=== PATIENT | female | born 1960 | race African-American/Black ===

== ENCOUNTER 2017-11-23 08:37 | Emergency (ER) | payer OTHER ==
[2017-11-23] MEDS ORDERED: NORMAL SALINE 1000 ML 1,000 ML IV ONE ×3 (09:07→11:30)
[2017-11-23] MEDS ORDERED: MORPHINE SULFATE 10 MG/ML INJ IV ONE (09:07)
--- NOTE | 2017-11-23 09:10 | ER Document Report ---
ED General - General Chief Complaint: Sickle Cell Crisis Stated Complaint: LEFT LEG PAIN Time Seen by Provider: 11/23/17 09:02 Mode of Arrival: Ambulatory Information source: Patient Notes: Patient is a 57-year-old female who presents with chief complaint of possible sickle cell crisis. Patient reports that she started having pain in her left leg yesterday and states this is how her sickle cell crisis typically starts. Patient reports that she usually goes to her physician's office to have IV fluids. Patient denies any other complaints, denies any chest pain, nausea, vomiting or shortness of breath. TRAVEL OUTSIDE OF THE [place] IN LAST 30 DAYS: No - Related Data Allergies/Adverse Reactions: No Known Allergies Allergy (Verified 11/23/17 08:38) Past Medical History - General Information source: Patient - Social History Smoking Status: Never Smoker Frequency of alcohol use: None Drug Abuse: None Family History: Reviewed & Not Pertinent - Medical History Medical History: Other - Sickle cell - Past Medical History Cardiac Medical History: Denies: Hx Pulmonary Embolism Pulmonary Medical History: Reports: Hx Pneumonia Denies: Hx Asthma, Hx Bronchitis, Hx COPD, Hx Respiratory Failure, Hx Sleep Apnea, Hx Tuberculosis Renal/ Medical History: Denies: Hx End Stage Renal Disease, Hx Kidney Stones, Hx Peritoneal Dialysis Malignancy Medical History: Denies: Hx Leukemia, Hx Lung Cancer Musculoskeletal Medical History: Denies Hx Arthritis, Denies Hx Fibromyalgia, Denies Hx Muscular Dystrophy Traumatic Medical History: Denies: Hx Fractures Infectious Medical History: Denies: Hx HIV Past Surgical History: Reports: Hx Hysterectomy, Hx Tubal Ligation. Denies: Hx Appendectomy, Hx Bowel Surgery, Hx Section, Hx Cholecystectomy, Hx Coronary Artery Bypass Graft, Hx Gastric Bypass Surgery, Hx Herniorrhaphy, Hx Mastectomy, Hx Pacemaker, Hx Tonsillectomy - Immunizations Immunizations up to date: No Hx Diphtheria, Pertussis, Tetanus Vaccination: Yes Review of Systems - Review of Systems Constitutional: No symptoms reported EENT: No symptoms reported Cardiovascular: No symptoms reported Respiratory: No symptoms reported Gastrointestinal: No symptoms reported Genitourinary: No symptoms reported Female Genitourinary: No symptoms reported Musculoskeletal: See HPI Skin: No symptoms reported Hematologic/Lymphatic: No symptoms reported Neurological/Psychological: No symptoms reported Physical Exam - Vital signs Vitals: Temp Pulse Resp BP Pulse Ox 98.1 F 66 16 112/77 97 11/23/17 08:52 09/13/18 08:52 11/23/17 08:52 11/23/17 08:52 11/23/17 08:52 - Notes Notes: PHYSICAL EXAMINATION: GENERAL: Well-appearing, well-nourished and in no acute distress. HEAD: Atraumatic, normocephalic. EYES: Pupils equal round and reactive to light, extraocular movements intact, conjunctiva are normal. ENT: Nares patent, oropharynx clear without exudates. Moist mucous membranes. NECK: Normal range of motion, supple without lymphadenopathy LUNGS: Breath sounds clear to auscultation bilaterally and equal. No wheezes rales or rhonchi. HEART: Regular rate and rhythm without murmurs ABDOMEN: Soft, nontender, nondistended abdomen. No guarding, no rebound. No masses appreciated. Female : deferred Musculoskeletal: Normal range of motion, no pitting or edema. No cyanosis. NEUROLOGICAL: Cranial nerves grossly intact. Normal speech, normal gait. Normal sensory, motor exams PSYCH: Normal mood, normal affect. SKIN: Warm, Dry, normal turgor, no rashes or lesions noted. Course - Re-evaluation Re-evalutation: 11/23/17 09:09 Patient is alert, oriented and in no acute distress. Will order IV fluids as well as well pain medication. 11/23/17 13:31 Patient reports she is feeling much improved after administration of IV fluids and IV pain medications. Reticulocyte count was 3.69, absolute reticulocytes are 0.151. Patient will be discharged home at this time. - Vital Signs Vital signs: Temp Pulse Resp BP Pulse Ox 98.1 F 66 14 118/73 100 11/23/17 08:52 11/23/17 08:52 11/23/17 12:00 11/23/17 12:00 11/23/17 12:00 - Laboratory Result Diagrams: 11/23/17 09:45 11/23/17 09:45 Laboratory results interpreted by me: 11/23/17 09:45 Hgb 11.3 L Hct 32.6 L RDW 18.5 H Retic Count (auto) 3.69 H Absolute Retic 0.151 H Discharge - Discharge Clinical Impression: Sickle cell crisis Condition: Stable Disposition: HOME, SELF-CARE Additional Instructions: Sickle Cell Crisis You have "sickle cell crisis." Sickle cell disease is caused by abnormal hemoglobin. This hemoglobin can deform red blood cells into a sickle shape. These abnormal blood cells can block blood vessels. This causes the pain of sickle cell crisis. Sickle cell crisis can occur any time. But attacks are more likely with acute infection, dehydration, or altitude change. A crisis usually causes pain in the legs, back, abdomen, and chest. Sometimes the pain may ease and return later. The usual treatment is oxygen, pain medication, IV fluids, and treatment of infection. Attacks may take a couple of days to resolve. Return if the pain becomes more severe, or if there are new symptoms. Referrals: AUSTIN HYDE MD [Primary Care Provider] - Follow up as needed
[2017-11-23 09:59] LABS: ABSOLUTE BASOPHILS # (AUTO) 0.1 10^3/uL (0.0-0.2); ABSOLUTE EOSINOPHILS # (AUTO) 0.1 10^3/uL (0.0-0.6); ABSOLUTE LYMPHOCYTES (AUTO) 2.4 10^3/uL (0.5-4.7); ABSOLUTE MONOCYTES (AUTO) 0.4 10^3/uL (0.1-1.4); ABSOLUTE NEUT (AUTO) 3.8 10^3/uL (1.7-8.2); ABSOLUTE RETICS # 0.151 10^6/uL (0.028-0.122); BASOPHILS % (AUTO) 1.4 % (0-2); EOSINOPHILS % (AUTO) 2.1 % (0-6); HEMATOCRIT 32.6 % (36.0-47.0); HEMOGLOBIN 11.3 g/dL (12.0-15.5); LYMPHOCYTES % (AUTO) 34.8 % (13-45); MEAN CORPUSCULAR HEMOGLOBIN 27.6 pg (27.0-33.4); MEAN CORPUSCULAR HGB CONC 34.7 g/dL (32.0-36.0); MEAN CORPUSCULAR VOLUME 80 fl (80-97); MONOCYTES % (AUTO) 6.3 % (3-13); PLATELET COUNT 201 10^3/uL (150-450); RED BLOOD COUNT 4.09 10^6/uL (3.72-5.28); RED CELL DISTRIBUTION WIDTH 18.5 % (11.5-14.0); RETICULOCYTE COUNT (AUTO) 3.69 % (0.66-2.85); SEGMENTED NEUTROPHILS % (AUTO) 55.4 % (42-78); TOTAL CELLS COUNTED % (AUTO) 100 %; WHITE BLOOD COUNT 6.8 10^3/uL (4.0-10.5)
[2017-11-23 10:15] LABS: ALANINE AMINOTRANSFERASE 24 U/L (9-52); ALKALINE PHOSPHATASE 60 U/L (38-126); ANION GAP 7 (5-19); ASPARTATE AMINO TRANSFERASE 16 U/L (14-36); BILIRUBIN,DIRECT 0.3 mg/dL (0.0-0.4); BILIRUBIN,TOTAL 1.2 mg/dL (0.2-1.3); BLOOD UREA NITROGEN 10 mg/dL (7-20); CALCIUM 9.2 mg/dL (8.4-10.2); CARBON DIOXIDE 29 mmol/L (22-30); CHLORIDE 105 mmol/L (98-107); GLUCOSE 98 mg/dL (75-110); SODIUM 141.1 mmol/L (137-145); TOTAL PROTEIN 6.5 g/dL (6.3-8.2)
[2017-11-23] MEDS ORDERED: NORMAL SALINE 100 ML IV PRN (11:30)
[2017-11-23] MEDS ORDERED: HYDROMORPHONE HCL INJ/PF 2 MG/ML AMPULE IV ONE (12:00)
[2017-11-23 12:55] VITALS: BP 118/73
== END 2017-11-23 13:41 | disposition home or self-care (01) ==
LOC: ER 08:37
DX: D57.00 Hb-SS disease with crisis, unspecified (principal); Z95.1 Presence of aortocoronary bypass graft; Z98.84 Bariatric surgery status; Z95.0 Presence of cardiac pacemaker
CPT/HCPCS: 99284; 96361; 96374; 96375; 36415; 85025; 85045; 80053; J2270; J1170

== ENCOUNTER 2019-03-03 13:47 | Inpatient (IN) | payer OTHER ==
[2019-03-03] MEDS ORDERED: NORMAL SALINE 1000 ML 1,000 ML IV ONE ×2 (14:32→15:51)
[2019-03-03] MEDS ORDERED: HYDROMORPHONE HCL INJ/PF 2 MG/ML AMPULE IV ONE ×2 (14:32→16:02)
--- NOTE | 2019-03-03 14:33 | ER Document Report ---
ED Medical Screen (RME) - General Chief Complaint: Sickle Cell Crisis Stated Complaint: PAIN ALL OVER Time Seen by Provider: 03/03/19 14:29 Primary Care Provider: AUSTIN HYDE MD [Primary Care Provider] - Follow up as needed Information source: Patient Notes: Patient presents complaining of left lower extremity pain that started yesterday. Patient feels as though she is having a sickle cell pain crisis. Patient took pain medicine at 730 this morning without improvement of her symptoms. Patient denies any other significant medical history. I have greeted and performed a rapid initial assessment of this patient. A comprehensive ED assessment and evaluation of the patient, analysis of test results and completion of the medical decision making process will be conducted by additional ED providers. TRAVEL OUTSIDE OF THE [place] IN LAST 30 DAYS: No - Related Data Allergies/Adverse Reactions: No Known Allergies Allergy (Verified 03/03/19 14:28) Past Medical History - Past Medical History Cardiac Medical History: Denies: Hx Pulmonary Embolism Pulmonary Medical History: Reports: Hx Pneumonia Denies: Hx Asthma, Hx Bronchitis, Hx COPD, Hx Respiratory Failure, Hx Sleep Apnea, Hx Tuberculosis Renal/ Medical History: Denies: Hx End Stage Renal Disease, Hx Kidney Stones, Hx Peritoneal Dialysis Malignancy Medical History: Denies: Hx Leukemia, Hx Lung Cancer Musculoskeltal Medical History: Denies Hx Arthritis, Denies Hx Fibromyalgia, Denies Hx Muscular Dystrophy Traumatic Medical History: Denies: Hx Fractures Infectious Medical History: Denies: Hx HIV Past Surgical History: Reports: Hx Hysterectomy, Hx Tubal Ligation. Denies: Hx Appendectomy, Hx Bowel Surgery, Hx Section, Hx Cholecystectomy, Hx Coronary Artery Bypass Graft, Hx Gastric Bypass Surgery, Hx Herniorrhaphy, Hx Mastectomy, Hx Pacemaker, Hx Tonsillectomy - Immunizations Immunizations up to date: No Hx Diphtheria, Pertussis, Tetanus Vaccination: Yes Physical Exam - Vital signs Vitals: Temp Pulse Resp BP Pulse Ox 98.4 F 73 16 140/81 H 98 03/03/19 13:54 03/03/19 13:54 03/03/19 13:54 03/03/19 13:54 03/03/19 13:54 - General General appearance: Alert, Anxious Notes: Left lower extremity tenderness Course - Vital Signs Vital signs: Temp Pulse Resp BP Pulse Ox 98.4 F 73 16 140/81 H 98 03/03/19 13:54 03/03/19 13:54 03/03/19 13:54 03/03/19 13:54 03/03/19 13:54 Doctor's Discharge - Discharge Referrals: AUSTIN HYDE MD [Primary Care Provider] - Follow up as needed
[2019-03-03 15:27] LABS: ABSOLUTE BASOPHILS # (AUTO) 0.1 10^3/uL (0.0-0.2); ABSOLUTE EOSINOPHILS # (AUTO) 0.2 10^3/uL (0.0-0.6); ABSOLUTE LYMPHOCYTES (AUTO) 3.4 10^3/uL (0.5-4.7); ABSOLUTE MONOCYTES (AUTO) 0.7 10^3/uL (0.1-1.4); ABSOLUTE NEUT (AUTO) 7.4 10^3/uL (1.7-8.2); ABSOLUTE RETICS # 0.145 10^6/uL (0.028-0.122); BASOPHILS % (AUTO) 0.6 % (0-2); EOSINOPHILS % (AUTO) 1.5 % (0-6); HEMATOCRIT 33.4 % (36.0-47.0); HEMOGLOBIN 11.4 g/dL (12.0-15.5); LYMPHOCYTES % (AUTO) 29.1 % (13-45); MEAN CORPUSCULAR HEMOGLOBIN 27.1 pg (27.0-33.4); MEAN CORPUSCULAR VOLUME 80 fl (80-97); MONOCYTES % (AUTO) 5.6 % (3-13); PLATELET COUNT 215 10^3/uL (150-450); RED CELL DISTRIBUTION WIDTH 17.8 % (11.5-14.0); RETICULOCYTE COUNT (AUTO) 3.45 % (0.66-2.85); SEGMENTED NEUTROPHILS % (AUTO) 63.2 % (42-78); TOTAL CELLS COUNTED % (AUTO) 100 %; WHITE BLOOD COUNT 11.7 10^3/uL (4.0-10.5)
[2019-03-03 15:32] LABS: ALBUMIN 4.6 g/dL (3.5-5.0); ALKALINE PHOSPHATASE 80 U/L (38-126); ANION GAP 11 (5-19); ASPARTATE AMINO TRANSFERASE 24 U/L (14-36); BILIRUBIN,DIRECT 0.1 mg/dL (0.0-0.4); BILIRUBIN,TOTAL 1.5 mg/dL (0.2-1.3); BLOOD UREA NITROGEN 16 mg/dL (7-20); CALCIUM 9.9 mg/dL (8.4-10.2); CARBON DIOXIDE 28 mmol/L (22-30); CHLORIDE 100 mmol/L (98-107); GLUCOSE 91 mg/dL (75-110); POTASSIUM 3.8 mmol/L (3.6-5.0); TOTAL PROTEIN 7.9 g/dL (6.3-8.2)
[2019-03-03] MEDS ORDERED: MORPHINE SULFATE 10 MG/ML INJ IV ONE ×4 (16:14→23:03)
--- NOTE | 2019-03-03 16:23 | ER Document Report ---
ED General - General TRAVEL OUTSIDE OF THE [place] IN LAST 30 DAYS: No <ABDOULAYE BURLESON - Last Filed: 03/03/19 23:04> <TERA NOLAN - Last Filed: 03/04/19 02:57> - General Chief Complaint: Leg Pain Stated Complaint: PAIN ALL OVER Time Seen by Provider: 03/03/19 14:29 Primary Care Provider: AUSTIN HYDE MD [Primary Care Provider] - Follow up as needed Notes: 58-year-old female with history of sickle cell presents with left lower leg pain that started last night. Patient has a history of sickle cell and states this feels like her usual sickle cell pain. Patient states she has not had a flareup in 3 years. Patient has tried to manage it at home with her home pain medication however it got worse today. Patient denies any chest pain, shortness of breath, fever. (ABDOULAYE BURLESON) - Related Data Allergies/Adverse Reactions: No Known Allergies Allergy (Verified 03/03/19 14:28) Past Medical History - General Information source: Patient - Social History Smoking Status: Never Smoker Family History: Reviewed & Not Pertinent Patient has suicidal ideation: No Patient has homicidal ideation: No - Past Medical History Cardiac Medical History: Denies: Hx Pulmonary Embolism Pulmonary Medical History: Reports: Hx Pneumonia Denies: Hx Asthma, Hx Bronchitis, Hx COPD, Hx Respiratory Failure, Hx Sleep Apnea, Hx Tuberculosis Renal/ Medical History: Denies: Hx End Stage Renal Disease, Hx Kidney Stones, Hx Peritoneal Dialysis Malignancy Medical History: Denies: Hx Leukemia, Hx Lung Cancer Musculoskeletal Medical History: Denies Hx Arthritis, Denies Hx Fibromyalgia, Denies Hx Muscular Dystrophy Traumatic Medical History: Denies: Hx Fractures Infectious Medical History: Denies: Hx HIV Past Surgical History: Reports: Hx Hysterectomy, Hx Tubal Ligation. Denies: Hx Appendectomy, Hx Bowel Surgery, Hx Section, Hx Cholecystectomy, Hx Coronary Artery Bypass Graft, Hx Gastric Bypass Surgery, Hx Herniorrhaphy, Hx Mastectomy, Hx Pacemaker, Hx Tonsillectomy - Immunizations Immunizations up to date: No Hx Diphtheria, Pertussis, Tetanus Vaccination: Yes <ABDOULAYE BURLESON - Last Filed: 03/03/19 23:04> Review of Systems <ABDOULAYE BURLESON - Last Filed: 03/03/19 23:04> - Review of Systems Notes: Constitutional: Negative for fever. HENT: Negative for sore throat. Eyes: Negative for visual changes. Cardiovascular: Negative for chest pain. Respiratory: Negative for shortness of breath. Gastrointestinal: Negative for abdominal pain, vomiting or diarrhea. Genitourinary: Negative for dysuria. Musculoskeletal: Positive for left leg pain. Negative for back pain. Skin: Negative for rash. Neurological: Negative for headaches, weakness or numbness. 10 point ROS negative except as marked above and in HPI. (ABDOULAYE BURLESON) Physical Exam <ABDOULAYE BURLESON - Last Filed: 03/03/19 23:04> - Vital signs Vitals: Temp Pulse Resp BP Pulse Ox 98.4 F 73 16 140/81 H 98 03/03/19 13:54 03/03/19 13:54 03/03/19 13:54 03/03/19 13:54 03/03/19 13:54 - Notes Notes: GENERAL: Well-appearing, well-nourished and uncomfortable HEAD: Atraumatic, normocephalic. EYES: Extraocular movements intact, sclera anicteric, conjunctiva are normal. NECK: Normal range of motion, supple without lymphadenopathy or JVD. LUNGS: Breath sounds clear to auscultation bilaterally and equal. No wheezes rales or rhonchi. HEART: Regular rate and rhythm without murmurs, rubs or gallops. EXTREMITIES: Normal range of motion, no pitting or edema. No clubbing or cyanosis. Left lower extremity: normal ROM, no swelling, distal pedal pulses 2+. No erythema. Not hot to touch. NEUROLOGICAL: Cranial nerves II through XII grossly intact. Normal speech, normal gait. PSYCH: Normal mood, normal affect. SKIN: Warm, Dry, normal turgor, no rashes or lesions noted. (ABDOULAYE BURLESON) Course - Laboratory Result Diagrams: 03/03/19 15:00 03/03/19 15:00 <ABDOULAYE BURLESON - Last Filed: 03/03/19 23:04> - Laboratory Result Diagrams: 03/03/19 15:00 03/03/19 15:00 <TERA NOLAN - Last Filed: 03/04/19 02:57> - Re-evaluation Re-evalutation: 03/03/19 58-year-old female with history of sickle cell presents for left lower leg pain that she says is consistent with her usual sickle cell pain. Patient tried her home pain medication without relief. Patient states last flareup was 3 years ago. Patient denies any chest pain, dyspnea, fever. Low suspicion for acute chest syndrome. Patient does not have any abdominal pain. Patient does not look pale or appear to be in shock. Patient has no signs of stroke. No signs of sepsis. Patient is nontoxic, well-appearing. Patient is afebrile. CBC shows a mild like leukocytosis of 11.7, mild anemia, hemoglobin of 11.4, retake count mildly elevated at 3.45 however this is not the highest that the patient has had here at [facility]. Patient's CMP is within normal limits. Fluid and Dilaudid were ordered out in triage. Patient states that the Dilaudid does not usually help and is requesting morphine instead. Another liter bolus was ordered and will reassess. 03/03/19 23:04 Discussed with pt possible admission for observation vs discharge home. Pt is currently receiving 3rd liter of IV fluids. Pt states she does not want to be admitted. Requesting another dose of morphine. Will reassess after pt finished with 3rd liter and receiving morphine. Pt also states her mouth is dry. Pt to be given PO fluids. (ABDOULAYE BURLESON) 03/04/19 02:55 Nurses inform me that the patient is still here. Unfortunately I think there was a miscommunication in regards to this patient. I did evaluate her and discussed with her at bedside, she states that she keeps having pain beyond her norm and she cannot get comfortable, this is mainly in her left leg. She states she has not needed admission for sickle cell pain crisis in 4 years and she was trying to go home but she simply cannot get comfortable and she was wondering if she could be admitted. She has had multiple rounds of pain medication and IV fluids. Will discuss with her provider. I spoke with Dr. Gerber, on-call for Dr. Arndt, he accepts the patient for admission to the hospital. (TERA NOLAN) - Vital Signs Vital signs: Temp Pulse Resp BP Pulse Ox 100.4 F 86 16 120/64 100 03/04/19 01:47 03/04/19 01:47 03/04/19 01:47 03/04/19 01:47 03/04/19 01:47 - Laboratory Laboratory results interpreted by me: 03/03/19 03/03/19 15:00 15:00 WBC 11.7 H Hgb 11.4 L Hct 33.4 L RDW 17.8 H Reticulocyte # 0.145 H Retic Count (auto) 3.45 H Total Bilirubin 1.5 H Discharge <ABDOULAYE BURLESON - Last Filed: 03/03/19 23:04> - Discharge Admitting Provider: Buzz - [facility] Unit Admitted: Medical Floor <TERA NOLAN - Last Filed: 03/04/19 02:57> - Discharge Clinical Impression: Sickle cell pain crisis Condition: Stable Disposition: ADMITTED INPATIENT Referrals: AUSTIN HYDE MD [Primary Care Provider] - Follow up as needed
[2019-03-03] MEDS: NORMAL SALINE 1000 ML 1,000 ML IV PRN ×2 (21:46→23:24)
[2019-03-04] MEDS ORDERED: MORPHINE SULFATE 10 MG/ML INJ IV PRN (02:57)
[2019-03-04] MEDS: HYDROMORPHONE HCL INJ/PF 2 MG/ML AMPULE IV PRN ×3 (08:08→20:02)
[2019-03-04] MEDS: NORMAL SALINE 1000 ML 1,000 ML IV PRN ×2 (08:09→20:54)
--- NOTE | 2019-03-04 20:44 | PDOC H&P ---
History of Present Illness Admission Date/PCP: 03/04/19 02:59 AUSTIN HYDE Patient complains of: Leg pain History of Present Illness: EMILI PEREIRA is a 58 year old female patient known to my practice who presented to the ED with complain of generalized body pain but more in her legs and similar to her acute pain crises from sickle cell disease. Patient reported that she was self managing her pain at home over last couple of days but due to no improvement in her pain level she decided to seek medical attention in the ED. She denied any preceding fever, chills, chest congestion, nausea, vomiting or abdominal pain. She denied dysuria, hematuria, or flank pain. At the time of my evaluation she localized pain more to sternal region of her chest. She de monstrated some degree of difficulty with arousal. Due to her presenting symptom including leg pain and minimal resolution with administration of IV Morphine, she was advised hospitalization for further evaluation and management. Her morbidities are as listed below. 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, Sickle Cell Disease Denies: Hemophilia Infectious Medical History: Denies: HIV Past Surgical History Past Surgical History: Reports: Hysterectomy, Tubal Ligation Denies: Amputation, Appendectomy, Section, Cholecystectomy, Coronary Artery Bypass Graft, Gastric Bypass Surgery, Herniorrhaphy, Mastectomy, Pacemaker, Tonsillectomy Social History Smoking Status: Never Smoker Electronic Cigarette use?: No Frequency of Alcohol Use: None Hx Recreational Drug Use: No Drugs: None Hx Prescription Drug Abuse: No - Advance Directive Resuscitation Status: Full Code Family History Family History: Reviewed & Not Pertinent Parental Family History Reviewed: Yes Children Family History Reviewed: Yes Sibling(s) Family History Reviewed.: Yes Medication/Allergy Home Medications: Amoxicillin/Potassium Clav [Amox-Clav 875-125 mg Tablet] 1 each PO Q12 MDD filled 02/26 for 10 day supply 03/04/19 Cetirizine HCl [Zyrtec 10 mg Tablet] 10 mg PO DAILY 03/04/19 Ergocalciferol (Vitamin D2) [Drisdol 50,000 unit (1.25MG) Capsule] 50,000 unit PO MO@1000 03/04/19 Fluticasone Propionate [Flonase Nasal [place] 50 Mcg/[place] 16 gm] 1 spray NAREB DAILYP PRN 03/04/19 Gabapentin [Neurontin 100 mg Capsule] 100 mg PO QHS 03/04/19 Ibuprofen [Motrin 800 mg Tablet] 800 mg PO Q8HP PRN 03/04/19 Oxycodone HCl/Acetaminophen [Oxycodone-Acetaminophen 10-325] 1 each PO Q4HP PRN 03/04/19 Allergies/Adverse Reactions: No Known Allergies Allergy (Verified 03/03/19 14:28) Review of Systems Constitutional: ABSENT: chills, fever(s), headache(s), weight gain, weight loss Eyes: PRESENT: visual disturbances Ears: ABSENT: hearing changes Nose, Mouth, and Throat: ABSENT: as per HPI, headache(s), mouth pain, sore throat, vertigo, other Cardiovascular: PRESENT: chest pain - more musculoskeletal in sternal region Respiratory: ABSENT: cough, hemoptysis Gastrointestinal: ABSENT: abdominal pain, constipation, diarrhea, hematemesis, hematochezia, nausea, vomiting Integumentary: ABSENT: rash, wounds Neurological: ABSENT: abnormal gait, abnormal speech, confusion, dizziness, focal weakness, syncope Psychiatric: ABSENT: anxiety, depression, homidical ideation, suicidal ideation Endocrine: ABSENT: cold intolerance, heat intolerance, polydipsia, polyuria Hematologic/Lymphatic: ABSENT: easy bleeding, easy bruising, lymphadenopathy Allergic/Immunologic: ABSENT: seasonal rhinorrhea Physical Exam Vital Signs: Temp Pulse Resp BP Pulse Ox 97.1 F 127 H 20 164/72 H 93 03/04/19 16:00 03/04/19 16:00 03/04/19 16:00 03/04/19 16:00 03/04/19 16:00 Intake & Output 03/03/19 03/04/19 03/05/19 06:59 06:59 06:59 Intake Total 4000 606 Balance 4000 606 Weight 76.9 kg General appearance: PRESENT: cooperative, disheveled, mild distress - from pain, obese Head exam: PRESENT: atraumatic, normocephalic Eye exam: PRESENT: conjunctiva pink, EOMI, PERRLA. ABSENT: scleral icterus Ear exam: PRESENT: normal external ear exam Mouth exam: PRESENT: moist Neck exam: PRESENT: full ROM. ABSENT: carotid bruit, JVD, lymphadenopathy, thyromegaly Respiratory exam: PRESENT: clear to auscultation cesilia, decreased breath sounds - at lung bases Cardiovascular exam: PRESENT: RRR. ABSENT: diastolic murmur, rubs, systolic murmur Vascular exam: ABSENT: pallor GI/Abdominal exam: PRESENT: normal bowel sounds, soft. ABSENT: distended, guarding, mass, organolmegaly, rebound, tenderness Rectal exam: PRESENT: deferred Musculoskeletal exam: PRESENT: tenderness - to sternal rub and mutiple lower extremity joints Neurological exam: PRESENT: altered - probale due to pain medication administration. There was need to apply sterna rub to get patient alertness and obtain medical history with recurrently falling asleep during tis evaluation. Psychiatric exam: PRESENT: appropriate affect, normal mood. ABSENT: homicidal ideation, suicidal ideation Skin exam: PRESENT: dry, warm Results Laboratory Results: 03/03/19 15:00 03/03/19 15:00 Assessment & Plan - Diagnosis (1) Sickle cell pain crisis Is this a current diagnosis for this admission?: Yes Plan: See admitting physician orders for details about care plan. (2) Chest pain Qualifiers: Chest pain type: other chest pain Qualified Code(s): R07.89 - Other chest pain; R07.8 - Other chest pain Is this a current diagnosis for this admission?: Yes Plan: See admitting physician orders for details about care plan. 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 - Time Time Spent: 50 to 70 Minutes Medications reviewed and adjusted accordingly: Yes Anticipated discharge: Home Within: Other - Inpatient Certification Based on my medical assessment, after consideration of the patient's comorbidities, presenting symptoms, or acuity I expect that the services needed warrant INPATIENT care.: Yes I certify that my determination is in accordance with my understanding of Medicare's requirements for reasonable and necessary INPATIENT services [42 CFR 412.3e].: Yes Medical Necessity: Significant Comorbidiites Make Outpatient Treatment Too Risky, Need Close Monitoring Due to Risk of Patient Decompensation, Need For IV Fluids, Need For Continuous Telemetry Monitoring, Need for Pain Control, Risk of Complication if Not Cared For in Hospital, Risk of Diagnosis Which Will Require Inpatient Eval/Care/Monitoring Post Hospital Care: D/C [employer] Tender Documentation - Plan Summary Plan Summary: See admitting physician orders for details about care plan.
[2019-03-04] MEDS: ENOXAPARIN SODIUM INJ 40 MG/0.4 ML DISP.SYRIN SUBCUT SCH (22:23)
[2019-03-04] MEDS: GABAPENTIN 100 MG CAPSULE PO SCH (22:23)
[2019-03-04] MEDS: ENOXAPARIN SODIUM INJ 40 MG/0.4 ML DISP.SYRIN SUBCUT ONE (22:30)
[2019-03-05] MEDS: ENOXAPARIN SODIUM INJ 40 MG/0.4 ML DISP.SYRIN SUBCUT ONE (00:31)
[2019-03-05] MEDS: HYDROMORPHONE HCL INJ/PF 2 MG/ML AMPULE IV PRN ×4 (01:45→23:05)
--- NOTE | 2019-03-05 02:43 | RADIOLOGY REPORT (SQ) ---
CLINICAL HISTORY: chest pain COMPARISON: 02/20/2015. 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 There is atelectasis in the medial right lung base. There is no pleural effusion. There is no pneumothorax. There are no acute osseous findings. IMPRESSION: No definite pneumonia.
[2019-03-05 03:51] LABS: APPEARANCE,URINE CLEAR; BILIRUBIN,URINE NEGATIVE (NEGATIVE); COLOR,URINE YELLOW; GLUCOSE, URINE NEGATIVE (NEGATIVE); KETONES,URINE NEGATIVE (NEGATIVE); LEUKOCYTE ESTERASE,URINE NEGATIVE (NEGATIVE); NITRITE,URINE NEGATIVE (NEGATIVE); PROTEIN,URINE 30 mg/dL (NEGATIVE); URINE SPECIFIC GRAVITY 1.011; UROBILINOGEN,URINE NEGATIVE mg/dL (<2.0)
[2019-03-05 05:49] LABS: HEMATOCRIT 22.2 % (36.0-47.0); MEAN CORPUSCULAR HEMOGLOBIN 27.9 pg (27.0-33.4); MEAN CORPUSCULAR VOLUME 80 fl (80-97); PLATELET COUNT 127 10^3/uL (150-450); RED BLOOD COUNT 2.79 10^6/uL (3.72-5.28); RED CELL DISTRIBUTION WIDTH 18.8 % (11.5-14.0)
[2019-03-05 05:52] LABS: HEMOGLOBIN 7.8 g/dL (12.0-15.5); WHITE BLOOD COUNT 25.2 10^3/uL (4.0-10.5)
[2019-03-05] MEDS: PANTOPRAZOLE SODIUM 40 MG TABLET.DR PO SCH (05:58)
[2019-03-05 06:11] LABS: ALBUMIN 3.3 g/dL (3.5-5.0); ALKALINE PHOSPHATASE 56 U/L (38-126); ANION GAP 8 (5-19); ASPARTATE AMINO TRANSFERASE 57 U/L (14-36); BILIRUBIN,DIRECT 0.4 mg/dL (0.0-0.4); BILIRUBIN,TOTAL 2.1 mg/dL (0.2-1.3); BLOOD UREA NITROGEN 12 mg/dL (7-20); CALCIUM 8.3 mg/dL (8.4-10.2); CARBON DIOXIDE 27 mmol/L (22-30); CHLORIDE 104 mmol/L (98-107); GLUCOSE 113 mg/dL (75-110); POTASSIUM 3.4 mmol/L (3.6-5.0); TOTAL PROTEIN 6.1 g/dL (6.3-8.2)
[2019-03-05 06:18] LABS: ABSOLUTE LYMPHOCYTES# (MANUAL) 3.5 10^3/uL (0.5-4.7); ABSOLUTE MONOCYTES # (MANUAL) 1.8 10^3/uL (0.1-1.4); BASOPHILS % (MANUAL) 0 % (0-2); EOSINOPHILS % (MANUAL) 0 % (0-6); LYMPHOCYTES % (MANUAL) 13 % (13-45); MONOCYTES % (MANUAL) 7 % (3-13); NUCLEATED RED BLOOD CELLS 3 /100 WBC (0); SEGMENTED NEUTROPHILS % (MAN) 79 % (42-78); TOTAL CELLS COUNTED 100
[2019-03-05 06:22] LABS: ANISOCYTOSIS 2+; HYPOCHROMASIA 1+; PLATELET COMMENT DECREASED; POIKILOCYTOSIS SLIGHT; POLYCHROMASIA SLIGHT; TARGET CELLS SLIGHT
[2019-03-05] MEDS: ACETAMINOPHEN 325 MG TABLET PO PRN ×2 (07:27→20:31)
[2019-03-05] MEDS: NORMAL SALINE 1000 ML 1,000 ML IV PRN (07:28)
[2019-03-05] MEDS: CEFEPIME HCL 2 GM in DEXTROSE 5%-WATER 50 ML IV SCH (10:33)
[2019-03-05] MEDS: CETIRIZINE 10 MG TABLET PO SCH (10:33)
[2019-03-05] MEDS: ENOXAPARIN SODIUM INJ 40 MG/0.4 ML DISP.SYRIN SUBCUT SCH (10:34)
[2019-03-05] MEDS: LEVOFLOXACIN 500 MG/D5W RTU 500 MG/100 ML RTUPB IV SCH (12:52)
--- NOTE | 2019-03-05 18:01 | PDOC PROGRESS REPORT ---
Subjective Progress Note for:: 03/05/19 Subjective:: Patient had significant elevated temperature earlier today. Patient reported couple of diarrhea events today. She denied any headache, chills, nausea, or vomiting. She reported non productive coughing. There is associated chest pain rated at 1/10 presently. Reason For Visit: SICKLE CELL DISEASE WITH ACUTE PAIN CRISIS Physical Exam Vital Signs: Temp Pulse Resp BP Pulse Ox 98.9 F 90 18 106/60 93 03/05/19 12:00 03/05/19 14:00 03/05/19 12:00 03/05/19 12:00 03/05/19 12:00 Intake & Output 03/04/19 03/05/19 03/06/19 06:59 06:59 06:59 Intake Total 4000 2606 550 Output Total 600 Balance 4000 2006 550 Weight 76.9 kg 76.5 kg General appearance: PRESENT: no acute distress, obese Head exam: PRESENT: atraumatic, normocephalic Eye exam: PRESENT: conjunctiva pink. ABSENT: scleral icterus Ear exam: PRESENT: normal external ear exam Mouth exam: PRESENT: moist Respiratory exam: PRESENT: clear to auscultation cesilia, decreased breath sounds - at lung bases Cardiovascular exam: PRESENT: RRR. ABSENT: diastolic murmur, rubs, systolic murmur Vascular exam: ABSENT: pallor GI/Abdominal exam: PRESENT: normal bowel sounds, soft. ABSENT: distended, guarding, mass, organolmegaly, rebound, tenderness Extremities exam: ABSENT: pedal edema Neurological exam: PRESENT: alert, awake, oriented to person, oriented to place, oriented to time, oriented to situation, CN II-XII grossly intact. ABSENT: motor sensory deficit Psychiatric exam: PRESENT: appropriate affect, normal mood. ABSENT: homicidal ideation, suicidal ideation Skin exam: PRESENT: dry, warm Results Laboratory Results: 03/05/19 04:45 03/05/19 04:45 03/05/19 03/05/19 03/05/19 01:42 04:45 04:45 WBC 25.2 H D RBC 2.79 L Hgb 7.8 L D Hct 22.2 L MCV 80 MCH 27.9 MCHC 35.0 RDW 18.8 H Plt Count 127 L Seg Neutrophils % Not Reportable Sodium 139.2 Potassium 3.4 L Chloride 104 Carbon Dioxide 27 Anion Gap 8 BUN 12 Creatinine 0.74 Est GFR ( Amer) > 60 Glucose 113 H Calcium 8.3 L Total Bilirubin 2.1 H AST 57 H Alkaline Phosphatase 56 Total Protein 6.1 L Albumin 3.3 L Urine Color YELLOW Urine Appearance CLEAR Urine pH 5.0 Ur Specific [place] 1.011 Urine Protein 30 H Urine Glucose (UA) NEGATIVE Urine Ketones NEGATIVE Urine Blood SMALL H Urine Nitrite NEGATIVE Ur Leukocyte Esterase NEGATIVE Urine WBC (Auto) 1 Urine RBC (Auto) 0 Impressions: Chest X-Ray 03/04/19 00:00 IMPRESSION: No definite pneumonia. 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 Started on IV Levofloxacin and Cefepime coverage. Follow up on blood culture and obtain sputum for gram stain and culture. (5) Sickle cell anemia with crisis Is this a current diagnosis for this admission?: Yes Plan: Patient declined blood transfusion on sabianism ground. She will prefer use of Procrit to promote erythropoiesis. Continue discussion about treatment with patient. (6) Diarrhea Qualifiers: Diarrhea type: unspecified type Qualified Code(s): R19.7 - Diarrhea, unspecified Is this a current diagnosis for this admission?: Yes Plan: Obtain C. difficile toxin titer. Start on Imodium therapy. - Time Time Spent with patient: 35 or more minutes Level of Care: TELE Medications reviewed and adjusted accordingly: Yes Anticipated discharge: Home Within: Other - Inpatient Certification Based on my medical assessment, after consideration of the patient's comorbidities, presenting symptoms, or acuity I expect that the services needed warrant INPATIENT care.: Yes I certify that my determination is in accordance with my understanding of Medicare's requirements for reasonable and necessary INPATIENT services [42 CFR 412.3e].: Yes Medical Necessity: Significant Comorbidiites Make Outpatient Treatment Too Risky, Need Close Monitoring Due to Risk of Patient Decompensation, Need For IV Fluids, Need For Continuous Telemetry Monitoring, Need for IV Antibiotics, Risk of Complication if Not Cared For in Hospital, Risk of Diagnosis Which Will Require Inpatient Eval/Care/Monitoring Post Hospital 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
[2019-03-05] MEDS ORDERED: LOPERAMIDE HCL 2 MG CAPSULE PO PRN (18:02)
--- NOTE | 2019-03-05 20:17 | EKG REPORT ---
SEVERITY:- ABNORMAL ECG - SINUS RHYTHM MULTIFORM VENTRICULAR PREMATURE COMPLEXES PROBABLE INFERIOR INFARCT, AGE INDETERMINATE CONSIDER POSTERIOR WALL INVOLVEMENT : Confirmed by: Leslie Laird MD 05-Mar-2019 20:16:37
[2019-03-05] MEDS: POTASSI CL 20 MEQ/50 ML RIDER 20 MEQ/50 ML RTUPB IV SCH ×2 (20:32→22:23)
[2019-03-05] MEDS: GABAPENTIN 100 MG CAPSULE PO SCH (21:26)
[2019-03-06] MEDS: CEFEPIME HCL 2 GM in DEXTROSE 5%-WATER 50 ML IV SCH ×3 (00:37→22:28)
[2019-03-06] MEDS: POTASSI CL 20 MEQ/50 ML RIDER 20 MEQ/50 ML RTUPB IV SCH (01:21)
[2019-03-06] MEDS: HYDROMORPHONE HCL INJ/PF 2 MG/ML AMPULE IV PRN ×4 (03:13→22:29)
[2019-03-06 05:49] LABS: HEMATOCRIT 22.9 % (36.0-47.0); MEAN CORPUSCULAR HEMOGLOBIN 27.6 pg (27.0-33.4); MEAN CORPUSCULAR HGB CONC 34.3 g/dL (32.0-36.0); MEAN CORPUSCULAR VOLUME 80 fl (80-97); PLATELET COUNT 136 10^3/uL (150-450); RED BLOOD COUNT 2.85 10^6/uL (3.72-5.28); RED CELL DISTRIBUTION WIDTH 19.5 % (11.5-14.0); WHITE BLOOD COUNT 29.1 10^3/uL (4.0-10.5)
[2019-03-06] MEDS: PANTOPRAZOLE SODIUM 40 MG TABLET.DR PO SCH (05:59)
[2019-03-06 06:06] LABS: ANION GAP 9 (5-19); BLOOD UREA NITROGEN 17 mg/dL (7-20); CALCIUM 8.6 mg/dL (8.4-10.2); CARBON DIOXIDE 26 mmol/L (22-30); CHLORIDE 105 mmol/L (98-107); GLUCOSE 162 mg/dL (75-110); POTASSIUM 4.3 mmol/L (3.6-5.0)
[2019-03-06 06:31] LABS: ABSOLUTE LYMPHOCYTES# (MANUAL) 6.1 10^3/uL (0.5-4.7); ABSOLUTE MONOCYTES # (MANUAL) 1.5 10^3/uL (0.1-1.4); BASOPHILS % (MANUAL) 0 % (0-2); EOSINOPHILS % (MANUAL) 0 % (0-6); LYMPHOCYTES % (MANUAL) 21 % (13-45); MONOCYTES % (MANUAL) 5 % (3-13); NUCLEATED RED BLOOD CELLS 3 /100 WBC (0); SEGMENTED NEUTROPHILS % (MAN) 74 % (42-78); TOTAL CELLS COUNTED 100
[2019-03-06 06:33] LABS: ANISOCYTOSIS 2+; OVALOCYTES SLIGHT; POIKILOCYTOSIS SLIGHT; POLYCHROMASIA SLIGHT; SCHISTOCYTES SLIGHT; TOXIC GRANULATION 1+; TOXIC VACUOLATION PRESENT
[2019-03-06 06:34] LABS: PLATELET COMMENT DECREASED
[2019-03-06 06:35] LABS: HEMOGLOBIN 7.8 g/dL (12.0-15.5)
[2019-03-06] MEDS: ACETAMINOPHEN 325 MG TABLET PO PRN ×2 (07:59→22:32)
[2019-03-06] MEDS: CETIRIZINE 10 MG TABLET PO SCH (09:45)
[2019-03-06] MEDS: ENOXAPARIN SODIUM INJ 40 MG/0.4 ML DISP.SYRIN SUBCUT SCH (09:47)
[2019-03-06] MEDS: LEVOFLOXACIN 500 MG/D5W RTU 500 MG/100 ML RTUPB IV SCH (12:47)
--- NOTE | 2019-03-06 14:57 | PDOC PROGRESS REPORT ---
Subjective Progress Note for:: 03/06/19 Subjective:: Patient seen by the bedside, she has sickle cell disease, she was admitted for the management of vaso-occlusive crisis with bone pain crisis, she was empirically started on intravenous antibiotic yesterday for presumptive pneumonia. The chest x-ray is not impressive, CT chest to be obtained. There was episode of a fall today, while she was on the commode, the commode broke and she fell on her butt. She is somewhat reluctant to stay till Monday, today is , she has no interest in blood transfusion, because of her joie, she is a Jehovah witness. Reason For Visit: SICKLE CELL DISEASE WITH ACUTE PAIN CRISIS Physical Exam Vital Signs: Temp Pulse Resp BP Pulse Ox 98.1 F 86 16 94/47 L 95 03/06/19 11:55 03/06/19 11:55 03/06/19 11:55 03/06/19 11:55 03/06/19 11:55 Intake & Output 03/05/19 03/06/19 03/07/19 06:59 06:59 06:59 Intake Total 2606 1746 50 Output Total 600 Balance 2005 1746 50 Weight 76.5 kg 78.1 kg General appearance: PRESENT: no acute distress Eye exam: PRESENT: PERRLA Respiratory exam: PRESENT: clear to auscultation cesilia Cardiovascular exam: PRESENT: +S1, +S2 GI/Abdominal exam: PRESENT: soft Neurological exam: PRESENT: alert Results Laboratory Results: 03/06/19 05:28 03/06/19 05:28 03/05/19 03/06/19 03/06/19 18:29 05:28 05:28 WBC 29.1 H RBC 2.85 L Hgb 7.8 L Hct 22.9 L MCV 80 MCH 27.6 MCHC 34.3 RDW 19.5 H Plt Count 136 L Seg Neutrophils % Not Reportable Sodium 139.7 Potassium 4.3 Chloride 105 Carbon Dioxide 26 Anion Gap 9 BUN 17 Creatinine 0.64 Est GFR ( Amer) > 60 Glucose 162 H Calcium 8.6 Magnesium 1.9 Impressions: Chest X-Ray 03/04/19 00:00 IMPRESSION: No definite pneumonia. Assessment & Plan - Diagnosis (1) Vasoocclusive sickle cell crisis Is this a current diagnosis for this admission?: Yes Plan: Continue intravenous fluid therapy, pain control with Dilaudid (2) Pneumonia of right lower lobe due to infectious organism Is this a current diagnosis for this admission?: Yes Plan: Continue intravenous antibiotic, obtain CAT scan of the chest - Time Time Spent with patient: 35 or more minutes - Plan Summary Plan Summary: I had a long discussion with the patient about her condition
--- NOTE | 2019-03-06 16:04 | RADIOLOGY REPORT (SQ) ---
EXAM DESCRIPTION: SHOULDER BILAT 2 OR MORE VIEWS COMPLETED DATE/TIME: 03/06/2019 3:53 pm REASON FOR STUDY: shoulder pain from a fall COMPARISON: None. NUMBER OF VIEWS: Three views. TECHNIQUE: Internal rotation, external rotation, and Y view images acquired of the right and left sh oulder. LIMITATIONS: None. FINDINGS: MINERALIZATION: Normal. BONES: No fractures. There are sclerotic changes in the humeral heads. JOINTS: No dislocation. VISUALIZED LUNGS AND RIBS: Pulmonary vascular congestion. Cannot exclude mild pulmonary edema. Bord ananya heart size. SOFT TISSUES: No radiopaque foreign body. OTHER: No other significant finding. IMPRESSION: 1. The sclerotic changes in the humeral heads. Possible bone infarcts. No acute findi ngs in the shoulders. 2. Borderline heart size with mild pulmonary edema. TECHNICAL DOCUMENTATION: JOB ID: [id number] [employer]- All Rights Reserved Reading location - IP/workstation name: [email or web address]
--- NOTE | 2019-03-06 17:56 | RADIOLOGY REPORT (SQ) ---
EXAM DESCRIPTION: CT CHEST WITHOUT COMPLETED DATE/TIME: 03/06/2019 4:04 pm REASON FOR STUDY: pneumonia COMPARISON: None. TECHNIQUE: CT scan performed of the chest without intravenous contrast. Images reviewed with lung, soft tissue and bone windows. Reconstructed coronal and sagittal MPR images reviewed. All images st ored on PACS. All CT scanners at this facility use dose modulation, iterative reconstruction, and/or weight based d osing when appropriate to reduce radiation dose to as low as reasonably achievable (ALARA). [facility]: Dose Right [facility]: CareDose [facility]: Dose Right [facility]: Teradose 4D [facility]: Smart Sproom RADIATION DOSE: CT Rad equipment meets quality standard of care and radiation dose reduction techniq ues were employed. CTDIvol: 11.8 mGy. DLP: 419 mGy-cm. mGy. LIMITATIONS: No technical limitations. FINDINGS: LUNGS AND PLEURA: Mild reticulonodular changes are seen predominantly on the right. No ma sses. No pleural effusion. HILAR AND MEDIASTINAL STRUCTURES: No identified masses or abnormal nodes. No obvious aneurysm. HEART AND VASCULAR STRUCTURES: No aneurysm. No pericardial effusion. UPPER ABDOMEN: No significant findings. Limited exam. THYROID AND OTHER SOFT TISSUES: No masses. No adenopathy. BONES: No significant finding. HARDWARE: None in the chest. OTHER: No other significant findings. IMPRESSION: Mild reticulonodular changes predominantly in the right lung. May be concerning for inf ectious/inflammatory changes such is pneumocystis carinii pneumonia. TECHNICAL DOCUMENTATION: JOB ID: [id number] Quality ID # [id number]: Final reports with documentation of one or more dose reduction techniques (e.g., Au tomated exposure control, adjustment of the mA and/or kV according to patient size, use of iterative reconstruction technique) 2010 [employer]- All Rights Reserved Reading location - IP/workstation name: [email or web address]
[2019-03-06] MEDS: GABAPENTIN 100 MG CAPSULE PO SCH (22:28)
[2019-03-06] MEDS: NORMAL SALINE 1000 ML 1,000 ML IV PRN (22:30)
[2019-03-07 03:31] LABS: C DIFFICILE GDH NEGATIVE (NEGATIVE)
[2019-03-07] MEDS: HYDROMORPHONE HCL INJ/PF 2 MG/ML AMPULE IV PRN ×2 (04:41→10:04)
[2019-03-07] MEDS: PANTOPRAZOLE SODIUM 40 MG TABLET.DR PO SCH (05:36)
[2019-03-07] MEDS: ENOXAPARIN SODIUM INJ 40 MG/0.4 ML DISP.SYRIN SUBCUT SCH (09:58)
[2019-03-07] MEDS: CEFEPIME HCL 2 GM in DEXTROSE 5%-WATER 50 ML IV SCH (10:04)
[2019-03-07] MEDS: CETIRIZINE 10 MG TABLET PO SCH (10:04)
[2019-03-07] MEDS: NORMAL SALINE 1000 ML 1,000 ML IV PRN (10:04)
[2019-03-07] MEDS: LEVOFLOXACIN 500 MG/D5W RTU 500 MG/100 ML RTUPB IV SCH (12:23)
[2019-03-07 12:54] VITALS: BP 122/52
[2019-03-07 14:33] LABS: HEMATOCRIT 19.2 % (36.0-47.0); MEAN CORPUSCULAR HEMOGLOBIN 27.5 pg (27.0-33.4); MEAN CORPUSCULAR HGB CONC 34.2 g/dL (32.0-36.0); MEAN CORPUSCULAR VOLUME 81 fl (80-97); PLATELET COUNT 176 10^3/uL (150-450); RED BLOOD COUNT 2.38 10^6/uL (3.72-5.28); RED CELL DISTRIBUTION WIDTH 20.4 % (11.5-14.0); WHITE BLOOD COUNT 22.2 10^3/uL (4.0-10.5)
[2019-03-07 14:45] LABS: HEMOGLOBIN 6.6 g/dL (12.0-15.5)
[2019-03-07 14:46] LABS: ALKALINE PHOSPHATASE 62 U/L (38-126); ANION GAP 6 (5-19); ASPARTATE AMINO TRANSFERASE 48 U/L (14-36); BILIRUBIN,DIRECT 0.4 mg/dL (0.0-0.4); BILIRUBIN,TOTAL 3.8 mg/dL (0.2-1.3); BLOOD UREA NITROGEN 14 mg/dL (7-20); CALCIUM 8.5 mg/dL (8.4-10.2); CARBON DIOXIDE 27 mmol/L (22-30); CHLORIDE 106 mmol/L (98-107); GLUCOSE 98 mg/dL (75-110); POTASSIUM 3.7 mmol/L (3.6-5.0); TOTAL PROTEIN 5.9 g/dL (6.3-8.2)
[2019-03-07 15:02] LABS: ABSOLUTE LYMPHOCYTES# (MANUAL) 5.8 10^3/uL (0.5-4.7); ABSOLUTE MONOCYTES # (MANUAL) 0.4 10^3/uL (0.1-1.4); BASOPHILS % (MANUAL) 2 % (0-2); EOSINOPHILS % (MANUAL) 0 % (0-6); LYMPHOCYTES % (MANUAL) 26 % (13-45); MONOCYTES % (MANUAL) 2 % (3-13); SEGMENTED NEUTROPHILS % (MAN) 70 % (42-78); TOTAL CELLS COUNTED 100
[2019-03-07 15:03] LABS: ANISOCYTOSIS 2+; PLATELET COMMENT ADEQUATE
[2019-03-07 15:05] LABS: POIKILOCYTOSIS 1+; POLYCHROMASIA 1+; TARGET CELLS 1+
[2019-03-07 15:06] LABS: SICKLE RED CELLS SLIGHT
[2019-03-07 15:07] LABS: NUCLEATED RED BLOOD CELLS 52 /100 WBC (0)
--- NOTE | 2019-03-07 15:52 | PDOC DISCHARGE SUMMARY ---
Impression - Admit/DC Date/PCP Admission Date/Primary Care Provider: 03/04/19 02:59 AUSTIN HYDE Discharge Date: 03/07/19 - Discharge Diagnosis (1) Vasoocclusive sickle cell crisis Is this a current diagnosis for this admission?: Yes (2) Pneumonia of right lower lobe due to infectious organism Is this a current diagnosis for this admission?: Yes (3) Sickle cell anemia Is this a current diagnosis for this admission?: Yes - Additional Information Resuscitation Status: Full Code Referrals: AUSTIN HYDE MD [Primary Care Provider] - Follow up as needed Prescriptions: Levofloxacin [Levaquin 750 mg Tablet] 750 mg PO DAILY #7 tablet Home Medications: Cetirizine HCl [Zyrtec 10 mg Tablet] 10 mg PO DAILY 03/04/19 Ergocalciferol (Vitamin D2) [Drisdol 50,000 unit (1.25MG) Capsule] 50,000 unit PO MO@1000 03/04/19 Fluticasone Propionate [Flonase Nasal [place] 50 Mcg/[place] 16 gm] 1 spray NAREB DAILYP PRN 03/04/19 Gabapentin [Neurontin 100 mg Capsule] 100 mg PO QHS 03/04/19 Oxycodone HCl/Acetaminophen [Oxycodone-Acetaminophen 10-325] 1 each PO Q4HP PRN 03/04/19 Levofloxacin [Levaquin 750 mg Tablet] 750 mg PO DAILY #7 tablet 03/07/19 History of Present Illiness History of Present Illness: EMILI PEREIRA is a 58 year old female,, she presented to the emergency room with bone pain due to vaso-occlusive crisis from sickle cell disease Hospital Course Hospital Course: She was admitted for the management of vaso-occlusive crisis from sickle cell disease, hospital course was complicated with pneumonia, anemia, she was treated with IV antibiotic. Patient refused blood transfusion on the basis of joie, she is a Jehovah witness she does not get blood transfusion, she was given a dose of Procrit. The pneumonia was was treated with IV antibiotic cefepime and Levaquin. A CAT scan of the lung without contrast was obtained it demonstrated reticulonodular infiltrate, patient WBC peak at 29,000, it is trending down today suggesting patient response to antibiotic. She wants to go home today, she has shown improvement in her clinical condition, I felt she could be discharged home today. Physical Exam Vital Signs: Temp Pulse Resp BP Pulse Ox 99.4 F 95 18 122/52 L 98 03/07/19 12:00 03/07/19 14:00 03/07/19 12:00 03/07/19 12:00 03/07/19 12:00 Intake & Output 03/06/19 03/07/19 03/08/19 06:59 06:59 06:59 Intake Total 1746 1002 1540 Output Total 500 Balance 7669 178 2578 Weight 78.1 kg 80.1 kg General appearance: PRESENT: no acute distress Eye exam: PRESENT: PERRLA Respiratory exam: PRESENT: clear to auscultation cesilia Cardiovascular exam: PRESENT: +S1, +S2 GI/Abdominal exam: PRESENT: soft Neurological exam: PRESENT: alert, CN II-XII grossly intact Results Laboratory Results: WBC 22.2 10^3/uL (4.0-10.5) H 03/07/19 14:03 RBC 2.38 10^6/uL (3.72-5.28) L 03/07/19 14:03 Hgb 6.6 g/dL (12.0-15.5) L 03/07/19 14:03 Hct 19.2 % (36.0-47.0) L 03/07/19 14:03 MCV 81 fl (80-97) 03/07/19 14:03 MCH 27.5 pg (27.0-33.4) 03/07/19 14:03 MCHC 34.2 g/dL (32.0-36.0) 03/07/19 14:03 RDW 20.4 % (11.5-14.0) H 03/07/19 14:03 Plt Count 176 10^3/uL (150-450) 03/07/19 14:03 Lymph % (Auto) Not Reportable 03/07/19 14:03 [place] % (Auto) Not Reportable 03/07/19 14:03 Eos % (Auto) Not Reportable 03/07/19 14:03 Baso % (Auto) Not Reportable 03/07/19 14:03 Reticulocyte # 0.145 10^6/uL (0.028-0.122) H 03/03/19 15:00 Absolute Neuts (auto) Not Reportable 03/07/19 14:03 Absolute Lymphs (auto) Not Reportable 03/07/19 14:03 Absolute Monos (auto) Not Reportable 03/07/19 14:03 Absolute Eos (auto) Not Reportable 03/07/19 14:03 Absolute Basos (auto) Not Reportable 03/07/19 14:03 Total Counted 100 03/07/19 14:03 Seg Neutrophils % Not Reportable 03/07/19 14:03 Seg Neuts % (Manual) 70 % (42-78) 03/07/19 14:03 Lymphocytes % (Manual) 26 % (13-45) 03/07/19 14:03 Atypical Lymphs % 1 % (0) 03/05/19 04:45 Monocytes % (Manual) 2 % (3-13) L 03/07/19 14:03 Eosinophils % (Manual) 0 % (0-6) 03/07/19 14:03 Basophils % (Manual) 2 % (0-2) 03/07/19 14:03 Abs Neuts (Manual) 15.5 10^3/uL (1.7-8.2) H 03/07/19 14:03 Abs Lymphs (Manual) 5.8 10^3/uL (0.5-4.7) H 03/07/19 14:03 Abs Monocytes (Manual) 0.4 10^3/uL (0.1-1.4) 03/07/19 14:03 Absolute Eos (Manual) 0.0 10^3/uL (0.0-0.6) 03/07/19 14:03 Abs Basophils (Manual) 0.4 10^3/uL (0.0-0.2) H 03/07/19 14:03 Nucleated RBCs 52 /100 WBC (0) 03/07/19 14:03 Toxic Granulation 1+ 03/06/19 05:28 Toxic Vacuolation PRESENT 03/06/19 05:28 Platelet Comment ADEQUATE 03/07/19 14:03 Polychromasia 1+ 03/07/19 14:03 Hypochromasia 1+ 03/05/19 04:45 Poikilocytosis 1+ 03/07/19 14:03 Anisocytosis 2+ 03/07/19 14:03 Microcytosis SLIGHT 03/07/19 14:03 Sickle Cells SLIGHT 03/07/19 14:03 Target Cells 1+ 03/07/19 14:03 Ovalocytes SLIGHT 03/06/19 05:28 Schistocytes SLIGHT 03/06/19 05:28 Retic Count (auto) 3.45 % (0.66-2.85) H 03/03/19 15:00 Sodium 139.1 mmol/L (137-145) 03/07/19 14:03 Potassium 3.7 mmol/L (3.6-5.0) 03/07/19 14:03 Chloride 106 mmol/L (98-107) 03/07/19 14:03 Carbon Dioxide 27 mmol/L (22-30) 03/07/19 14:03 Anion Gap 6 (5-19) 03/07/19 14:03 BUN 14 mg/dL (7-20) 03/07/19 14:03 Creatinine 0.56 mg/dL (0.52-1.25) 03/07/19 14:03 Est GFR ( Amer) > 60 (>60) 03/07/19 14:03 Est GFR (MDRD) Non-Af > 60 (>60) 03/07/19 14:03 Glucose 98 mg/dL (75-110) 03/07/19 14:03 Calcium 8.5 mg/dL (8.4-10.2) 03/07/19 14:03 Magnesium 1.9 mg/dL (1.6-2.3) 03/05/19 18:29 Total Bilirubin 3.8 mg/dL (0.2-1.3) H 03/07/19 14:03 Direct Bilirubin 0.4 mg/dL (0.0-0.4) 03/07/19 14:03 Neonat Total Bilirubin Not Reportable 03/07/19 14:03 Neonat Direct Bilirubin Not Reportable 03/07/19 14:03 Neonat Indirect Bili Not Reportable 03/07/19 14:03 AST 48 U/L (14-36) H 03/07/19 14:03 ALT 25 U/L (<35) 03/07/19 14:03 Alkaline Phosphatase 62 U/L (38-126) 03/07/19 14:03 Total Protein 5.9 g/dL (6.3-8.2) L 03/07/19 14:03 Albumin 3.0 g/dL (3.5-5.0) L 03/07/19 14:03 Urine Color YELLOW 03/05/19 01:42 Urine Appearance CLEAR 03/05/19 01:42 Urine pH 5.0 (5.0-9.0) 03/05/19 01:42 Ur Specific [place] 1.011 03/05/19 01:42 Urine Protein 30 mg/dL (NEGATIVE) H 03/05/19 01:42 Urine Glucose (UA) NEGATIVE mg/dL (NEGATIVE) 03/05/19 01:42 Urine Ketones NEGATIVE mg/dL (NEGATIVE) 03/05/19 01:42 Urine Blood SMALL (NEGATIVE) H 03/05/19 01:42 Urine Nitrite NEGATIVE (NEGATIVE) 03/05/19 01:42 Urine Bilirubin NEGATIVE (NEGATIVE) 03/05/19 01:42 Urine Urobilinogen NEGATIVE mg/dL (<2.0) 03/05/19 01:42 Ur Leukocyte Esterase NEGATIVE (NEGATIVE) 03/05/19 01:42 Urine WBC (Auto) 1 /HPF 03/05/19 01:42 Urine RBC (Auto) 0 /HPF 03/05/19 01:42 Squamous Epi Cells Auto 1 /HPF 03/05/19 01:42 Urine Mucus (Auto) RARE /LPF 03/05/19 01:42 Urine Ascorbic Acid NEGATIVE (NEGATIVE) 03/05/19 01:42 Stl C. Difficile GDH Ag NEGATIVE (NEGATIVE) 03/06/19 20:31 Stl C.difficile Tox A&B NEGATIVE (NEGATIVE) 03/06/19 20:31 Impressions: Chest X-Ray 03/04/19 00:00 IMPRESSION: No definite pneumonia. Chest CT 03/06/19 00:00 IMPRESSION: Mild reticulonodular changes predominantly in the right lung. May be concerning for infectious/inflammatory changes such is pneumocystis carinii pneumonia. Shoulder X-Ray 03/06/19 00:00 IMPRESSION: 1. The sclerotic changes in the humeral heads. Possible bone infarcts. No acute findings in the shoulders. 2. Borderline heart size with mild pulmonary edema. Stroke Is this a Stroke Patient?: No Acute Heart Failure - Is this a Heart Failure Patient?: No
[2019-03-07] MEDS: ACETAMINOPHEN 325 MG TABLET PO PRN (16:17)
[2019-03-07] MEDS ORDERED: EPOETIN ALFA-EPBX 40,000 UNIT/ML VIAL (NON-ESRD) SUBCUT ONE (16:30)
[2019-03-08 10:45] LABS: PATH REVIEW PATHOLOGIST REVIEWED
== END 2019-03-07 17:41 | disposition home or self-care (01) | DRG 811 ==
LOC: ER 13:47 → EH 03-04 02:59 → 4S 03-04 04:30
PROVIDERS: ADMIT Internal Medicine Geriatric Medicine; ATTEND Internal Medicine Geriatric Medicine
DX: D57.00 Hb-SS disease with crisis, unspecified (principal); J18.9 Pneumonia, unspecified organism; M79.662 Pain in left lower leg; R07.89 Other chest pain; R19.7 Diarrhea, unspecified; Z53.1 Procedure and treatment not carried out because of patient's decision for reasons of belief and group pressure
CPT/HCPCS: 36415; 71045; 71250; 80048; 80053; 81001; 83735; 85025; 85045; 87040; 87324; 87449; 93005; 93010; 96361; 96374; 96375; 96376; 99284; J0692; J1170; J1650; J1956; J2270; J3480; J3490; J7030; J7060; Q5106

== ENCOUNTER 2020-02-29 15:29 | Inpatient (IN) | payer OTHER ==
[2020-02-29] MEDS ORDERED: NORMAL SALINE 1000 ML 1,000 ML IV ONE (16:12)
[2020-02-29] MEDS ORDERED: MORPHINE SULFATE 10 MG/ML INJ IV ONE ×2 (16:12→18:55)
[2020-02-29] MEDS ORDERED: KETOROLAC TROMETHAMINE INJ/PF 30 MG/1 ML SDV IV ONE (16:13)
[2020-02-29] MEDS ORDERED: REGADENOSON INJ 0.4 MG/5 ML DISP.SYRIN IV ONE (16:42)
--- NOTE | 2020-02-29 17:03 | RADIOLOGY REPORT (SQ) ---
EXAM DESCRIPTION: CHEST SINGLE VIEW IMAGES COMPLETED DATE/TIME: 02/29/2020 1:52 pm REASON FOR STUDY: Chest pain, SS disease COMPARISON: 03/04/2019 EXAM PARAMETERS: NUMBER OF VIEWS: One view. TECHNIQUE: Single frontal radiographic view of the chest acquired. RADIATION DOSE: NA LIMITATIONS: External leads partially obscure underlying structures. FINDINGS: LUNGS AND PLEURA: Mild chronic appearing basilar opacities are similar prior examination a nd may reflect scarring. No new parenchymal consolidation. No pleural effusion or pneumothorax iden tified. MEDIASTINUM AND HILAR STRUCTURES: No masses. Contour normal. HEART AND VASCULAR STRUCTURES: Heart normal in size. Normal vasculature. BONES: No acute findings. HARDWARE: None in the chest. OTHER: No other significant finding. IMPRESSION: Stable appearance of the chest. No acute radiographic abnormality or significant interv al change. TECHNICAL DOCUMENTATION: JOB ID: [id number] 2010 [employer]- All Rights Reserved Reading location - IP/workstation name: [email or web address]
[2020-02-29 17:04] LABS: ABSOLUTE RETICS # 0.179 10^6/uL (0.028-0.122); HEMATOCRIT 35.5 % (36.0-47.0); MEAN CORPUSCULAR HEMOGLOBIN 27.5 pg (27.0-33.4); MEAN CORPUSCULAR HGB CONC 33.9 g/dL (32.0-36.0); MEAN CORPUSCULAR VOLUME 81 fl (80-97); PLATELET COUNT 170 10^3/uL (150-450); RED BLOOD COUNT 4.38 10^6/uL (3.72-5.28); RED CELL DISTRIBUTION WIDTH 17.9 % (11.5-14.0); RETICULOCYTE COUNT (AUTO) 4.08 % (0.66-2.85); WHITE BLOOD COUNT 17.3 10^3/uL (4.0-10.5)
[2020-02-29 17:11] LABS: ALBUMIN 4.3 g/dL (3.5-5.0); ALKALINE PHOSPHATASE 82 U/L (38-126); ANION GAP 9 (5-19); APPEARANCE,URINE CLEAR; ASPARTATE AMINO TRANSFERASE 28 U/L (14-36); BILIRUBIN,DIRECT 0.2 mg/dL (0.0-0.4); BILIRUBIN,TOTAL 1.5 mg/dL (0.2-1.3); BILIRUBIN,URINE NEGATIVE (NEGATIVE); BLOOD UREA NITROGEN 13 mg/dL (7-20); CALCIUM 9.5 mg/dL (8.4-10.2); CARBON DIOXIDE 29 mmol/L (22-30); CHLORIDE 103 mmol/L (98-107); COLOR,URINE YELLOW; CREATINE KINASE 51 U/L (30-135); GLUCOSE 88 mg/dL (75-110); GLUCOSE, URINE NEGATIVE (NEGATIVE); KETONES,URINE NEGATIVE (NEGATIVE); LEUKOCYTE ESTERASE,URINE NEGATIVE (NEGATIVE); NITRITE,URINE NEGATIVE (NEGATIVE); POTASSIUM 3.8 mmol/L (3.6-5.0); PROTEIN,URINE NEGATIVE (NEGATIVE); TOTAL PROTEIN 7.3 g/dL (6.3-8.2); URINE SPECIFIC GRAVITY 1.012; UROBILINOGEN,URINE NEGATIVE mg/dL (<2.0)
--- NOTE | 2020-02-29 17:21 | EKG REPORT ---
SEVERITY:- ABNORMAL ECG - SINUS RHYTHM PROBABLE LEFT ATRIAL ABNORMALITY PROBABLE LEFT VENTRICULAR HYPERTROPHY BORDERLINE T ABNORMALITIES, INFERIOR LEADS : Confirmed by: Leslie Laird MD 29-Feb-2020 17:21:21
--- NOTE | 2020-02-29 17:25 | ER Document Report ---
Entered by NICOLÁS PANG SCRIBE 02/29/20 1613 Acting as scribe for:ALO CLEMENS MD ED General - General Chief Complaint: Chest Pain Stated Complaint: CHEST PAIN Time Seen by Provider: 02/29/20 15:54 Primary Care Provider: AUSTIN HYDE MD [Primary Care Provider] - Follow up as needed Mode of Arrival: Ambulatory Information source: Patient Notes: This 59 year old male patient with sickle cell disease presents to the emergency department today with complaints of chest pain. Patient reports that the pain woke her up this morning at 5:00 AM and it has been present since onset. EMS gave the patient nitroglycerin in route and the patient states she does not think it changed her pain. TRAVEL OUTSIDE OF THE [place] IN LAST 30 DAYS: No - Related Data Allergies/Adverse Reactions: No Known Allergies Allergy (Verified 03/03/19 14:28) Past Medical History - General Information source: Patient - Social History Smoking Status: Never Smoker Cigarette use (# per day): No Frequency of alcohol use: None Occupation: retired Family History: Reviewed & Not Pertinent Pulmonary Medical History: Reports: Hx Pneumonia Past Surgical History: Reports: Hx Hysterectomy, Hx Tubal Ligation - Immunizations Immunizations up to date: No Hx Diphtheria, Pertussis, Tetanus Vaccination: Yes Review of Systems - Review of Systems Constitutional: No symptoms reported EENT: No symptoms reported Cardiovascular: See HPI, Chest pain Respiratory: No symptoms reported Gastrointestinal: No symptoms reported Genitourinary: No symptoms reported Female Genitourinary: No symptoms reported Musculoskeletal: No symptoms reported Skin: No symptoms reported Hematologic/Lymphatic: No symptoms reported Neurological/Psychological: No symptoms reported -: Yes All other systems reviewed and negative Physical Exam - Vital signs Vitals: Temp 98.9 F 02/29/20 15:31 - Notes Notes: Physical Exam: General: Alert, appears uncomfortable. HEENT: Normocephalic. Atraumatic. PERRL. Extraocular movements intact. Kari pharynx clear. Neck: Supple. Non-tender. Respiratory: No respiratory distress. Clear and equal breath sounds bilaterally. Reproducible chest pain, sternal tenderness with palpation. Cardiovascular: Regular rate and rhythm. Abdominal: Normal Inspection. Non-tender. No distension. Normal Bowel Sounds. Back: No gross abnormalities. Extremities: Moves all four extremities. Upper extremities: Normal inspection. Normal ROM. Lower extremities: Normal inspection. No edema. Normal ROM. Neurological: Normal cognition. AAOx4. Normal speech. Psychological: Normal affect. Normal Mood. Skin: Warm. Dry. Normal color. Course - Re-evaluation Re-evalutation: 02/29/20 18:35 Patient reports he is feeling much better and moving around better since he got the Toradol injection. - Vital Signs Vital signs: Temp Pulse Resp BP Pulse Ox 98.9 F 24 H 159/92 H 98 02/29/20 15:58 02/29/20 15:58 02/29/20 15:58 02/29/20 15:58 - Laboratory Results Result Diagrams: 02/29/20 16:40 02/29/20 16:40 Laboratory Results Interpreted: 02/29/20 02/29/20 02/29/20 16:40 16:40 16:40 WBC 17.3 H Hct 35.5 L RDW 17.9 H Reticulocyte # 0.179 H Band Neutrophils % 1 L Metamyelocytes % 3 H Abs Neuts (Manual) 12.5 H Retic Count (auto) 4.08 H Total Bilirubin 1.5 H Lactate Dehydrogenase 427 H Critical Laboratory Results Reviewed: Yes Attending or Supervising Physician who Reviewed Labs: ALO CLEMENS - Leukocytosis with elevated reticulocyte count - Radiology Results Critical Radiology Results Reviewed: No Critical Results - Stable appearance of the chest without any acute abnormalities. - EKG Interpretation by Me EKG shows normal: Sinus rhythm, [place], Intervals, QRS Complexes. abnormal: ST-T Waves - Borderline inferior T abnormalities Rate: Normal - 61 Rhythm: NSR Voltage: Consistent with LVH P Waves: LAE When compared to previous EKG there are: No significant change - Consults Dr. Gerber Time consulted: 18:25 Consulted provider: will see as inpatient Discharge - Discharge Clinical Impression: Sickle cell pain crisis Condition: Stable Disposition: ADMITTED INPATIENT Admitting Provider: Valentin - Dr. Gerber covering Unit Admitted: Medical Floor Referrals: AUSTIN HYDE MD [Primary Care Provider] - Follow up as needed I personally performed the services described in the documentation, reviewed and edited the documentation which was dictated to the scribe in my presence, and it accurately records my words and actions.
[2020-02-29 17:40] LABS: ABSOLUTE LYMPHOCYTES# (MANUAL) 4.3 10^3/uL (0.5-4.7); ABSOLUTE MONOCYTES # (MANUAL) 0.5 10^3/uL (0.1-1.4); ANISOCYTOSIS 1+; BAND NEUTROPHILS % (MANUAL) 1 % (3-5); BASOPHILS % (MANUAL) 0 % (0-2); EOSINOPHILS % (MANUAL) 0 % (0-6); LYMPHOCYTES % (MANUAL) 23 % (13-45); MONOCYTES % (MANUAL) 3 % (3-13); NUCLEATED RED BLOOD CELLS 3 /100 WBC (0); POLYCHROMASIA SLIGHT; SEGMENTED NEUTROPHILS % (MAN) 68 % (42-78); TOTAL CELLS COUNTED 100
[2020-02-29 17:41] LABS: METAMYELOCYTES % (MANUAL) 3 % (0-1); PLATELET COMMENT ADEQUATE; PLATELET GIANT PRESENT; TARGET CELLS 2+
[2020-02-29] MEDS ORDERED: RINGERS SOLUTION,LACTATED 1,000 ML IV ONE (17:53)
[2020-02-29] MEDS ORDERED: ONDANSETRON HCL INJ/PF 4 MG/2 ML SDV IV ONE (18:55)
--- NOTE | 2020-02-29 20:20 | PDOC H&P ---
History of Present Illness Admission Date/PCP: 02/29/20 19:44 [place] History of Present Illness: EMILI PEREIRA is a 59 year old female, She has sickle cell disease, she came to the emergency room for the evaluation of chest pains.The emergency room physician felt the chest pain was due to musculoskeletal etiology, the chest pain was reproducible on palpation he said the sternum was very tender, he wanted admitted to the hospital for evaluation. 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, Sickle Cell Disease Past Surgical History Past Surgical History: Reports: Hysterectomy, Tubal Ligation Social History Smoking Status: Never Smoker Frequency of Alcohol Use: None Hx Recreational Drug Use: No Drugs: None Hx Prescription Drug Abuse: No Family History Family History: Reviewed & Not Pertinent Parental Family History Reviewed: Yes Children Family History Reviewed: Yes Sibling(s) Family History Reviewed.: Yes Medication/Allergy Home Medications: Amoxicillin 875 mg PO BID 03/01/20 Methylprednisolone [Methylpred Dp] 4 mg PO ASDIR PRN 03/01/20 Oxycodone HCl/Acetaminophen [Oxycodone-Acetaminophen 10-325] 1 each PO Q4HP PRN 03/01/20 Allergies/Adverse Reactions: No Known Allergies Allergy (Verified 03/03/19 14:28) Review of Systems Eyes: ABSENT: visual disturbances Ears: ABSENT: hearing changes Cardiovascular: PRESENT: chest pain Respiratory: ABSENT: cough, hemoptysis Gastrointestinal: ABSENT: abdominal pain, constipation, diarrhea, hematemesis, hematochezia, nausea, vomiting Genitourinary: ABSENT: dysuria, hematuria Musculoskeletal: ABSENT: joint swelling Integumentary: ABSENT: rash, wounds Neurological: ABSENT: abnormal gait, abnormal speech, confusion, dizziness, focal weakness, syncope Psychiatric: ABSENT: anxiety, depression, homidical ideation, suicidal ideation Endocrine: ABSENT: cold intolerance, heat intolerance, menstrual abnormalities, polydipsia, polyuria Hematologic/Lymphatic: ABSENT: easy bleeding, easy bruising, lymphadenopathy Physical Exam Vital Signs: Temp Pulse Resp BP Pulse Ox 98.9 F 24 H 159/92 H 98 02/29/20 15:58 02/29/20 15:58 02/29/20 15:58 02/29/20 15:58 Intake & Output 02/28/20 02/29/20 03/01/20 06:59 06:59 06:59 Intake Total 1999 Balance 1999 Weight 75 kg General appearance: PRESENT: no acute distress, well-developed, well-nourished Head exam: PRESENT: atraumatic, normocephalic Eye exam: PRESENT: conjunctiva pink, EOMI, PERRLA Ear exam: PRESENT: normal external ear exam Mouth exam: PRESENT: moist, tongue midline Neck exam: PRESENT: full ROM Respiratory exam: PRESENT: clear to auscultation cesilia Cardiovascular exam: PRESENT: RRR, +S1, +S2 Pulses: PRESENT: normal dorsalis pedis pul, +2 pedal pulses bilateral Vascular exam: PRESENT: normal capillary refill GI/Abdominal exam: PRESENT: normal bowel sounds, soft Rectal exam: PRESENT: deferred Neurological exam: PRESENT: alert, awake, oriented to person, oriented to place, oriented to time, oriented to situation, CN II-XII grossly intact Psychiatric exam: PRESENT: appropriate affect, normal mood Skin exam: PRESENT: dry, intact, warm. ABSENT: cyanosis, rash Results Laboratory Results: 02/29/20 16:40 02/29/20 16:40 02/29/20 02/29/20 02/29/20 16:40 16:40 16:40 WBC 17.3 H RBC 4.38 Hgb 12.0 Hct 35.5 L MCV 81 MCH 27.5 MCHC 33.9 RDW 17.9 H Plt Count 170 Seg Neutrophils % Not Reportable Retic Count (auto) 4.08 H Sodium 141.4 Potassium 3.8 Chloride 103 Carbon Dioxide 29 Anion Gap 9 BUN 13 Creatinine 0.62 Est GFR ( Amer) > 60 Glucose 88 Calcium 9.5 Total Bilirubin 1.5 H AST 28 Alkaline Phosphatase 82 C-Reactive Protein Total Protein 7.3 Albumin 4.3 Urine Color YELLOW Urine Appearance CLEAR Urine pH 5.0 Ur Specific [place] 1.012 Urine Protein NEGATIVE Urine Glucose (UA) NEGATIVE Urine Ketones NEGATIVE Urine Blood NEGATIVE Urine Nitrite NEGATIVE Ur Leukocyte Esterase NEGATIVE Urine WBC (Auto) 1 Urine RBC (Auto) 0 02/29/20 16:40 WBC RBC Hgb Hct MCV MCH MCHC RDW Plt Count Seg Neutrophils % Retic Count (auto) Sodium Potassium Chloride Carbon Dioxide Anion Gap BUN Creatinine Est GFR ( Amer) Glucose Calcium Total Bilirubin AST Alkaline Phosphatase C-Reactive Protein < 5.0 Total Protein Albumin Urine Color Urine Appearance Urine pH Ur Specific [place] Urine Protein Urine Glucose (UA) Urine Ketones Urine Blood Urine Nitrite Ur Leukocyte Esterase Urine WBC (Auto) Urine RBC (Auto) 02/29/20 02/29/20 16:40 16:40 Creatine Kinase 51 Troponin I 0.034 Impressions: Chest X-Ray 02/29/20 15:58 IMPRESSION: Stable appearance of the chest. No acute radiographic abnormality or significant interval change. Assessment & Plan - Diagnosis (1) Vaso-occlusive pain due to sickle cell disease Is this a current diagnosis for this admission?: Yes Plan: She has chest pain in the context of sickle cell disease, she also have pain in the extremities, this could represent vaso-occlusive crisis due to sickle cell, she is also at increased risk of ischemic cardiac events because of the sickle cell disease, she will be admitted, give fluid. pain control with Dilaudid monitor closely. - Time Time Spent: Greater than 70 Minutes Medications reviewed and adjusted accordingly: Yes Anticipated Discharge Disposition: Home, Self Care Anticipated Discharge Timeframe: within 72 hours
[2020-02-29] MEDS ORDERED: ENOXAPARIN SODIUM INJ 40 MG/0.4 ML DISP.SYRIN SUBCUT SCH ×2 (20:30→21:00)
[2020-02-29 20:33] LABS: INTERNATIONAL RATION (INR) 1.11; PARTIAL THROMBOPLASTIN TIME 28.7 SEC (23.5-35.8); PROTHROMBIN TIME 14.5 SEC (11.4-15.4)
[2020-02-29 20:43] LABS: PHOSPHORUS 3.9 mg/dL (2.5-4.5)
[2020-02-29 20:59] LABS: FREE T4 (FREE THYROXINE) 1.42 ng/dL (0.78-2.19)
[2020-02-29 21:13] LABS: THYROID STIMULATING HORMONE 1.87 uIU/mL (0.47-4.68)
[2020-02-29] MEDS: HYDROMORPHONE HCL INJ/PF 2 MG/ML AMPULE IV PRN (21:35)
[2020-02-29] MEDS: RINGERS SOLUTION,LACTATED 1,000 ML IV PRN (21:36)
[2020-02-29 23:22] LABS: URINE AMPHETAMINES SCREEN NEGATIVE; URINE BARBITURATES SCREEN NEGATIVE; URINE BENZODIAZEPINES SCREEN NEGATIVE; URINE COCAINE SCREEN NEGATIVE; URINE MARIJUANA (THC) SCREEN NEGATIVE; URINE METHADONE SCREEN NEGATIVE; URINE PHENCYCLIDINE SCREEN NEGATIVE
[2020-03-01] MEDS: HYDROMORPHONE HCL INJ/PF 2 MG/ML AMPULE IV PRN ×5 (01:56→20:11)
[2020-03-01 05:51] LABS: HEMATOCRIT 25.5 % (36.0-47.0); MEAN CORPUSCULAR HEMOGLOBIN 27.4 pg (27.0-33.4); MEAN CORPUSCULAR HGB CONC 34.8 g/dL (32.0-36.0); MEAN CORPUSCULAR VOLUME 79 fl (80-97); PLATELET COUNT 133 10^3/uL (150-450); RED BLOOD COUNT 3.23 10^6/uL (3.72-5.28); RED CELL DISTRIBUTION WIDTH 17.5 % (11.5-14.0); WHITE BLOOD COUNT 13.2 10^3/uL (4.0-10.5)
[2020-03-01 06:05] LABS: ALBUMIN 3.1 g/dL (3.5-5.0); ALKALINE PHOSPHATASE 66 U/L (38-126); ASPARTATE AMINO TRANSFERASE 24 U/L (14-36); BILIRUBIN,TOTAL 1.4 mg/dL (0.2-1.3); BLOOD UREA NITROGEN 11 mg/dL (7-20); CALCIUM 8.2 mg/dL (8.4-10.2); CHOLESTEROL 114.91 mg/dL (0-200); GLUCOSE 128 mg/dL (75-110); POTASSIUM 3.3 mmol/L (3.6-5.0); TOTAL PROTEIN 5.8 g/dL (6.3-8.2); TRIGLYCERIDES 94 mg/dL (<150)
[2020-03-01 06:10] LABS: CARBON DIOXIDE 30 mmol/L (22-30); CHLORIDE 102 mmol/L (98-107)
[2020-03-01 06:11] LABS: ANION GAP 5 (5-19)
[2020-03-01 06:16] LABS: DIRECT LDL 41 mg/dL (<100)
[2020-03-01 06:35] LABS: HEMOGLOBIN 8.9 g/dL (12.0-15.5)
[2020-03-01 07:02] LABS: ABSOLUTE LYMPHOCYTES# (MANUAL) 3.2 10^3/uL (0.5-4.7); ABSOLUTE MONOCYTES # (MANUAL) 0.5 10^3/uL (0.1-1.4); BASOPHILS % (MANUAL) 0 % (0-2); EOSINOPHILS % (MANUAL) 0 % (0-6); LYMPHOCYTES % (MANUAL) 23 % (13-45); MONOCYTES % (MANUAL) 4 % (3-13); NUCLEATED RED BLOOD CELLS 5 /100 WBC (0); SEGMENTED NEUTROPHILS % (MAN) 72 % (42-78); TOTAL CELLS COUNTED 100
[2020-03-01 07:13] LABS: PLATELET COMMENT ADEQUATE
[2020-03-01 07:14] LABS: TARGET CELLS 2+
[2020-03-01 07:15] LABS: POLYCHROMASIA SLIGHT
[2020-03-01 07:20] LABS: ANISOCYTOSIS 1+; OVALOCYTES SLIGHT; STOMATOCYTES 1+
[2020-03-01] MEDS: ACETAMINOPHEN 325 MG TABLET PO PRN (08:24)
[2020-03-01] MEDS ORDERED: ASPIRIN 81 MG TABLET, CHEWABLE PO ONE ×2 (10:00→17:30)
[2020-03-01] MEDS: RINGERS SOLUTION,LACTATED 1,000 ML IV PRN (13:57)
[2020-03-01] MEDS: ZINC SULFATE 220 MG CAPSULE PO SCH (15:50)
[2020-03-01 16:10] LABS: INTERNATIONAL RATION (INR) 1.23; PROTHROMBIN TIME 15.7 SEC (11.4-15.4)
[2020-03-01 16:11] LABS: FIBRINOGEN 323 mg/dL (209-497); PARTIAL THROMBOPLASTIN TIME 40.1 SEC (23.5-35.8)
[2020-03-01 16:22] LABS: ALBUMIN 3.5 g/dL (3.5-5.0); ALKALINE PHOSPHATASE 83 U/L (38-126); ANION GAP 7 (5-19); ASPARTATE AMINO TRANSFERASE 44 U/L (14-36); BILIRUBIN,DIRECT 0.2 mg/dL (0.0-0.4); BILIRUBIN,TOTAL 2.1 mg/dL (0.2-1.3); BLOOD UREA NITROGEN 17 mg/dL (7-20); C-REACTIVE PROTEIN 72.2 mg/L (<10.0); CALCIUM 8.2 mg/dL (8.4-10.2); CARBON DIOXIDE 28 mmol/L (22-30); CHLORIDE 102 mmol/L (98-107); CREATINE KINASE 136 U/L (30-135); GLUCOSE 146 mg/dL (75-110); POTASSIUM 3.9 mmol/L (3.6-5.0); TOTAL PROTEIN 6.4 g/dL (6.3-8.2)
[2020-03-01] MEDS ORDERED: CLOPIDOGREL BISULFATE 300 MG TABLET PO ONE (17:09)
--- NOTE | 2020-03-01 17:09 | PDOC PROGRESS REPORT ---
Subjective Date:: 03/01/20 Subjective:: , Patient was seen today by the bedside, she says she wants to go home, she has fever with temperature 101, there is no evidence of infection in the urine on the chest x-ray rapid SARS-CoV-2 test was done, it was negative, the troponin increased from 0.034 to 0.67 which is [place] territory Reason For Visit: SICKLE CELL PAIN CRISIS Physical Exam Vital Signs: Temp Pulse Resp BP Pulse Ox 98.9 F 110 H 19 122/75 94 03/01/20 15:45 03/01/20 15:45 03/01/20 15:45 03/01/20 15:45 03/01/20 15:45 Intake & Output 02/29/20 03/01/20 03/02/20 06:59 06:59 06:59 Intake Total 1999 999 Balance 1999 1000 Weight 77.8 kg General appearance: PRESENT: no acute distress Eye exam: PRESENT: PERRLA Respiratory exam: PRESENT: clear to auscultation cesilia Cardiovascular exam: PRESENT: +S1, +S2 GI/Abdominal exam: PRESENT: soft Neurological exam: PRESENT: alert, CN II-XII grossly intact Results Laboratory Results: 03/01/20 05:02 02/29/20 02/29/20 02/29/20 16:40 16:40 16:40 WBC 17.3 H RBC 4.38 Hgb 12.0 Hct 35.5 L MCV 81 MCH 27.5 MCHC 33.9 RDW 17.9 H Plt Count 170 Seg Neutrophils % Not Reportable Retic Count (auto) 4.08 H Sodium 141.4 Potassium 3.8 Chloride 103 Carbon Dioxide 29 Anion Gap 9 BUN 13 Creatinine 0.62 Est GFR ( Amer) > 60 Glucose 88 Calcium 9.5 Phosphorus Magnesium Total Bilirubin 1.5 H AST 28 Alkaline Phosphatase 82 Ammonia C-Reactive Protein Total Protein 7.3 Albumin 4.3 Triglycerides Cholesterol LDL Cholesterol Direct VLDL Cholesterol HDL Cholesterol Amylase Lipase TSH Free T4 Urine Color YELLOW Urine Appearance CLEAR Urine pH 5.0 Ur Specific [place] 1.012 Urine Protein NEGATIVE Urine Glucose (UA) NEGATIVE Urine Ketones NEGATIVE Urine Blood NEGATIVE Urine Nitrite NEGATIVE Ur Leukocyte Esterase NEGATIVE Urine WBC (Auto) 1 Urine RBC (Auto) 0 02/29/20 02/29/20 02/29/20 16:40 16:40 16:40 WBC RBC Hgb Hct MCV MCH MCHC RDW Plt Count Seg Neutrophils % Retic Count (auto) Sodium Potassium Chloride Carbon Dioxide Anion Gap BUN Creatinine Est GFR ( Amer) Glucose Calcium Phosphorus 3.9 Magnesium 2.0 Total Bilirubin AST Alkaline Phosphatase Ammonia C-Reactive Protein < 5.0 Total Protein Albumin Triglycerides Cholesterol LDL Cholesterol Direct VLDL Cholesterol HDL Cholesterol Amylase 53 Lipase 34.9 TSH 1.87 Free T4 1.42 Urine Color Urine Appearance Urine pH Ur Specific [place] Urine Protein Urine Glucose (UA) Urine Ketones Urine Blood Urine Nitrite Ur Leukocyte Esterase Urine WBC (Auto) Urine RBC (Auto) 02/29/20 03/01/20 03/01/20 21:00 05:02 05:02 WBC 13.2 H RBC 3.23 L Hgb 8.9 L D Hct 25.5 L MCV 79 L MCH 27.4 MCHC 34.8 RDW 17.5 H Plt Count 133 L Seg Neutrophils % Not Reportable Retic Count (auto) Sodium 137.1 Potassium 3.3 L Chloride 102 Carbon Dioxide 30 Anion Gap 5 BUN 11 Creatinine 0.67 Est GFR ( Amer) > 60 Glucose 128 H Calcium 8.2 L Phosphorus Magnesium Total Bilirubin 1.4 H AST 24 Alkaline Phosphatase 66 Ammonia < 8.7 L C-Reactive Protein Total Protein 5.8 L Albumin 3.1 L Triglycerides 94 Cholesterol 114.91 LDL Cholesterol Direct 41 VLDL Cholesterol 19.0 HDL Cholesterol 49 Amylase Lipase TSH Free T4 Urine Color Urine Appearance Urine pH Ur Specific [place] Urine Protein Urine Glucose (UA) Urine Ketones Urine Blood Urine Nitrite Ur Leukocyte Esterase Urine WBC (Auto) Urine RBC (Auto) 02/29/20 02/29/20 03/01/20 16:40 16:40 15:42 Creatine Kinase 51 Troponin I 0.034 0.617 Impressions: Chest X-Ray 02/29/20 15:58 IMPRESSION: Stable appearance of the chest. No acute radiographic abnormality or significant interval change. Assessment & Plan - Diagnosis (1) Vaso-occlusive pain due to sickle cell disease Is this a current diagnosis for this admission?: Yes Plan: She was admitted for the management of vaso-occlusive pain due to sickle cell disease she somewhat feels better actually she wants to go home today, I talk her out of the plan to go home today (2) Elevated troponin Is this a current diagnosis for this admission?: Yes Plan: The differential diagnosis include non-ST [place], myocarditis, she had a temperature today because is not clear there is no source for the fever, it is best to treat empirically for ischemia with Lovenox antiplatelet and also empirically cover patient with antibiotic, a broad spectrum that will cover potential pathogens. The chest x-ray was done demonstrated no changes probably reasonable to get a CAT scan of the chest which will give us more information - Time Time Spent with patient: 35 or more minutes Level of Care: IMCU Medications reviewed and adjusted accordingly: Yes Anticipated discharge: Home Anticipated DC Timeframe: within 72 hours
[2020-03-01] MEDS: ENOXAPARIN SODIUM INJ 80 MG/0.8 ML DISP.SYRIN SUBCUT SCH (17:28)
[2020-03-01] MEDS: CLINDAMYCIN 300 MG/D5W RTU 300 MG/50 ML RTUPB IV SCH (17:50)
[2020-03-01] MEDS ORDERED: CLOPIDOGREL BISULFATE 300 MG TABLET ONE (18:09)
[2020-03-01 19:23] LABS: APPEARANCE,URINE SLIGHTLY-CLOUDY; BILIRUBIN,URINE NEGATIVE (NEGATIVE); COLOR,URINE YELLOW; GLUCOSE, URINE NEGATIVE (NEGATIVE); KETONES,URINE NEGATIVE (NEGATIVE); LEUKOCYTE ESTERASE,URINE NEGATIVE (NEGATIVE); NITRITE,URINE NEGATIVE (NEGATIVE); PROTEIN,URINE 30 mg/dL (NEGATIVE); URINE SPECIFIC GRAVITY 1.014; UROBILINOGEN,URINE NEGATIVE mg/dL (<2.0)
--- NOTE | 2020-03-01 20:41 | EKG REPORT ---
SEVERITY:- ABNORMAL ECG - SINUS TACHYCARDIA PROBABLE INFERIOR INFARCT, AGE INDETERMINATE LATERAL LEADS ARE ALSO INVOLVED : Confirmed by: Leslie Laird MD 01-Mar-2020 20:40:02
[2020-03-02] MEDS: CLINDAMYCIN 300 MG/D5W RTU 300 MG/50 ML RTUPB IV SCH ×3 (01:15→17:35)
[2020-03-02] MEDS: RINGERS SOLUTION,LACTATED 1,000 ML IV PRN ×2 (01:15→13:26)
[2020-03-02] MEDS: HYDROMORPHONE HCL INJ/PF 2 MG/ML AMPULE IV PRN ×4 (04:34→22:52)
[2020-03-02 05:20] LABS: HEMATOCRIT 24.3 % (36.0-47.0); HEMOGLOBIN 8.4 g/dL (12.0-15.5); MEAN CORPUSCULAR HEMOGLOBIN 28.1 pg (27.0-33.4); MEAN CORPUSCULAR HGB CONC 34.8 g/dL (32.0-36.0); MEAN CORPUSCULAR VOLUME 81 fl (80-97); PLATELET COUNT 117 10^3/uL (150-450); RED BLOOD COUNT 3.01 10^6/uL (3.72-5.28); WHITE BLOOD COUNT 23.1 10^3/uL (4.0-10.5)
[2020-03-02 05:31] LABS: APPEARANCE,URINE SLIGHTLY-CLOUDY; BILIRUBIN,URINE NEGATIVE (NEGATIVE); COLOR,URINE YELLOW; GLUCOSE, URINE NEGATIVE (NEGATIVE); KETONES,URINE NEGATIVE (NEGATIVE); LEUKOCYTE ESTERASE,URINE NEGATIVE (NEGATIVE); NITRITE,URINE NEGATIVE (NEGATIVE); PROTEIN,URINE 100 mg/dL (NEGATIVE); URINE SPECIFIC GRAVITY 1.014
[2020-03-02] MEDS: ENOXAPARIN SODIUM INJ 80 MG/0.8 ML DISP.SYRIN SUBCUT SCH ×2 (05:56→17:38)
[2020-03-02 06:03] LABS: ABSOLUTE LYMPHOCYTES# (MANUAL) 2.8 10^3/uL (0.5-4.7); ABSOLUTE MONOCYTES # (MANUAL) 2.1 10^3/uL (0.1-1.4); ANISOCYTOSIS 1+; BASOPHILS % (MANUAL) 0 % (0-2); EOSINOPHILS % (MANUAL) 0 % (0-6); LYMPHOCYTES % (MANUAL) 12 % (13-45); MONOCYTES % (MANUAL) 9 % (3-13); NUCLEATED RED BLOOD CELLS 3 /100 WBC (0); SEGMENTED NEUTROPHILS % (MAN) 79 % (42-78); TOTAL CELLS COUNTED 100
[2020-03-02 06:04] LABS: PLATELET COMMENT ADEQUATE
[2020-03-02 06:05] LABS: TARGET CELLS 2+
[2020-03-02 06:06] LABS: POLYCHROMASIA SLIGHT; SICKLE RED CELLS SLIGHT
[2020-03-02] MEDS: ACETAMINOPHEN 325 MG TABLET PO PRN (06:20)
[2020-03-02] MEDS: CLOPIDOGREL BISULFATE 75 MG TABLET PO SCH (10:06)
[2020-03-02] MEDS: ASPIRIN 81 MG TABLET, CHEWABLE PO SCH (10:06)
[2020-03-02] MEDS: ZINC SULFATE 220 MG CAPSULE PO SCH (10:07)
[2020-03-02 10:53] LABS: PATH REVIEW PATHOLOGIST REVIEWED
--- NOTE | 2020-03-02 19:33 | PDOC CONSULTATION ---
Consultation-Blank Consultation: CARDIOLOGY CONSULTATION by Dr. Leslie Laird on 03/02/2020. Patient seen at 5:30 PM. 6T minutes spent on the patient more than 50% time spent in direct patient care. REASON FOR CONSULTATION: Abnormal EKG and elevated troponin. CONSULT REQUESTING PHYSICIAN: Dr. Hanson. History of present illness: Note that the patient's poor historian. The patient was admitted on the of this month with chest pain said to be reproducible chest wall pain and was thought to be secondary to his sickle cell crisis also. 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 The patient is initial troponin which was indeterminate is now positive at 0.617. The patient denies any chest pain discomfort. But she is not a very good historian. She denies any shortness of breath. She denies any prior history of coronary artery disease, IA or anginal symptoms. No history of hypertension or congestive heart failure. 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 She denies any PND orthopnea palpitations near syncope syncope. There is no history of TIA CVA symptoms. She denies history of diabetes mellitus or thyroid disease. 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, Sickle Cell Disease Past Surgical History Past Surgical History: Reports: Hysterectomy, Tubal Ligation Social History Smoking Status: Never Smoker Frequency of Alcohol Use: None Hx Recreational Drug Use: No Drugs: None Hx Prescription Drug Abuse: No Family History Family History: Reviewed & Not Pertinent Parental Family History Reviewed: Yes Children Family History Reviewed: Yes Sibling(s) Family History Reviewed.: Yes Medication/Allergy Home Medications: Amoxicillin 875 mg PO BID 03/01/20 Methylprednisolone [Methylpred Dp] 4 mg PO ASDIR PRN 03/01/20 Oxycodone HCl/Acetaminophen [Oxycodone-Acetaminophen 10-325] 1 each PO Q4HP PRN 03/01/20 Allergies/Adverse Reactions: No Known Allergies Allergy (Verified 03/03/19 14:28) Current Medications Generic Name Dose Route Start Last Admin Trade Name Freq PRN Reason Stop Dose Admin Acetaminophen 650 mg 03/01/20 07:55 03/02/20 06:20 Acetaminophen 325 Mg Tablet PO 03/31/20 07:54 650 mg Q4HP PRN Administration FEVER > 101 Aspirin 162 mg 03/02/20 10:00 03/02/20 10:06 Aspirin 81 Mg Tablet, Chewable PO 04/01/20 09:59 162 mg DAILY VAUGHN Administration Clopidogrel Bisulfate 75 mg 03/02/20 10:00 03/02/20 10:06 Clopidogrel Bisulfate 75 Mg Tablet PO 04/01/20 09:59 75 mg DAILY VAUGHN Administration Enoxaparin Sodium 80 mg 03/01/20 18:00 03/02/20 17:38 Enoxaparin Sodium Inj 80 Mg/0.8 Ml Disp.Syrin SUBCUT 03/31/20 17:59 80 mg Q12A VAUGHN Administration Hydromorphone HCl 1 mg 03/02/20 06:13 03/02/20 17:43 Hydromorphone Hcl Inj/Pf 2 Mg/Ml Ampule IV 03/09/20 06:12 1 mg Q4HP PRN Administration FOR PAIN Lactated Ringer's 1,000 mls @ 100 mls/hr 02/29/20 20:13 03/02/20 13:26 Lactated Ringers 1000 Ml Iv Soln IV 03/30/20 20:12 100 mls/hr CONTINUOUS PRN Administration THIS MED IS NOT "PRN" Clindamycin Phosphate/Dextrose 300 mg in 50 mls @ 50 mls/hr 03/01/20 18:00 03/02/20 19:04 Cleocin Rtu 300 Mg/D5w 50 Ml Premix IV 03/08/20 17:59 Infused Q8A VAUGHN Infusion Sodium Chloride 2.5 ml 03/01/20 14:00 03/02/20 13:06 Normal Saline Flush 2.5 Ml Disp.Syrin IV 03/31/20 13:59 Not Given Q8 VAUGHN Zinc Sulfate 220 mg 03/01/20 15:00 03/02/20 10:07 Zinc Sulfate 220 Mg Capsule PO 03/31/20 14:59 220 mg DAILY VAUGHN Administration Discontinued Medications Generic Name Dose Route Start Last Admin Trade Name Freq PRN Reason Stop Dose Admin Aspirin 162 mg 03/01/20 17:30 03/01/20 17:28 Aspirin 81 Mg Tablet, Chewable PO 03/01/20 17:31 162 mg NOW ONE Administration Clopidogrel Bisulfate 300 mg 03/01/20 17:09 12/20/20 18:19 Clopidogrel Bisulfate 300 Mg Tablet PO 03/01/20 17:10 300 mg NOW ONE Administration Clopidogrel Bisulfate Confirm 03/01/20 18:09 03/01/20 18:17 Clopidogrel Bisulfate 300 Mg Tablet Administered 03/01/20 18:10 Not Given Dose 300 mg .ROUTE .STK-MED ONE Enoxaparin Sodium 40 mg 02/29/20 21:00 02/29/20 21:36 Enoxaparin Sodium Inj 40 Mg/0.4 Ml Disp.Syrin SUBCUT 03/30/20 20:59 40 mg DAILY@2100 VAUGHN Administration Hydromorphone HCl 2 mg 02/29/20 20:17 03/02/20 04:34 Hydromorphone Hcl Inj/Pf 2 Mg/Ml Ampule IV 03/07/20 20:16 2 mg Q4HP PRN Administration FOR PAIN Sodium Chloride 1,000 mls @ 0 mls/hr 02/29/20 16:12 02/29/20 18:07 Nacl 0.9% 1000 Ml Iv Soln IV 02/29/20 16:13 Infused BOLUS ONE Infusion Wide Open Lactated Ringer's 1,000 mls @ 0 mls/hr 02/29/20 17:53 02/29/20 20:01 Lactated Ringers 1000 Ml Iv Soln IV 02/29/20 17:54 Infused BOLUS ONE Infusion Wide Open Ketorolac Tromethamine 30 mg 02/29/20 16:13 02/29/20 16:23 Ketorolac Tromethamine Inj/Pf 30 Mg/1 Ml Sdv IV 02/29/20 16:14 30 mg NOW ONE Administration Morphine Sulfate 5 mg 02/29/20 16:12 02/29/20 16:23 Morphine Sulfate 10 Mg/Ml Inj IV 02/29/20 16:13 5 mg NOW ONE Administration Morphine Sulfate 3 mg 02/29/20 18:55 02/29/20 19:08 Morphine Sulfate 10 Mg/Ml Inj IV 02/29/20 18:56 3 mg NOW ONE Administration Ondansetron HCl 4 mg 02/29/20 18:55 02/29/20 19:08 Ondansetron Hcl Inj/Pf 4 Mg/2 Ml Sdv IV 02/29/20 18:56 4 mg NOW ONE Administration RESUSCITATION STATUS: The patient is a full code. She states her is a surrogate healthcare decision maker. Review of Systems Eyes: ABSENT: visual disturbances Ears: ABSENT: hearing changes Cardiovascular: PRESENT: chest pain Respiratory: ABSENT: cough, hemoptysis Gastrointestinal: ABSENT: abdominal pain, constipation, diarrhea, hematemesis, hematochezia, nausea, vomiting Genitourinary: ABSENT: dysuria, hematuria Musculoskeletal: ABSENT: joint swelling Integumentary: ABSENT: rash, wounds Neurological: ABSENT: abnormal gait, abnormal speech, confusion, dizziness, focal weakness, syncope Psychiatric: ABSENT: anxiety, depression, homidical ideation, suicidal ideation Endocrine: ABSENT: cold intolerance, heat intolerance, menstrual abnormalities, polydipsia, polyuria Hematologic/Lymphatic: ABSENT: easy bleeding, easy bruising, lymphadenopathy PHYSICAL EXAMINATION: The patient is mildly obese. At present in no acute distress. Appears to have slow mentation. Selected Entries 03/01/20 03/02/20 23:48 14:53 Temperature 97.9 F Temperature Oral Source Pulse Rate 90 Respiratory 18 Rate Blood Pressure 123/69 Blood Pressure 87 Mean BP Location Left Arm BP Position Supine O2 Sat by Pulse 95 Oximetry Oxygen Flow 3.00 Rate Oxygen Delivery Nasal Cannula Method HEAD: Is atraumatic normocephalic. EYES: Pupils equal round regular reactive light accommodation. Extraocular movements are normal. There is no conjunctival pallor. There is no scleral icterus. EARS: Tympanic membranes are intact. External auditory canals are clear. NOSE: There is no deviated nasal septum. There is no inflammation nasal mucous membrane. MOUTH: Mucous membranes of mouth are moist. There is no ulcers or bleeding from the gums. THROAT: There is no redness of the oropharynx. There is no exudates. SKIN: There is no skin rashes. There is no skin lesions. There is no petechia or ecchymosis. NECK: Is supple there is no JVD carotids are equal there is no bruit there is no lymphadenopathy the. There is no goiter. Trachea central. There is no accessory muscles of respiration use. LUNGS: Is clear to auscultation percussion without any rhonchi rales or wheezing. On palpation there is no chest wall tenderness.. HEART: S1-S2 is heard. There is no S3 gallop. There is no S4 gallop. There is systolic murmur left sternal border and apex. There is no rub. ABDOMEN: Soft. Nontender there is no paraspinal megaly. Bowel sounds are well heard. EXTREMITIES: Femorals are slightly diminished. Leg pulses are well felt. There is no pedal edema. There is no DVT or cellulitis. There is no cyanosis or clubbing. 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 Psychiatric: The patient's affect is withdrawn. She does not appear to be agitated or anxious. EKG on 02/29/2020:SINUS RHYTHM [PLAA] . PROBABLE LEFT ATRIAL ABNORMALITY [LVHVP] . PROBABLE LEFT VENTRICULAR HYPERTROPHY [T0IN] . 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 EKG on 03/01/2020: Sinus rhythm. Probable left ventricular hypertrophy. 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 ST-T changes anterior leads cannot exclude ischemia. There are APCs. Labs- Entire Visit 02/29/20 02/29/20 02/29/20 16:40 16:40 16:40 WBC 17.3 H RBC 4.38 Hgb 12.0 Hct 35.5 L MCV 81 MCH 27.5 MCHC 33.9 RDW 17.9 H Plt Count 170 Lymph % (Auto) Not Reportable [place] % (Auto) Not Reportable Eos % (Auto) Not Reportable Baso % (Auto) Not Reportable Reticulocyte # 0.179 H Absolute Neuts (auto) Not Reportable Absolute Lymphs (auto) Not Reportable Absolute Monos (auto) Not Reportable Absolute Eos (auto) Not Reportable Absolute Basos (auto) Not Reportable Total Counted 100 Seg Neutrophils % Not Reportable Seg Neuts % (Manual) 68 Band Neutrophils % 1 L Lymphocytes % (Manual) 23 Atypical Lymphs % 2 Monocytes % (Manual) 3 Eosinophils % (Manual) 0 Basophils % (Manual) 0 Metamyelocytes % 3 H Abs Neuts (Manual) 12.5 H Abs Lymphs (Manual) 4.3 Abs Monocytes (Manual) 0.5 Absolute Eos (Manual) 0.0 Abs Basophils (Manual) 0.0 Nucleated RBCs 3 Giant Platelets PRESENT Platelet Comment ADEQUATE Polychromasia SLIGHT Anisocytosis 1+ Microcytosis Sickle Cells Target Cells 2+ Ovalocytes Stomatocytes ESR Retic Count (auto) 4.08 H PT INR APTT Fibrinogen D-Dimer Sodium 141.4 Potassium 3.8 Chloride 103 Carbon Dioxide 29 Anion Gap 9 BUN 13 Creatinine 0.62 Est GFR ( Amer) > 60 Est GFR (MDRD) Non-Af > 60 Glucose 88 Hemoglobin A1c % Calcium 9.5 Phosphorus Magnesium Ferritin Total Bilirubin 1.5 H Direct Bilirubin 0.2 Neonat Total Bilirubin Not Reportable Neonat Direct Bilirubin Not Reportable Neonat Indirect Bili Not Reportable AST 28 ALT 17 Alkaline Phosphatase 82 Ammonia Lactate Dehydrogenase Creatine Kinase 51 Troponin I 0.034 C-Reactive Protein Total Protein 7.3 Albumin 4.3 Triglycerides Cholesterol LDL Cholesterol Direct VLDL Cholesterol HDL Cholesterol Amylase Lipase TSH Free T4 Urine Color Urine Appearance Urine pH Ur Specific [place] Urine Protein Urine Glucose (UA) Urine Ketones Urine Blood Urine Nitrite Urine Bilirubin Urine Urobilinogen Ur Leukocyte Esterase Urine WBC (Auto) Urine RBC (Auto) U Hyaline Cast (Auto) Urine Bacteria (Auto) Squamous Epi Cells Auto Urine Mucus (Auto) Urine Ascorbic Acid Urine Opiates Screen Urine Methadone Screen Ur Barbiturates Screen Ur Phencyclidine Scrn Ur Amphetamines Screen U Benzodiazepines Scrn Urine Cocaine Screen U Marijuana (THC) Screen Influenza A (RT-PCR) Influenza B (RT-PCR) RSV (RT-PCR) SARS-CoV-2 Rap RNA(RT-PCR) Group A Strep Rapid Slides for Path Review PATHOLOGIST REVIEWED 02/29/20 02/29/20 02/29/20 16:40 16:40 16:40 WBC RBC Hgb Hct MCV MCH MCHC RDW Plt Count Lymph % (Auto) [place] % (Auto) Eos % (Auto) Baso % (Auto) Reticulocyte # Absolute Neuts (auto) Absolute Lymphs (auto) Absolute Monos (auto) Absolute Eos (auto) Absolute Basos (auto) Total Counted Seg Neutrophils % Seg Neuts % (Manual) Band Neutrophils % Lymphocytes % (Manual) Atypical Lymphs % Monocytes % (Manual) Eosinophils % (Manual) Basophils % (Manual) Metamyelocytes % Abs Neuts (Manual) Abs Lymphs (Manual) Abs Monocytes (Manual) Absolute Eos (Manual) Abs Basophils (Manual) Nucleated RBCs Giant Platelets Platelet Comment Polychromasia Anisocytosis Microcytosis Sickle Cells Target Cells Ovalocytes Stomatocytes ESR 3 Retic Count (auto) PT INR APTT Fibrinogen D-Dimer Sodium Potassium Chloride Carbon Dioxide Anion Gap BUN Creatinine Est GFR ( Amer) Est GFR (MDRD) Non-Af Glucose Hemoglobin A1c % Calcium Phosphorus Magnesium Ferritin Total Bilirubin Direct Bilirubin Neonat Total Bilirubin Neonat Direct Bilirubin Neonat Indirect Bili AST ALT Alkaline Phosphatase Ammonia Lactate Dehydrogenase 427 H Creatine Kinase Troponin I C-Reactive Protein Total Protein Albumin Triglycerides Cholesterol LDL Cholesterol Direct VLDL Cholesterol HDL Cholesterol Amylase Lipase TSH Free T4 Urine Color YELLOW Urine Appearance CLEAR Urine pH 5.0 Ur Specific [place] 1.012 Urine Protein NEGATIVE Urine Glucose (UA) NEGATIVE Urine Ketones NEGATIVE Urine Blood NEGATIVE Urine Nitrite NEGATIVE Urine Bilirubin NEGATIVE Urine Urobilinogen NEGATIVE Ur Leukocyte Esterase NEGATIVE Urine WBC (Auto) 1 Urine RBC (Auto) 0 U Hyaline Cast (Auto) Urine Bacteria (Auto) Squamous Epi Cells Auto 1 Urine Mucus (Auto) RARE Urine Ascorbic Acid NEGATIVE Urine Opiates Screen Urine Methadone Screen Ur Barbiturates Screen Ur Phencyclidine Scrn Ur Amphetamines Screen U Benzodiazepines Scrn Urine Cocaine Screen U Marijuana (THC) Screen Influenza A (RT-PCR) Influenza B (RT-PCR) RSV (RT-PCR) SARS-CoV-2 Rap RNA(RT-PCR) Group A Strep Rapid Slides for Path Review 02/29/20 02/29/20 02/29/20 16:40 16:40 16:40 WBC RBC Hgb Hct MCV MCH MCHC RDW Plt Count Lymph % (Auto) [place] % (Auto) Eos % (Auto) Baso % (Auto) Reticulocyte # Absolute Neuts (auto) Absolute Lymphs (auto) Absolute Monos (auto) Absolute Eos (auto) Absolute Basos (auto) Total Counted Seg Neutrophils % Seg Neuts % (Manual) Band Neutrophils % Lymphocytes % (Manual) Atypical Lymphs % Monocytes % (Manual) Eosinophils % (Manual) Basophils % (Manual) Metamyelocytes % Abs Neuts (Manual) Abs Lymphs (Manual) Abs Monocytes (Manual) Absolute Eos (Manual) Abs Basophils (Manual) Nucleated RBCs Giant Platelets Platelet Comment Polychromasia Anisocytosis Microcytosis Sickle Cells Target Cells Ovalocytes Stomatocytes ESR Retic Count (auto) PT 14.5 INR 1.11 APTT 28.7 Fibrinogen D-Dimer Sodium Potassium Chloride Carbon Dioxide Anion Gap BUN Creatinine Est GFR ( Amer) Est GFR (MDRD) Non-Af Glucose Hemoglobin A1c % Calcium Phosphorus 3.9 Magnesium 2.0 Ferritin Total Bilirubin Direct Bilirubin Neonat Total Bilirubin Neonat Direct Bilirubin Neonat Indirect Bili AST ALT Alkaline Phosphatase Ammonia Lactate Dehydrogenase Creatine Kinase Troponin I C-Reactive Protein < 5.0 Total Protein Albumin Triglycerides Cholesterol LDL Cholesterol Direct VLDL Cholesterol HDL Cholesterol Amylase 53 Lipase 34.9 TSH Free T4 Urine Color Urine Appearance Urine pH Ur Specific [place] Urine Protein Urine Glucose (UA) Urine Ketones Urine Blood Urine Nitrite Urine Bilirubin Urine Urobilinogen Ur Leukocyte Esterase Urine WBC (Auto) Urine RBC (Auto) U Hyaline Cast (Auto) Urine Bacteria (Auto) Squamous Epi Cells Auto Urine Mucus (Auto) Urine Ascorbic Acid Urine Opiates Screen Urine Methadone Screen Ur Barbiturates Screen Ur Phencyclidine Scrn Ur Amphetamines Screen U Benzodiazepines Scrn Urine Cocaine Screen U Marijuana (THC) Screen Influenza A (RT-PCR) Influenza B (RT-PCR) RSV (RT-PCR) SARS-CoV-2 Rap RNA(RT-PCR) Group A Strep Rapid Slides for Path Review 02/29/20 02/29/20 02/29/20 16:40 16:40 21:00 WBC RBC Hgb Hct MCV MCH MCHC RDW Plt Count Lymph % (Auto) [place] % (Auto) Eos % (Auto) Baso % (Auto) Reticulocyte # Absolute Neuts (auto) Absolute Lymphs (auto) Absolute Monos (auto) Absolute Eos (auto) Absolute Basos (auto) Total Counted Seg Neutrophils % Seg Neuts % (Manual) Band Neutrophils % Lymphocytes % (Manual) Atypical Lymphs % Monocytes % (Manual) Eosinophils % (Manual) Basophils % (Manual) Metamyelocytes % Abs Neuts (Manual) Abs Lymphs (Manual) Abs Monocytes (Manual) Absolute Eos (Manual) Abs Basophils (Manual) Nucleated RBCs Giant Platelets Platelet Comment Polychromasia Anisocytosis Microcytosis Sickle Cells Target Cells Ovalocytes Stomatocytes ESR Retic Count (auto) PT INR APTT Fibrinogen D-Dimer Sodium Potassium Chloride Carbon Dioxide Anion Gap BUN Creatinine Est GFR ( Amer) Est GFR (MDRD) Non-Af Glucose Hemoglobin A1c % Calcium Phosphorus Magnesium Ferritin Total Bilirubin Direct Bilirubin Neonat Total Bilirubin Neonat Direct Bilirubin Neonat Indirect Bili AST ALT Alkaline Phosphatase Ammonia < 8.7 L Lactate Dehydrogenase Creatine Kinase Troponin I C-Reactive Protein Total Protein Albumin Triglycerides Cholesterol LDL Cholesterol Direct VLDL Cholesterol HDL Cholesterol Amylase Lipase TSH 1.87 Free T4 1.42 Urine Color Urine Appearance Urine pH Ur Specific [place] Urine Protein Urine Glucose (UA) Urine Ketones Urine Blood Urine Nitrite Urine Bilirubin Urine Urobilinogen Ur Leukocyte Esterase Urine WBC (Auto) Urine RBC (Auto) U Hyaline Cast (Auto) Urine Bacteria (Auto) Squamous Epi Cells Auto Urine Mucus (Auto) Urine Ascorbic Acid Urine Opiates Screen NEGATIVE Urine Methadone Screen NEGATIVE Ur Barbiturates Screen NEGATIVE Ur Phencyclidine Scrn NEGATIVE Ur Amphetamines Screen NEGATIVE U Benzodiazepines Scrn NEGATIVE Urine Cocaine Screen NEGATIVE U Marijuana (THC) Screen NEGATIVE Influenza A (RT-PCR) Influenza B (RT-PCR) RSV (RT-PCR) SARS-CoV-2 Rap RNA(RT-PCR) Group A Strep Rapid Slides for Path Review 03/01/20 03/01/20 03/01/20 05:02 05:02 05:02 WBC 13.2 H RBC 3.23 L Hgb 8.9 L D Hct 25.5 L MCV 79 L MCH 27.4 MCHC 34.8 RDW 17.5 H Plt Count 133 L Lymph % (Auto) Not Reportable [place] % (Auto) Not Reportable Eos % (Auto) Not Reportable Baso % (Auto) Not Reportable Reticulocyte # Absolute Neuts (auto) Not Reportable Absolute Lymphs (auto) Not Reportable Absolute Monos (auto) Not Reportable Absolute Eos (auto) Not Reportable Absolute Basos (auto) Not Reportable Total Counted 100 Seg Neutrophils % Not Reportable Seg Neuts % (Manual) 72 Band Neutrophils % Lymphocytes % (Manual) 23 Atypical Lymphs % 1 Monocytes % (Manual) 4 Eosinophils % (Manual) 0 Basophils % (Manual) 0 Metamyelocytes % Abs Neuts (Manual) 9.5 H Abs Lymphs (Manual) 3.2 Abs Monocytes (Manual) 0.5 Absolute Eos (Manual) 0.0 Abs Basophils (Manual) 0.0 Nucleated RBCs 5 Giant Platelets Platelet Comment ADEQUATE Polychromasia SLIGHT Anisocytosis 1+ Microcytosis SLIGHT Sickle Cells Target Cells 2+ Ovalocytes SLIGHT Stomatocytes 1+ ESR Retic Count (auto) PT INR APTT Fibrinogen D-Dimer Sodium 137.1 Potassium 3.3 L Chloride 102 Carbon Dioxide 30 Anion Gap 5 BUN 11 Creatinine 0.67 Est GFR ( Amer) > 60 Est GFR (MDRD) Non-Af > 60 Glucose 128 H Hemoglobin A1c % < 4.0 L Calcium 8.2 L Phosphorus Magnesium Ferritin Total Bilirubin 1.4 H Direct Bilirubin 0.0 Neonat Total Bilirubin Not Reportable Neonat Direct Bilirubin Not Reportable Neonat Indirect Bili Not Reportable AST 24 ALT 14 Alkaline Phosphatase 66 Ammonia Lactate Dehydrogenase Creatine Kinase Troponin I C-Reactive Protein Total Protein 5.8 L Albumin 3.1 L Triglycerides 94 Cholesterol 114.91 LDL Cholesterol Direct 41 VLDL Cholesterol 19.0 HDL Cholesterol 49 Amylase Lipase TSH Free T4 Urine Color Urine Appearance Urine pH Ur Specific [place] Urine Protein Urine Glucose (UA) Urine Ketones Urine Blood Urine Nitrite Urine Bilirubin Urine Urobilinogen Ur Leukocyte Esterase Urine WBC (Auto) Urine RBC (Auto) U Hyaline Cast (Auto) Urine Bacteria (Auto) Squamous Epi Cells Auto Urine Mucus (Auto) Urine Ascorbic Acid Urine Opiates Screen Urine Methadone Screen Ur Barbiturates Screen Ur Phencyclidine Scrn Ur Amphetamines Screen U Benzodiazepines Scrn Urine Cocaine Screen U Marijuana (THC) Screen Influenza A (RT-PCR) Influenza B (RT-PCR) RSV (RT-PCR) SARS-CoV-2 Rap RNA(RT-PCR) Group A Strep Rapid Slides for Path Review 03/01/20 03/01/20 03/01/20 14:20 15:42 15:42 WBC RBC Hgb Hct MCV MCH MCHC RDW Plt Count Lymph % (Auto) [place] % (Auto) Eos % (Auto) Baso % (Auto) Reticulocyte # Absolute Neuts (auto) Absolute Lymphs (auto) Absolute Monos (auto) Absolute Eos (auto) Absolute Basos (auto) Total Counted Seg Neutrophils % Seg Neuts % (Manual) Band Neutrophils % Lymphocytes % (Manual) Atypical Lymphs % Monocytes % (Manual) Eosinophils % (Manual) Basophils % (Manual) Metamyelocytes % Abs Neuts (Manual) Abs Lymphs (Manual) Abs Monocytes (Manual) Absolute Eos (Manual) Abs Basophils (Manual) Nucleated RBCs Giant Platelets Platelet Comment Polychromasia Anisocytosis Microcytosis Sickle Cells Target Cells Ovalocytes Stomatocytes ESR Retic Count (auto) PT 15.7 H INR 1.23 APTT 40.1 H Fibrinogen 323 D-Dimer 3.80 H Sodium 137.4 Potassium 3.9 Chloride 102 Carbon Dioxide 28 Anion Gap 7 BUN 17 Creatinine 0.78 Est GFR ( Amer) > 60 Est GFR (MDRD) Non-Af > 60 Glucose 146 H Hemoglobin A1c % Calcium 8.2 L Phosphorus Magnesium Ferritin 1030.00 H Total Bilirubin 2.1 H Direct Bilirubin 0.2 Neonat Total Bilirubin Not Reportable Neonat Direct Bilirubin Not Reportable Neonat Indirect Bili Not Reportable AST 44 H ALT 17 Alkaline Phosphatase 83 Ammonia Lactate Dehydrogenase 669 H Creatine Kinase 136 H Troponin I C-Reactive Protein 72.2 H Total Protein 6.4 Albumin 3.5 Triglycerides Cholesterol LDL Cholesterol Direct VLDL Cholesterol HDL Cholesterol Amylase Lipase TSH Free T4 Urine Color Urine Appearance Urine pH Ur Specific [place] Urine Protein Urine Glucose (UA) Urine Ketones Urine Blood Urine Nitrite Urine Bilirubin Urine Urobilinogen Ur Leukocyte Esterase Urine WBC (Auto) Urine RBC (Auto) U Hyaline Cast (Auto) Urine Bacteria (Auto) Squamous Epi Cells Auto Urine Mucus (Auto) Urine Ascorbic Acid Urine Opiates Screen Urine Methadone Screen Ur Barbiturates Screen Ur Phencyclidine Scrn Ur Amphetamines Screen U Benzodiazepines Scrn Urine Cocaine Screen U Marijuana (THC) Screen Influenza A (RT-PCR) NEGATIVE Influenza B (RT-PCR) NEGATIVE RSV (RT-PCR) NEGATIVE SARS-CoV-2 Rap RNA(RT-PCR) NEGATIVE Group A Strep Rapid Slides for Path Review 03/01/20 03/01/20 03/01/20 15:42 16:45 18:10 WBC RBC Hgb Hct MCV MCH MCHC RDW Plt Count Lymph % (Auto) [place] % (Auto) Eos % (Auto) Baso % (Auto) Reticulocyte # Absolute Neuts (auto) Absolute Lymphs (auto) Absolute Monos (auto) Absolute Eos (auto) Absolute Basos (auto) Total Counted Seg Neutrophils % Seg Neuts % (Manual) Band Neutrophils % Lymphocytes % (Manual) Atypical Lymphs % Monocytes % (Manual) Eosinophils % (Manual) Basophils % (Manual) Metamyelocytes % Abs Neuts (Manual) Abs Lymphs (Manual) Abs Monocytes (Manual) Absolute Eos (Manual) Abs Basophils (Manual) Nucleated RBCs Giant Platelets Platelet Comment Polychromasia Anisocytosis Microcytosis Sickle Cells Target Cells Ovalocytes Stomatocytes ESR Retic Count (auto) PT INR APTT Fibrinogen D-Dimer Sodium Potassium Chloride Carbon Dioxide Anion Gap BUN Creatinine Est GFR ( Amer) Est GFR (MDRD) Non-Af Glucose Hemoglobin A1c % Calcium Phosphorus Magnesium Ferritin Total Bilirubin Direct Bilirubin Neonat Total Bilirubin Neonat Direct Bilirubin Neonat Indirect Bili AST ALT Alkaline Phosphatase Ammonia Lactate Dehydrogenase Creatine Kinase Troponin I 0.617 C-Reactive Protein Total Protein Albumin Triglycerides Cholesterol LDL Cholesterol Direct VLDL Cholesterol HDL Cholesterol Amylase Lipase TSH Free T4 Urine Color YELLOW Urine Appearance SLIGHTLY-CLOUDY Urine pH 5.0 Ur Specific [place] 1.014 Urine Protein 30 H Urine Glucose (UA) NEGATIVE Urine Ketones NEGATIVE Urine Blood SMALL H Urine Nitrite NEGATIVE Urine Bilirubin NEGATIVE Urine Urobilinogen NEGATIVE Ur Leukocyte Esterase NEGATIVE Urine WBC (Auto) 1 Urine RBC (Auto) 0 U Hyaline Cast (Auto) 8 Urine Bacteria (Auto) TRACE Squamous Epi Cells Auto 4 Urine Mucus (Auto) FEW Urine Ascorbic Acid NEGATIVE Urine Opiates Screen Urine Methadone Screen Ur Barbiturates Screen Ur Phencyclidine Scrn Ur Amphetamines Screen U Benzodiazepines Scrn Urine Cocaine Screen U Marijuana (THC) Screen Influenza A (RT-PCR) Influenza B (RT-PCR) RSV (RT-PCR) SARS-CoV-2 Rap RNA(RT-PCR) Group A Strep Rapid NEGATIVE Slides for Path Review 03/02/20 03/02/20 03/02/20 04:33 04:40 18:31 WBC 23.1 H RBC 3.01 L Hgb 8.4 L Hct 24.3 L MCV 81 MCH 28.1 MCHC 34.8 RDW 18.0 H Plt Count 117 L Lymph % (Auto) Not Reportable [place] % (Auto) Not Reportable Eos % (Auto) Not Reportable Baso % (Auto) Not Reportable Reticulocyte # Absolute Neuts (auto) Not Reportable Absolute Lymphs (auto) Not Reportable Absolute Monos (auto) Not Reportable Absolute Eos (auto) Not Reportable Absolute Basos (auto) Not Reportable Total Counted 100 Seg Neutrophils % Not Reportable Seg Neuts % (Manual) 79 H Band Neutrophils % Lymphocytes % (Manual) 12 L Atypical Lymphs % Monocytes % (Manual) 9 Eosinophils % (Manual) 0 Basophils % (Manual) 0 Metamyelocytes % Abs Neuts (Manual) 18.2 H Abs Lymphs (Manual) 2.8 Abs Monocytes (Manual) 2.1 H Absolute Eos (Manual) 0.0 Abs Basophils (Manual) 0.0 Nucleated RBCs 3 Giant Platelets Platelet Comment ADEQUATE Polychromasia SLIGHT Anisocytosis 1+ Microcytosis Sickle Cells SLIGHT Target Cells 2+ Ovalocytes Stomatocytes ESR Retic Count (auto) PT INR APTT Fibrinogen D-Dimer Sodium Potassium Chloride Carbon Dioxide Anion Gap BUN Creatinine Est GFR ( Amer) Est GFR (MDRD) Non-Af Glucose Hemoglobin A1c % Calcium Phosphorus Magnesium Ferritin Total Bilirubin Direct Bilirubin Neonat Total Bilirubin Neonat Direct Bilirubin Neonat Indirect Bili AST ALT Alkaline Phosphatase Ammonia Lactate Dehydrogenase Creatine Kinase 730 H Troponin I C-Reactive Protein Total Protein Albumin Triglycerides Cholesterol LDL Cholesterol Direct VLDL Cholesterol HDL Cholesterol Amylase Lipase TSH Free T4 Urine Color YELLOW Urine Appearance SLIGHTLY-CLOUDY Urine pH 5.0 Ur Specific [place] 1.014 Urine Protein 100 H Urine Glucose (UA) NEGATIVE Urine Ketones NEGATIVE Urine Blood MODERATE H Urine Nitrite NEGATIVE Urine Bilirubin NEGATIVE Urine Urobilinogen 2.0 H Ur Leukocyte Esterase NEGATIVE Urine WBC (Auto) 3 Urine RBC (Auto) 0 U Hyaline Cast (Auto) 6 Urine Bacteria (Auto) TRACE Squamous Epi Cells Auto 7 Urine Mucus (Auto) OCC Urine Ascorbic Acid NEGATIVE Urine Opiates Screen Urine Methadone Screen Ur Barbiturates Screen Ur Phencyclidine Scrn Ur Amphetamines Screen U Benzodiazepines Scrn Urine Cocaine Screen U Marijuana (THC) Screen Influenza A (RT-PCR) Influenza B (RT-PCR) RSV (RT-PCR) SARS-CoV-2 Rap RNA(RT-PCR) Group A Strep Rapid Slides for Path Review Chest X-Ray 02/29/20 15:58 IMPRESSION: Stable appearance of the chest. No acute radiographic abnormality or significant interval change. IMPRESSION/RECOMMENDATION.: 1. Most likely non-ST elevation IA. The patient's chest pain could have been masked by her chest wall pain due to sickle cell crisis. Agree with current antiplatelet agents, Lovenox and recommend adding beta-blockers. Would continue the Lovenox for at least 48 hours. Recommend serial EKG and troponin estimations. Also would get an echo to see if there is any indication that we should get a coronary CT angiography, since occurrence of pulmonary embolism is of high incidence in people with sickle cell disease. Also note the patient is a poor historian. Will await reading the echo. 2. Elevated troponin levels. We will trend the troponin. 3. Sickle cell crisis: Seems to have resolved. Continue hydration. 4. Systolic murmur: Most likely has tricuspid and mitral regurgitation. Will check echo. Patient cardiac status is stable. Would recommend getting serial EKGs and troponin level estimations. Once the troponin is trending down, there are no artery pathology seen on echocardiogram, then would get IV Lexiscan Cardiolite stress test. We will also check an echo for recurrence of wall motion abnormality of the left ventricle or right ventricular pathology. Medications reviewed. Medications adjusted medical regimen and management plan discussed with Dr. Hanson. Medical decision making is of high complexity. 60 minutes spent as patient more than 50% time spent in direct patient care. Will follow
[2020-03-02 19:38] LABS: CREATINE KINASE MB 5.24 ng/mL (<4.55)
[2020-03-02 19:56] LABS: TROPONIN I 0.67 ng/mL
--- NOTE | 2020-03-02 20:43 | PDOC PROGRESS REPORT ---
Subjective Date:: 03/02/20 Subjective:: Patient denied any ongoing chest pain or difficulty with breathing. No abdominal pain, nausea or vomiting. No fever or chills. Reason For Visit: SICKLE CELL PAIN CRISIS Physical Exam Vital Signs: Temp Pulse Resp BP Pulse Ox 97.9 F 90 18 123/69 95 03/02/20 14:53 03/02/20 14:53 03/02/20 14:53 03/02/20 14:53 03/02/20 14:53 Intake & Output 03/01/20 03/02/20 03/03/20 06:59 06:59 06:59 Intake Total 1999 2100 1271 Output Total 200 Balance 1999 1900 1271 Weight 77.8 kg General appearance: PRESENT: no acute distress, obese Head exam: PRESENT: atraumatic, normocephalic Eye exam: PRESENT: conjunctiva pink, EOMI, PERRLA. ABSENT: scleral icterus Ear exam: PRESENT: normal external ear exam Mouth exam: PRESENT: moist, tongue midline Neck exam: PRESENT: full ROM. ABSENT: carotid bruit, JVD, lymphadenopathy, thyromegaly Respiratory exam: PRESENT: clear to auscultation cesilia Cardiovascular exam: PRESENT: RRR, +S1, +S2, systolic murmur. ABSENT: diastolic murmur, rubs Murmur grade: 3 Pulses: PRESENT: normal dorsalis pedis pul, +2 pedal pulses bilateral Vascular exam: ABSENT: pallor GI/Abdominal exam: PRESENT: normal bowel sounds, soft. ABSENT: distended, guarding, mass, organolmegaly, rebound, tenderness Extremities exam: ABSENT: pedal edema Neurological exam: PRESENT: alert, awake, oriented to person, oriented to place, oriented to time, oriented to situation, CN II-XII grossly intact. ABSENT: motor sensory deficit Psychiatric exam: PRESENT: appropriate affect, normal mood. ABSENT: homicidal ideation, suicidal ideation Skin exam: PRESENT: dry, intact, warm. ABSENT: cyanosis, rash Results Laboratory Results: 03/02/20 04:33 03/01/20 15:42 03/01/20 03/01/20 03/02/20 15:42 18:10 04:33 WBC 23.1 H RBC 3.01 L Hgb 8.4 L Hct 24.3 L MCV 81 MCH 28.1 MCHC 34.8 RDW 18.0 H Plt Count 117 L Seg Neutrophils % Not Reportable Ferritin 1030.00 H Urine Color YELLOW Urine Appearance SLIGHTLY-CLOUDY Urine pH 5.0 Ur Specific [place] 1.014 Urine Protein 30 H Urine Glucose (UA) NEGATIVE Urine Ketones NEGATIVE Urine Blood SMALL H Urine Nitrite NEGATIVE Ur Leukocyte Esterase NEGATIVE Urine WBC (Auto) 1 Urine RBC (Auto) 0 03/02/20 04:40 WBC RBC Hgb Hct MCV MCH MCHC RDW Plt Count Seg Neutrophils % Ferritin Urine Color YELLOW Urine Appearance SLIGHTLY-CLOUDY Urine pH 5.0 Ur Specific [place] 1.014 Urine Protein 100 H Urine Glucose (UA) NEGATIVE Urine Ketones NEGATIVE Urine Blood MODERATE H Urine Nitrite NEGATIVE Ur Leukocyte Esterase NEGATIVE Urine WBC (Auto) 3 Urine RBC (Auto) 0 02/29/20 02/29/20 03/01/20 16:40 16:40 15:42 Creatine Kinase 51 136 H Troponin I 0.034 03/01/20 15:42 Creatine Kinase Troponin I 0.617 Impressions: Chest X-Ray 02/29/20 15:58 IMPRESSION: Stable appearance of the chest. No acute radiographic abnormality or significant interval change. Assessment & Plan - Diagnosis (1) Chest pain Qualifiers: Chest pain type: other chest pain Qualified Code(s): R07.89 - Other chest pain; R07.8 - Other chest pain Is this a current diagnosis for this admission?: Yes Plan: Obtain serial cardiac enzymes and 12 lead EKG for further evaluation of her presenting symptoms and elevated Troponin. Her sickle cell crisis may be masking her true cardiac contribution to her chest pain. Her D-Dimer and inflammatory makers elevation are very suggestive of cardiac event. (2) Elevated troponin Is this a current diagnosis for this admission?: Yes Plan: Continue current anti NSTEMI event management. I will obtain cardiology consultation with Dr. Coreas for further input. (3) Vaso-occlusive pain due to sickle cell disease Is this a current diagnosis for this admission?: Yes Plan: Continue current pain management regimen and hydration support. 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 (5) Probable sepsis Is this a current diagnosis for this admission?: Yes Plan: Possible source is her dental caries and reported intent for tooth extraction p rior to her presentation and admission to the hospital. Maintain on IV Clindamycin coverage. - Time Time Spent with patient: 25-34 minutes Level of Care: TELE Medications reviewed and adjusted accordingly: Yes Anticipated discharge: Home with Homehealth Anticipated DC Timeframe: within 72 hours - Inpatient Certification Based on my medical assessment, after consideration of the patient's comorbidities, presenting symptoms, or acuity I expect that the services needed warrant INPATIENT care.: Yes I certify that my determination is in accordance with my understanding of Medicare's requirements for reasonable and necessary INPATIENT services [42 CFR 412.3e].: Yes Medical Necessity: Significant Comorbidiites Make Outpatient Treatment Too Risky, Need Close Monitoring Due to Risk of Patient Decompensation, Need For IV Fluids, Need For Continuous Telemetry Monitoring, Need for Pain Control, Need for IV Antibiotics, Risk of Complication if Not Cared For in Hospital, Risk of Diagnosis Which Will Require Inpatient Eval/Care/Monitoring Post Hospital Care: D/C Wool Shearer Documentation - Plan Summary Plan Summary: Transfer to [facility] level. Follow up with cardiology consultation recommendations. Continue current anticoagulation and antiplatelet therapies.
[2020-03-02] MEDS: METOPROLOL TARTRATE 25 MG TABLET PO SCH (21:48)
--- NOTE | 2020-03-02 23:39 | XCELERA REPORT ---
[address] [address] Transthoracic Echocardiogram Report Name: EMILI PEREIRA Age: 59 yrs Gender: Female : 1960 Patient Status: Inpatient Patient Location: [address] [place], [place] [address] Study Date: 03/02/2020 08:14 PM Height: 62 in Weight: 171 lb BSA: 1.8 m2 Procedure: A two-dimensional transthoracic echocardiogram with color flow and Doppler was performed. Study Quality: Technically suboptimal. Reason For Study: NSTEMI / Murmur History: NSTEMI / Murmur. Ordering Physician: LESLIE FUENTES Performed By: Dorina Gutierrez Interpretation Summary There is normal left ventricular wall thickness. LV EF is Greater than 60% Left ventricular systolic function is normal. Doppler measurements suggest impaired left ventricular relaxation, which is associated with grade I/IV or mild diastolic dysfunction The left ventricular wall motion is normal. Flattened septum is consistent with RV pressure/volume overload RV appears to be moderately enlarged.No well visualised.Ther e is some degree of RV systolic Dysfunction.RV apical artifact versus clot. The right atrium is mildly dilated. The left atrial size is normal. There is no evidence of mitral valve prolapse. There is no vegetation seen on the mitral valve. There is no mitral valve stenosis. There is a trace to mild amount of mitral regurgitation There is no aortic valvular vegetation. There is no aortic valve stenosis There is no LVOT obstruction. No aortic regurgitation is present. There is no tricuspid stenosis. There is a moderate amount of tricuspid regurgitation There is moderate pulmonary hypertension by echo RVSP is 50 to 55 mm of Hg , with RA mean of 10 to 15. There is no pulmonic valvular stenosis. There is a mild amount of pulmonic regurgitation The aortic root is not well visualized but is probably normal size. The inferior vena cava appeared normal and decreased < 50% with respiration (RAP 10-15 mmHg) No pericardial effusion. MMode/2D Measurements & Calculations RVDd: 3.3 cm LVIDd: 4.5 cm FS: 32.4 % Ao root diam: 2.6 cm IVSd: 1.0 cm LVIDs: 3.1 cm EDV(Teich): 94.0 ml Ao root area: 5.4 cm2 LVPWd: 0.99 cm ESV(Teich): 36.8 ml LA dimension: 3.4 cm EF(Teich): 60.8 % Doppler Measurements & Calculations MV E max gadiel: MV P1/2t max gadiel: Ao V2 max: LV V1 max P.4 cm/sec 73.0 cm/sec 147.1 cm/sec 4.8 mmHg MV A max gadiel: MV P1/2t: 51.5 msec Ao max PG: LV V1 max: 76.7 cm/sec MVA(P1/2t): 4.3 cm2 8.7 mmHg 109.6 cm/sec MV E/A: 0.77 MV dec slope: 415.4 cm/sec2 MV dec time: 0.24 sec PA V2 max: PI end-d gadiel: TR max gadiel: MV P1/2t-pr_phl: 81.8 cm/sec 177.6 cm/sec 314.1 cm/sec 51.5 msec PA max PG: TR max P.7 mmHg 39.5 mmHg Left Ventricle The left ventricle is normal in size. There is normal left ventricular wall thickness. LV EF is Greater than 60%. Left ventricular systolic function is normal. Doppler measurements suggest impaired left ventricular relaxation, which is associated with grade I/IV or mild diastolic dysfunction. The left ventricular wall motion is normal. Flattened septum is consistent with RV pressure/volume overload. Right Ventricle RV appears to be moderately enlarged.No well visualised.Ther e is some degree of RV systolic Dysfunction.RV apical artifact versus clot. Atria The right atrium is mildly dilated. The left atrial size is normal. Mitral Valve There is no evidence of mitral valve prolapse. There is no vegetation seen on the mitral valve. There is no mitral valve stenosis. There is a trace to mild amount of mitral regurgitation. Aortic Valve There is no aortic valvular vegetation. There is no aortic valve stenosis. There is no LVOT obstruction. No aortic regurgitation is present. Tricuspid Valve There is no tricuspid stenosis. There is a moderate amount of tricuspid regurgitation. There is moderate pulmonary hypertension by echo. RVSP is 50 to 55 mm of Hg , with RA mean of 10 to 15. Pulmonic Valve There is no pulmonic valvular stenosis. There is a mild amount of pulmonic regurgitation. Great Vessels The aortic root is not well visualized but is probably normal size. The inferior vena cava appeared normal and decreased < 50% with respiration (RAP 10-15 mmHg). Effusions No pericardial effusion. : LESLIE FUENTES Lakshmi
[2020-03-03 01:05] LABS: CREATINE KINASE MB 4.23 ng/mL (<4.55)
[2020-03-03 01:07] LABS: TROPONIN I 0.6 ng/mL
[2020-03-03] MEDS ORDERED: NALOXONE HCL INJ/PF 0.4 MG/1 ML SDV ONE (01:52)
[2020-03-03] MEDS ORDERED: NALOXONE HCL INJ/PF 0.4 MG/1 ML SDV IV ONE (02:00)
[2020-03-03] MEDS: CLINDAMYCIN 300 MG/D5W RTU 300 MG/50 ML RTUPB IV SCH ×3 (02:03→17:46)
[2020-03-03] MEDS: ENOXAPARIN SODIUM INJ 80 MG/0.8 ML DISP.SYRIN SUBCUT SCH ×2 (05:18→18:07)
[2020-03-03] MEDS: PANTOPRAZOLE SODIUM 40 MG TABLET.DR PO SCH (05:20)
[2020-03-03 07:12] LABS: ALBUMIN 3.4 g/dL (3.5-5.0); ALKALINE PHOSPHATASE 194 U/L (38-126); ANION GAP 15 (5-19); ASPARTATE AMINO TRANSFERASE 194 U/L (14-36); BILIRUBIN,TOTAL 6.4 mg/dL (0.2-1.3); BLOOD UREA NITROGEN 34 mg/dL (7-20); CALCIUM 7.8 mg/dL (8.4-10.2); CARBON DIOXIDE 20 mmol/L (22-30); CHLORIDE 105 mmol/L (98-107); CHOLESTEROL 107.01 mg/dL (0-200); CREATINE KINASE 840 U/L (30-135); GLUCOSE 129 mg/dL (75-110); POTASSIUM 4.8 mmol/L (3.6-5.0); TOTAL PROTEIN 6.3 g/dL (6.3-8.2); TRIGLYCERIDES 135 mg/dL (<150)
--- NOTE | 2020-03-03 07:18 | EKG REPORT ---
SEVERITY:- ABNORMAL ECG - SINUS TACHYCARDIA ATRIAL PREMATURE COMPLEXES PROBABLE INFERIOR INFARCT, AGE INDETERMINATE NONSPECIFIC T ABNORMALITIES, ANT-LAT LEADS : Confirmed by: Nicolás Gaspar MD 03-Mar-2020 07:18:31
[2020-03-03 07:21] LABS: CREATINE KINASE MB 4.22 ng/mL (<4.55); TROPONIN I 0.638 ng/mL
[2020-03-03 07:24] LABS: DIRECT LDL < 30 mg/dL (<100)
[2020-03-03 07:42] LABS: MEAN CORPUSCULAR HEMOGLOBIN 27.4 pg (27.0-33.4); MEAN CORPUSCULAR HGB CONC 34.6 g/dL (32.0-36.0); MEAN CORPUSCULAR VOLUME 79 fl (80-97); RED CELL DISTRIBUTION WIDTH 18.5 % (11.5-14.0)
[2020-03-03 07:57] LABS: PLATELET COUNT 83 10^3/uL (150-450)
[2020-03-03 08:01] LABS: ABSOLUTE LYMPHOCYTES# (MANUAL) 2.8 10^3/uL (0.5-4.7); ABSOLUTE MONOCYTES # (MANUAL) 0.6 10^3/uL (0.1-1.4); BASOPHILS % (MANUAL) 0 % (0-2); EOSINOPHILS % (MANUAL) 0 % (0-6); LYMPHOCYTES % (MANUAL) 8 % (13-45); MONOCYTES % (MANUAL) 2 % (3-13); NUCLEATED RED BLOOD CELLS 9 /100 WBC (0); SEGMENTED NEUTROPHILS % (MAN) 89 % (42-78); TOTAL CELLS COUNTED 100
[2020-03-03 08:02] LABS: ANISOCYTOSIS 1+
[2020-03-03 08:03] LABS: OVALOCYTES 2+; POIKILOCYTOSIS 2+; POLYCHROMASIA 1+; SICKLE RED CELLS 1+; TARGET CELLS 1+; TEAR DROP CELLS 2+
[2020-03-03 08:04] LABS: PLATELET COMMENT DECREASED
[2020-03-03] MEDS: ZINC SULFATE 220 MG CAPSULE PO SCH (10:09)
[2020-03-03] MEDS: CLOPIDOGREL BISULFATE 75 MG TABLET PO SCH (10:09)
[2020-03-03] MEDS: METOPROLOL TARTRATE 25 MG TABLET PO SCH ×2 (10:09→22:04)
[2020-03-03] MEDS: ASPIRIN 81 MG TABLET, CHEWABLE PO SCH (10:10)
[2020-03-03] MEDS ORDERED: DEXTROSE 50%-WATER 25 GM/50 ML DISP.SYRIN IV ONE ×2 (11:42→11:48)
[2020-03-03] MEDS ORDERED: HALOPERIDOL LACTATE INJ 5 MG/1 ML VIAL ONE (11:57)
[2020-03-03] MEDS ORDERED: HALOPERIDOL LACTATE INJ 5 MG/1 ML VIAL IV PRN (12:12)
[2020-03-03] MEDS: HALOPERIDOL LACTATE INJ 5 MG/1 ML VIAL IV ONE ×2 (13:22→13:42)
[2020-03-03 13:56] LABS: ARTERIAL BLOOD BASE EXCESS -17.6 mmol/L; ARTERIAL BLOOD H2CO3 1.03 mmol/L (1.05-1.35); ARTERIAL BLOOD HCO3 10.5 mmol/L (20-24); ARTERIAL BLOOD O2 SATURATION 70.2 % (94-98); ARTERIAL BLOOD PCO2 34.2 mmHg (35-45); ARTERIAL BLOOD PO2 48.3 mmHg (80-100); ARTERIAL BLOOD TOTAL CO2 11.5 mmol/L (21-25)
[2020-03-03 14:07] LABS: ARTERIAL BLOOD FIO2 100%; ARTERIAL BLOOD PH 7.11 (7.35-7.45)
[2020-03-03] MEDS: PIPERACILLIN SODIUM/TAZOBACTAM 3.375 GM in NORMAL SALINE 100 ML IV SCH ×2 (14:42→22:04)
[2020-03-03] MEDS ORDERED: EPINEPHRINE INJ 1 MG/10 ML DISP.SYRIN ONE (15:11)
--- NOTE | 2020-03-03 16:56 | RADIOLOGY REPORT (SQ) ---
EXAM DESCRIPTION: CHEST SINGLE VIEW IMAGES COMPLETED DATE/TIME: 03/03/2020 4:46 pm REASON FOR STUDY: central line placement COMPARISON: 02/29/2020. EXAM PARAMETERS: NUMBER OF VIEWS: One view. TECHNIQUE: Single frontal radiographic view of the chest acquired. RADIATION DOSE: NA LIMITATIONS: Artifact due to overlying hardware. FINDINGS: LUNGS AND PLEURA: Faint basilar densities unchanged. No infiltrates, masses or pneumothor ax. No pleural effusion. MEDIASTINUM AND HILAR STRUCTURES: No masses. Contour normal. HEART AND VASCULAR STRUCTURES: Heart upper limits of normal in size. Normal vasculature. BONES: No acute findings. HARDWARE: Central line, tip at the junction of the brachiocephalic veins and superior vena cava. OTHER: No other significant finding. IMPRESSION: CENTRAL LINE DESCRIBED. NO PNEUMOTHORAX. NO ACUTE FINDINGS. TECHNICAL DOCUMENTATION: JOB ID: [id number] [employer]- All Rights Reserved Reading location - IP/workstation name: [email or web address]
--- NOTE | 2020-03-03 16:57 | Operative Report ---
Nonrecallable Operative Report DATE OF SURGERY: 03/03/20 PREOPERATIVE DIAGNOSIS: sickle cell crisis POSTOPERATIVE DIAGNOSIS: same OPERATION: left internal jugular central line placement SURGEON: YOVANNY BAIRD ANESTHESIA: Local TISSUE REMOVED OR ALTERED: none COMPLICATIONS: none ESTIMATED BLOOD LOSS: 10cc INTRAOPERATIVE FINDINGS: see note PROCEDURE: Procedure note; Central line placement. After appropriate timeout and site verification the procedure commenced. The right groin was prepped and draped in usual sterile fashion for the procedure. Using 1% lidocaine plain a skin wheal was made over the right femoral vein and the right femoral vein was accessed with a 16-gauge needle. However we were unable to pass the wire up the femoral vein to the iliac vein and then the cava. The wire curled upon itself and therefore the needle was removed. We then turned attention to the left neck. The patient was placed in Trendelenburg position the left neck was prepped and draped in usual sterile fashion. The skin over the sternocleidomastoid muscle was anesthetized with 1% lidocaine plain and then the right internal jugular vein was accessed with a 16-gauge needle. A J-wire was placed through the needle into the superior vena cava. The tract was then dilated and then the triple-lumen 16-gauge catheter was placed over the wire into the superior vena cava. It was fixed to the skin with 2-0 silk suture. Sterile dressing was applied which completed the procedure. Estimated blood loss was less than 10 cc sponge needle counts correct x2. Chest x-ray confirmed good placement.
--- NOTE | 2020-03-03 17:22 | PDOC PROGRESS REPORT ---
Subjective Date:: 03/03/20 Subjective:: Patient developed witnessed unresponsiveness in the process of having 12 lead EKG performed. Rapid response team was initiated and she had a dose of Epinephrine administered with satisfactory response. There was concern about possible significant pulmonary embolism as source of her current condition due to associated hypoxemia, hypotension, and tachycardia. Patient was on non-re breathing face mask supplemental oxygen and IV fluid support at the time of my arrival at bedside. She demonstrate agitation and disruption of her face mask therapy. I discussed case with Dr. Pacheco and Dr. Lovell at bedside. Reason For Visit: SICKLE CELL PAIN CRISIS Physical Exam Vital Signs: Temp Pulse Resp BP Pulse Ox 97.3 F 98 18 99/83 L 91 L 03/03/20 09:03 03/03/20 07:57 03/03/20 07:57 03/03/20 07:57 03/03/20 07:57 Intake & Output 03/02/20 03/03/20 03/04/20 06:59 06:59 06:59 Intake Total 2100 1371 Output Total 200 Balance 1900 1371 Weight 79.3 kg Physical Exam: General appearance: PRESENT: agitated, moderate respiratory distress Head exam: PRESENT: atraumatic, normocephalic Eye exam: PRESENT: conjunctiva pink, EOMI, ARNOL. ABSENT: pallor, sclera icterus Mouth exam: PRESENT: moist, tongue midline Neck exam: PRESENT: full ROM. Respiratory exam: PRESENT: clear to auscultation cesilia, decrease breath sound at lung bases Cardiovascular exam: PRESENT: RRR, +S1, +S2, systolic murmur. ABSENT: diastolic murmur, rubs Murmur grade: 3 GI/Abdominal exam: PRESENT: normal bowel sounds, soft. ABSENT: distended, guarding, mass, organomegaly, rebound, tenderness Extremities exam: ABSENT: pedal edema Neurological exam: PRESENT: alert, awake, oriented to person, oriented to place, oriented to time, oriented to situation, CN II-XII grossly intact. ABSENT: motor sensory deficit Psychiatric exam: PRESENT: agitated Skin exam: PRESENT: dry, intact, warm. ABSENT: cyanosis, rash Murmur grade: 3 Results Laboratory Results: 03/03/20 05:49 03/03/20 05:49 03/03/20 03/03/20 05:49 05:49 WBC 31.0 H* RBC 2.90 L Hgb 8.0 L Hct 23.0 L MCV 79 L MCH 27.4 MCHC 34.6 RDW 18.5 H Plt Count 83 L Seg Neutrophils % Not Reportable Sodium 139.5 Potassium 4.8 Chloride 105 Carbon Dioxide 20 L Anion Gap 15 BUN 34 H Creatinine 1.09 Est GFR ( Amer) > 60 Glucose 129 H Calcium 7.8 L Total Bilirubin 6.4 H AST 194 H Alkaline Phosphatase 194 H Total Protein 6.3 Albumin 3.4 L Triglycerides 135 Cholesterol 107.01 LDL Cholesterol Direct < 30 VLDL Cholesterol 27.0 HDL Cholesterol 40 03/01/20 18:10 Clean Catch Midstream Urine Culture - Final Mixed Urogenital Ovidio 03/01/20 16:50 Throat Throat Culture - Final NORMAL OVIDIO 02/29/20 16:40 Clean Catch Midstream Urine Culture - Final Klebsiella Pneumoniae 02/29/20 02/29/20 03/01/20 16:40 16:40 15:42 Creatine Kinase 51 136 H CK-MB (CK-2) Troponin I 0.034 03/01/20 03/02/20 03/02/20 15:42 18:31 18:31 Creatine Kinase 730 H CK-MB (CK-2) 5.24 H Troponin I 0.617 0.670 03/03/20 03/03/20 03/03/20 00:27 00:27 05:49 Creatine Kinase 662 H 840 H CK-MB (CK-2) 4.23 Troponin I 0.600 03/03/20 05:49 Creatine Kinase CK-MB (CK-2) 4.22 Troponin I 0.638 Impressions: Chest X-Ray 02/29/20 15:58 IMPRESSION: Stable appearance of the chest. No acute radiographic abnormality or significant interval change. Assessment & Plan - Diagnosis (1) Acute respiratory failure with hypoxemia Is this a current diagnosis for this admission?: Yes Plan: Maintain on BiPAP support with adjustment of supplemental oxygen to maintain saturation at or above 92 %. Presently, there is no bed in ICU presently and patient will remain on IMCU with BiPAP support as per my discussion with Dr. Pacheco at bedside. (2) Pulmonary embolism Qualifiers: Pulmonary embolism type: unspecified Chronicity: acute Acute cor pulmonale presence: unspecified Qualified Code(s): I26.99 - Other pulmonary embolism without acute cor pulmonale Is this a current diagnosis for this admission?: Yes Plan: Continue anticoagulation therapy with weight adjusted Lovenox therapy. Maintain on supplemental oxygen. Follow up on efforts at getting CTA chest as earlier ordered this morning. (3) Chest pain Qualifiers: Chest pain type: other chest pain Qualified Code(s): R07.89 - Other chest pain; R07.8 - Other chest pain Is this a current diagnosis for this admission?: Yes Plan: Maintain on current GMDT medication management. I discussed her echocardiogram findings with Dr. Coreas, sitecore developer, with suggestion for CTA chest for further evaluation. 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 Follow up on pending blood cultures. (8) Klebsiella cystitis Is this a current diagnosis for this admission?: Yes Plan: Urine culture revealed Klebsiella pneumoniae. In view of her significant leukocytosis, she will be started on IV Zosyn coverage. - Time Time Spent with patient: 35 or more minutes Level of Care: IMCU Medications reviewed and adjusted accordingly: Yes Anticipated discharge: Home with Homehealth Anticipated DC Timeframe: within 72 hours - Inpatient Certification Based on my medical assessment, after consideration of the patient's c omorbidities, presenting symptoms, or acuity I expect that the services needed warrant INPATIENT care.: Yes I certify that my determination is in accordance with my understanding of Medicare's requirements for reasonable and necessary INPATIENT services [42 CFR 412.3e].: Yes Medical Necessity: Significant Comorbidiites Make Outpatient Treatment Too Risky, Need Close Monitoring Due to Risk of Patient Decompensation, Need For IV Fluids, Need For Continuous Telemetry Monitoring, Need for Pain Control, Need for IV Antibiotics, Risk of Complication if Not Cared For in Hospital, Risk of Diagnosis Which Will Require Inpatient Eval/Care/Monitoring Post Hospital Care: D/C Price Lister Documentation - Plan Summary Plan Summary: See attending physician orders for details about care plan. Overall prognosis remain guided.
[2020-03-03] MEDS ORDERED: OXYCODONE-ACETAMINOPHEN 5-325 MG TABLET PO PRN (17:57)
--- NOTE | 2020-03-03 18:50 | RADIOLOGY REPORT (SQ) ---
EXAM DESCRIPTION: CTA CHEST IMAGES COMPLETED DATE/TIME: 03/03/2020 6:10 pm REASON FOR STUDY: CP / Abnormal RV on ECHO COMPARISON: 03/06/2019 TECHNIQUE: CT scan of the chest performed using helical scanning technique with dynamic intravenous contrast injection. Images reviewed with lung, soft tissue and bone windows. Reconstructed coronal and sagittal MPR images reviewed. Additional 3 dimensional post-processing performed to develop Maximal Intensity Projection images (AL P). All images stored on PACS. All CT scanners at this facility use dose modulation, iterative reconstruction, and/or weight based d osing when appropriate to reduce radiation dose to as low as reasonably achievable (ALARA). [facility]: Dose Right [facility]: CareDose [facility]: Dose Right [facility]: Teradose 4D [facility]: Momspot CONTRAST TYPE AND DOSE: contrast/concentration: Isovue 350.00 mmol/ml; Total Contrast Delivered: 75. 0 ml; Total Saline Delivered: 61.0 ml Contrast bolus adequate for pulmonary arteries and aorta. RENAL FUNCTION: BUN 34 creatinine 1.09 RADIATION DOSE: CT Rad equipment meets quality standard of care and radiation dose reduction [employer] ues were employed. CTDIvol: 13.2 - 29.8 mGy. DLP: 1037 mGy-cm. . LIMITATIONS: None. FINDINGS: LUNGS AND PLEURA: Mild dependent atelectasis bilaterally. No acute infiltrate. No signif icant pleural effusion. There is greater atelectasis in the left lower lobe than the right. AORTA AND GREAT VESSELS: No aneurysm. No dissection. HEART: No pericardial effusion. No significant coronary artery calcifications. PULMONARY ARTERIES: No emboli visualized in the main pulmonary arteries or the segmental branches. HILAR AND MEDIASTINAL STRUCTURES: No identified masses or abnormal nodes. HARDWARE: None in the chest. UPPER ABDOMEN: No significant findings. Limited exam. THYROID AND OTHER SOFT TISSUES: No masses. No adenopathy. BONES: No acute or significant finding. 3D MIPS: Confirm above findings. OTHER: No other significant finding. IMPRESSION: There is no pulmonary embolus. There is no aortic aneurysm or dissection. Mild atelect atic changes bilaterally, left more than right. COMMENT: Quality ID # [id number]: Final reports with documentation of one or more dose reduction techniques (e.g., Automated exposure control, adjustment of the mA and/or kV according to patient size, use of iterative reconstruction technique) TECHNICAL DOCUMENTATION: JOB ID: [id number] 2011 [employer]- All Rights Reserved Reading location - IP/workstation name: [email or web address]
[2020-03-03] MEDS: RINGERS SOLUTION,LACTATED 1,000 ML IV PRN (19:10)
--- NOTE | 2020-03-03 19:21 | Progress Note ---
Provider Note Provider Note: CARDIOLOGY PROGRESS NOTE by Dr. Leslie Laird on 03/03/2020. SUBJECTIVE: The patient this morning had a brief cardiac arrest due to pulseless electrical activity. She was resuscitated after brief CPR and epinephrine. The patient did have a central line placed and had on the CT angiogram done. This did not show any pulmonary emboli. The patient at present is on BiPAP fighting at and does not want it. She appears to be slightly confused. She is also febrile. She denies any chest pain at this moment. She is able to lie down flat. There is no arrhythmias seen on the monitor. Her EKG post arrest shows no major acute changes. In fact the T changes seen earlier EKG seems to be improved. PHYSICAL EXAMINATION: The patient mildly obese. On the BiPAP at present. Selected Entries 03/03/20 15:24 Temperature 101.3 F H Temperature Rectal Source Pulse Rate 78 Respiratory 18 Rate Blood Pressure 120/58 L Blood Pressure 78 Mean BP Location Right Leg BP Position Supine O2 Sat by Pulse 100 Oximetry Oxygen Delivery Bipap Method HEAD: Is atraumatic normocephalic. EYES: Pupils equal round regular reactive light accommodation. Extraocular movements are normal. There is no conjunctival pallor. There is no scleral icterus. EARS: Tympanic membranes are intact. External auditory canals are clear. NOSE: There is no deviated nasal septum. There is no inflammation nasal mucous membrane. MOUTH: Mucous membranes of mouth are moist. There is no ulcers or bleeding from the gums. THROAT: There is no redness of the oropharynx. There is no exudates. SKIN: There is no skin rashes. There is no skin lesions. There is no petechia or ecchymosis. NECK: Is supple there is no JVD carotids are equal there is no bruit there is no lymphadenopathy the. There is no goiter. Trachea central. There is no accessory muscles of respiration use. LUNGS: Is clear to auscultation percussion without any rhonchi rales or wheezing. On palpation there is no chest wall tenderness.. HEART: S1-S2 is heard. There is no S3 gallop. There is no S4 gallop. There is systolic murmur left sternal border and apex. There is no rub. ABDOMEN: Soft. Nontender there is no paraspinal megaly. Bowel sounds are well heard. EXTREMITIES: Femorals are slightly dimi nished. Leg pulses are well felt. There is no pedal edema. There is no DVT or cellulitis. There is no cyanosis or clubbing. 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 Psychiatric: The patient's affect is withdrawn. She does not appear to be agitated or anxious. Labs- All tests 24 hr 03/02/20 03/02/20 03/03/20 18:31 18:31 00:27 WBC RBC Hgb Hct MCV MCH MCHC RDW Plt Count Lymph % (Auto) [facility] % (Auto) Eos % (Auto) Baso % (Auto) Absolute Neuts (auto) Absolute Lymphs (auto) Absolute Monos (auto) Absolute Eos (auto) Absolute Basos (auto) Total Counted Seg Neutrophils % Seg Neuts % (Manual) Lymphocytes % (Manual) Atypical Lymphs % Monocytes % (Manual) Eosinophils % (Manual) Basophils % (Manual) Abs Neuts (Manual) Abs Lymphs (Manual) Abs Monocytes (Manual) Absolute Eos (Manual) Abs Basophils (Manual) Nucleated RBCs Platelet Comment Polychromasia Poikilocytosis Anisocytosis Microcytosis Sickle Cells Target Cells Tear Drop Cells Ovalocytes Carbonic Acid HCO3/H2CO3 Ratio ABG pH ABG pCO2 ABG pO2 ABG HCO3 ABG Total CO2 ABG O2 Saturation ABG Base Excess FiO2 Sodium Potassium Chloride Carbon Dioxide Anion Gap BUN Creatinine Est GFR ( Amer) Est GFR (MDRD) Non-Af Glucose POC Glucose Calcium Total Bilirubin Direct Bilirubin Neonat Total Bilirubin Neonat Direct Bilirubin Neonat Indirect Bili AST ALT Alkaline Phosphatase Creatine Kinase 730 H 662 H CK-MB (CK-2) 5.24 H Troponin I 0.670 Total Protein Albumin Triglycerides Cholesterol LDL Cholesterol Direct VLDL Cholesterol HDL Cholesterol Slides for Path Review 03/03/20 03/03/20 03/03/20 00:27 05:49 05:49 WBC 31.0 H* RBC 2.90 L Hgb 8.0 L Hct 23.0 L MCV 79 L MCH 27.4 MCHC 34.6 RDW 18.5 H Plt Count 83 L Lymph % (Auto) Not Reportable [facility] % (Auto) Not Reportable Eos % (Auto) Not Reportable Baso % (Auto) Not Reportable Absolute Neuts (auto) Not Reportable Absolute Lymphs (auto) Not Reportable Absolute Monos (auto) Not Reportable Absolute Eos (auto) Not Reportable Absolute Basos (auto) Not Reportable Total Counted 100 Seg Neutrophils % Not Reportable Seg Neuts % (Manual) 89 H Lymphocytes % (Manual) 8 L Atypical Lymphs % 1 Monocytes % (Manual) 2 L Eosinophils % (Manual) 0 Basophils % (Manual) 0 Abs Neuts (Manual) 27.6 H Abs Lymphs (Manual) 2.8 Abs Monocytes (Manual) 0.6 Absolute Eos (Manual) 0.0 Abs Basophils (Manual) 0.0 Nucleated RBCs 9 Platelet Comment DECREASED Polychromasia 1+ Poikilocytosis 2+ Anisocytosis 1+ Microcytosis SLIGHT Sickle Cells 1+ Target Cells 1+ Tear Drop Cells 2+ Ovalocytes 2+ Carbonic Acid HCO3/H2CO3 Ratio ABG pH ABG pCO2 ABG pO2 ABG HCO3 ABG Total CO2 ABG O2 Saturation ABG Base Excess FiO2 Sodium 139.5 Potassium 4.8 Chloride 105 Carbon Dioxide 20 L Anion Gap 15 BUN 34 H Creatinine 1.09 Est GFR ( Amer) > 60 Est GFR (MDRD) Non-Af 51 L Glucose 129 H POC Glucose Calcium 7.8 L Total Bilirubin 6.4 H Direct Bilirubin 4.0 H Neonat Total Bilirubin Not Reportable Neonat Direct Bilirubin Not Reportable Neonat Indirect Bili Not Reportable AST 194 H ALT 59 H Alkaline Phosphatase 194 H Creatine Kinase 840 H CK-MB (CK-2) 4.23 Troponin I 0.600 Total Protein 6.3 Albumin 3.4 L Triglycerides 135 Cholesterol 107.01 LDL Cholesterol Direct < 30 VLDL Cholesterol 27.0 HDL Cholesterol 40 Slides for Path Review SEE COMMENT 03/03/20 03/03/20 03/03/20 05:49 11:46 12:46 WBC RBC Hgb Hct MCV MCH MCHC RDW Plt Count Lymph % (Auto) [facility] % (Auto) Eos % (Auto) Baso % (Auto) Absolute Neuts (auto) Absolute Lymphs (auto) Absolute Monos (auto) Absolute Eos (auto) Absolute Basos (auto) Total Counted Seg Neutrophils % Seg Neuts % (Manual) Lymphocytes % (Manual) Atypical Lymphs % Monocytes % (Manual) Eosinophils % (Manual) Basophils % (Manual) Abs Neuts (Manual) Abs Lymphs (Manual) Abs Monocytes (Manual) Absolute Eos (Manual) Abs Basophils (Manual) Nucleated RBCs Platelet Comment Polychromasia Poikilocytosis Anisocytosis Microcytosis Sickle Cells Target Cells Tear Drop Cells Ovalocytes Carbonic Acid HCO3/H2CO3 Ratio ABG pH ABG pCO2 ABG pO2 ABG HCO3 ABG Total CO2 ABG O2 Saturation ABG Base Excess FiO2 Sodium Potassium Chloride Carbon Dioxide Anion Gap BUN Creatinine Est GFR ( Amer) Est GFR (MDRD) Non-Af Glucose POC Glucose 55 L 112 H Calcium Total Bilirubin Direct Bilirubin Neonat Total Bilirubin Neonat Direct Bilirubin Neonat Indirect Bili AST ALT Alkaline Phosphatase Creatine Kinase CK-MB (CK-2) 4.22 Troponin I 0.638 Total Protein Albumin Triglycerides Cholesterol LDL Cholesterol Direct VLDL Cholesterol HDL Cholesterol Slides for Path Review 03/03/20 13:35 WBC RBC Hgb Hct MCV MCH MCHC RDW Plt Count Lymph % (Auto) [facility] % (Auto) Eos % (Auto) Baso % (Auto) Absolute Neuts (auto) Absolute Lymphs (auto) Absolute Monos (auto) Absolute Eos (auto) Absolute Basos (auto) Total Counted Seg Neutrophils % Seg Neuts % (Manual) Lymphocytes % (Manual) Atypical Lymphs % Monocytes % (Manual) Eosinophils % (Manual) Basophils % (Manual) Abs Neuts (Manual) Abs Lymphs (Manual) Abs Monocytes (Manual) Absolute Eos (Manual) Abs Basophils (Manual) Nucleated RBCs Platelet Comment Polychromasia Poikilocytosis Anisocytosis Microcytosis Sickle Cells Target Cells Tear Drop Cells Ovalocytes Carbonic Acid 1.03 L HCO3/H2CO3 Ratio 10:1 ABG pH 7.11 L* ABG pCO2 34.2 L ABG pO2 48.3 L ABG HCO3 10.5 L ABG Total CO2 11.5 L ABG O2 Saturation 70.2 L ABG Base Excess -17.6 FiO2 100% Sodium Potassium Chloride Carbon Dioxide Anion Gap BUN Creatinine Est GFR ( Amer) Est GFR (MDRD) Non-Af Glucose POC Glucose Calcium Total Bilirubin Direct Bilirubin Neonat Total Bilirubin Neonat Direct Bilirubin Neonat Indirect Bili AST ALT Alkaline Phosphatase Creatine Kinase CK-MB (CK-2) Troponin I Total Protein Albumin Triglycerides Cholesterol LDL Cholesterol Direct VLDL Cholesterol HDL Cholesterol Slides for Path Review Chest X-Ray 02/29/20 15:58 IMPRESSION: Stable appearance of the chest. No acute radiographic abnormality or significant interval change. Chest X-Ray 03/03/20 00:00 IMPRESSION: CENTRAL LINE DESCRIBED. NO PNEUMOTHORAX. NO ACUTE FINDINGS. Chest/Abdomen CTA 03/03/20 00:00 IMPRESSION: There is no pulmonary embolus. There is no aortic aneurysm or dissection. Mild atelectatic changes bilaterally, left more than right. IMPRESSION/RECOMMENDATION.: 1. S/p brief cardiac arrest. Patient noted to be in pulseless electrical activity. Spontaneous return of circulation with brief CPR and epinephrine. 2. Most likely non-ST elevation [place]. The patient's chest pain could have been masked by her chest wall pain due to sickle cell crisis. Agree with current antiplatelet agents, and recommend adding beta-blockers. Due to her platelets being low the patient's Lovenox has been discontinued. Recommend serial EKG and troponin estimations. 3. THe patient's CTA of the chest being negative for pulmonary emboli, and the patient's lack of risk factors except for age, will discuss with a tertiary care center to see if the patient would qualify for cardiac catheterization. Will discuss with Dr. Hanson 4.. Elevated troponin levels. The patient's troponin today 0.638. We will trend the troponin. 5. Pneumonia: Note the patient's rectal temperature is elevated, but axillary temperature is normal. The patient is on antibiotics for possible aspiration. 6. Anemia: Secondary to sickle cell disease. 7.. Thrombocytopenia: We will see the platelets after stopping Lovenox. No definite evidence of HIT. 8. Sickle cell crisis: Seems to have resolved. Continue hydration. Medications reviewed. Medical regimen management plan discussed with Dr. Hanson. Medical decision making is of high complexity. Case discussed with patient's daughter.
--- NOTE | 2020-03-03 21:08 | EKG REPORT ---
SEVERITY:- ABNORMAL ECG - SINUS RHYTHM PROBABLE INFERIOR INFARCT, AGE INDETERMINATE LATERAL LEADS ARE ALSO INVOLVED : Confirmed by: Nicolás Gaspar MD 03-Mar-2020 21:08:11
[2020-03-04] MEDS: CLINDAMYCIN 300 MG/D5W RTU 300 MG/50 ML RTUPB IV SCH ×3 (01:49→17:40)
[2020-03-04] MEDS: PIPERACILLIN SODIUM/TAZOBACTAM 3.375 GM in NORMAL SALINE 100 ML IV SCH ×4 (03:10→21:13)
[2020-03-04] MEDS: ENOXAPARIN SODIUM INJ 80 MG/0.8 ML DISP.SYRIN SUBCUT SCH (05:19)
[2020-03-04] MEDS: PANTOPRAZOLE SODIUM 40 MG TABLET.DR PO SCH (05:23)
[2020-03-04 06:54] LABS: HEMATOCRIT 17.5 % (36.0-47.0); MEAN CORPUSCULAR HEMOGLOBIN 27.1 pg (27.0-33.4); MEAN CORPUSCULAR HGB CONC 34.7 g/dL (32.0-36.0); MEAN CORPUSCULAR VOLUME 78 fl (80-97); PLATELET COUNT 120 10^3/uL (150-450); RED BLOOD COUNT 2.23 10^6/uL (3.72-5.28); RED CELL DISTRIBUTION WIDTH 18.6 % (11.5-14.0)
[2020-03-04 07:51] LABS: WHITE BLOOD COUNT 30.1 10^3/uL (4.0-10.5)
[2020-03-04 07:52] LABS: HEMOGLOBIN 6.1 g/dL (12.0-15.5)
[2020-03-04] MEDS: ZINC SULFATE 220 MG CAPSULE PO SCH (11:15)
[2020-03-04] MEDS: ASPIRIN 81 MG TABLET, CHEWABLE PO SCH (11:15)
[2020-03-04] MEDS: ENOXAPARIN SODIUM INJ 40 MG/0.4 ML DISP.SYRIN SUBCUT SCH (11:15)
[2020-03-04] MEDS: METOPROLOL TARTRATE 25 MG TABLET PO SCH ×2 (11:15→21:12)
[2020-03-04] MEDS: CLOPIDOGREL BISULFATE 75 MG TABLET PO SCH (11:16)
--- NOTE | 2020-03-04 18:53 | PDOC PROGRESS REPORT ---
Subjective Date:: 03/04/20 Subjective:: Patient denied any chest pain. She remain on BiPAP support. No reported fever or chills. Her AM lab revealed significant drop in her hemoglobin. She is agreeable to PRBC transfusion. Spouse at bedside during the time of my visit. Reason For Visit: SICKLE CELL PAIN CRISIS Physical Exam Vital Signs: Temp Pulse Resp BP Pulse Ox 98.1 F 67 21 H 123/73 100 03/04/20 17:04 03/04/20 17:04 03/04/20 17:04 03/04/20 17:04 03/04/20 17:04 Intake & Output 03/03/20 03/04/20 03/05/20 06:59 06:59 06:59 Intake Total 1944 150 350 Output Total 300 Balance 1944 -150 350 Weight 79.3 kg 80.6 kg Physical Exam: General appearance: PRESENT: remain on BiPAP support. Head exam: PRESENT: atraumatic, normocephalic Eye exam: PRESENT: pallor. ABSENT: sclera icterus Mouth exam: PRESENT: moist, tongue midline Neck exam: PRESENT: full ROM. Respiratory exam: PRESENT: clear to auscultation cesilia, decrease breath sound at lung bases Cardiovascular exam: PRESENT: RRR, +S1, +S2, systolic murmur. ABSENT: diastolic murmur, rubs Murmur grade: 3 GI/Abdominal exam: PRESENT: normal bowel sounds, soft. ABSENT: distended, guarding, mass, organomegaly, rebound, tenderness Extremities exam: ABSENT: pedal edema Neurological exam: PRESENT: alert, awake, oriented to person, oriented to place, oriented to time, oriented to situation, CN II-XII grossly intact. ABSENT: motor sensory deficit Psychiatric exam: PRESENT: agitated Skin exam: PRESENT: dry, intact, warm. ABSENT: cyanosis, rash Murmur grade: 3 Results Laboratory Results: 03/04/20 05:24 03/03/20 05:49 03/04/20 03/04/20 05:24 11:40 WBC 30.1 H* RBC 2.23 L Hgb 6.1 L Hct 17.5 L MCV 78 L MCH 27.1 MCHC 34.7 RDW 18.6 H Plt Count 120 L Blood Type A POSITIVE Antibody Screen NEGATIVE 02/29/20 02/29/20 03/01/20 16:40 16:40 15:42 Creatine Kinase 51 136 H CK-MB (CK-2) Troponin I 0.034 03/01/20 03/02/20 03/02/20 15:42 18:31 18:31 Creatine Kinase 730 H CK-MB (CK-2) 5.24 H Troponin I 0.617 0.670 03/03/20 03/03/20 03/03/20 00:27 00:27 05:49 Creatine Kinase 662 H 840 H CK-MB (CK-2) 4.23 Troponin I 0.600 03/03/20 05:49 Creatine Kinase CK-MB (CK-2) 4.22 Troponin I 0.638 Impressions: Chest X-Ray 03/03/20 00:00 IMPRESSION: CENTRAL LINE DESCRIBED. NO PNEUMOTHORAX. NO ACUTE FINDINGS. Chest/Abdomen CTA 03/03/20 00:00 IMPRESSION: There is no pulmonary embolus. There is no aortic aneurysm or dissection. Mild atelectatic changes bilaterally, left more than right. Assessment & Plan - Diagnosis (1) Acute respiratory failure with hypoxemia Is this a current diagnosis for this admission?: Yes (2) Pulmonary embolism Qualifiers: Pulmonary embolism type: unspecified Chronicity: acute Acute cor pulmonale presence: unspecified Qualified Code(s): I26.99 - Other pulmonary embolism without acute cor pulmonale Is this a current diagnosis for this admission?: No Plan: Less likely in view of her CTA chest findings. Hypoxemia may be due to significant atelectasis versus air space disease process. We will discontinue Lovenox PE dosing therapy. Maintain on DVT prophylactic daily dosing. 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 I will request hematology consultation for input in her management. - Time Time Spent with patient: 25-34 minutes Level of Care: IMCU Medications reviewed and adjusted accordingly: Yes Anticipated discharge: Home with Homehealth Anticipated DC Timeframe: within 72 hours - Inpatient Certification Based on my medical assessment, after consideration of the patient's comorbidities, presenting symptoms, or acuity I expect that the services needed warrant INPATIENT care.: Yes I certify that my determination is in accordance with my understanding of Medicare's requirements for reasonable and necessary INPATIENT services [42 CFR 412.3e].: Yes Medical Necessity: Significant Comorbidiites Make Outpatient Treatment Too Risky, Need Close Monitoring Due to Risk of Patient Decompensation, Need For IV Fluids, Need For Continuous Telemetry Monitoring, Need for Pain Control, Need for IV Antibiotics, Risk of Complication if Not Cared For in Hospital, Risk of Diagnosis Which Will Require Inpatient Eval/Care/Monitoring Post Hospital Care: D/C Admin Prog Coord Documentation - Plan Summary Plan Summary: Patient will receive 2 units PRBC for low hemoglobin level. Maintain on IV Zosyn and Clindamycin coverage. Maintain on all other current medication management. Monitor CBC and repeat CMP in AM.
--- NOTE | 2020-03-04 21:36 | Progress Note ---
Provider Note Provider Note: CARDIOLOGY PROGRESS NOTE by Dr. Leslie Laird on 03/04/2020. SUBJECTIVE: The patient is still on the BiPAP denies chest pain or discomfort. She denies any shortness of breath orthopnea PND. The patient hemoglobin is dropped to 6.1 and the patient has been ordered to have blood transfusion. The patient denies any dark tarry stools or abdominal pain. There is no nausea or vomiting. PHYSICAL EXAMINATION: The patient is moderately obese. In no acute distress. She is on the BiPAP. Selected Entries 03/04/20 03/04/20 03/04/20 07:34 09:25 14:18 Temperature 97.5 F 98.4 F Temperature Axillary Oral Source Pulse Rate 71 Respiratory 18 Rate Blood Pressure 117/86 H Blood Pressure 96 Mean BP Location Right Arm BP Position Sitting O2 Sat by Pulse 100 Oximetry Fraction of 90 Inspired Oxygen (FIO2) Oxygen Delivery Bipap Method HEAD: Is atraumatic normocephalic. EYES: Pupils equal round regular reactive light accommodation. Extraocular movements are normal. There is no conjunctival pallor. There is no scleral icterus. EARS: Tympanic membranes are intact. External auditory canals are clear. NOSE: There is no deviated nasal septum. There is no inflammation nasal mucous membrane. MOUTH: Mucous membranes of mouth are moist. There is no ulcers or bleeding from the gums. THROAT: There is no redness of the oropharynx. There is no exudates. SKIN: There is no skin rashes. There is no skin lesions. There is no petechia or ecchymosis. NECK: Is supple there is no JVD carotids are equal there is no bruit there is no lymphadenopathy the. There is no goiter. Trachea central. There is no accessory muscles of respiration use. LUNGS: Is clear to auscultation percussion without any rhonchi rales or wheezing. On palpation there is no chest wall tenderness.. HEART: S1-S2 is heard. There is no S3 gallop. There is no S4 gallop. There is systolic murmur left sternal border and apex. There is no rub. ABDOMEN: Soft. Nontender there is no paraspinal megaly. Bowel sounds are well heard. EXTREMITIES: Femorals are slightly diminished. Leg pulses are well felt. There is no pedal edema. There is no DVT or cellulitis. There is no cyanosis or clubbing. 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 Psychiatric: The patient's affect is withdrawn. She does not appear to be agitated or anxious. Labs- Entire Visit 02/29/20 02/29/20 02/29/20 16:40 16:40 16:40 WBC 17.3 H RBC 4.38 Hgb 12.0 Hct 35.5 L MCV 81 MCH 27.5 MCHC 33.9 RDW 17.9 H Plt Count 170 Lymph % (Auto) Not Reportable [place] % (Auto) Not Reportable Eos % (Auto) Not Reportable Baso % (Auto) Not Reportable Reticulocyte # 0.179 H Absolute Neuts (auto) Not Reportable Absolute Lymphs (auto) Not Reportable Absolute Monos (auto) Not Reportable Absolute Eos (auto) Not Reportable Absolute Basos (auto) Not Reportable Total Counted 100 Seg Neutrophils % Not Reportable Seg Neuts % (Manual) 68 Band Neutrophils % 1 L Lymphocytes % (Manual) 23 Atypical Lymphs % 2 Monocytes % (Manual) 3 Eosinophils % (Manual) 0 Basophils % (Manual) 0 Metamyelocytes % 3 H Abs Neuts (Manual) 12.5 H Abs Lymphs (Manual) 4.3 Abs Monocytes (Manual) 0.5 Absolute Eos (Manual) 0.0 Abs Basophils (Manual) 0.0 Nucleated RBCs 3 Clumped Platelets Large Platelets Giant Platelets PRESENT Platelet Comment ADEQUATE Polychromasia SLIGHT Poikilocytosis Anisocytosis 1+ Microcytosis Macrocytosis Sickle Cells Target Cells 2+ Tear Drop Cells Ovalocytes Stomatocytes ESR Retic Count (auto) 4.08 H PT INR APTT Fibrinogen D-Dimer Carbonic Acid HCO3/H2CO3 Ratio ABG pH ABG pCO2 ABG pO2 ABG HCO3 ABG Total CO2 ABG O2 Saturation ABG Base Excess FiO2 Sodium 141.4 Potassium 3.8 Chloride 103 Carbon Dioxide 29 Anion Gap 9 BUN 13 Creatinine 0.62 Est GFR ( Amer) > 60 Est GFR (MDRD) Non-Af > 60 Glucose 88 POC Glucose Hemoglobin A1c % Calcium 9.5 Phosphorus Magnesium Ferritin Total Bilirubin 1.5 H Direct Bilirubin 0.2 Neonat Total Bilirubin Not Reportable Neonat Direct Bilirubin Not Reportable Neonat Indirect Bili Not Reportable AST 28 ALT 17 Alkaline Phosphatase 82 Ammonia Lactate Dehydrogenase Creatine Kinase 51 CK-MB (CK-2) Troponin I 0.034 C-Reactive Protein Total Protein 7.3 Albumin 4.3 Triglycerides Cholesterol LDL Cholesterol Direct VLDL Cholesterol HDL Cholesterol Amylase Lipase TSH Free T4 Urine Color Urine Appearance Urine pH Ur Specific [place] Urine Protein Urine Glucose (UA) Urine Ketones Urine Blood Urine Nitrite Urine Bilirubin Urine Urobilinogen Ur Leukocyte Esterase Urine WBC (Auto) Urine RBC (Auto) U Hyaline Cast (Auto) Urine Bacteria (Auto) Squamous Epi Cells Auto Urine Mucus (Auto) Urine Ascorbic Acid Urine Opiates Screen Urine Methadone Screen Ur Barbiturates Screen Ur Phencyclidine Scrn Ur Amphetamines Screen U Benzodiazepines Scrn Urine Cocaine Screen U Marijuana (THC) Screen Influenza A (RT-PCR) Influenza B (RT-PCR) RSV (RT-PCR) SARS-CoV-2 Rap RNA(RT-PCR) Group A Strep Rapid Slides for Path Review PATHOLOGIST REVIEWED Blood Type Antibody Screen Antigen Identification Crossmatch 02/29/20 02/29/20 02/29/20 16:40 16:40 16:40 WBC RBC Hgb Hct MCV MCH MCHC RDW Plt Count Lymph % (Auto) [place] % (Auto) Eos % (Auto) Baso % (Auto) Reticulocyte # Absolute Neuts (auto) Absolute Lymphs (auto) Absolute Monos (auto) Absolute Eos (auto) Absolute Basos (auto) Total Counted Seg Neutrophils % Seg Neuts % (Manual) Band Neutrophils % Lymphocytes % (Manual) Atypical Lymphs % Monocytes % (Manual) Eosinophils % (Manual) Basophils % (Manual) Metamyelocytes % Abs Neuts (Manual) Abs Lymphs (Manual) Abs Monocytes (Manual) Absolute Eos (Manual) Abs Basophils (Manual) Nucleated RBCs Clumped Platelets Large Platelets Giant Platelets Platelet Comment Polychromasia Poikilocytosis Anisocytosis Microcytosis Macrocytosis Sickle Cells Target Cells Tear Drop Cells Ovalocytes Stomatocytes ESR 3 Retic Count (auto) PT INR APTT Fibrinogen D-Dimer Carbonic Acid HCO3/H2CO3 Ratio ABG pH ABG pCO2 ABG pO2 ABG HCO3 ABG Total CO2 ABG O2 Saturation ABG Base Excess FiO2 Sodium Potassium Chloride Carbon Dioxide Anion Gap BUN Creatinine Est GFR ( Amer) Est GFR (MDRD) Non-Af Glucose POC Glucose Hemoglobin A1c % Calcium Phosphorus Magnesium Ferritin Total Bilirubin Direct Bilirubin Neonat Total Bilirubin Neonat Direct Bilirubin Neonat Indirect Bili AST ALT Alkaline Phosphatase Ammonia Lactate Dehydrogenase 427 H Creatine Kinase CK-MB (CK-2) Troponin I C-Reactive Protein Total Protein Albumin Triglycerides Cholesterol LDL Cholesterol Direct VLDL Cholesterol HDL Cholesterol Amylase Lipase TSH Free T4 Urine Color YELLOW Urine Appearance CLEAR Urine pH 5.0 Ur Specific [place] 1.012 Urine Protein NEGATIVE Urine Glucose (UA) NEGATIVE Urine Ketones NEGATIVE Urine Blood NEGATIVE Urine Nitrite NEGATIVE Urine Bilirubin NEGATIVE Urine Urobilinogen NEGATIVE Ur Leukocyte Esterase NEGATIVE Urine WBC (Auto) 1 Urine RBC (Auto) 0 U Hyaline Cast (Auto) Urine Bacteria (Auto) Squamous Epi Cells Auto 1 Urine Mucus (Auto) RARE Urine Ascorbic Acid NEGATIVE Urine Opiates Screen Urine Methadone Screen Ur Barbiturates Screen Ur Phencyclidine Scrn Ur Amphetamines Screen U Benzodiazepines Scrn Urine Cocaine Screen U Marijuana (THC) Screen Influenza A (RT-PCR) Influenza B (RT-PCR) RSV (RT-PCR) SARS-CoV-2 Rap RNA(RT-PCR) Group A Strep Rapid Slides for Path Review Blood Type Antibody Screen Antigen Identification Crossmatch 02/29/20 02/29/20 02/29/20 16:40 16:40 16:40 WBC RBC Hgb Hct MCV MCH MCHC RDW Plt Count Lymph % (Auto) [place] % (Auto) Eos % (Auto) Baso % (Auto) Reticulocyte # Absolute Neuts (auto) Absolute Lymphs (auto) Absolute Monos (auto) Absolute Eos (auto) Absolute Basos (auto) Total Counted Seg Neutrophils % Seg Neuts % (Manual) Band Neutrophils % Lymphocytes % (Manual) Atypical Lymphs % Monocytes % (Manual) Eosinophils % (Manual) Basophils % (Manual) Metamyelocytes % Abs Neuts (Manual) Abs Lymphs (Manual) Abs Monocytes (Manual) Absolute Eos (Manual) Abs Basophils (Manual) Nucleated RBCs Clumped Platelets Large Platelets Giant Platelets Platelet Comment Polychromasia Poikilocytosis Anisocytosis Microcytosis Macrocytosis Sickle Cells Target Cells Tear Drop Cells Ovalocytes Stomatocytes ESR Retic Count (auto) PT 14.5 INR 1.11 APTT 28.7 Fibrinogen D-Dimer Carbonic Acid HCO3/H2CO3 Ratio ABG pH ABG pCO2 ABG pO2 ABG HCO3 ABG Total CO2 ABG O2 Saturation ABG Base Excess FiO2 Sodium Potassium Chloride Carbon Dioxide Anion Gap BUN Creatinine Est GFR ( Amer) Est GFR (MDRD) Non-Af Glucose POC Glucose Hemoglobin A1c % Calcium Phosphorus 3.9 Magnesium 2.0 Ferritin Total Bilirubin Direct Bilirubin Neonat Total Bilirubin Neonat Direct Bilirubin Neonat Indirect Bili AST ALT Alkaline Phosphatase Ammonia Lactate Dehydrogenase Creatine Kinase CK-MB (CK-2) Troponin I C-Reactive Protein < 5.0 Total Protein Albumin Triglycerides Cholesterol LDL Cholesterol Direct VLDL Cholesterol HDL Cholesterol Amylase 53 Lipase 34.9 TSH Free T4 Urine Color Urine Appearance Urine pH Ur Specific [place] Urine Protein Urine Glucose (UA) Urine Ketones Urine Blood Urine Nitrite Urine Bilirubin Urine Urobilinogen Ur Leukocyte Esterase Urine WBC (Auto) Urine RBC (Auto) U Hyaline Cast (Auto) Urine Bacteria (Auto) Squamous Epi Cells Auto Urine Mucus (Auto) Urine Ascorbic Acid Urine Opiates Screen Urine Methadone Screen Ur Barbiturates Screen Ur Phencyclidine Scrn Ur Amphetamines Screen U Benzodiazepines Scrn Urine Cocaine Screen U Marijuana (THC) Screen Influenza A (RT-PCR) Influenza B (RT-PCR) RSV (RT-PCR) SARS-CoV-2 Rap RNA(RT-PCR) Group A Strep Rapid Slides for Path Review Blood Type Antibody Screen Antigen Identification Crossmatch 02/29/20 02/29/20 02/29/20 16:40 16:40 21:00 WBC RBC Hgb Hct MCV MCH MCHC RDW Plt Count Lymph % (Auto) [place] % (Auto) Eos % (Auto) Baso % (Auto) Reticulocyte # Absolute Neuts (auto) Absolute Lymphs (auto) Absolute Monos (auto) Absolute Eos (auto) Absolute Basos (auto) Total Counted Seg Neutrophils % Seg Neuts % (Manual) Band Neutrophils % Lymphocytes % (Manual) Atypical Lymphs % Monocytes % (Manual) Eosinophils % (Manual) Basophils % (Manual) Metamyelocytes % Abs Neuts (Manual) Abs Lymphs (Manual) Abs Monocytes (Manual) Absolute Eos (Manual) Abs Basophils (Manual) Nucleated RBCs Clumped Platelets Large Platelets Giant Platelets Platelet Comment Polychromasia Poikilocytosis Anisocytosis Microcytosis Macrocytosis Sickle Cells Target Cells Tear Drop Cells Ovalocytes Stomatocytes ESR Retic Count (auto) PT INR APTT Fibrinogen D-Dimer Carbonic Acid HCO3/H2CO3 Ratio ABG pH ABG pCO2 ABG pO2 ABG HCO3 ABG Total CO2 ABG O2 Saturation ABG Base Excess FiO2 Sodium Potassium Chloride Carbon Dioxide Anion Gap BUN Creatinine Est GFR ( Amer) Est GFR (MDRD) Non-Af Glucose POC Glucose Hemoglobin A1c % Calcium Phosphorus Magnesium Ferritin Total Bilirubin Direct Bilirubin Neonat Total Bilirubin Neonat Direct Bilirubin Neonat Indirect Bili AST ALT Alkaline Phosphatase Ammonia < 8.7 L Lactate Dehydrogenase Creatine Kinase CK-MB (CK-2) Troponin I C-Reactive Protein Total Protein Albumin Triglycerides Cholesterol LDL Cholesterol Direct VLDL Cholesterol HDL Cholesterol Amylase Lipase TSH 1.87 Free T4 1.42 Urine Color Urine Appearance Urine pH Ur Specific [place] Urine Protein Urine Glucose (UA) Urine Ketones Urine Blood Urine Nitrite Urine Bilirubin Urine Urobilinogen Ur Leukocyte Esterase Urine WBC (Auto) Urine RBC (Auto) U Hyaline Cast (Auto) Urine Bacteria (Auto) Squamous Epi Cells Auto Urine Mucus (Auto) Urine Ascorbic Acid Urine Opiates Screen NEGATIVE Urine Methadone Screen NEGATIVE Ur Barbiturates Screen NEGATIVE Ur Phencyclidine Scrn NEGATIVE Ur Amphetamines Screen NEGATIVE U Benzodiazepines Scrn NEGATIVE Urine Cocaine Screen NEGATIVE U Marijuana (THC) Screen NEGATIVE Influenza A (RT-PCR) Influenza B (RT-PCR) RSV (RT-PCR) SARS-CoV-2 Rap RNA(RT-PCR) Group A Strep Rapid Slides for Path Review Blood Type Antibody Screen Antigen Identification Crossmatch 03/01/20 03/01/20 03/01/20 05:02 05:02 05:02 WBC 13.2 H RBC 3.23 L Hgb 8.9 L D Hct 25.5 L MCV 79 L MCH 27.4 MCHC 34.8 RDW 17.5 H Plt Count 133 L Lymph % (Auto) Not Reportable [place] % (Auto) Not Reportable Eos % (Auto) Not Reportable Baso % (Auto) Not Reportable Reticulocyte # Absolute Neuts (auto) Not Reportable Absolute Lymphs (auto) Not Reportable Absolute Monos (auto) Not Reportable Absolute Eos (auto) Not Reportable Absolute Basos (auto) Not Reportable Total Counted 100 Seg Neutrophils % Not Reportable Seg Neuts % (Manual) 72 Band Neutrophils % Lymphocytes % (Manual) 23 Atypical Lymphs % 1 Monocytes % (Manual) 4 Eosinophils % (Manual) 0 Basophils % (Manual) 0 Metamyelocytes % Abs Neuts (Manual) 9.5 H Abs Lymphs (Manual) 3.2 Abs Monocytes (Manual) 0.5 Absolute Eos (Manual) 0.0 Abs Basophils (Manual) 0.0 Nucleated RBCs 5 Clumped Platelets Large Platelets Giant Platelets Platelet Comment ADEQUATE Polychromasia SLIGHT Poikilocytosis Anisocytosis 1+ Microcytosis SLIGHT Macrocytosis Sickle Cells Target Cells 2+ Tear Drop Cells Ovalocytes SLIGHT Stomatocytes 1+ ESR Retic Count (auto) PT INR APTT Fibrinogen D-Dimer Carbonic Acid HCO3/H2CO3 Ratio ABG pH ABG pCO2 ABG pO2 ABG HCO3 ABG Total CO2 ABG O2 Saturation ABG Base Excess FiO2 Sodium 137.1 Potassium 3.3 L Chloride 102 Carbon Dioxide 30 Anion Gap 5 BUN 11 Creatinine 0.67 Est GFR ( Amer) > 60 Est GFR (MDRD) Non-Af > 60 Glucose 128 H POC Glucose Hemoglobin A1c % < 4.0 L Calcium 8.2 L Phosphorus Magnesium Ferritin Total Bilirubin 1.4 H Direct Bilirubin 0.0 Neonat Total Bilirubin Not Reportable Neonat Direct Bilirubin Not Reportable Neonat Indirect Bili Not Reportable AST 24 ALT 14 Alkaline Phosphatase 66 Ammonia Lactate Dehydrogenase Creatine Kinase CK-MB (CK-2) Troponin I C-Reactive Protein Total Protein 5.8 L Albumin 3.1 L Triglycerides 94 Cholesterol 114.91 LDL Cholesterol Direct 41 VLDL Cholesterol 19.0 HDL Cholesterol 49 Amylase Lipase TSH Free T4 Urine Color Urine Appearance Urine pH Ur Specific [place] Urine Protein Urine Glucose (UA) Urine Ketones Urine Blood Urine Nitrite Urine Bilirubin Urine Urobilinogen Ur Leukocyte Esterase Urine WBC (Auto) Urine RBC (Auto) U Hyaline Cast (Auto) Urine Bacteria (Auto) Squamous Epi Cells Auto Urine Mucus (Auto) Urine Ascorbic Acid Urine Opiates Screen Urine Methadone Screen Ur Barbiturates Screen Ur Phencyclidine Scrn Ur Amphetamines Screen U Benzodiazepines Scrn Urine Cocaine Screen U Marijuana (THC) Screen Influenza A (RT-PCR) Influenza B (RT-PCR) RSV (RT-PCR) SARS-CoV-2 Rap RNA(RT-PCR) Group A Strep Rapid Slides for Path Review Blood Type Antibody Screen Antigen Identification Crossmatch 03/01/20 03/01/20 03/01/20 14:20 15:42 15:42 WBC RBC Hgb Hct MCV MCH MCHC RDW Plt Count Lymph % (Auto) [place] % (Auto) Eos % (Auto) Baso % (Auto) Reticulocyte # Absolute Neuts (auto) Absolute Lymphs (auto) Absolute Monos (auto) Absolute Eos (auto) Absolute Basos (auto) Total Counted Seg Neutrophils % Seg Neuts % (Manual) Band Neutrophils % Lymphocytes % (Manual) Atypical Lymphs % Monocytes % (Manual) Eosinophils % (Manual) Basophils % (Manual) Metamyelocytes % Abs Neuts (Manual) Abs Lymphs (Manual) Abs Monocytes (Manual) Absolute Eos (Manual) Abs Basophils (Manual) Nucleated RBCs Clumped Platelets Large Platelets Giant Platelets Platelet Comment Polychromasia Poikilocytosis Anisocytosis Microcytosis Macrocytosis Sickle Cells Target Cells Tear Drop Cells Ovalocytes Stomatocytes ESR Retic Count (auto) PT 15.7 H INR 1.23 APTT 40.1 H Fibrinogen 323 D-Dimer 3.80 H Carbonic Acid HCO3/H2CO3 Ratio ABG pH ABG pCO2 ABG pO2 ABG HCO3 ABG Total CO2 ABG O2 Saturation ABG Base Excess FiO2 Sodium 137.4 Potassium 3.9 Chloride 102 Carbon Dioxide 28 Anion Gap 7 BUN 17 Creatinine 0.78 Est GFR ( Amer) > 60 Est GFR (MDRD) Non-Af > 60 Glucose 146 H POC Glucose Hemoglobin A1c % Calcium 8.2 L Phosphorus Magnesium Ferritin 1030.00 H Total Bilirubin 2.1 H Direct Bilirubin 0.2 Neonat Total Bilirubin Not Reportable Neonat Direct Bilirubin Not Reportable Neonat Indirect Bili Not Reportable AST 44 H ALT 17 Alkaline Phosphatase 83 Ammonia Lactate Dehydrogenase 669 H Creatine Kinase 136 H CK-MB (CK-2) Troponin I C-Reactive Protein 72.2 H Total Protein 6.4 Albumin 3.5 Triglycerides Cholesterol LDL Cholesterol Direct VLDL Cholesterol HDL Cholesterol Amylase Lipase TSH Free T4 Urine Color Urine Appearance Urine pH Ur Specific [place] Urine Protein Urine Glucose (UA) Urine Ketones Urine Blood Urine Nitrite Urine Bilirubin Urine Urobilinogen Ur Leukocyte Esterase Urine WBC (Auto) Urine RBC (Auto) U Hyaline Cast (Auto) Urine Bacteria (Auto) Squamous Epi Cells Auto Urine Mucus (Auto) Urine Ascorbic Acid Urine Opiates Screen Urine Methadone Screen Ur Barbiturates Screen Ur Phencyclidine Scrn Ur Amphetamines Screen U Benzodiazepines Scrn Urine Cocaine Screen U Marijuana (THC) Screen Influenza A (RT-PCR) NEGATIVE Influenza B (RT-PCR) NEGATIVE RSV (RT-PCR) NEGATIVE SARS-CoV-2 Rap RNA(RT-PCR) NEGATIVE Group A Strep Rapid Slides for Path Review Blood Type Antibody Screen Antigen Identification Crossmatch 03/01/20 03/01/20 03/01/20 15:42 16:45 18:10 WBC RBC Hgb Hct MCV MCH MCHC RDW Plt Count Lymph % (Auto) [place] % (Auto) Eos % (Auto) Baso % (Auto) Reticulocyte # Absolute Neuts (auto) Absolute Lymphs (auto) Absolute Monos (auto) Absolute Eos (auto) Absolute Basos (auto) Total Counted Seg Neutrophils % Seg Neuts % (Manual) Band Neutrophils % Lymphocytes % (Manual) Atypical Lymphs % Monocytes % (Manual) Eosinophils % (Manual) Basophils % (Manual) Metamyelocytes % Abs Neuts (Manual) Abs Lymphs (Manual) Abs Monocytes (Manual) Absolute Eos (Manual) Abs Basophils (Manual) Nucleated RBCs Clumped Platelets Large Platelets Giant Platelets Platelet Comment Polychromasia Poikilocytosis Anisocytosis Microcytosis Macrocytosis Sickle Cells Target Cells Tear Drop Cells Ovalocytes Stomatocytes ESR Retic Count (auto) PT INR APTT Fibrinogen D-Dimer Carbonic Acid HCO3/H2CO3 Ratio ABG pH ABG pCO2 ABG pO2 ABG HCO3 ABG Total CO2 ABG O2 Saturation ABG Base Excess FiO2 Sodium Potassium Chloride Carbon Dioxide Anion Gap BUN Creatinine Est GFR ( Amer) Est GFR (MDRD) Non-Af Glucose POC Glucose Hemoglobin A1c % Calcium Phosphorus Magnesium Ferritin Total Bilirubin Direct Bilirubin Neonat Total Bilirubin Neonat Direct Bilirubin Neonat Indirect Bili AST ALT Alkaline Phosphatase Ammonia Lactate Dehydrogenase Creatine Kinase CK-MB (CK-2) Troponin I 0.617 C-Reactive Protein Total Protein Albumin Triglycerides Cholesterol LDL Cholesterol Direct VLDL Cholesterol HDL Cholesterol Amylase Lipase TSH Free T4 Urine Color YELLOW Urine Appearance SLIGHTLY-CLOUDY Urine pH 5.0 Ur Specific [place] 1.014 Urine Protein 30 H Urine Glucose (UA) NEGATIVE Urine Ketones NEGATIVE Urine Blood SMALL H Urine Nitrite NEGATIVE Urine Bilirubin NEGATIVE Urine Urobilinogen NEGATIVE Ur Leukocyte Esterase NEGATIVE Urine WBC (Auto) 1 Urine RBC (Auto) 0 U Hyaline Cast (Auto) 8 Urine Bacteria (Auto) TRACE Squamous Epi Cells Auto 4 Urine Mucus (Auto) FEW Urine Ascorbic Acid NEGATIVE Urine Opiates Screen Urine Methadone Screen Ur Barbiturates Screen Ur Phencyclidine Scrn Ur Amphetamines Screen U Benzodiazepines Scrn Urine Cocaine Screen U Marijuana (THC) Screen Influenza A (RT-PCR) Influenza B (RT-PCR) RSV (RT-PCR) SARS-CoV-2 Rap RNA(RT-PCR) Group A Strep Rapid NEGATIVE Slides for Path Review Blood Type Antibody Screen Antigen Identification Crossmatch 03/02/20 03/02/20 03/02/20 04:33 04:40 18:31 WBC 23.1 H RBC 3.01 L Hgb 8.4 L Hct 24.3 L MCV 81 MCH 28.1 MCHC 34.8 RDW 18.0 H Plt Count 117 L Lymph % (Auto) Not Reportable [place] % (Auto) Not Reportable Eos % (Auto) Not Reportable Baso % (Auto) Not Reportable Reticulocyte # Absolute Neuts (auto) Not Reportable Absolute Lymphs (auto) Not Reportable Absolute Monos (auto) Not Reportable Absolute Eos (auto) Not Reportable Absolute Basos (auto) Not Reportable Total Counted 100 Seg Neutrophils % Not Reportable Seg Neuts % (Manual) 79 H Band Neutrophils % Lymphocytes % (Manual) 12 L Atypical Lymphs % Monocytes % (Manual) 9 Eosinophils % (Manual) 0 Basophils % (Manual) 0 Metamyelocytes % Abs Neuts (Manual) 18.2 H Abs Lymphs (Manual) 2.8 Abs Monocytes (Manual) 2.1 H Absolute Eos (Manual) 0.0 Abs Basophils (Manual) 0.0 Nucleated RBCs 3 Clumped Platelets Large Platelets Giant Platelets Platelet Comment ADEQUATE Polychromasia SLIGHT Poikilocytosis Anisocytosis 1+ Microcytosis Macrocytosis Sickle Cells SLIGHT Target Cells 2+ Tear Drop Cells Ovalocytes Stomatocytes ESR Retic Count (auto) PT INR APTT Fibrinogen D-Dimer Carbonic Acid HCO3/H2CO3 Ratio ABG pH ABG pCO2 ABG pO2 ABG HCO3 ABG Total CO2 ABG O2 Saturation ABG Base Excess FiO2 Sodium Potassium Chloride Carbon Dioxide Anion Gap BUN Creatinine Est GFR ( Amer) Est GFR (MDRD) Non-Af Glucose POC Glucose Hemoglobin A1c % Calcium Phosphorus Magnesium Ferritin Total Bilirubin Direct Bilirubin Neonat Total Bilirubin Neonat Direct Bilirubin Neonat Indirect Bili AST ALT Alkaline Phosphatase Ammonia Lactate Dehydrogenase Creatine Kinase 730 H CK-MB (CK-2) Troponin I C-Reactive Protein Total Protein Albumin Triglycerides Cholesterol LDL Cholesterol Direct VLDL Cholesterol HDL Cholesterol Amylase Lipase TSH Free T4 Urine Color YELLOW Urine Appearance SLIGHTLY-CLOUDY Urine pH 5.0 Ur Specific [place] 1.014 Urine Protein 100 H Urine Glucose (UA) NEGATIVE Urine Ketones NEGATIVE Urine Blood MODERATE H Urine Nitrite NEGATIVE Urine Bilirubin NEGATIVE Urine Urobilinogen 2.0 H Ur Leukocyte Esterase NEGATIVE Urine WBC (Auto) 3 Urine RBC (Auto) 0 U Hyaline Cast (Auto) 6 Urine Bacteria (Auto) TRACE Squamous Epi Cells Auto 7 Urine Mucus (Auto) OCC Urine Ascorbic Acid NEGATIVE Urine Opiates Screen Urine Methadone Screen Ur Barbiturates Screen Ur Phencyclidine Scrn Ur Amphetamines Screen U Benzodiazepines Scrn Urine Cocaine Screen U Marijuana (THC) Screen Influenza A (RT-PCR) Influenza B (RT-PCR) RSV (RT-PCR) SARS-CoV-2 Rap RNA(RT-PCR) Group A Strep Rapid Slides for Path Review Blood Type Antibody Screen Antigen Identification Crossmatch 03/02/20 03/03/20 03/03/20 18:31 00:27 00:27 WBC RBC Hgb Hct MCV MCH MCHC RDW Plt Count Lymph % (Auto) [place] % (Auto) Eos % (Auto) Baso % (Auto) Reticulocyte # Absolute Neuts (auto) Absolute Lymphs (auto) Absolute Monos (auto) Absolute Eos (auto) Absolute Basos (auto) Total Counted Seg Neutrophils % Seg Neuts % (Manual) Band Neutrophils % Lymphocytes % (Manual) Atypical Lymphs % Monocytes % (Manual) Eosinophils % (Manual) Basophils % (Manual) Metamyelocytes % Abs Neuts (Manual) Abs Lymphs (Manual) Abs Monocytes (Manual) Absolute Eos (Manual) Abs Basophils (Manual) Nucleated RBCs Clumped Platelets Large Platelets Giant Platelets Platelet Comment Polychromasia Poikilocytosis Anisocytosis Microcytosis Macrocytosis Sickle Cells Target Cells Tear Drop Cells Ovalocytes Stomatocytes ESR Retic Count (auto) PT INR APTT Fibrinogen D-Dimer Carbonic Acid HCO3/H2CO3 Ratio ABG pH ABG pCO2 ABG pO2 ABG HCO3 ABG Total CO2 ABG O2 Saturation ABG Base Excess FiO2 Sodium Potassium Chloride Carbon Dioxide Anion Gap BUN Creatinine Est GFR ( Amer) Est GFR (MDRD) Non-Af Glucose POC Glucose Hemoglobin A1c % Calcium Phosphorus Magnesium Ferritin Total Bilirubin Direct Bilirubin Neonat Total Bilirubin Neonat Direct Bilirubin Neonat Indirect Bili AST ALT Alkaline Phosphatase Ammonia Lactate Dehydrogenase Creatine Kinase 662 H CK-MB (CK-2) 5.24 H 4.23 Troponin I 0.670 0.600 C-Reactive Protein Total Protein Albumin Triglycerides Cholesterol LDL Cholesterol Direct VLDL Cholesterol HDL Cholesterol Amylase Lipase TSH Free T4 Urine Color Urine Appearance Urine pH Ur Specific [place] Urine Protein Urine Glucose (UA) Urine Ketones Urine Blood Urine Nitrite Urine Bilirubin Urine Urobilinogen Ur Leukocyte Esterase Urine WBC (Auto) Urine RBC (Auto) U Hyaline Cast (Auto) Urine Bacteria (Auto) Squamous Epi Cells Auto Urine Mucus (Auto) Urine Ascorbic Acid Urine Opiates Screen Urine Methadone Screen Ur Barbiturates Screen Ur Phencyclidine Scrn Ur Amphetamines Screen U Benzodiazepines Scrn Urine Cocaine Screen U Marijuana (THC) Screen Influenza A (RT-PCR) Influenza B (RT-PCR) RSV (RT-PCR) SARS-CoV-2 Rap RNA(RT-PCR) Group A Strep Rapid Slides for Path Review Blood Type Antibody Screen Antigen Identification Crossmatch 03/03/20 03/03/20 03/03/20 05:49 05:49 05:49 WBC 31.0 H* RBC 2.90 L Hgb 8.0 L Hct 23.0 L MCV 79 L MCH 27.4 MCHC 34.6 RDW 18.5 H Plt Count 83 L Lymph % (Auto) Not Reportable [place] % (Auto) Not Reportable Eos % (Auto) Not Reportable Baso % (Auto) Not Reportable Reticulocyte # Absolute Neuts (auto) Not Reportable Absolute Lymphs (auto) Not Reportable Absolute Monos (auto) Not Reportable Absolute Eos (auto) Not Reportable Absolute Basos (auto) Not Reportable Total Counted 100 Seg Neutrophils % Not Reportable Seg Neuts % (Manual) 89 H Band Neutrophils % Lymphocytes % (Manual) 8 L Atypical Lymphs % 1 Monocytes % (Manual) 2 L Eosinophils % (Manual) 0 Basophils % (Manual) 0 Metamyelocytes % Abs Neuts (Manual) 27.6 H Abs Lymphs (Manual) 2.8 Abs Monocytes (Manual) 0.6 Absolute Eos (Manual) 0.0 Abs Basophils (Manual) 0.0 Nucleated RBCs 9 Clumped Platelets Large Platelets Giant Platelets Platelet Comment DECREASED Polychromasia 1+ Poikilocytosis 2+ Anisocytosis 1+ Microcytosis SLIGHT Macrocytosis Sickle Cells 1+ Target Cells 1+ Tear Drop Cells 2+ Ovalocytes 2+ Stomatocytes ESR Retic Count (auto) PT INR APTT Fibrinogen D-Dimer Carbonic Acid HCO3/H2CO3 Ratio ABG pH ABG pCO2 ABG pO2 ABG HCO3 ABG Total CO2 ABG O2 Saturation ABG Base Excess FiO2 Sodium 139.5 Potassium 4.8 Chloride 105 Carbon Dioxide 20 L Anion Gap 15 BUN 34 H Creatinine 1.09 Est GFR ( Amer) > 60 Est GFR (MDRD) Non-Af 51 L Glucose 129 H POC Glucose Hemoglobin A1c % Calcium 7.8 L Phosphorus Magnesium Ferritin Total Bilirubin 6.4 H Direct Bilirubin 4.0 H Neonat Total Bilirubin Not Reportable Neonat Direct Bilirubin Not Reportable Neonat Indirect Bili Not Reportable AST 194 H ALT 59 H Alkaline Phosphatase 194 H Ammonia Lactate Dehydrogenase Creatine Kinase 840 H CK-MB (CK-2) 4.22 Troponin I 0.638 C-Reactive Protein Total Protein 6.3 Albumin 3.4 L Triglycerides 135 Cholesterol 107.01 LDL Cholesterol Direct < 30 VLDL Cholesterol 27.0 HDL Cholesterol 40 Amylase Lipase TSH Free T4 Urine Color Urine Appearance Urine pH Ur Specific [place] Urine Protein Urine Glucose (UA) Urine Ketones Urine Blood Urine Nitrite Urine Bilirubin Urine Urobilinogen Ur Leukocyte Esterase Urine WBC (Auto) Urine RBC (Auto) U Hyaline Cast (Auto) Urine Bacteria (Auto) Squamous Epi Cells Auto Urine Mucus (Auto) Urine Ascorbic Acid Urine Opiates Screen Urine Methadone Screen Ur Barbiturates Screen Ur Phencyclidine Scrn Ur Amphetamines Screen U Benzodiazepines Scrn Urine Cocaine Screen U Marijuana (THC) Screen Influenza A (RT-PCR) Influenza B (RT-PCR) RSV (RT-PCR) SARS-CoV-2 Rap RNA(RT-PCR) Group A Strep Rapid Slides for Path Review SEE COMMENT Blood Type Antibody Screen Antigen Identification Crossmatch 03/03/20 03/03/20 03/03/20 11:46 12:46 13:35 WBC RBC Hgb Hct MCV MCH MCHC RDW Plt Count Lymph % (Auto) [place] % (Auto) Eos % (Auto) Baso % (Auto) Reticulocyte # Absolute Neuts (auto) Absolute Lymphs (auto) Absolute Monos (auto) Absolute Eos (auto) Absolute Basos (auto) Total Counted Seg Neutrophils % Seg Neuts % (Manual) Band Neutrophils % Lymphocytes % (Manual) Atypical Lymphs % Monocytes % (Manual) Eosinophils % (Manual) Basophils % (Manual) Metamyelocytes % Abs Neuts (Manual) Abs Lymphs (Manual) Abs Monocytes (Manual) Absolute Eos (Manual) Abs Basophils (Manual) Nucleated RBCs Clumped Platelets Large Platelets Giant Platelets Platelet Comment Polychromasia Poikilocytosis Anisocytosis Microcytosis Macrocytosis Sickle Cells Target Cells Tear Drop Cells Ovalocytes Stomatocytes ESR Retic Count (auto) PT INR APTT Fibrinogen D-Dimer Carbonic Acid 1.03 L HCO3/H2CO3 Ratio 10:1 ABG pH 7.11 L* ABG pCO2 34.2 L ABG pO2 48.3 L ABG HCO3 10.5 L ABG Total CO2 11.5 L ABG O2 Saturation 70.2 L ABG Base Excess -17.6 FiO2 100% Sodium Potassium Chloride Carbon Dioxide Anion Gap BUN Creatinine Est GFR ( Amer) Est GFR (MDRD) Non-Af Glucose POC Glucose 55 L 112 H Hemoglobin A1c % Calcium Phosphorus Magnesium Ferritin Total Bilirubin Direct Bilirubin Neonat Total Bilirubin Neonat Direct Bilirubin Neonat Indirect Bili AST ALT Alkaline Phosphatase Ammonia Lactate Dehydrogenase Creatine Kinase CK-MB (CK-2) Troponin I C-Reactive Protein Total Protein Albumin Triglycerides Cholesterol LDL Cholesterol Direct VLDL Cholesterol HDL Cholesterol Amylase Lipase TSH Free T4 Urine Color Urine Appearance Urine pH Ur Specific [place] Urine Protein Urine Glucose (UA) Urine Ketones Urine Blood Urine Nitrite Urine Bilirubin Urine Urobilinogen Ur Leukocyte Esterase Urine WBC (Auto) Urine RBC (Auto) U Hyaline Cast (Auto) Urine Bacteria (Auto) Squamous Epi Cells Auto Urine Mucus (Auto) Urine Ascorbic Acid Urine Opiates Screen Urine Methadone Screen Ur Barbiturates Screen Ur Phencyclidine Scrn Ur Amphetamines Screen U Benzodiazepines Scrn Urine Cocaine Screen U Marijuana (THC) Screen Influenza A (RT-PCR) Influenza B (RT-PCR) RSV (RT-PCR) SARS-CoV-2 Rap RNA(RT-PCR) Group A Strep Rapid Slides for Path Review Blood Type Antibody Screen Antigen Identification Crossmatch 03/04/20 03/04/20 05:24 11:40 WBC 30.1 H* RBC 2.23 L Hgb 6.1 L Hct 17.5 L MCV 78 L MCH 27.1 MCHC 34.7 RDW 18.6 H Plt Count 120 L Lymph % (Auto) [place] % (Auto) Eos % (Auto) Baso % (Auto) Reticulocyte # Absolute Neuts (auto) Absolute Lymphs (auto) Absolute Monos (auto) Absolute Eos (auto) Absolute Basos (auto) Total Counted Seg Neutrophils % Seg Neuts % (Manual) Band Neutrophils % Lymphocytes % (Manual) Atypical Lymphs % Monocytes % (Manual) Eosinophils % (Manual) Basophils % (Manual) Metamyelocytes % Abs Neuts (Manual) Abs Lymphs (Manual) Abs Monocytes (Manual) Absolute Eos (Manual) Abs Basophils (Manual) Nucleated RBCs Clumped Platelets Large Platelets Giant Platelets Platelet Comment Polychromasia Poikilocytosis Anisocytosis Microcytosis Macrocytosis Sickle Cells Target Cells Tear Drop Cells Ovalocytes Stomatocytes ESR Retic Count (auto) PT INR APTT Fibrinogen D-Dimer Carbonic Acid HCO3/H2CO3 Ratio ABG pH ABG pCO2 ABG pO2 ABG HCO3 ABG Total CO2 ABG O2 Saturation ABG Base Excess FiO2 Sodium Potassium Chloride Carbon Dioxide Anion Gap BUN Creatinine Est GFR ( Amer) Est GFR (MDRD) Non-Af Glucose POC Glucose Hemoglobin A1c % Calcium Phosphorus Magnesium Ferritin Total Bilirubin Direct Bilirubin Neonat Total Bilirubin Neonat Direct Bilirubin Neonat Indirect Bili AST ALT Alkaline Phosphatase Ammonia Lactate Dehydrogenase Creatine Kinase CK-MB (CK-2) Troponin I C-Reactive Protein Total Protein Albumin Triglycerides Cholesterol LDL Cholesterol Direct VLDL Cholesterol HDL Cholesterol Amylase Lipase TSH Free T4 Urine Color Urine Appearance Urine pH Ur Specific [place] Urine Protein Urine Glucose (UA) Urine Ketones Urine Blood Urine Nitrite Urine Bilirubin Urine Urobilinogen Ur Leukocyte Esterase Urine WBC (Auto) Urine RBC (Auto) U Hyaline Cast (Auto) Urine Bacteria (Auto) Squamous Epi Cells Auto Urine Mucus (Auto) Urine Ascorbic Acid Urine Opiates Screen Urine Methadone Screen Ur Barbiturates Screen Ur Phencyclidine Scrn Ur Amphetamines Screen U Benzodiazepines Scrn Urine Cocaine Screen U Marijuana (THC) Screen Influenza A (RT-PCR) Influenza B (RT-PCR) RSV (RT-PCR) SARS-CoV-2 Rap RNA(RT-PCR) Group A Strep Rapid Slides for Path Review Blood Type A POSITIVE Antibody Screen NEGATIVE Antigen Identification K Antigen - NEGATIVE Crossmatch See Detail Chest X-Ray 02/29/20 15:58 IMPRESSION: Stable appearance of the chest. No acute radiographic abnormality or significant interval change. Chest X-Ray 03/03/20 00:00 IMPRESSION: CENTRAL LINE DESCRIBED. NO PNEUMOTHORAX. NO ACUTE FINDINGS. Chest/Abdomen CTA 03/03/20 00:00 IMPRESSION: There is no pulmonary embolus. There is no aortic aneurysm or dissection. Mild atelectatic changes bilaterally, left more than right. IMPRESSION/RECOMMENDATION.: 1. Anemia: Secondary to sickle cell disease. Patient's hemoglobin dropped acutely to 6.1. Patient is receiving blood transfusion. Need to look for other causes of GI bleed causing patient's anemia compounded with the patient's sickle cell disease. 2. Most likely non-ST elevation CA. The patient's chest pain could have been masked by her chest wall pain due to sickle cell crisis. Agree with current antiplatelet agents, and recommend adding beta-blockers. Due to her platelets being low the patient's Lovenox has been discontinued. Recommend serial EKG and troponin estimations. 3. THe patient's CTA of the chest being negative for pulmonary emboli, and the patient's lack of risk factors except for age, will discuss with a tertiary care center to see if the patient would qualify for cardiac catheterization versus doing an inpatient IV Lexiscan Cardiolite.. Will discuss with Dr. Hanson 4.. Elevated troponin levels. The patient's troponin today 0.638. We will trend the troponin. 5. Pneumonia: Note the patient's rectal temperature is elevated, but axillary temperature is normal. The patient is on antibiotics for possible aspiration. 6. S/p brief cardiac arrest. Patient noted to be in pulseless electrical activity. Spontaneous return of circulation with brief CPR and epinephrine. No recurrence of cardiac arrest. Later would recommend IV Lexiscan Cardiolite stress test versus cardiac catheterization. 7.. Thrombocytopenia: We will see the platelets after stopping Lovenox. No definite evidence of HIT. Platelets stable. 8. Sickle cell crisis: Seems to have resolved. Continue hydration. Medications reviewed. Medical regimen management plan discussed with Dr. Hanson. Medical decision making is of high complexity. Case discussed with patient's daughter.
[2020-03-04] MEDS: RINGERS SOLUTION,LACTATED 1,000 ML IV PRN (23:46)
[2020-03-05] MEDS: CLINDAMYCIN 300 MG/D5W RTU 300 MG/50 ML RTUPB IV SCH ×3 (01:24→17:55)
[2020-03-05] MEDS: PIPERACILLIN SODIUM/TAZOBACTAM 3.375 GM in NORMAL SALINE 100 ML IV SCH ×4 (03:55→21:27)
[2020-03-05] MEDS: PANTOPRAZOLE SODIUM 40 MG TABLET.DR PO SCH (05:49)
[2020-03-05 06:33] LABS: HEMATOCRIT 23.9 % (36.0-47.0); MEAN CORPUSCULAR HEMOGLOBIN 28.6 pg (27.0-33.4); MEAN CORPUSCULAR HGB CONC 35.6 g/dL (32.0-36.0); MEAN CORPUSCULAR VOLUME 80 fl (80-97); RED BLOOD COUNT 2.97 10^6/uL (3.72-5.28); RED CELL DISTRIBUTION WIDTH 17.3 % (11.5-14.0)
[2020-03-05 06:43] LABS: ALBUMIN 2.5 g/dL (3.5-5.0); ALKALINE PHOSPHATASE 126 U/L (38-126); ANION GAP 10 (5-19); ASPARTATE AMINO TRANSFERASE 289 U/L (14-36); BILIRUBIN,DIRECT 2.2 mg/dL (0.0-0.4); BILIRUBIN,TOTAL 3.8 mg/dL (0.2-1.3); BLOOD UREA NITROGEN 57 mg/dL (7-20); CALCIUM 7.3 mg/dL (8.4-10.2); CARBON DIOXIDE 21 mmol/L (22-30); CHLORIDE 108 mmol/L (98-107); GLUCOSE 111 mg/dL (75-110)
[2020-03-05 08:20] LABS: BAND NEUTROPHILS % (MANUAL) 9 % (3-5); BASOPHILS % (MANUAL) 0 % (0-2); EOSINOPHILS % (MANUAL) 0 % (0-6); LYMPHOCYTES % (MANUAL) 4 % (13-45); METAMYELOCYTES % (MANUAL) 1 % (0-1); MONOCYTES % (MANUAL) 8 % (3-13); NUCLEATED RED BLOOD CELLS 113 /100 WBC (0); SEGMENTED NEUTROPHILS % (MAN) 78 % (42-78); TOTAL CELLS COUNTED 100
[2020-03-05 08:45] LABS: ANISOCYTOSIS 1+; OVALOCYTES 2+; POLYCHROMASIA SLIGHT; SICKLE RED CELLS 2+; TARGET CELLS 3+
[2020-03-05 08:47] LABS: PLATELET CLUMPS PRESENT; PLATELET COMMENT DECREASED; PLATELET GIANT PRESENT; PLATELET LARGE PRESENT
[2020-03-05 08:53] LABS: WHITE BLOOD COUNT 25.7 10^3/uL (4.0-10.5)
[2020-03-05 08:55] LABS: ABSOLUTE MONOCYTES # (MANUAL) 2.1 10^3/uL (0.1-1.4)
[2020-03-05 09:00] LABS: HEMOGLOBIN 8.5 g/dL (12.0-15.5)
[2020-03-05 09:04] LABS: POIKILOCYTOSIS 1+
[2020-03-05 09:08] LABS: PLATELET COUNT 113 10^3/uL (150-450)
[2020-03-05] MEDS: METOPROLOL TARTRATE 25 MG TABLET PO SCH ×2 (09:32→21:27)
[2020-03-05] MEDS: ZINC SULFATE 220 MG CAPSULE PO SCH (09:32)
[2020-03-05] MEDS: ASPIRIN 81 MG TABLET, CHEWABLE PO SCH (09:32)
[2020-03-05] MEDS: CLOPIDOGREL BISULFATE 75 MG TABLET PO SCH (09:33)
[2020-03-05] MEDS: ENOXAPARIN SODIUM INJ 40 MG/0.4 ML DISP.SYRIN SUBCUT SCH (09:33)
[2020-03-05] MEDS: POTASSIUM CHLORIDE 20 MEQ/50 ML RTU IV SCH ×3 (10:27→16:30)
--- NOTE | 2020-03-05 18:10 | PDOC PROGRESS REPORT ---
Subjective Date:: 03/05/20 Subjective:: Patient is off BiPAP support. Poor PO intake. Generalized weakness. No reported fever or chills. Complete transfusion of 2 units PRBC. Reason For Visit: SICKLE CELL PAIN CRISIS Physical Exam Vital Signs: Temp Pulse Resp BP Pulse Ox 98.8 F 65 25 H 116/68 100 03/05/20 11:45 03/05/20 14:00 03/05/20 11:45 03/05/20 11:45 03/05/20 11:45 Intake & Output 03/04/20 03/05/20 03/06/20 06:59 06:59 06:59 Intake Total 150 2590 1257 Output Total 300 400 Balance -150 2190 1257 Weight 80.6 kg 83.1 kg Physical Exam: General appearance: PRESENT: remain on BiPAP support. Head exam: PRESENT: atraumatic, normocephalic Eye exam: PRESENT: Conjunctiva pink. ABSENT: pallor, sclera icterus Mouth exam: PRESENT: moist, tongue midline Neck exam: PRESENT: full ROM. Respiratory exam: PRESENT: clear to auscultation cesilia, decrease breath sound at lung bases Cardiovascular exam: PRESENT: RRR, +S1, +S2, systolic murmur. ABSENT: diastolic murmur, rubs Murmur grade: 3 GI/Abdominal exam: PRESENT: normal bowel sounds, soft. ABSENT: distended, guarding, mass, organomegaly, rebound, tenderness Extremities exam: ABSENT: pedal edema Neurological exam: PRESENT: alert, awake, oriented to person, oriented to place, oriented to time, oriented to situation, CN II-XII grossly intact. ABSENT: motor sensory deficit Psychiatric exam: PRESENT: agitated Skin exam: PRESENT: dry, intact, warm. ABSENT: cyanosis, rash Murmur grade: 3 Results Laboratory Results: 03/05/20 05:45 03/05/20 05:45 03/04/20 03/05/20 03/05/20 05:24 05:45 05:45 WBC 30.1 H* 25.7 H RBC 2.23 L 2.97 L Hgb 6.1 L 8.5 L D Hct 17.5 L 23.9 L MCV 78 L 80 MCH 27.1 28.6 MCHC 34.7 35.6 RDW 18.6 H 17.3 H Plt Count 120 L 113 L Seg Neutrophils % Not Reportable Sodium 139.4 Potassium 3.0 L* Chloride 108 H Carbon Dioxide 21 L Anion Gap 10 BUN 57 H Creatinine 1.98 H Est GFR ( Amer) 31 L Glucose 111 H Calcium 7.3 L Magnesium Total Bilirubin 3.8 H AST 289 H Alkaline Phosphatase 126 Total Protein 5.0 L Albumin 2.5 L 03/05/20 05:45 WBC RBC Hgb Hct MCV MCH MCHC RDW Plt Count Seg Neutrophils % Sodium Potassium Chloride Carbon Dioxide Anion Gap BUN Creatinine Est GFR ( Amer) Glucose Calcium Magnesium 2.3 Total Bilirubin AST Alkaline Phosphatase Total Protein Albumin 02/29/20 02/29/20 03/01/20 16:40 16:40 15:42 Creatine Kinase 51 136 H CK-MB (CK-2) Troponin I 0.034 03/01/20 03/02/20 03/02/20 15:42 18:31 18:31 Creatine Kinase 730 H CK-MB (CK-2) 5.24 H Troponin I 0.617 0.670 03/03/20 03/03/20 03/03/20 00:27 00:27 05:49 Creatine Kinase 662 H 840 H CK-MB (CK-2) 4.23 Troponin I 0.600 03/03/20 05:49 Creatine Kinase CK-MB (CK-2) 4.22 Troponin I 0.638 Impressions: Chest X-Ray 03/03/20 00:00 IMPRESSION: CENTRAL LINE DESCRIBED. NO PNEUMOTHORAX. NO ACUTE FINDINGS. Chest/Abdomen CTA 03/03/20 00:00 IMPRESSION: There is no pulmonary embolus. There is no aortic aneurysm or dissection. Mild atelectatic changes bilaterally, left more than right. Assessment & Plan - Diagnosis (1) Acute respiratory failure with hypoxemia Is this a current diagnosis for this admission?: Yes (2) Pulmonary embolism Qualifiers: Pulmonary embolism type: unspecified Chronicity: acute Acute cor pulmonale presence: unspecified Qualified Code(s): I26.99 - Other pulmonary embolism without acute cor pulmonale Is this a current diagnosis for this admission?: No (3) Chest pain Qualifiers: Chest pain type: other chest pain Qualified Code(s): R07.89 - Other chest pain; R07.8 - Other chest pain Is this a current diagnosis for this admission?: Yes (4) Elevated troponin Is this a current diagnosis for this admission?: Yes (5) Vaso-occlusive pain due to sickle cell disease Is this a current diagnosis for this admission?: Yes (6) 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 Is this a current diagnosis for this admission?: Yes (7) Probable sepsis Is this a current diagnosis for this admission?: Yes (8) Klebsiella cystitis Is this a current diagnosis for this admission?: Yes (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 with other complication Qualified Code(s): D57.09 - Hb-SS disease with crisis with other specified complication Is this a current diagnosis for this admission?: Yes - Time Time Spent with patient: 25-34 minutes Level of Care: IMCU Medications reviewed and adjusted accordingly: Yes Anticipated discharge: Home with Homehealth, SNF - for short term rehabilitation - Inpatient Certification Based on my medical assessment, after consideration of the patient's comorbidities, presenting symptoms, or acuity I expect that the services needed warrant INPATIENT care.: Yes I certify that my determination is in accordance with my understanding of Medicare's requirements for reasonable and necessary INPATIENT services [42 CFR 412.3e].: Yes Medical Necessity: Significant Comorbidiites Make Outpatient Treatment Too Risky, Need Close Monitoring Due to Risk of Patient Decompensation, Need For IV Fluids, Need For Continuous Telemetry Monitoring, Need for IV Antibiotics, Risk of Complication if Not Cared For in Hospital, Risk of Diagnosis Which Will Require Inpatient Eval/Care/Monitoring Post Hospital Care: D/C Bed Control Specialist Documentation, D/C or Transfer Summary - Plan Summary Plan Summary: Potassium replacement in progress. Continue current antibiotic therapy. Obtain CBC with diff, BMP in am.
--- NOTE | 2020-03-05 18:50 | Progress Note ---
Provider Note Provider Note: CARDIOLOGY PROGRESS NOTE by Dr. Leslie Laird on 03/05/2020. OBJECTIVE: The patient at present is off BiPAP and is on nasal cannula. She denies any chest pain or shortness of breath. There is patient states she wants to go home. Her hemoglobin is come to 8.5 after transfusion. She denies palpitations. There is no leg edema. There is no further chest pains. There is no PND orthopnea. There is no arrhythmias seen on the monitor. The patient's renal function has deteriorated. This probably secondary to anemia, and contrast-induced nephropathy, and the question is is any blood in the gut. We will check stool for occult blood. PHYSICAL EXAMINATION: The patient is mildly obese. At present no acute distress Selected Entries 03/05/20 11:45 Temperature 98.8 F Temperature Oral Source Pulse Rate 74 Respiratory 25 H Rate Blood Pressure 116/68 Blood Pressure 84 Mean BP Location Left Arm BP Position Supine O2 Sat by Pulse 100 Oximetry Oxygen Flow 4.00 Rate Oxygen Delivery Nasal Cannula Method HEAD: Is atraumatic normocephalic. EYES: Pupils equal round regular reactive light accommodation. Extraocular movements are normal. There is no conjunctival pallor. There is no scleral icterus. EARS: Tympanic membranes are intact. External auditory canals are clear. NOSE: There is no deviated nasal septum. There is no inflammation nasal mucous membrane. MOUTH: Mucous membranes of mouth are moist. There is no ulcers or bleeding from the gums. THROAT: There is no redness of the oropharynx. There is no exudates. SKIN: There is no skin rashes. There is no skin lesions. There is no petechia or ecchymosis. NECK: Is supple there is no JVD carotids are equal there is no bruit there is no lymphadenopathy the. There is no goiter. Trachea central. There is no accessory muscles of respiration use. LUNGS: Is clear to auscultation percussion without any rhonchi rales or wheezing. On palpation there is no chest wall tenderness.. HEART: S1-S2 is heard. There is no S3 gallop. There is no S4 gallop. There is systolic murmur left sternal border and apex. There is no rub. ABDOMEN: Soft. Nontender there is no paraspinal megaly. Bowel sounds are well heard. EXTREMITIES: Femorals are slightly diminished. Leg pulses are well felt. There is no pedal edema. There is no DVT or cellulitis. There is no cyanosis or clubbing. DIRECTOR SALES SUPPORT: The patient is a slow mentation but without any focal deficits. Psychiatric: The patient's affect is withdrawn. She does not appear to be agitated or anxious. Labs- All tests 24 hr 03/04/20 03/04/20 03/05/20 05:24 11:40 05:45 WBC 30.1 H* 25.7 H RBC 2.23 L 2.97 L Hgb 6.1 L 8.5 L D Hct 17.5 L 23.9 L MCV 78 L 80 MCH 27.1 28.6 MCHC 34.7 35.6 RDW 18.6 H 17.3 H Plt Count 120 L 113 L Lymph % (Auto) Not Reportable [place] % (Auto) Not Reportable Eos % (Auto) Not Reportable Baso % (Auto) Not Reportable Absolute Neuts (auto) Not Reportable Absolute Lymphs (auto) Not Reportable Absolute Monos (auto) Not Reportable Absolute Eos (auto) Not Reportable Absolute Basos (auto) Not Reportable Total Counted 100 Seg Neutrophils % Not Reportable Seg Neuts % (Manual) 78 Band Neutrophils % 9 H Lymphocytes % (Manual) 4 L Monocytes % (Manual) 8 Eosinophils % (Manual) 0 Basophils % (Manual) 0 Metamyelocytes % 1 Abs Neuts (Manual) 22.6 H Abs Lymphs (Manual) 1.0 Abs Monocytes (Manual) 2.1 H Absolute Eos (Manual) 0.0 Abs Basophils (Manual) 0.0 Nucleated RBCs 113 Clumped Platelets PRESENT Large Platelets PRESENT Giant Platelets PRESENT Platelet Comment DECREASED Polychromasia SLIGHT Poikilocytosis 1+ Anisocytosis 1+ Macrocytosis SLIGHT Sickle Cells 2+ Target Cells 3+ Ovalocytes 2+ Sodium Potassium Chloride Carbon Dioxide Anion Gap BUN Creatinine Est GFR ( Amer) Est GFR (MDRD) Non-Af Glucose Calcium Magnesium Total Bilirubin Direct Bilirubin Neonat Total Bilirubin Neonat Direct Bilirubin Neonat Indirect Bili AST ALT Alkaline Phosphatase Total Protein Albumin Crossmatch See Detail 03/05/20 03/05/20 05:45 05:45 WBC RBC Hgb Hct MCV MCH MCHC RDW Plt Count Lymph % (Auto) [place] % (Auto) Eos % (Auto) Baso % (Auto) Absolute Neuts (auto) Absolute Lymphs (auto) Absolute Monos (auto) Absolute Eos (auto) Absolute Basos (auto) Total Counted Seg Neutrophils % Seg Neuts % (Manual) Band Neutrophils % Lymphocytes % (Manual) Monocytes % (Manual) Eosinophils % (Manual) Basophils % (Manual) Metamyelocytes % Abs Neuts (Manual) Abs Lymphs (Manual) Abs Monocytes (Manual) Absolute Eos (Manual) Abs Basophils (Manual) Nucleated RBCs Clumped Platelets Large Platelets Giant Platelets Platelet Comment Polychromasia Poikilocytosis Anisocytosis Macrocytosis Sickle Cells Target Cells Ovalocytes Sodium 139.4 Potassium 3.0 L* Chloride 108 H Carbon Dioxide 21 L Anion Gap 10 BUN 57 H Creatinine 1.98 H Est GFR ( Amer) 31 L Est GFR (MDRD) Non-Af 26 L Glucose 111 H Calcium 7.3 L Magnesium 2.3 Total Bilirubin 3.8 H Direct Bilirubin 2.2 H Neonat Total Bilirubin Not Reportable Neonat Direct Bilirubin Not Reportable Neonat Indirect Bili Not Reportable AST 289 H ALT 278 H Alkaline Phosphatase 126 Total Protein 5.0 L Albumin 2.5 L Crossmatch Chest X-Ray 02/29/20 15:58 IMPRESSION: Stable appearance of the chest. No acute radiographic abnormality or significant interval change. Chest X-Ray 03/03/20 00:00 IMPRESSION: CENTRAL LINE DESCRIBED. NO PNEUMOTHORAX. NO ACUTE FINDINGS. Chest/Abdomen CTA 03/03/20 00:00 IMPRESSION: There is no pulmonary embolus. There is no aortic aneurysm or dissection. Mild atelectatic changes bilaterally, left more than right. IMPRESSION/RECOMMENDATION.: 1. S/p brief cardiac arrest. Patient noted to be in pulseless electrical activity. Spontaneous return of circulation with brief CPR and epinephrine. 2. Most likely non-ST elevation ID. The patient's chest pain could have been masked by her chest wall pain due to sickle cell crisis. Agree with current antiplatelet agents, and recommend adding beta-blockers. Due to her platelets being low the patient's Lovenox has been discontinued. Recommend serial EKG and troponin estimations. 3. THe patient's CTA of the chest being negative for pulmonary emboli, and the patient's lack of risk factors except for age, will discuss with a tertiary care center to see if the patient would qualify for cardiac catheterization. The other option is to get her IV Lexiscan Cardiolite stress test. Will discuss with Dr. Hanson 4.. Acute renal failure: Would avoid nephrotoxic medication. 5. Elevated troponin levels. The patient's troponin today 0.638. We will trend the troponin. 6. Klebsiella cystitis. The patient is on antibiotics for this and also possible aspiration. Though at present no evidence of pneumonia. 7. Anemia: Secondary to sickle cell disease. 8.. Thrombocytopenia: We will see the platelets after stopping Lovenox. No definite evidence of HIT. Platelets have come up. 9. Sickle cell crisis: Seems to have resolved. Continue hydration. Medications reviewed. Medical regimen management plan discussed with Dr. Hanson. Medical decision making is of high complexity. Will follow.
[2020-03-06] MEDS: CLINDAMYCIN 300 MG/D5W RTU 300 MG/50 ML RTUPB IV SCH ×3 (01:12→18:29)
[2020-03-06] MEDS: RINGERS SOLUTION,LACTATED 1,000 ML IV PRN (01:19)
[2020-03-06] MEDS: PIPERACILLIN SODIUM/TAZOBACTAM 3.375 GM in NORMAL SALINE 100 ML IV SCH ×4 (03:15→21:59)
[2020-03-06] MEDS: PANTOPRAZOLE SODIUM 40 MG TABLET.DR PO SCH (06:01)
--- NOTE | 2020-03-06 08:44 | RADIOLOGY REPORT (SQ) ---
EXAM DESCRIPTION: CHEST SINGLE VIEW IMAGES COMPLETED DATE/TIME: 03/06/2020 6:46 am REASON FOR STUDY: SOB COMPARISON: CT chest, 03/03/2020. Chest radiograph 03/03/2020. EXAM PARAMETERS: NUMBER OF VIEWS: One view. TECHNIQUE: Single frontal radiographic view of the chest acquired. RADIATION DOSE: NA LIMITATIONS: None. FINDINGS: LUNGS AND PLEURA: Developing patchy opacity in the left lung base with small left effusion . No pneumothorax. Right lung remains clear. Elevation the right hemidiaphragm is stable. MEDIASTINUM AND HILAR STRUCTURES: No masses. Contour normal. HEART AND VASCULAR STRUCTURES: Heart normal in size. Normal vasculature. BONES: No acute findings. HARDWARE: Left IJ central venous catheter with tip at the brachiocephalic/SVC confluence unchanged. OTHER: No other significant finding. IMPRESSION: Increasing consolidation/ atelectasis at the left lung base with small left effusion. TECHNICAL DOCUMENTATION: JOB ID: [id number] 2010 [employer]- All Rights Reserved Reading location - IP/workstation name: [email or web address]
[2020-03-06] MEDS ORDERED: DIPHENHYDRAMINE HCL 25 MG CAPSULE PO PRN (08:58)
[2020-03-06] MEDS ORDERED: SENNOSIDES/DOCUSATE 8.6-50 MG 1 EACH TABLET PO PRN (08:58)
[2020-03-06] MEDS ORDERED: POLYETHYLENE GLYCOL 3350 POWDER 17 GM/1 PACKET PO PRN (09:15)
[2020-03-06] MEDS: METOPROLOL TARTRATE 25 MG TABLET PO SCH ×2 (09:37→21:55)
[2020-03-06] MEDS: CLOPIDOGREL BISULFATE 75 MG TABLET PO SCH (09:37)
[2020-03-06] MEDS: ENOXAPARIN SODIUM INJ 40 MG/0.4 ML DISP.SYRIN SUBCUT SCH (09:37)
[2020-03-06] MEDS: ZINC SULFATE 220 MG CAPSULE PO SCH (09:38)
[2020-03-06] MEDS: ASPIRIN 81 MG TABLET, CHEWABLE PO SCH (09:38)
[2020-03-06] MEDS: MORPHINE SULFATE 10 MG/ML INJ IV PRN ×2 (09:55→13:28)
--- NOTE | 2020-03-06 13:39 | Progress Note ---
Provider Note Provider Note: CARDIOLOGY PROGRESS NOTE by Dr. Leslie Casarez on 03/06/2020. OBJECTIVE: The patient is on nasal cannula at present. She denies chest pain or discomfort. She denies shortness of breath. There is no PND orthopnea or leg edema. She denies cough. A chest x-ray suggests left lower lobe pneumonia. The patient is on antibiotics. PHYSICAL EXAMINATION: The patient is mildly obese in no acute distress. Selected Entries 03/06/20 08:08 Temperature 98.1 F Temperature Axillary Source Pulse Rate 74 Respiratory 23 H Rate Blood Pressure 129/67 H Blood Pressure 87 Mean BP Location Left Arm BP Position Supine O2 Sat by Pulse 100 Oximetry Oxygen Flow 4.00 Rate Oxygen Delivery Nasal Cannula Method HEAD: Is atraumatic normocephalic. EYES: Pupils equal round regular reactive light accommodation. Extraocular movements are normal. There is no conjunctival pallor. There is no scleral icterus. EARS: Tympanic membranes are intact. External auditory canals are clear. NOSE: There is no deviated nasal septum. There is no inflammation nasal mucous membrane. MOUTH: Mucous membranes of mouth are moist. There is no ulcers or bleeding from the gums. THROAT: There is no redness of the oropharynx. There is no exudates. SKIN: There is no skin rashes. There is no skin lesions. There is no petechia or ecchymosis. NECK: Is supple there is no JVD carotids are equal there is no bruit there is no lymphadenopathy the. There is no goiter. Trachea central. There is no accessory muscles of respiration use. LUNGS: Is clear to auscultation percussion without any rhonchi or wheezing. On palpation there is no chest wall tenderness there is dry crackles in the left base.. HEART: S1-S2 is heard. There is no S3 gallop. There is no S4 gallop. There is systolic murmur left sternal border and apex. There is no rub. ABDOMEN: Soft. Nontender there is no paraspinal megaly. Bowel sounds are well heard. EXTREMITIES: Femorals are slightly diminished. Leg pulses are well felt. There is no pedal edema. There is no DVT or cellulitis. There is no cyanosis or clubbing. 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 Psychiatric: The patient's affect is withdrawn. She does not appear to be agitated or anxious. Chest X-Ray 02/29/20 15:58 IMPRESSION: Stable appearance of the chest. No acute radiographic abnormality or significant interval change. Chest X-Ray 03/03/20 00:00 IMPRESSION: CENTRAL LINE DESCRIBED. NO PNEUMOTHORAX. NO ACUTE FINDINGS. Chest/Abdomen CTA 03/03/20 00:00 IMPRESSION: There is no pulmonary embolus. There is no aortic aneurysm or dissection. Mild atelectatic changes bilaterally, left more than right. Chest X-Ray 03/06/20 00:00 IMPRESSION: Increasing consolidation/ atelectasis at the left lung base with small left effusion. IMPRESSION/RECOMMENDATION.: 1.. Anemia: Secondary to sickle cell disease. Hemoglobin stable after transfusion. Await stool occult blood reports. 2. Most likely non-ST elevation NC. The patient's chest pain could have been masked by her chest wall pain due to sickle cell crisis. Agree with current antiplatelet agents, and recommend adding beta-blockers. Due to her platelets being low the patient's Lovenox has been discontinued. Recommend serial EKG and troponin estimations. Later we will discuss with the patient and doctors regarding noninvasive nuclear stress testing versus cardiac catheterization. 3. PNEUMONIA: Chest x-ray today shows left lower lobe pneumonia. THe patient's CTA of the chest being negative for pulmonary emboli. 4.. Acute renal failure: Would avoid nephrotoxic medication. 5. Elevated troponin levels. The patient's troponin today 0.638. We will trend the troponin. 6. Klebsiella cystitis. The patient is on antibiotics for this and also possible aspiration. Though at present no evidence of pneumonia. 7.S/p brief cardiac arrest. Patient noted to be in pulseless electrical activity. Spontaneous return of circulation with brief CPR and epinephrine. 8.. Thrombocytopenia: We will see the platelets after stopping Lovenox. No definite evidence of HIT. Platelets have come up. 9. Sickle cell crisis: Seems to have resolved. Continue hydration. Medications reviewed. Medical regimen management plan discussed with Dr. Hanson. Medical decision making is of high complexity. Will follow.
--- NOTE | 2020-03-06 15:32 | PDOC PROGRESS REPORT ---
Subjective Date:: 03/06/20 Subjective:: No reported fever or chills. she deneid any chst pain or difficulty with breath ing. Tolerating nasal cannula supplemental oxygen. No nausea or vomiting but PO intake remain a challenge. Reason For Visit: SICKLE CELL PAIN CRISIS Physical Exam Vital Signs: Temp Pulse Resp BP Pulse Ox 98.0 F 62 19 100/72 98 03/06/20 11:29 03/06/20 11:29 03/06/20 11:29 03/06/20 11:29 03/06/20 11:29 Intake & Output 03/05/20 03/06/20 03/07/20 06:59 06:59 06:59 Intake Total 2590 3204 1050 Output Total 400 Balance 2190 3204 1050 Weight 83.1 kg 83.8 kg Physical Exam: General appearance: PRESENT: remain on BiPAP support. Head exam: PRESENT: atraumatic, normocephalic Eye exam: PRESENT: Conjunctiva pink. ABSENT: pallor, sclera icterus Mouth exam: PRESENT: moist, tongue midline Respiratory exam: PRESENT: clear to auscultation cesilia, decrease breath sound at lung bases Cardiovascular exam: PRESENT: RRR, +S1, +S2, systolic murmur. ABSENT: diastolic murmur, rubs Murmur grade: 3 GI/Abdominal exam: PRESENT: normal bowel sounds, soft. ABSENT: distended, guarding, mass, organomegaly, rebound, tenderness Extremities exam: ABSENT: pedal edema Neurological exam: PRESENT: alert, awake, oriented to person, oriented to place, oriented to time, oriented to situation, CN II-XII grossly intact. ABSENT: motor sensory deficit Psychiatric exam: PRESENT: agitated Skin exam: PRESENT: dry, intact, warm. ABSENT: cyanosis, rash Murmur grade: 3 Results Laboratory Results: 03/05/20 05:45 03/05/20 05:45 02/29/20 21:00 Blood Blood Culture - Final NO GROWTH IN 5 DAYS 02/29/20 20:50 Blood Blood Culture - Final NO GROWTH IN 5 DAYS 02/29/20 02/29/20 03/01/20 16:40 16:40 15:42 Creatine Kinase 51 136 H CK-MB (CK-2) Troponin I 0.034 03/01/20 03/02/20 03/02/20 15:42 18:31 18:31 Creatine Kinase 730 H CK-MB (CK-2) 5.24 H Troponin I 0.617 0.670 03/03/20 03/03/20 03/03/20 00:27 00:27 05:49 Creatine Kinase 662 H 840 H CK-MB (CK-2) 4.23 Troponin I 0.600 03/03/20 05:49 Creatine Kinase CK-MB (CK-2) 4.22 Troponin I 0.638 Impressions: Chest/Abdomen CTA 03/03/20 00:00 IMPRESSION: There is no pulmonary embolus. There is no aortic aneurysm or dissection. Mild atelectatic changes bilaterally, left more than right. Chest X-Ray 03/06/20 00:00 IMPRESSION: Increasing consolidation/ atelectasis at the left lung base with small left effusion. Assessment & Plan - Diagnosis (1) Acute respiratory failure with hypoxemia Is this a current diagnosis for this admission?: Yes (2) Pulmonary embolism Qualifiers: Pulmonary embolism type: unspecified Chronicity: acute Acute cor pulmonale presence: unspecified Qualified Code(s): I26.99 - Other pulmonary embolism without acute cor pulmonale Is this a current diagnosis for this admission?: No (3) Chest pain Qualifiers: Chest pain type: other chest pain Qualified Code(s): R07.89 - Other chest pain; R07.8 - Other chest pain Is this a current diagnosis for this admission?: Yes (4) Elevated troponin Is this a current diagnosis for this admission?: Yes (5) Vaso-occlusive pain due to sickle cell disease Is this a current diagnosis for this admission?: Yes (6) 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 Is this a current diagnosis for this admission?: Yes (7) Probable sepsis Is this a current diagnosis for this admission?: Yes (8) Klebsiella cystitis Is this a current diagnosis for this admission?: Yes (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 with other complication Qualified Code(s): D57.09 - Hb-SS disease with crisis with other specified com plication Is this a current diagnosis for this admission?: Yes - Time Time Spent with patient: 25-34 minutes Level of Care: MEDICAL Medications reviewed and adjusted accordingly: Yes Anticipated discharge: Home with Homehealth Anticipated DC Timeframe: within 72 hours - Inpatient Certification Medical Necessity: Significant Comorbidiites Make Outpatient Treatment Too Risky, Need Close Monitoring Due to Risk of Patient Decompensation, Need For IV Fluids, Need For Continuous Telemetry Monitoring, Need for IV Antibiotics, Risk of Complication if Not Cared For in Hospital, Risk of Diagnosis Which Will Require Inpatient Eval/Care/Monitoring Post Hospital Care: D/C Supervisor Anodizing Documentation - Plan Summary Plan Summary: Continue current medication management. Encouraged increase PO intake. Obtain CBC with ddiff and CMP.
[2020-03-06 18:09] LABS: ALBUMIN 2.3 g/dL (3.5-5.0); ALKALINE PHOSPHATASE 111 U/L (38-126); ANION GAP 6 (5-19); ASPARTATE AMINO TRANSFERASE 169 U/L (14-36); BILIRUBIN,DIRECT 2.7 mg/dL (0.0-0.4); BILIRUBIN,TOTAL 4.1 mg/dL (0.2-1.3); BLOOD UREA NITROGEN 47 mg/dL (7-20); CALCIUM 7.3 mg/dL (8.4-10.2); CARBON DIOXIDE 25 mmol/L (22-30); CHLORIDE 106 mmol/L (98-107); GLUCOSE 144 mg/dL (75-110); POTASSIUM 3.3 mmol/L (3.6-5.0); TOTAL PROTEIN 4.8 g/dL (6.3-8.2)
[2020-03-06 18:17] LABS: HEMATOCRIT 22.4 % (36.0-47.0); MEAN CORPUSCULAR HEMOGLOBIN 28.5 pg (27.0-33.4); MEAN CORPUSCULAR HGB CONC 34.7 g/dL (32.0-36.0); MEAN CORPUSCULAR VOLUME 82 fl (80-97); PLATELET COUNT 124 10^3/uL (150-450); RED BLOOD COUNT 2.72 10^6/uL (3.72-5.28); RED CELL DISTRIBUTION WIDTH 18.3 % (11.5-14.0)
[2020-03-06 18:36] LABS: HEMOGLOBIN 7.8 g/dL (12.0-15.5)
[2020-03-06 18:38] LABS: ABSOLUTE MONOCYTES # (MANUAL) 0.8 10^3/uL (0.1-1.4); ANISOCYTOSIS 1+; BASOPHILS % (MANUAL) 0 % (0-2); EOSINOPHILS % (MANUAL) 0 % (0-6); LYMPHOCYTES % (MANUAL) 8 % (13-45); MONOCYTES % (MANUAL) 2 % (3-13); NUCLEATED RED BLOOD CELLS 65 /100 WBC (0); SEGMENTED NEUTROPHILS % (MAN) 90 % (42-78); TOTAL CELLS COUNTED 100
[2020-03-06 18:41] LABS: OVALOCYTES 1+; POIKILOCYTOSIS 1+; TARGET CELLS 2+
[2020-03-06 18:42] LABS: PLATELET CLUMPS PRESENT; PLATELET COMMENT DECREASED; PLATELET LARGE PRESENT; POLYCHROMASIA 1+
[2020-03-06 18:43] LABS: WHITE BLOOD COUNT 37.8 10^3/uL (4.0-10.5)
[2020-03-06] MEDS: NORMAL SALINE 1000 ML 1,000 ML IV PRN (20:06)
[2020-03-07] MEDS: MORPHINE SULFATE 10 MG/ML INJ IV PRN ×2 (00:06→04:36)
[2020-03-07] MEDS: CLINDAMYCIN 300 MG/D5W RTU 300 MG/50 ML RTUPB IV SCH ×2 (02:16→09:48)
[2020-03-07] MEDS: PIPERACILLIN SODIUM/TAZOBACTAM 3.375 GM in NORMAL SALINE 100 ML IV SCH ×4 (03:29→20:13)
[2020-03-07] MEDS: PANTOPRAZOLE SODIUM 40 MG TABLET.DR PO SCH (06:15)
--- NOTE | 2020-03-07 08:29 | EKG REPORT ---
SEVERITY:- ABNORMAL ECG - SINUS RHYTHM ATRIAL PREMATURE COMPLEX ABNORMAL T, CONSIDER ISCHEMIA, ANTERIOR LEADS, NEW, SINCE 03/03/20 EKG BORDERLINE PROLONGED QT INTERVAL : Confirmed by: Nicolás Gaspar MD 07-Mar-2020 08:28:43
[2020-03-07] MEDS: ASPIRIN 81 MG TABLET, CHEWABLE PO SCH (09:48)
[2020-03-07] MEDS: ZINC SULFATE 220 MG CAPSULE PO SCH (09:48)
[2020-03-07] MEDS: ENOXAPARIN SODIUM INJ 40 MG/0.4 ML DISP.SYRIN SUBCUT SCH (09:48)
[2020-03-07] MEDS: METOPROLOL TARTRATE 25 MG TABLET PO SCH ×2 (09:49→21:54)
[2020-03-07] MEDS: CLOPIDOGREL BISULFATE 75 MG TABLET PO SCH (09:49)
--- NOTE | 2020-03-07 10:58 | PDOC CONSULTATION ---
Consultation Consult Date: 03/07/20 Attending physician:: AUSTIN HYDE Provider Consulted: TOLU MCGREGOR Consult reason:: Patient with her history of sickle cell disease with shortness of breath, chest pain History of Present Illness Admission Date/PCP: 02/29/20 19:44 AUSTIN HYDE Patient complains of: Shortness of breath and chest pain History of Present Illness: EMILI PEREIRA is a 59 year old female with known history of sickle cell disease, here in part with what appears to be some crisis as well, which he remembers coming in about 7 days ago, at that time she had chest pain and shortness of breath, she did get a CT of the chest recently which did not show PE, she has been in intensive care, has been on and off BiPAP as well. Seems to be doing a little bit better now off BiPAP, and her O2 has been weaned down to about 2 to 3 L. She seems very short of breath. Yesterday gave orders for morphine as well as other supportive care for sickle cell disease crisis. Past Medical History Cardiac Medical History: Denies: Pulmonary Embolism Pulmonary Medical History: Reports: Pneumonia Denies: Asthma, Bronchitis, Chronic Obstructive Pulmonary Disease (COPD), Respiratory Failure, Sleep Apnea, Tuberculosis Renal/ Medical History: Denies: End Stage Renal Disease Malignancy Medical History: Denies: Leukemia, Lung Cancer Musculoskeltal Medical History: Denies: Arthritis, Fibromyalgia Psychiatric Medical History: Denies: Depression Hematology: Reports: Anemia - sickle cell, Sickle Cell Disease Denies: Hemophilia Infectious Medical History: Denies: HIV Past Surgical History Past Surgical History: Reports: Hysterectomy, Tubal Ligation Denies: Amputation, Appendectomy, Section, Cholecystectomy, Coronary Artery Bypass Graft, Gastric Bypass Surgery, Herniorrhaphy, Mastectomy, Pacemaker, Tonsillectomy Social History Information Source: Patient Smoking Status: Never Smoker Frequency of Alcohol Use: None Hx Recreational Drug Use: No Drugs: None Hx Prescription Drug Abuse: No - Advance Directive Resuscitation Status: Full Code Family History Family History: Reviewed & Not Pertinent Parental Family History Reviewed: Yes Children Family History Reviewed: Yes Sibling(s) Family History Reviewed.: Yes Medication/Allergy Home Medications: Amoxicillin 875 mg PO BID 03/01/20 Methylprednisolone [Methylpred Dp] 4 mg PO ASDIR PRN 03/01/20 Oxycodone HCl/Acetaminophen [Oxycodone-Acetaminophen 10-325] 1 each PO Q4HP PRN 03/01/20 Allergies/Adverse Reactions: No Known Allergies Allergy (Verified 03/03/19 14:28) Review of Systems Constitutional: ABSENT: chills, fever(s), headache(s), weight gain, weight loss Eyes: ABSENT: visual disturbances Ears: ABSENT: hearing changes Cardiovascular: ABSENT: chest pain, dyspnea on exertion, edema, orthropnea, palpitations Respiratory: ABSENT: cough, hemoptysis Gastrointestinal: ABSENT: abdominal pain, constipation, diarrhea, hematemesis, hematochezia, nausea, vomiting Genitourinary: ABSENT: dysuria, hematuria Musculoskeletal: ABSENT: joint swelling Integumentary: ABSENT: rash, wounds Neurological: ABSENT: abnormal gait, abnormal speech, confusion, dizziness, focal weakness, syncope Psychiatric: ABSENT: anxiety, depression, homidical ideation, suicidal ideation Endocrine: ABSENT: cold intolerance, heat intolerance, polydipsia, polyuria Hematologic/Lymphatic: ABSENT: easy bleeding, easy bruising Physical Exam Vital Signs: Temp Pulse Resp BP Pulse Ox 98.6 F 65 18 129/89 H 99 03/07/20 08:43 03/07/20 07:59 03/07/20 07:59 03/07/20 07:59 03/07/20 07:59 Intake & Output 03/06/20 03/07/20 03/08/20 06:59 06:59 06:59 Intake Total 3204 2297 708 Balance 3204 2297 708 Weight 83.8 kg 86.4 kg General appearance: PRESENT: no acute distress, well-developed, well-nourished Head exam: PRESENT: atraumatic, normocephalic Eye exam: PRESENT: conjunctiva pink, EOMI, PERRLA. ABSENT: scleral icterus Ear exam: PRESENT: normal external ear exam Mouth exam: PRESENT: moist, tongue midline Neck exam: ABSENT: carotid bruit, JVD, lymphadenopathy, thyromegaly Respiratory exam: PRESENT: clear to auscultation cesilia. ABSENT: rales, rhonchi, wheezes Cardiovascular exam: PRESENT: RRR. ABSENT: diastolic murmur, rubs, systolic murmur Pulses: PRESENT: normal dorsalis pedis pul Vascular exam: PRESENT: normal capillary refill GI/Abdominal exam: PRESENT: normal bowel sounds, soft. ABSENT: distended, guarding, mass, organolmegaly, rebound, tenderness Rectal exam: PRESENT: deferred Extremities exam: PRESENT: full ROM. ABSENT: calf tenderness, clubbing, pedal edema Neurological exam: PRESENT: alert, awake, oriented to person, oriented to place, oriented to time, oriented to situation, CN II-XII grossly intact. ABSENT: motor sensory deficit Psychiatric exam: PRESENT: appropriate affect, normal mood. ABSENT: homicidal ideation, suicidal ideation Skin exam: PRESENT: dry, intact, warm. ABSENT: cyanosis, rash Results Laboratory Results: 03/04/20 03/06/20 03/06/20 11:40 17:19 17:30 WBC 37.8 H* RBC 2.72 L Hgb 7.8 L Hct 22.4 L MCV 82 MCH 28.5 MCHC 34.7 RDW 18.3 H Plt Count 124 L Seg Neutrophils % Not Reportable Sodium 136.9 L Potassium 3.3 L Chloride 106 Carbon Dioxide 25 Anion Gap 6 BUN 47 H Creatinine 1.81 H Est GFR ( Amer) 35 L Glucose 144 H Calcium 7.3 L Total Bilirubin 4.1 H AST 169 H Alkaline Phosphatase 111 Total Protein 4.8 L Albumin 2.3 L Blood Type A POSITIVE Antibody Screen NEGATIVE 02/29/20 02/29/20 03/01/20 16:40 16:40 15:42 Creatine Kinase 51 136 H CK-MB (CK-2) Troponin I 0.034 03/01/20 03/02/20 03/02/20 15:42 18:31 18:31 Creatine Kinase 730 H CK-MB (CK-2) 5.24 H Troponin I 0.617 0.670 03/03/20 03/03/20 03/03/20 00:27 00:27 05:49 Creatine Kinase 662 H 840 H CK-MB (CK-2) 4.23 Troponin I 0.600 03/03/20 05:49 Creatine Kinase CK-MB (CK-2) 4.22 Troponin I 0.638 Impressions: Chest/Abdomen CTA 03/03/20 00:00 IMPRESSION: There is no pulmonary embolus. There is no aortic aneurysm or dissection. Mild atelectatic changes bilaterally, left more than right. Chest X-Ray 03/06/20 00:00 IMPRESSION: Increasing consolidation/ atelectasis at the left lung base with small left effusion. Assessment & Plan - Diagnosis (1) Sickle cell pain crisis Is this a current diagnosis for this admission?: Yes Plan: Continue with morphine at present seems to be controlling pain. As she gets better this can be converted to p.o. (2) Anemia Qualifiers: Anemia type: acquired or hereditary hemolytic anemia Hemolytic anemia type: other hemoglobinopathy Qualified Code(s): D58.2 - Other hemoglobinopathies Is this a current diagnosis for this admission?: Yes Plan: Secondary to sickle cell disease, hemoglobin recently was 7.8, will transfuse if it gets under 7. - Time Time Spent: Greater than 70 Minutes - Inpatient Certification Based on my medical assessment, after consideration of the patient's comorbidities, presenting symptoms, or acuity I expect that the services needed warrant INPATIENT care.: Yes I certify that my determination is in accordance with my understanding of Medicare's requirements for reasonable and necessary INPATIENT services [42 CFR 412.3e].: Yes Medical Necessity: Risk of Complication if Not Cared For in Hospital
[2020-03-07 11:14] LABS: HEMATOCRIT 31.1 % (36.0-47.0); MEAN CORPUSCULAR HEMOGLOBIN 28.7 pg (27.0-33.4); MEAN CORPUSCULAR HGB CONC 34.3 g/dL (32.0-36.0); MEAN CORPUSCULAR VOLUME 84 fl (80-97); PLATELET COUNT 140 10^3/uL (150-450); RED BLOOD COUNT 3.71 10^6/uL (3.72-5.28); RED CELL DISTRIBUTION WIDTH 17.1 % (11.5-14.0)
[2020-03-07 11:15] LABS: ALBUMIN 2.4 g/dL (3.5-5.0); ALKALINE PHOSPHATASE 115 U/L (38-126); ANION GAP 6 (5-19); ASPARTATE AMINO TRANSFERASE 94 U/L (14-36); BILIRUBIN,DIRECT 4.8 mg/dL (0.0-0.4); BILIRUBIN,TOTAL 6.3 mg/dL (0.2-1.3); BLOOD UREA NITROGEN 43 mg/dL (7-20); CALCIUM 7.6 mg/dL (8.4-10.2); CARBON DIOXIDE 25 mmol/L (22-30); CHLORIDE 108 mmol/L (98-107); GLUCOSE 109 mg/dL (75-110); POTASSIUM 3.5 mmol/L (3.6-5.0)
[2020-03-07 11:55] LABS: HEMOGLOBIN 10.7 g/dL (12.0-15.5); WHITE BLOOD COUNT 37.1 10^3/uL (4.0-10.5)
--- NOTE | 2020-03-07 13:24 | PDOC PROGRESS REPORT ---
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 Her EKG revealed sinus rhythm without significant abnormality. Her serum potassium was borderline low. Her calcium corrected for hypoalbuminemia. Patient reported substernal chest pain. No overt difficulty with breathing or radiation. She remain on supplemental oxygen via nasal cannula. No reported fever or chills. No abdominal pain, nausea or vomiting. PO intake remain a challenge. Reason For Visit: SICKLE CELL PAIN CRISIS Physical Exam Vital Signs: Temp Pulse Resp BP Pulse Ox 98.1 F 63 18 139/73 H 100 03/07/20 11:56 03/07/20 11:56 03/07/20 11:56 03/07/20 11:56 03/07/20 11:56 Intake & Output 03/06/20 03/07/20 03/08/20 06:59 06:59 06:59 Intake Total 3204 2297 708 Balance 3204 2297 708 Weight 83.8 kg 86.4 kg Physical Exam: General appearance: PRESENT: remain on supplemental oxygen via nasal cannula Head exam: PRESENT: atraumatic, normocephalic Eye exam: PRESENT: Conjunctiva pink. ABSENT: pallor, sclera icterus Mouth exam: PRESENT: moist, tongue midline Respiratory exam: PRESENT: clear to auscultation cesilia, decrease breath sound at lung bases Cardiovascular exam: PRESENT: RRR, +S1, +S2, systolic murmur. ABSENT: diastolic murmur, rubs Murmur grade: 3 GI/Abdominal exam: PRESENT: normal bowel sounds, soft. ABSENT: distended, guarding, mass, organomegaly, rebound, tenderness Extremities/MSK exam: PRESENT: chest wall tenderness to palpation over sternal region. ABSENT: pedal edema Neurological exam: PRESENT: alert, awake, oriented to person, oriented to place, oriented to time, oriented to situation, CN II-XII grossly intact. ABSENT: motor sensory deficit Psychiatric exam: ABSENT: agitated Skin exam: PRESENT: dry, intact, warm. ABSENT: cyanosis, rash Murmur grade: 3 Results Laboratory Results: 03/07/20 10:05 03/07/20 10:05 03/04/20 03/06/20 03/06/20 11:40 17:19 17:30 WBC 37.8 H* RBC 2.72 L Hgb 7.8 L Hct 22.4 L MCV 82 MCH 28.5 MCHC 34.7 RDW 18.3 H Plt Count 124 L Seg Neutrophils % Not Reportable Sodium 136.9 L Potassium 3.3 L Chloride 106 Carbon Dioxide 25 Anion Gap 6 BUN 47 H Creatinine 1.81 H Est GFR ( Amer) 35 L Glucose 144 H Calcium 7.3 L Total Bilirubin 4.1 H AST 169 H Alkaline Phosphatase 111 Total Protein 4.8 L Albumin 2.3 L Blood Type A POSITIVE Antibody Screen NEGATIVE 03/07/20 03/07/20 10:05 10:05 WBC 37.1 H* RBC 3.71 L Hgb 10.7 L D Hct 31.1 L MCV 84 MCH 28.7 MCHC 34.3 RDW 17.1 H Plt Count 140 L Seg Neutrophils % Sodium 138.5 Potassium 3.5 L Chloride 108 H Carbon Dioxide 25 Anion Gap 6 BUN 43 H Creatinine 1.71 H Est GFR ( Amer) 37 L Glucose 109 Calcium 7.6 L Total Bilirubin 6.3 H AST 94 H Alkaline Phosphatase 115 Total Protein 5.0 L Albumin 2.4 L Blood Type Antibody Screen 02/29/20 02/29/20 03/01/20 16:40 16:40 15:42 Creatine Kinase 51 136 H CK-MB (CK-2) Troponin I 0.034 03/01/20 03/02/20 03/02/20 15:42 18:31 18:31 Creatine Kinase 730 H CK-MB (CK-2) 5.24 H Troponin I 0.617 0.670 03/03/20 03/03/20 03/03/20 00:27 00:27 05:49 Creatine Kinase 662 H 840 H CK-MB (CK-2) 4.23 Troponin I 0.600 03/03/20 03/07/20 05:49 10:05 Creatine Kinase CK-MB (CK-2) 4.22 Troponin I 0.638 0.049 Impressions: Chest/Abdomen CTA 03/03/20 00:00 IMPRESSION: There is no pulmonary embolus. There is no aortic aneurysm or dissection. Mild atelectatic changes bilaterally, left more than right. Chest X-Ray 03/06/20 00:00 IMPRESSION: Increasing consolidation/ atelectasis at the left lung base with small left effusion. Assessment & Plan - Diagnosis (1) Acute respiratory failure with hypoxemia Is this a current diagnosis for this admission?: Yes (2) Pulmonary embolism Qualifiers: Pulmonary embolism type: unspecified Chronicity: acute Acute cor pulmonale presence: unspecified Qualified Code(s): I26.99 - Other pulmonary embolism without acute cor pulmonale Is this a current diagnosis for this admission?: No (3) Chest pain Qualifiers: Chest pain type: other chest pain Qualified Code(s): R07.89 - Other chest pain; R07.8 - Other chest pain Is this a current diagnosis for this admission?: Yes (4) Elevated troponin Is this a current diagnosis for this admission?: Yes (5) Vaso-occlusive pain due to sickle cell disease Is this a current diagnosis for this admission?: Yes (6) 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 Is this a current diagnosis for this admission?: Yes (7) Probable sepsis Is this a current diagnosis for this admission?: Yes (8) Klebsiella cystitis Is this a current diagnosis for this admission?: Yes (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 with other complication Qualified Code(s): D57.09 - Hb-SS disease with crisis with other specified complication Is this a current diagnosis for this admission?: Yes - Time Time Spent with patient: 25-34 minutes Level of Care: IMCU Medications reviewed and adjusted accordingly: Yes Anticipated discharge: Home with Homehealth, SNF Anticipated DC Timeframe: within 72 hours - Inpatient Certification Based on my medical assessment, after consideration of the patient's comorbidities, presenting symptoms, or acuity I expect that the services needed warrant INPATIENT care.: Yes I certify that my determination is in accordance with my understanding of Medicare's requirements for reasonable and necessary INPATIENT services [42 CFR 412.3e].: Yes Medical Necessity: Significant Comorbidiites Make Outpatient Treatment Too Risky, Need Close Monitoring Due to Risk of Patient Decompensation, Need For IV Fluids, Need For Continuous Telemetry Monitoring, Need for IV Antibiotics, Risk of Complication if Not Cared For in Hospital, Risk of Diagnosis Which Will Require Inpatient Eval/Care/Monitoring Post Hospital Care: D/C Manager Interventional Documentation, D/C or Transfer Summary - Plan Summary Plan Summary: D/C IV Clindamycin. Obtain stool for C. difficile toxin. Continue IV Zosyn coverage. Potassium supplementation in progress. Obtain cardiac enzymes q 6 hours x 3. Start on Nitroglycerin paste 1/2 inch to chest wall. Continue al other current medication management.
[2020-03-07] MEDS: POTASSI CL 20 MEQ/50 ML RIDER 20 MEQ/50 ML RTUPB IV SCH ×2 (13:49→16:18)
[2020-03-07] MEDS: NITROGLYCERIN 2% OINTMENT 1 GM PACKET TP SCH ×3 (13:49→23:50)
--- NOTE | 2020-03-07 14:28 | Progress Note ---
Provider Note Provider Note: CARDIOLOGY PROGRESS NOTE by Dr. Leslie Laird on 03/07/2020. SUBJECTIVE: The patient complains of chest pain. It is reproducible by pressing on the middle of the sternum. Although she denies being short of breath she appears to be slightly short of breath. She is on the nasal O2 with good O2 saturations. She denies any PND orthopnea or leg edema. There is no ventricle arrhythmia seen on the monitor. There is APCs seen on the monitor. PHYSICAL EXAMINATION: The patient is moderately obese. At present in no acute distress., Although appears to be mildly short of breath. Selected Entries 03/07/20 11:56 Temperature 98.1 F Temperature Oral Source Pulse Rate 63 Respiratory 18 Rate Blood Pressure 139/73 H Blood Pressure 95 Mean BP Location Right Arm BP Position Supine O2 Sat by Pulse 100 Oximetry Oxygen Flow 3.00 Rate Oxygen Delivery Nasal Cannula Method HEAD: Is atraumatic normocephalic. EYES: Pupils equal round regular reactive light accommodation. Extraocular movements are normal. There is no conjunctival pallor. There is no scleral icterus. EARS: Tympanic membranes are intact. External auditory canals are clear. NOSE: There is no deviated nasal septum. There is no inflammation nasal mucous membrane. MOUTH: Mucous membran es of mouth are moist. There is no ulcers or bleeding from the gums. THROAT: There is no redness of the oropharynx. There is no exudates. SKIN: There is no skin rashes. There is no skin lesions. There is no petechia or ecchymosis. NECK: Is supple there is no JVD carotids are equal there is no bruit there is no lymphadenopathy the. There is no goiter. Trachea central. There is no accessory muscles of respiration use. LUNGS: Is clear to auscultation percussion without any rhonchi or wheezing. On palpation there is no chest wall tenderness there is dry crackles in the left base.. HEART: S1-S2 is heard. There is no S3 gallop. There is no S4 gallop. There is systolic murmur left sternal border and apex. There is no rub. ABDOMEN: Soft. Nontender there is no paraspinal megaly. Bowel sounds are well heard. EXTREMITIES: Femorals are slightly diminished. Leg pulses are well felt. There is no pedal edema. There is no DVT or cellulitis. There is no cyanosis or clubbing. HOUSE SITTER: The patient is a slow mentation but without any focal deficits. Psychiatric: The patient's affect is withdrawn. She does not appear to be agitated or anxious. EKG: Shows sinus rhythm. Short MI interval. No preexcitation. Possible inferior wall NE? Age. Nonspecific T changes inferior leads. Labs- All tests 24 hr 03/04/20 03/06/20 03/06/20 11:40 17:19 17:30 WBC 37.8 H* RBC 2.72 L Hgb 7.8 L Hct 22.4 L MCV 82 MCH 28.5 MCHC 34.7 RDW 18.3 H Plt Count 124 L Lymph % (Auto) Not Reportable [place] % (Auto) Not Reportable Eos % (Auto) Not Reportable Baso % (Auto) Not Reportable Absolute Neuts (auto) Not Reportable Absolute Lymphs (auto) Not Reportable Absolute Monos (auto) Not Reportable Absolute Eos (auto) Not Reportable Absolute Basos (auto) Not Reportable Total Counted 100 Seg Neutrophils % Not Reportable Seg Neuts % (Manual) 90 H Lymphocytes % (Manual) 8 L Monocytes % (Manual) 2 L Eosinophils % (Manual) 0 Basophils % (Manual) 0 Abs Neuts (Manual) 34.0 H Abs Lymphs (Manual) 3.0 Abs Monocytes (Manual) 0.8 Absolute Eos (Manual) 0.0 Abs Basophils (Manual) 0.0 Nucleated RBCs 65 Clumped Platelets PRESENT Large Platelets PRESENT Platelet Comment DECREASED Polychromasia 1+ Poikilocytosis 1+ Anisocytosis 1+ Target Cells 2+ Ovalocytes 1+ Sodium 136.9 L Potassium 3.3 L Chloride 106 Carbon Dioxide 25 Anion Gap 6 BUN 47 H Creatinine 1.81 H Est GFR ( Amer) 35 L Est GFR (MDRD) Non-Af 29 L Glucose 144 H POC Glucose Calcium 7.3 L Total Bilirubin 4.1 H Direct Bilirubin 2.7 H Neonat Total Bilirubin Not Reportable Neonat Direct Bilirubin Not Reportable Neonat Indirect Bili Not Reportable AST 169 H ALT 328 H Alkaline Phosphatase 111 Troponin I Total Protein 4.8 L Albumin 2.3 L Blood Type A POSITIVE Blood Type Confirm A POSITIVE Antibody Screen NEGATIVE Antigen Identification K Antigen - NEGATIVE Crossmatch See Detail 12/26/20 12/26/20 12/26/20 10:05 10:05 10:05 WBC 37.1 H* RBC 3.71 L Hgb 10.7 L D Hct 31.1 L MCV 84 MCH 28.7 MCHC 34.3 RDW 17.1 H Plt Count 140 L Lymph % (Auto) [place] % (Auto) Eos % (Auto) Baso % (Auto) Absolute Neuts (auto) Absolute Lymphs (auto) Absolute Monos (auto) Absolute Eos (auto) Absolute Basos (auto) Total Counted Seg Neutrophils % Seg Neuts % (Manual) Lymphocytes % (Manual) Monocytes % (Manual) Eosinophils % (Manual) Basophils % (Manual) Abs Neuts (Manual) Abs Lymphs (Manual) Abs Monocytes (Manual) Absolute Eos (Manual) Abs Basophils (Manual) Nucleated RBCs Clumped Platelets Large Platelets Platelet Comment Polychromasia Poikilocytosis Anisocytosis Target Cells Ovalocytes Sodium 138.5 Potassium 3.5 L Chloride 108 H Carbon Dioxide 25 Anion Gap 6 BUN 43 H Creatinine 1.71 H Est GFR ( Amer) 37 L Est GFR (MDRD) Non-Af 31 L Glucose 109 POC Glucose Calcium 7.6 L Total Bilirubin 6.3 H Direct Bilirubin 4.8 H Neonat Total Bilirubin Not Reportable Neonat Direct Bilirubin Not Reportable Neonat Indirect Bili Not Reportable AST 94 H ALT 277 H Alkaline Phosphatase 115 Troponin I 0.049 Total Protein 5.0 L Albumin 2.4 L Blood Type Blood Type Confirm Antibody Screen Antigen Identification Crossmatch 03/07/20 13:00 WBC RBC Hgb Hct MCV MCH MCHC RDW Plt Count Lymph % (Auto) [place] % (Auto) Eos % (Auto) Baso % (Auto) Absolute Neuts (auto) Absolute Lymphs (auto) Absolute Monos (auto) Absolute Eos (auto) Absolute Basos (auto) Total Counted Seg Neutrophils % Seg Neuts % (Manual) Lymphocytes % (Manual) Monocytes % (Manual) Eosinophils % (Manual) Basophils % (Manual) Abs Neuts (Manual) Abs Lymphs (Manual) Abs Monocytes (Manual) Absolute Eos (Manual) Abs Basophils (Manual) Nucleated RBCs Clumped Platelets Large Platelets Platelet Comment Polychromasia Poikilocytosis Anisocytosis Target Cells Ovalocytes Sodium Potassium Chloride Carbon Dioxide Anion Gap BUN Creatinine Est GFR ( Amer) Est GFR (MDRD) Non-Af Glucose POC Glucose 144 H Calcium Total Bilirubin Direct Bilirubin Neonat Total Bilirubin Neonat Direct Bilirubin Neonat Indirect Bili AST ALT Alkaline Phosphatase Troponin I Total Protein Albumin Blood Type Blood Type Confirm Antibody Screen Antigen Identification Crossmatch Chest X-Ray 02/29/20 15:58 IMPRESSION: Stable appearance of the chest. No acute radiographic abnormality or significant interval change. Chest X-Ray 03/03/20 00:00 IMPRESSION: CENTRAL LINE DESCRIBED. NO PNEUMOTHORAX. NO ACUTE FINDINGS. Chest/Abdomen CTA 03/03/20 00:00 IMPRESSION: There is no pulmonary embolus. There is no aortic aneurysm or dissection. Mild atelectatic changes bilaterally, left more than right. Chest X-Ray 03/06/20 00:00 IMPRESSION: Increasing consolidation/ atelectasis at the left lung base with small left effusion. IMPRESSION/RECOMMENDATION.: 1.. CHEST pain: Reproducible chest wall pain. But patient is a poor historian. There is no major EKG changes although there are some nonspecific changes in the inferior leads. Will get serial troponins and serial EKGs. We will add Nitropaste. This has been discussed with Dr. Hanson. 2. Anemia: Secondary to sickle cell disease. Hemoglobin stable after transfusion. Await stool occult blood reports. Hemoglobin stable. 3. Most likely non-ST elevation NE. Her troponin came back at 0.049. Patient again with chest pain serially EKGs and enzymes are being obtained. 4. PNEUMONIA: Chest x-ray today shows left lower lobe pneumonia. THe patient's CTA of the chest being negative for pulmonary emboli. 5.. Acute renal failure: Would avoid nephrotoxic medication. 6. Elevated troponin levels. The patient's troponin today 0.049. We will trend the troponin. 7. Klebsiella cystitis. The patient is on antibiotics for this and also possible aspiration. Though at present no evidence of pneumonia. 8.S/p brief cardiac arrest. Patient noted to be in pulseless electrical activity. Spontaneous return of circulation with brief CPR and epinephrine. 9.. Thrombocytopenia: We will see the platelets after stopping Lovenox. No definite evidence of HIT. Platelets have come up. 10. Sickle cell crisis: Seems to have resolved. Continue hydration. Hematology on the case. 11. Mild hypokalemia: Potassium being replaced. Medications reviewed. Medications added. Medical regimen management plan discussed with Dr. Magdaleno. Medical decision making is of high complexity. 40 minutes spent on this patient with more than 50% time spent in direct patient care. Will follow.
[2020-03-07 14:57] LABS: CREATINE KINASE MB 0.27 ng/mL (<4.55); TROPONIN I 0.05 ng/mL
--- NOTE | 2020-03-07 15:41 | EKG REPORT ---
SEVERITY:- ABNORMAL ECG - SINUS RHYTHM VENTRICULAR PREMATURE COMPLEX SHORT IL INTERVAL, ACCELERATED AV CONDUCTION NONSPECIFIC T ABNORMALITIES, INFERIOR LEADS : Confirmed by: Nicolás Gaspar MD 07-Mar-2020 15:41:23
--- NOTE | 2020-03-07 15:45 | EKG REPORT ---
SEVERITY:- DEFECTIVE ECG - SINUS RHYTHM MULTIPLE VENTRICULAR PREMATURE COMPLEXES SINUS PAUSE/ARREST WITH ATRIAL ESCAPE ABNORMAL T, CONSIDER ISCHEMIA, INFERIOR LEADS LEADS V4-V6 NOT ANALYSED. : Confirmed by: Nicolás Gaspar MD 07-Mar-2020 15:44:38
[2020-03-07] MEDS: OXYCODONE-ACETAMINOPHEN 5-325 MG TABLET PO PRN (18:18)
[2020-03-07] MEDS: NORMAL SALINE 1000 ML 1,000 ML IV PRN (22:16)
[2020-03-07 22:35] LABS: CREATINE KINASE MB 0.27 ng/mL (<4.55)
[2020-03-07 22:39] LABS: TROPONIN I 0.046 ng/mL
[2020-03-08] MEDS: PIPERACILLIN SODIUM/TAZOBACTAM 3.375 GM in NORMAL SALINE 100 ML IV SCH ×4 (02:30→21:02)
[2020-03-08 03:14] LABS: C DIFFICILE GDH NEGATIVE (NEGATIVE)
[2020-03-08 04:50] LABS: HEMATOCRIT 31.5 % (36.0-47.0); HEMOGLOBIN 10.7 g/dL (12.0-15.5); MEAN CORPUSCULAR HEMOGLOBIN 28.6 pg (27.0-33.4); MEAN CORPUSCULAR HGB CONC 34.1 g/dL (32.0-36.0); MEAN CORPUSCULAR VOLUME 84 fl (80-97); PLATELET COUNT 178 10^3/uL (150-450); RED BLOOD COUNT 3.76 10^6/uL (3.72-5.28); RED CELL DISTRIBUTION WIDTH 17.9 % (11.5-14.0)
[2020-03-08 05:20] LABS: CREATINE KINASE MB 0.41 ng/mL (<4.55)
[2020-03-08 05:23] LABS: TROPONIN I 0.082 ng/mL
[2020-03-08] MEDS: NITROGLYCERIN 2% OINTMENT 1 GM PACKET TP SCH ×4 (05:45→23:43)
[2020-03-08] MEDS: PANTOPRAZOLE SODIUM 40 MG TABLET.DR PO SCH (05:45)
[2020-03-08] MEDS: OXYCODONE-ACETAMINOPHEN 5-325 MG TABLET PO PRN ×2 (07:42→20:03)
[2020-03-08] MEDS: CLOPIDOGREL BISULFATE 75 MG TABLET PO SCH (09:35)
[2020-03-08] MEDS: ENOXAPARIN SODIUM INJ 40 MG/0.4 ML DISP.SYRIN SUBCUT SCH (09:35)
[2020-03-08] MEDS: ASPIRIN 81 MG TABLET, CHEWABLE PO SCH (09:35)
[2020-03-08] MEDS: NORMAL SALINE 1000 ML 1,000 ML IV PRN ×2 (09:35→15:18)
[2020-03-08] MEDS: METOPROLOL TARTRATE 25 MG TABLET PO SCH ×2 (09:36→21:02)
[2020-03-08] MEDS: ZINC SULFATE 220 MG CAPSULE PO SCH (09:37)
[2020-03-08] MEDS: PROMETHAZINE HCL INJ 25 MG/1 ML VIAL IV PRN ×2 (10:16→16:29)
--- NOTE | 2020-03-08 14:03 | EKG REPORT ---
SEVERITY:- ABNORMAL ECG - SINUS RHYTHM LOW VOLTAGE IN FRONTAL LEADS BORDERLINE T ABNORMALITIES, INFERIOR AND ANTEROSEPTAL LEADS : Confirmed by: Nicolás Gaspar MD 08-Mar-2020 14:02:23
--- NOTE | 2020-03-08 15:16 | PDOC PROGRESS REPORT ---
Subjective Date:: 03/08/20 Subjective:: Patient denied any chest pain or difficulty with breathing. No reported fever or chills. No abdominal pain, nausea or vomiting. Reason For Visit: SICKLE CELL PAIN CRISIS Physical Exam Vital Signs: Temp Pulse Resp BP Pulse Ox 97.6 F 60 18 156/81 H 99 03/08/20 12:31 03/08/20 12:31 03/08/20 12:31 03/08/20 12:31 03/08/20 12:31 Intake & Output 03/07/20 03/08/20 03/09/20 06:59 06:59 06:59 Intake Total 2297 2130 1237 Output Total 100 Balance 2297 2030 1237 Weight 86.4 kg 86.5 kg Physical Exam: General appearance: PRESENT: remain on supplemental oxygen via nasal cannula Head exam: PRESENT: atraumatic, normocephalic Eye exam: PRESENT: Conjunctiva pink. ABSENT: pallor, sclera icterus Mouth exam: PRESENT: moist, tongue midline Respiratory exam: PRESENT: clear to auscultation cesilia, decrease breath sound at lung bases Cardiovascular exam: PRESENT: RRR, +S1, +S2, systolic murmur. ABSENT: diastolic murmur, rubs Murmur grade: 3 GI/Abdominal exam: PRESENT: normal bowel sounds, soft. ABSENT: distended, guarding, mass, organomegaly, rebound, tenderness Extremities/MSK exam: PRESENT: chest wall tenderness to palpation over sternal region. ABSENT: pedal edema Neurological exam: PRESENT: alert, awake, oriented to person, oriented to place, oriented to time, oriented to situation, CN II-XII grossly intact. ABSENT: motor sensory deficit Psychiatric exam: ABSENT: agitated Skin exam: PRESENT: dry, intact, warm. ABSENT: cyanosis, rash Murmur grade: 3 Results Laboratory Results: 03/08/20 04:12 03/08/20 03/08/20 02:00 04:12 WBC 31.0 H* RBC 3.76 Hgb 10.7 L Hct 31.5 L MCV 84 MCH 28.6 MCHC 34.1 RDW 17.9 H Plt Count 178 Stool Occult Blood POSITIVE 02/29/20 02/29/20 03/01/20 16:40 16:40 15:42 Creatine Kinase 51 136 H CK-MB (CK-2) Troponin I 0.034 03/01/20 03/02/20 03/02/20 15:42 18:31 18:31 Creatine Kinase 730 H CK-MB (CK-2) 5.24 H Troponin I 0.617 0.670 03/03/20 03/03/20 03/03/20 00:27 00:27 05:49 Creatine Kinase 662 H 840 H CK-MB (CK-2) 4.23 Troponin I 0.600 03/03/20 03/07/20 03/07/20 05:49 10:05 13:35 Creatine Kinase 94 CK-MB (CK-2) 4.22 Troponin I 0.638 0.049 03/07/20 03/07/20 03/07/20 13:35 21:55 21:55 Creatine Kinase 71 CK-MB (CK-2) 0.27 0.27 Troponin I 0.050 0.046 03/08/20 03/08/20 04:12 04:12 Creatine Kinase 64 CK-MB (CK-2) 0.41 Troponin I 0.082 Impressions: Chest/Abdomen CTA 03/03/20 00:00 IMPRESSION: There is no pulmonary embolus. There is no aortic aneurysm or dissection. Mild atelectatic changes bilaterally, left more than right. Chest X-Ray 03/06/20 00:00 IMPRESSION: Increasing consolidation/ atelectasis at the left lung base with small left effusion. Assessment & Plan - Diagnosis (1) Acute respiratory failure with hypoxemia Is this a current diagnosis for this admission?: Yes (2) Pulmonary embolism Qualifiers: Pulmonary embolism type: unspecified Chronicity: acute Acute cor pulmonale presence: unspecified Qualified Code(s): I26.99 - Other pulmonary embolism without acute cor pulmonale Is this a current diagnosis for this admission?: No (3) Chest pain Qualifiers: Chest pain type: other chest pain Qualified Code(s): R07.89 - Other chest pain; R07.8 - Other chest pain Is this a current diagnosis for this admission?: Yes (4) Elevated troponin Is this a current diagnosis for this admission?: Yes (5) Vaso-occlusive pain due to sickle cell disease Is this a current diagnosis for this admission?: Yes (6) 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 Is this a current diagnosis for this admission?: Yes (7) Probable sepsis Is this a current diagnosis for this admission?: Yes (8) Klebsiella cystitis Is this a current diagnosis for this admission?: Yes (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 with other complication Qualified Code(s): D57.09 - Hb-SS disease with crisis with other specified complication Is this a current diagnosis for this admission?: Yes - Time Time Spent with patient: 25-34 minutes Level of Care: IMCU Medications reviewed and adjusted accordingly: Yes Anticipated discharge: Home with Homehealth, SNF Anticipated DC Timeframe: within 72 hours - Inpatient Certification Based on my medical assessment, after consideration of the patient's comorbidities, presenting symptoms, or acuity I expect that the services needed warrant INPATIENT care.: Yes I certify that my determination is in accordance with my understanding of Medicare's requirements for reasonable and necessary INPATIENT services [42 CFR 412.3e].: Yes Medical Necessity: Significant Comorbidiites Make Outpatient Treatment Too Risky, Need Close Monitoring Due to Risk of Patient Decompensation, Need For IV Fluids, Need For Continuous Telemetry Monitoring, Need for IV Antibiotics, Risk of Complication if Not Cared For in Hospital, Risk of Diagnosis Which Will Require Inpatient Eval/Care/Monitoring Post Hospital Care: 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 Decrease IV fluid rate to 50 ml/ho ur. Continue other current mediation management. Obtain BMP.
[2020-03-08 15:40] LABS: ANION GAP 5 (5-19); BLOOD UREA NITROGEN 36 mg/dL (7-20); CALCIUM 7.6 mg/dL (8.4-10.2); CARBON DIOXIDE 22 mmol/L (22-30); CHLORIDE 112 mmol/L (98-107); GLUCOSE 93 mg/dL (75-110); POTASSIUM 3.5 mmol/L (3.6-5.0)
[2020-03-08] MEDS: POTASSIUM CHLORIDE 20 MEQ/50 ML RTU IV SCH ×3 (16:49→20:13)
[2020-03-08] MEDS ORDERED: FUROSEMIDE INJ/PF 20 MG/2 ML SDV IV ONE (17:30)
[2020-03-08] MEDS ORDERED: ALBUTEROL SULFATE 0.083% NEB 2.5 MG/3 ML AMPUL NEB PRN (17:35)
[2020-03-08] MEDS ORDERED: IPRATROPIUM/ALBUTEROL 0.5-2.5 MG/3 ML AMPUL NEB PRN (17:45)
[2020-03-08] MEDS: IPRATROPIUM/ALBUTEROL 0.5-2.5 MG/3 ML AMPUL NEB PRN (17:59)
--- NOTE | 2020-03-08 19:34 | Progress Note ---
Provider Note Provider Note: CARDIOLOGY PROGRESS NOTE by Dr. Leslie Laird on 03/08/2020. SUBJECTIVE: The patient denies any chest pain or discomfort. There is no shortness of breath. There is no PND orthopnea. There is no arrhythmias seen on the monitor. There is no TIA CVA symptoms. There is no dizziness near syncope or syncope. PHYSICAL EXAMINATION: The patient is moderately obese in no acute distress. Selected Entries 03/08/20 12:31 Temperature 97.6 F Temperature Axillary Source Pulse Rate 60 Respiratory 18 Rate Blood Pressure 156/81 H Blood Pressure 106 Mean BP Location Left Arm BP Position Supine O2 Sat by Pulse 99 Oximetry Oxygen Flow 3.50 Rate Oxygen Delivery Nasal Cannula Method HEAD: Is atraumatic normocephalic. EYES: Pupils equal round regular reactive light accommodation. Extraocular movements are normal. There is no conjunctival pallor. There is no scleral icterus. EARS: Tympanic membranes are intact. External auditory canals are clear. NOSE: There is no deviated nasal septum. There is no inflammation nasal mucous membrane. MOUTH: Mucous m embranes of mouth are moist. There is no ulcers or bleeding from the gums. THROAT: There is no redness of the oropharynx. There is no exudates. SKIN: There is no skin rashes. There is no skin lesions. There is no petechia or ecchymosis. NECK: Is supple there is no JVD carotids are equal there is no bruit there is no lymphadenopathy the. There is no goiter. Trachea central. There is no accessory muscles of respiration use. LUNGS: Is clear to auscultation percussion without any rhonchi or wheezing. On palpation there is no chest wall tenderness there is dry crackles in the left base.. HEART: S1-S2 is heard. There is no S3 gallop. There is no S4 gallop. There is systolic murmur left sternal border and apex. There is no rub. ABDOMEN: Soft. Nontender there is no paraspinal megaly. Bowel sounds are well heard. EXTREMITIES: Femorals are slightly diminished. Leg pulses are well felt. There is no pedal edema. There is no DVT or cellulitis. There is no cyanosis or clubbing. GUIDE ESCORT: The patient is a slow mentation but without any focal deficits. Psychiatric: The patient's affect is withdrawn. She does not appear to be agitated or anxious. Labs- All tests 24 hr 03/07/20 03/07/20 03/08/20 21:55 21:55 02:00 WBC RBC Hgb Hct MCV MCH MCHC RDW Plt Count Sodium Potassium Chloride Carbon Dioxide Anion Gap BUN Creatinine Est GFR ( Amer) Est GFR (MDRD) Non-Af Glucose Calcium Creatine Kinase 71 CK-MB (CK-2) 0.27 Troponin I 0.046 NT-Pro-B Natriuret Pep Stool Occult Blood POSITIVE Stl C. Difficile GDH Ag Stl C.difficile Tox A&B 03/08/20 03/08/20 03/08/20 02:00 04:12 04:12 WBC 31.0 H* RBC 3.76 Hgb 10.7 L Hct 31.5 L MCV 84 MCH 28.6 MCHC 34.1 RDW 17.9 H Plt Count 178 Sodium Potassium Chloride Carbon Dioxide Anion Gap BUN Creatinine Est GFR ( Amer) Est GFR (MDRD) Non-Af Glucose Calcium Creatine Kinase 64 CK-MB (CK-2) Troponin I NT-Pro-B Natriuret Pep Stool Occult Blood Stl C. Difficile GDH Ag NEGATIVE Stl C.difficile Tox A&B NEGATIVE 03/08/20 03/08/20 03/08/20 04:12 14:25 14:25 WBC RBC Hgb Hct MCV MCH MCHC RDW Plt Count Sodium 139.3 Potassium 3.5 L Chloride 112 H Carbon Dioxide 22 Anion Gap 5 BUN 36 H Creatinine 1.57 H Est GFR ( Amer) 41 L Est GFR (MDRD) Non-Af 34 L Glucose 93 Calcium 7.6 L Creatine Kinase CK-MB (CK-2) 0.41 Troponin I 0.082 NT-Pro-B Natriuret Pep 4970 H Stool Occult Blood Stl C. Difficile GDH Ag Stl C.difficile Tox A&B Chest X-Ray 02/29/20 15:58 IMPRESSION: Stable appearance of the chest. No acute radiographic abnormality or significant interval change. Chest X-Ray 03/03/20 00:00 IMPRESSION: CENTRAL LINE DESCRIBED. NO PNEUMOTHORAX. NO ACUTE FINDINGS. Chest/Abdomen CTA 03/03/20 00:00 IMPRESSION: There is no pulmonary embolus. There is no aortic aneurysm or dissection. Mild atelectatic changes bilaterally, left more than right. Chest X-Ray 03/06/20 00:00 IMPRESSION: Increasing consolidation/ atelectasis at the left lung base with small left effusion. IMPRESSION/RECOMMENDATION.: 1.. CHEST pain: Reproducible chest wall pain. But patient is a poor historian. There is no major EKG changes although there are some nonspecific changes in the inferior leads. Will get serial troponins and serial EKGs. We will add Nitropaste. This has been discussed with Dr. Hanson. 2. Anemia: Secondary to sickle cell disease. Hemoglobin stable after transfusion. Await stool occult blood reports. Hemoglobin stable. 3. Most likely non-ST elevation [place]. Her troponin came back at less than the range for a non-ST elevation VA. We will schedule the patient for a nuclear stress test on Monday. 4. PNEUMONIA: Chest x-ray today shows left lower lobe pneumonia. THe patient's CTA of the chest being negative for pulmonary emboli. 5.. Acute renal failure: Would avoid nephrotoxic medication. No seems to be stage III chronic kidney disease. GFR is improved to 41. 6. Elevated troponin levels. The patient's troponin today 0.049. We will trend the troponin. 7. Klebsiella cystitis. The patient is on antibiotics for this and also possible aspiration. Though at present no evidence of pneumonia. 8.S/p brief cardiac arrest. Patient noted to be in pulseless electrical activity. Spontaneous return of circulation with brief CPR and epinephrine. 9.. Thrombocytopenia: We will see the platelets after stopping Lovenox. No definite evidence of HIT. Platelets have come up. 10. Sickle cell crisis: Seems to have resolved. Continue hydration. Hematology on the case. Medications reviewed. Medications added. Medical regimen management plan discussed with Dr. Hanson. Medical decision making is of high complexity. 40 minutes spent on this patient with more than 50% time spent in direct patient care. Discussed with the patient and the patient's . Will follow.
[2020-03-09] MEDS: NORMAL SALINE 1000 ML 1,000 ML IV PRN (01:53)
[2020-03-09] MEDS: OXYCODONE-ACETAMINOPHEN 5-325 MG TABLET PO PRN ×2 (01:53→20:36)
[2020-03-09] MEDS: PIPERACILLIN SODIUM/TAZOBACTAM 3.375 GM in NORMAL SALINE 100 ML IV SCH ×4 (02:28→21:05)
[2020-03-09] MEDS: NITROGLYCERIN 2% OINTMENT 1 GM PACKET TP SCH ×3 (06:04→21:33)
[2020-03-09] MEDS: PANTOPRAZOLE SODIUM 40 MG TABLET.DR PO SCH (06:05)
[2020-03-09 06:21] LABS: HEMATOCRIT 31.3 % (36.0-47.0); HEMOGLOBIN 10.9 g/dL (12.0-15.5); MEAN CORPUSCULAR HEMOGLOBIN 29.5 pg (27.0-33.4); MEAN CORPUSCULAR HGB CONC 34.8 g/dL (32.0-36.0); MEAN CORPUSCULAR VOLUME 85 fl (80-97); PLATELET COUNT 238 10^3/uL (150-450); RED CELL DISTRIBUTION WIDTH 17.8 % (11.5-14.0)
[2020-03-09 07:03] LABS: WHITE BLOOD COUNT 23.9 10^3/uL (4.0-10.5)
--- NOTE | 2020-03-09 08:28 | PDOC PROGRESS REPORT ---
Subjective Date:: 03/09/20 Subjective:: Patient states she wants to go home today. She denies any joint pain or evidenc e of sickle cell crisis. She states that the longer she stays in bed, the weaker she is getting. She reports some constipation. Nurses report that she had diarrhea and nausea yesterday and she has been confused. She did receive pRBCs and her HGB has remained stable since that time. Here bili is elevated, consistent with her sickle cell. There was no evidence of PE on CT-A. Reason For Visit: SICKLE CELL PAIN CRISIS Physical Exam Vital Signs: Temp Pulse Resp BP Pulse Ox 97.1 F 67 16 157/92 H 100 03/09/20 04:50 03/09/20 04:50 03/09/20 04:50 03/09/20 04:50 03/09/20 04:50 Intake & Output 03/08/20 03/09/20 03/10/20 06:59 06:59 06:59 Intake Total 2130 2950 Output Total 100 Balance 2029 2950 Weight 86.5 kg General appearance: PRESENT: obese Head exam: PRESENT: normocephalic Eye exam: PRESENT: EOMI Respiratory exam: PRESENT: unlabored Neurological exam: PRESENT: awake, oriented to person, oriented to place Psychiatric exam: PRESENT: appropriate affect Skin exam: PRESENT: normal color Results Laboratory Results: 03/09/20 05:57 03/08/20 14:25 03/08/20 03/09/20 14:25 05:57 WBC 23.9 H RBC 3.70 L Hgb 10.9 L Hct 31.3 L MCV 85 MCH 29.5 MCHC 34.8 RDW 17.8 H Plt Count 238 Sodium 139.3 Potassium 3.5 L Chloride 112 H Carbon Dioxide 22 Anion Gap 5 BUN 36 H Creatinine 1.57 H Est GFR ( Amer) 41 L Glucose 93 Calcium 7.6 L 02/29/20 02/29/20 03/01/20 16:40 16:40 15:42 Creatine Kinase 51 136 H CK-MB (CK-2) Troponin I 0.034 NT-Pro-B Natriuret Pep 03/01/20 03/02/20 03/02/20 15:42 18:31 18:31 Creatine Kinase 730 H CK-MB (CK-2) 5.24 H Troponin I 0.617 0.670 NT-Pro-B Natriuret Pep 03/03/20 03/03/20 03/03/20 00:27 00:27 05:49 Creatine Kinase 662 H 840 H CK-MB (CK-2) 4.23 Troponin I 0.600 NT-Pro-B Natriuret Pep 03/03/20 03/07/20 03/07/20 05:49 10:05 13:35 Creatine Kinase 94 CK-MB (CK-2) 4.22 Troponin I 0.638 0.049 NT-Pro-B Natriuret Pep 03/07/20 03/07/20 03/07/20 13:35 21:55 21:55 Creatine Kinase 71 CK-MB (CK-2) 0.27 0.27 Troponin I 0.050 0.046 NT-Pro-B Natriuret Pep 03/08/20 03/08/20 03/08/20 04:12 04:12 14:25 Creatine Kinase 64 CK-MB (CK-2) 0.41 Troponin I 0.082 NT-Pro-B Natriuret Pep 4970 H Impressions: Chest/Abdomen CTA 03/03/20 00:00 IMPRESSION: There is no pulmonary embolus. There is no aortic aneurysm or dissection. Mild atelectatic changes bilaterally, left more than right. Chest X-Ray 03/06/20 00:00 IMPRESSION: Increasing consolidation/ atelectasis at the left lung base with small left effusion. Assessment & Plan - Diagnosis (1) Acute respiratory failure with hypoxemia Is this a current diagnosis for this admission?: Yes Plan: Dr. Coreas is following for cardiac issues. Her breathing today seems to be stable. I will defer to primary team, but would consider change IV ABX to PO, as she has been afebrile and culture show sensitivity to multiple ABX. 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 Her elevated WBC and elevated Bili are typical for [facility] patients. I will follow from a distance. She has Percocet PRN for pain. Please call with any concerns. There was no evidence of PE and she is on appropriate prophylactic dose of Lovenox. - Time Time Spent with patient: 15-24 minutes
[2020-03-09] MEDS: ASPIRIN 81 MG TABLET, CHEWABLE PO SCH (09:32)
[2020-03-09] MEDS: ENOXAPARIN SODIUM INJ 40 MG/0.4 ML DISP.SYRIN SUBCUT SCH (09:33)
[2020-03-09] MEDS: ZINC SULFATE 220 MG CAPSULE PO SCH (09:33)
[2020-03-09] MEDS: CLOPIDOGREL BISULFATE 75 MG TABLET PO SCH (09:33)
[2020-03-09] MEDS: METOPROLOL TARTRATE 25 MG TABLET PO SCH ×2 (09:34→21:40)
[2020-03-09] MEDS: PROMETHAZINE HCL INJ 25 MG/1 ML VIAL IV PRN ×2 (11:46→20:36)
[2020-03-09 11:49] LABS: BLOOD UREA NITROGEN 34 mg/dL (7-20); GLUCOSE 102 mg/dL (75-110)
[2020-03-09 11:55] LABS: ANION GAP 6 (5-19); CARBON DIOXIDE 23 mmol/L (22-30); CHLORIDE 113 mmol/L (98-107)
--- NOTE | 2020-03-09 20:02 | PDOC PROGRESS REPORT ---
Subjective Date:: 03/09/20 Subjective:: She is more engaging and appropriate this morning. Patient denied any chest pain or difficulty with breathing. No reported fever or chills. No abdominal pain, nausea or vomiting. Expressed wish to get out of bed. Reason For Visit: SICKLE CELL PAIN CRISIS Physical Exam Vital Signs: Temp Pulse Resp BP Pulse Ox 97.7 F 57 L 16 153/92 H 100 03/09/20 08:08 03/09/20 08:08 03/09/20 08:08 03/09/20 08:08 03/09/20 08:08 Intake & Output 03/08/20 03/09/20 03/10/20 06:59 06:59 06:59 Intake Total 2130 2950 Output Total 100 Balance 2030 2950 Weight 86.5 kg Physical Exam: General appearance: PRESENT: remain on supplemental oxygen via nasal cannula Head exam: PRESENT: atraumatic, normocephalic Eye exam: PRESENT: Conjunctiva pink. ABSENT: pallor, sclera icterus Mouth exam: PRESENT: moist, tongue midline Respiratory exam: PRESENT: clear to auscultation cesilia, decrease breath sound at lung bases Cardiovascular exam: PRESENT: RRR, +S1, +S2, systolic murmur. ABSENT: diastolic murmur, rubs Murmur grade: 3 GI/Abdominal exam: PRESENT: normal bowel sounds, soft. ABSENT: tenderness Extremities/MSK exam: PRESENT: still expressed chest wall tenderness to palpation over sternal region. ABSENT: pedal edema Neurological exam: PRESENT: alert, awake, oriented to person, oriented to place, oriented to time, and oriented to situation. Psychiatric exam: ABSENT: agitated Skin exam: PRESENT: dry, intact, warm. ABSENT: cyanosis, rash Murmur grade: 3 Results Laboratory Results: 03/09/20 05:57 03/08/20 14:25 03/08/20 03/09/20 14:25 05:57 WBC 23.9 H RBC 3.70 L Hgb 10.9 L Hct 31.3 L MCV 85 MCH 29.5 MCHC 34.8 RDW 17.8 H Plt Count 238 Sodium 139.3 Potassium 3.5 L Chloride 112 H Carbon Dioxide 22 Anion Gap 5 BUN 36 H Creatinine 1.57 H Est GFR ( Amer) 41 L Glucose 93 Calcium 7.6 L 02/29/20 02/29/2003/01/20 16:40 16:40 15:42 Creatine Kinase 51 136 H CK-MB (CK-2) Troponin I 0.034 NT-Pro-B Natriuret Pep 03/01/20 03/02/20 03/02/20 15:42 18:31 18:31 Creatine Kinase 730 H CK-MB (CK-2) 5.24 H Troponin I 0.617 0.670 NT-Pro-B Natriuret Pep 03/03/20 03/03/20 03/03/20 00:27 00:27 05:49 Creatine Kinase 662 H 840 H CK-MB (CK-2) 4.23 Troponin I 0.600 NT-Pro-B Natriuret Pep 03/03/20 03/07/20 03/07/20 05:49 10:05 13:35 Creatine Kinase 94 CK-MB (CK-2) 4.22 Troponin I 0.638 0.049 NT-Pro-B Natriuret Pep 03/07/20 03/07/20 03/07/20 13:35 21:55 21:55 Creatine Kinase 71 CK-MB (CK-2) 0.27 0.27 Troponin I 0.050 0.046 NT-Pro-B Natriuret Pep 03/08/20 03/08/20 03/08/20 04:12 04:12 14:25 Creatine Kinase 64 CK-MB (CK-2) 0.41 Troponin I 0.082 NT-Pro-B Natriuret Pep 4970 H Impressions: Chest/Abdomen CTA 03/03/20 00:00 IMPRESSION: There is no pulmonary embolus. There is no aortic aneurysm or dissection. Mild atelectatic changes bilaterally, left more than right. Chest X-Ray 03/06/20 00:00 IMPRESSION: Increasing consolidation/ atelectasis at the left lung base with small left effusion. Assessment & Plan - Diagnosis (1) Acute respiratory failure with hypoxemia Is this a current diagnosis for this admission?: Yes (2) Pulmonary embolism Qualifiers: Pulmonary embolism type: unspecified Chronicity: acute Acute cor pulmonale presence: unspecified Qualified Code(s): I26.99 - Other pulmonary embolism without acute cor pulmonale Is this a current diagnosis for this admission?: No (3) Chest pain Qualifiers: Chest pain type: other chest pain Qualified Code(s): R07.89 - Other chest pain; R07.8 - Other chest pain Is this a current diagnosis for this admission?: Yes (4) Elevated troponin Is this a current diagnosis for this admission?: Yes (5) Vaso-occlusive pain due to sickle cell disease Is this a current diagnosis for this admission?: Yes (6) 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 Is this a current diagnosis for this admission?: Yes (7) Probable sepsis Is this a current diagnosis for this admission?: Yes (8) Klebsiella cystitis Is this a current diagnosis for this admission?: Yes (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 with other complication Qualified Code(s): D57.09 - Hb-SS disease with crisis with other specified complication Is this a current diagnosis for this admission?: Yes - Time Time Spent with patient: 25-34 minutes Level of Care: IMCU Medications reviewed and adjusted accordingly: Yes Anticipated discharge: Home with Homehealth Anticipated DC Timeframe: within 72 hours - Inpatient Certification Based on my medical assessment, after consideration of the patient's comorbidities, presenting symptoms, or acuity I expect that the services needed warrant INPATIENT care.: Yes I certify that my determination is in accordance with my understanding of Medicare's requirements for reasonable and necessary INPATIENT services [42 CFR 412.3e].: Yes Medical Necessity: Significant Comorbidiites Make Outpatient Treatment Too Risky, Need Close Monitoring Due to Risk of Patient Decompensation, Need For IV Fluids, Need For Continuous Telemetry Monitoring, Need for IV Antibiotics, Risk of Complication if Not Cared For in Hospital, Risk of Diagnosis Which Will R equire Inpatient Eval/Care/Monitoring Post Hospital Care: D/C Dining Room Hostess Documentation - Plan Summary Plan Summary: Continue all current medication management. Initiate PT evaluation.
--- NOTE | 2020-03-09 22:18 | Progress Note ---
Provider Note Provider Note: CARDIOLOGY PROGRESS NOTE by Dr. Leslie Laird on 03/09/2020. SUBJECTIVE: The patient denies any chest pain or discomfort. She is up in the chair requiring less amount of nasal cannula oxygen. There is no shortness of breath. There is no PND orthopnea. There is no arrhythmias seen on the monito r. There is no TIA CVA symptoms. There is no dizziness near syncope or syncope. PHYSICAL EXAMINATION: The patient is moderately obese in no acute distress. Selected Entries 03/09/20 03/09/20 15:43 16:00 Temperature 98.6 F Temperature Oral Source Pulse Rate 68 Respiratory 18 Rate Blood Pressure 151/79 H Blood Pressure 103 Mean BP Location Right Arm BP Position Supine O2 Sat by Pulse 92 Oximetry Fraction of 34 Inspired Oxygen (FIO2) Oxygen Flow 3.00 Rate Oxygen Delivery Nasal Cannula Method HEAD: Is atraumatic normocephalic. EYES: Pupils equal round regular reactive light accommodation. Extraocular movements are normal. There is no conjunctival pallor. There is no scleral icterus. EARS: Tympanic membranes are intact. External auditory canals are clear. NOSE: There is no deviated nasal septum. There is no inflammation nasal mucous membrane. MOUTH: Mucous membranes of mouth are moist. There is no ulcers or bleeding from the gums. THROAT: There is no redness of the oropharynx. There is no exudates. SKIN: There is no skin rashes. There is no skin lesions. There is no petechia or ecchymosis. NECK: Is supple there is no JVD carotids are equal there is no bruit there is no lymphadenopathy the. There is no goiter. Trachea central. There is no accessory muscles of respiration use. LUNGS: Is clear to auscultation percussion without any rhonchi or wheezing. On palpation there is no chest wall tenderness there is dry crackles in the left base.. HEART: S1-S2 is heard. There is no S3 gallop. There is no S4 gallop. There is systolic murmur left sternal border and apex. There is no rub. ABDOMEN: Soft. Nontender there is no paraspinal megaly. Bowel sounds are well heard. EXTREMITIES: Femorals are slightly diminished. Leg pulses are well felt. There is no pedal edema. There is no DVT or cellulitis. There is no cyanosis or clubbing. 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 Psychiatric: The patient's affect is withdrawn. She does not appear to be agitated or anxious. Labs- All tests 24 hr 03/09/20 03/09/20 05:57 05:57 WBC 23.9 H RBC 3.70 L Hgb 10.9 L Hct 31.3 L MCV 85 MCH 29.5 MCHC 34.8 RDW 17.8 H Plt Count 238 Sodium 142.2 Potassium 4.0 Chloride 113 H Carbon Dioxide 23 Anion Gap 6 BUN 34 H Creatinine 1.79 H Est GFR ( Amer) 35 L Est GFR (MDRD) Non-Af 29 L Glucose 102 Calcium 8.0 L Chest X-Ray 02/29/20 15:58 IMPRESSION: Stable appearance of the chest. No acute radiographic abnormality or significant interval change. Chest X-Ray 03/03/20 00:00 IMPRESSION: CENTRAL LINE DESCRIBED. NO PNEUMOTHORAX. NO ACUTE FINDINGS. Chest/Abdomen CTA 03/03/20 00:00 IMPRESSION: There is no pulmonary embolus. There is no aortic aneurysm or dissection. Mild atelectatic changes bilaterally, left more than right. Chest X-Ray 03/06/20 00:00 IMPRESSION: Increasing consolidation/ atelectasis at the left lung base with small left effusion. IMPRESSION/RECOMMENDATION.: 1.. CHEST pain: Reproducible chest wall pain. But patient is a poor historian. There is no major EKG changes although there are some nonspecific changes in the inferior leads. Will get serial troponins and serial EKGs. We will add Nitropaste. This has been discussed with Dr. Gerber covering for Dr. Hanson.. 2. Anemia: Secondary to sickle cell disease. Hemoglobin stable after transfusion. Await stool occult blood reports. Hemoglobin stable. 3. Most likely non-ST elevation [place]. Her troponin came back at less than the range for a non-ST elevation [place]. We will schedule patient for IV Lexiscan Cardiolite stress test for tomorrow. The procedure has been discussed with the patient. 4. PNEUMONIA: Chest x-ray today shows left lower lobe pneumonia. THe patient's CTA of the chest being negative for pulmonary emboli. 5.. Acute renal failure: Would avoid nephrotoxic medication. No seems to be stage III chronic kidney disease. GFR is improved to 41. 6. Elevated troponin levels. The patient's troponin today 0.049. We will trend the troponin. 7. Klebsiella cystitis. The patient is on antibiotics for this and also possible aspiration. Though at present no evidence of pneumonia. 8.S/p brief cardiac arrest. Patient noted to be in pulseless electrical activity. Spontaneous return of circulation with brief CPR and epinephrine. 9.. Thrombocytopenia: We will see the platelets after stopping Lovenox. No definite evidence of HIT. This is resolved. 10. Sickle cell crisis: Seems to have resolved. Continue hydration. Hematology on the case. Medications reviewed. Medications added. Medical regimen management plan discussed with Dr. Dawkins covering Dr. Hanson. Medical decision making is of high complexity. 40 minutes spent on this patient with more than 50% time spent in direct patient care. Discussed with the patient and the patient's . Will follow.
[2020-03-09 23:25] LABS: HEMATOCRIT 32.4 % (36.0-47.0)
[2020-03-09 23:29] LABS: HEMOGLOBIN 11.4 g/dL (12.0-15.5); MEAN CORPUSCULAR HEMOGLOBIN 29.5 pg (27.0-33.4); MEAN CORPUSCULAR HGB CONC 35.1 g/dL (32.0-36.0); MEAN CORPUSCULAR VOLUME 84 fl (80-97); RED BLOOD COUNT 3.86 10^6/uL (3.72-5.28); RED CELL DISTRIBUTION WIDTH 17.4 % (11.5-14.0)
[2020-03-09 23:36] LABS: ALBUMIN 2.3 g/dL (3.5-5.0); ALKALINE PHOSPHATASE 124 U/L (38-126); ANION GAP 7 (5-19); ASPARTATE AMINO TRANSFERASE 42 U/L (14-36); BILIRUBIN,DIRECT 4.1 mg/dL (0.0-0.4); BILIRUBIN,TOTAL 5.6 mg/dL (0.2-1.3); BLOOD UREA NITROGEN 34 mg/dL (7-20); CARBON DIOXIDE 21 mmol/L (22-30); CHLORIDE 114 mmol/L (98-107); GLUCOSE 122 mg/dL (75-110); POTASSIUM 3.7 mmol/L (3.6-5.0); TOTAL PROTEIN 4.9 g/dL (6.3-8.2)
[2020-03-09 23:46] LABS: ABSOLUTE LYMPHOCYTES# (MANUAL) 2.3 10^3/uL (0.5-4.7); ABSOLUTE MONOCYTES # (MANUAL) 1.3 10^3/uL (0.1-1.4); BASOPHILS % (MANUAL) 0 % (0-2); EOSINOPHILS % (MANUAL) 1 % (0-6); LYMPHOCYTES % (MANUAL) 9 % (13-45); MONOCYTES % (MANUAL) 5 % (3-13); NUCLEATED RED BLOOD CELLS 18 /100 WBC (0); SEGMENTED NEUTROPHILS % (MAN) 85 % (42-78); TOTAL CELLS COUNTED 100
[2020-03-09 23:48] LABS: ANISOCYTOSIS 1+; POLYCHROMASIA SLIGHT; TOXIC VACUOLATION PRESENT
[2020-03-09 23:49] LABS: PLATELET CLUMPS PRESENT; PLATELET COMMENT ADEQUATE; PLATELET COUNT 255 10^3/uL (150-450); TARGET CELLS 1+
[2020-03-10] MEDS: NITROGLYCERIN 2% OINTMENT 1 GM PACKET TP SCH ×5 (00:24→23:28)
[2020-03-10] MEDS: NORMAL SALINE 1000 ML 1,000 ML IV PRN (01:41)
[2020-03-10] MEDS: PIPERACILLIN SODIUM/TAZOBACTAM 3.375 GM in NORMAL SALINE 100 ML IV SCH ×2 (02:18→10:43)
[2020-03-10] MEDS: OXYCODONE-ACETAMINOPHEN 5-325 MG TABLET PO PRN ×2 (05:15→18:46)
[2020-03-10] MEDS: PANTOPRAZOLE SODIUM 40 MG TABLET.DR PO SCH (05:16)
[2020-03-10] MEDS: PROMETHAZINE HCL INJ 25 MG/1 ML VIAL IV PRN (05:17)
[2020-03-10] MEDS: METOPROLOL TARTRATE 25 MG TABLET PO SCH ×2 (10:42→22:01)
[2020-03-10] MEDS: ASPIRIN 81 MG TABLET, CHEWABLE PO SCH (10:43)
[2020-03-10] MEDS: ENOXAPARIN SODIUM INJ 40 MG/0.4 ML DISP.SYRIN SUBCUT SCH (10:43)
[2020-03-10] MEDS: ZINC SULFATE 220 MG CAPSULE PO SCH (10:43)
[2020-03-10] MEDS: CLOPIDOGREL BISULFATE 75 MG TABLET PO SCH (10:43)
[2020-03-10] MEDS: ONDANSETRON HCL INJ/PF 4 MG/2 ML SDV IV PRN (11:31)
--- NOTE | 2020-03-10 19:13 | PDOC PROGRESS REPORT ---
Subjective Date:: 03/10/20 Subjective:: I saw patient by the bedside, patient's was upset because of housekeepin g issue, he was requesting for transfer to the [facility].I spent prolonged time with the spouse and the patient about requirement for transfer and that typically family request is not a priority for transfer and also [facility] is not a tertiary care. I called [facility] per request of patient spouse but the transfer was declined. Patient is in the hospital for sickle cell bone pain crisis, pneumonia, questionable ischemic heart disease. She is scheduled for stress test tomorrow. She was supposed to have a stress test today but she had promethazine, this makes her very drowsy Reason For Visit: SICKLE CELL PAIN CRISIS Physical Exam Vital Signs: Temp Pulse Resp BP Pulse Ox 98.2 F 77 20 150/75 H 94 03/10/20 17:23 03/10/20 19:00 03/10/20 17:23 03/10/20 17:23 03/10/20 17:23 Intake & Output 03/09/20 03/10/20 03/11/20 06:59 06:59 06:59 Intake Total 2950 1200 400 Balance 2950 1200 400 Weight 90.5 kg General appearance: PRESENT: no acute distress Eye exam: PRESENT: PERRLA Respiratory exam: PRESENT: clear to auscultation cesilia Cardiovascular exam: PRESENT: +S1, +S2 Murmur grade: 3 GI/Abdominal exam: PRESENT: soft Neurological exam: PRESENT: alert Results Laboratory Results: 03/09/20 22:48 03/09/20 22:48 03/09/20 03/09/20 03/09/20 22:48 22:48 22:48 WBC 26.0 H RBC 3.86 Hgb 11.4 L Hct 32.4 L MCV 84 MCH 29.5 MCHC 35.1 RDW 17.4 H Plt Count 255 Seg Neutrophils % Not Reportable Sodium 141.6 Potassium 3.7 Chloride 114 H Carbon Dioxide 21 L Anion Gap 7 BUN 34 H Creatinine 1.63 H Est GFR ( Amer) 39 L Glucose 122 H Calcium 8.0 L Total Bilirubin 5.6 H AST 42 H Alkaline Phosphatase 124 Ammonia 9.7 Total Protein 4.9 L Albumin 2.3 L 02/29/20 02/29/20 03/01/20 16:40 16:40 15:42 Creatine Kinase 51 136 H CK-MB (CK-2) Troponin I 0.034 NT-Pro-B Natriuret Pep 03/01/20 03/02/20 03/02/20 15:42 18:31 18:31 Creatine Kinase 730 H CK-MB (CK-2) 5.24 H Troponin I 0.617 0.670 NT-Pro-B Natriuret Pep 03/03/20 03/03/20 03/03/20 00:27 00:27 05:49 Creatine Kinase 662 H 840 H CK-MB (CK-2) 4.23 Troponin I 0.600 NT-Pro-B Natriuret Pep 03/03/20 03/07/20 03/07/20 05:49 10:05 13:35 Creatine Kinase 94 CK-MB (CK-2) 4.22 Troponin I 0.638 0.049 NT-Pro-B Natriuret Pep 03/07/20 03/07/20 03/07/20 13:35 21:55 21:55 Creatine Kinase 71 CK-MB (CK-2) 0.27 0.27 Troponin I 0.050 0.046 NT-Pro-B Natriuret Pep 03/08/20 03/08/20 03/08/20 04:12 04:12 14:25 Creatine Kinase 64 CK-MB (CK-2) 0.41 Troponin I 0.082 NT-Pro-B Natriuret Pep 4970 H Impressions: Chest/Abdomen CTA 03/03/20 00:00 IMPRESSION: There is no pulmonary embolus. There is no aortic aneurysm or dissection. Mild atelectatic changes bilaterally, left more than right. Chest X-Ray 03/06/20 00:00 IMPRESSION: Increasing consolidation/ atelectasis at the left lung base with small left effusion. Assessment & Plan - Diagnosis (1) Vaso-occlusive pain due to sickle cell disease Is this a current diagnosis for this admission?: Yes Plan: Continue present treatment (2) Elevated troponin Is this a current diagnosis for this admission?: Yes Plan: The troponin is trended down, scheduled for stress test tomorrow (3) Cystitis, unspecified without hematuria Is this a current diagnosis for this admission?: Yes (4) Acute respiratory failure with hypoxia Is this a current diagnosis for this admission?: Yes - Time Time Spent with patient: 35 or more minutes Level of Care: IMCU Medications reviewed and adjusted accordingly: Yes Anticipated discharge: Home Anticipated DC Timeframe: within 72 hours - Inpatient Certification Based on my medical assessment, after consideration of the patient's comorbidities, presenting symptoms, or acuity I expect that the services needed warrant INPATIENT care.: Yes I certify that my determination is in accordance with my understanding of Medicare's requirements for reasonable and necessary INPATIENT services [42 CFR 412.3e].: Yes
--- NOTE | 2020-03-10 23:26 | Progress Note ---
Provider Note Provider Note: CARDIOLOGY PROGRESS NOTE by Dr. Leslie Laird on 03/10/2020. SUBJECTIVE: The patient denies any chest pain or discomfort. She is up in the chair requiring less amount of nasal cannula oxygen. There is no shortness of breath. There is no PND orthopnea. There is no arrhythmias seen on the monito r. There is no TIA CVA symptoms. There is no dizziness near syncope or syncope. Her stress test was canceled due to the patient having had drunk Pepsi-Cola. It has been rescheduled for tomorrow. Also it was noted rn case manager the patient was very somnolent. At present the patient is awake. I have instructed the patient not to drink any caffeine-containing drinks. She nods that she understands this. PHYSICAL EXAMINATION: The patient is moderately obese in no acute distress. Selected Entries 03/10/20 17:23 Temperature 98.2 F Temperature Oral Source Pulse Rate 60 Respiratory 20 Rate Blood Pressure 150/75 H Blood Pressure 100 Mean BP Location Left Arm BP Position Supine O2 Sat by Pulse 94 Oximetry Oxygen Delivery Room Air Method HEAD: Is atraumatic normocephalic. EYES: Pupils equal round regular reactive light accommodation. Extraocular movements are normal. There is no conjunctival pallor. There is no scleral icterus. EARS: Tympanic membranes are intact. External auditory canals are clear. NOSE: There is no deviated nasal septum. There is no inflammation nasal mucous membrane. MOUTH: Mucous membranes of mouth are moist. There is no ulcers or bleeding from the gums. THROAT: There is no redness of the oropharynx. There is no exudates. SKIN: There is no skin rashes. There is no skin lesions. There is no petechia or ecchymosis. NECK: Is supple there is no JVD carotids are equal there is no bruit there is no lymphadenopathy the. There is no goiter. Trachea central. There is no accessory muscles of respiration use. LUNGS: Is clear to auscultation percussion without any rhonchi or wheezing. On palpation there is no chest wall tenderness there is dry crackles in the left base.. HEART: S1-S2 is heard. There is no S3 gallop. There is no S4 gallop. There is systolic murmur left sternal border and apex. There is no rub. ABDOMEN: Soft. Nontender there is no paraspinal megaly. Bowel sounds are well heard. EXTREMITIES: Femorals are slightly diminished. Leg pulses are well felt. There is no pedal edema. There is no DVT or cellulitis. There is no cyanosis or clubbing. 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 Psychiatric: The patient's affect is withdrawn. She does not appear to be agitated or anxious. Labs- All tests 24 hr 03/09/20 03/09/20 03/09/20 22:48 22:48 22:48 WBC 26.0 H RBC 3.86 Hgb 11.4 L Hct 32.4 L MCV 84 MCH 29.5 MCHC 35.1 RDW 17.4 H Plt Count 255 Lymph % (Auto) Not Reportable [place] % (Auto) Not Reportable Eos % (Auto) Not Reportable Baso % (Auto) Not Reportable Absolute Neuts (auto) Not Reportable Absolute Lymphs (auto) Not Reportable Absolute Monos (auto) Not Reportable Absolute Eos (auto) Not Reportable Absolute Basos (auto) Not Reportable Total Counted 100 Seg Neutrophils % Not Reportable Seg Neuts % (Manual) 85 H Lymphocytes % (Manual) 9 L Monocytes % (Manual) 5 Eosinophils % (Manual) 1 Basophils % (Manual) 0 Abs Neuts (Manual) 22.1 H Abs Lymphs (Manual) 2.3 Abs Monocytes (Manual) 1.3 Absolute Eos (Manual) 0.3 Abs Basophils (Manual) 0.0 Nucleated RBCs 18 Toxic Vacuolation PRESENT Clumped Platelets PRESENT Platelet Comment ADEQUATE Polychromasia SLIGHT Anisocytosis 1+ Target Cells 1+ Sodium 141.6 Potassium 3.7 Chloride 114 H Carbon Dioxide 21 L Anion Gap 7 BUN 34 H Creatinine 1.63 H Est GFR ( Amer) 39 L Est GFR (MDRD) Non-Af 32 L Glucose 122 H Calcium 8.0 L Total Bilirubin 5.6 H Direct Bilirubin 4.1 H Neonat Total Bilirubin Not Reportable Neonat Direct Bilirubin Not Reportable Neonat Indirect Bili Not Reportable AST 42 H ALT 100 H Alkaline Phosphatase 124 Ammonia 9.7 Total Protein 4.9 L Albumin 2.3 L Chest X-Ray 02/29/20 15:58 IMPRESSION: Stable appearance of the chest. No acute radiographic abnormality or significant interval change. Chest X-Ray 03/03/20 00:00 IMPRESSION: CENTRAL LINE DESCRIBED. NO PNEUMOTHORAX. NO ACUTE FINDINGS. Chest/Abdomen CTA 03/03/20 00:00 IMPRESSION: There is no pulmonary embolus. There is no aortic aneurysm or dissection. Mild atelectatic changes bilaterally, left more than right. Chest X-Ray 03/06/20 00:00 IMPRESSION: Increasing consolidation/ atelectasis at the left lung base with small left effusion. IMPRESSION/RECOMMENDATION.: 1.. CHEST pain: Reproducible chest wall pain. But patient is a poor historian. There is no major EKG changes although there are some nonspecific changes in the inferior leads. Will get serial troponins and serial EKGs. Will continue Nitropaste. This has been discussed with Dr. Gerber covering for Dr. Hanson.. 2. Anemia: Secondary to sickle cell disease. Hemoglobin stable after transfusion. Await stool occult blood reports. Hemoglobin stable. 3. Most likely non-ST elevation [place]. Her troponin came back at less than the range for a non-ST elevation [place]. We will reschedule patient for IV Lexiscan Cardiolite stress test for tomorrow. The procedure has been discussed with the patient. 4. PNEUMONIA: Chest x-ray today shows left lower lobe pneumonia. THe patient's CTA of the chest being negative for pulmonary emboli. 5.. Acute renal failure: Would avoid nephrotoxic medication. No seems to be stage III chronic kidney disease. GFR is improved to 41. 6. Elevated troponin levels. The patient's troponin trended down. 7. Klebsiella cystitis. The patient is on antibiotics for this and also possible aspiration. Though at present no evidence of pneumonia. 8.S/p brief cardiac arrest. Patient noted to be in pulseless electrical activity. Spontaneous return of circulation with brief CPR and epinephrine. 9.. Thrombocytopenia: We will see the platelets after stopping Lovenox. No definite evidence of HIT. This is resolved. 10. Sickle cell crisis: Seems to have resolved. Continue hydration. Hematology on the case. Medications reviewed. Medications added. Medical regimen management plan discussed with Dr. Gerber covering Dr. Hanson. Medical decision making is of high complexity. 40 minutes spent on this patient with more than 50% time spent in direct patient care. Discussed with the patient and the patient's . Will follow.
[2020-03-11] MEDS: NORMAL SALINE 1000 ML 1,000 ML IV PRN (02:23)
[2020-03-11] MEDS: NITROGLYCERIN 2% OINTMENT 1 GM PACKET TP SCH ×3 (05:40→18:19)
[2020-03-11] MEDS: PANTOPRAZOLE SODIUM 40 MG TABLET.DR PO SCH (05:40)
[2020-03-11] MEDS ORDERED: REGADENOSON INJ 0.4 MG/5 ML DISP.SYRIN IV ONE (11:53)
[2020-03-11] MEDS: METOPROLOL TARTRATE 25 MG TABLET PO SCH ×2 (12:55→22:12)
[2020-03-11] MEDS: ZINC SULFATE 220 MG CAPSULE PO SCH (12:55)
[2020-03-11] MEDS: ENOXAPARIN SODIUM INJ 40 MG/0.4 ML DISP.SYRIN SUBCUT SCH (12:56)
[2020-03-11] MEDS: ASPIRIN 81 MG TABLET, CHEWABLE PO SCH (12:56)
[2020-03-11] MEDS: CLOPIDOGREL BISULFATE 75 MG TABLET PO SCH (12:57)
[2020-03-11] MEDS ORDERED: FUROSEMIDE INJ/PF 40 MG/4 ML SDV ONE (14:37)
[2020-03-11] MEDS ORDERED: FUROSEMIDE INJ/PF 40 MG/4 ML SDV IV ONE (15:00)
--- NOTE | 2020-03-11 15:45 | RADIOLOGY REPORT (SQ) ---
EXAM DESCRIPTION: CHEST SINGLE VIEW IMAGES COMPLETED DATE/TIME: 03/11/2020 3:32 pm REASON FOR STUDY: crackles COMPARISON: 20 NUMBER OF VIEWS: One view. TECHNIQUE: Single frontal radiographic image of the chest acquired. LIMITATIONS: None. FINDINGS: LUNGS AND PLEURA: Stable appearance. MEDIASTINUM AND HILAR STRUCTURES: Stable heart size and mediastinal structures. HEART AND VASCULAR STRUCTURES: Stable appearance. BONES: No acute findings. HARDWARE: Unchanged. OTHER: No other significant finding. IMPRESSION: Persistent basilar infiltrates left greater than right. No significant change from prio r study. Central line remains in place overlying the innominate vein. TECHNICAL DOCUMENTATION: JOB ID: [id number] 2010 [employer]- All Rights Reserved Reading location - IP/workstation name: [email or web address]
--- NOTE | 2020-03-11 17:46 | PDOC PROGRESS REPORT ---
Subjective Date:: 03/11/20 Subjective:: Patient seen by the bedside, the Cardiolite Lexiscan stress test was negative, o n auscultation of the chest there is bibasilar crackles, chest x-ray suggests bibasilar atelectasis that was present from the last CTA chest. Patient is more alert today than previously, we will DC all DEBURR TECHNICIAN acting drugs including Haldol, Benadryl, Phenergan, we will encourage incentive spirometry to expand atelectatic lung, hopefully discharge tomorrow Reason For Visit: SICKLE CELL PAIN CRISIS Physical Exam Vital Signs: Temp Pulse Resp BP Pulse Ox 97.5 F 57 L 18 117/85 100 03/11/20 12:16 03/11/20 14:00 03/11/20 12:16 03/11/20 12:16 03/11/20 12:16 Intake & Output 03/10/20 03/11/20 03/12/20 06:59 06:59 06:59 Intake Total 1200 1700 981 Balance 1200 1700 981 Weight 90.5 kg 91.7 kg General appearance: PRESENT: no acute distress Eye exam: PRESENT: PERRLA Respiratory exam: PRESENT: clear to auscultation cesilia, rales Cardiovascular exam: PRESENT: +S1, +S2 Murmur grade: 3 GI/Abdominal exam: PRESENT: soft Neurological exam: PRESENT: alert Results Laboratory Results: 03/09/20 22:48 03/09/20 22:48 02/29/20 02/29/20 03/01/20 16:40 16:40 15:42 Creatine Kinase 51 136 H CK-MB (CK-2) Troponin I 0.034 NT-Pro-B Natriuret Pep 03/01/20 03/02/20 03/02/20 15:42 18:31 18:31 Creatine Kinase 730 H CK-MB (CK-2) 5.24 H Troponin I 0.617 0.670 NT-Pro-B Natriuret Pep 03/03/20 03/03/20 03/03/20 00:27 00:27 05:49 Creatine Kinase 662 H 840 H CK-MB (CK-2) 4.23 Troponin I 0.600 NT-Pro-B Natriuret Pep 12/22/20 12/26/20 12/26/20 05:49 10:05 13:35 Creatine Kinase 94 CK-MB (CK-2) 4.22 Troponin I 0.638 0.049 NT-Pro-B Natriuret Pep 03/07/20 03/07/20 03/07/20 13:35 21:55 21:55 Creatine Kinase 71 CK-MB (CK-2) 0.27 0.27 Troponin I 0.050 0.046 NT-Pro-B Natriuret Pep 03/08/20 03/08/20 03/08/20 04:12 04:12 14:25 Creatine Kinase 64 CK-MB (CK-2) 0.41 Troponin I 0.082 NT-Pro-B Natriuret Pep 4970 H Impressions: Chest/Abdomen CTA 03/03/20 00:00 IMPRESSION: There is no pulmonary embolus. There is no aortic aneurysm or dissection. Mild atelectatic changes bilaterally, left more than right. Chest X-Ray 03/11/20 15:15 IMPRESSION: Persistent basilar infiltrates left greater than right. No significant change from prior study. Central line remains in place overlying the innominate vein. Assessment & Plan - Diagnosis (1) Vaso-occlusive pain due to sickle cell disease Is this a current diagnosis for this admission?: Yes Plan: Continue present treatment (2) Elevated troponin Is this a current diagnosis for this admission?: Yes Plan: The Lexiscan Cardiolite stress test negative for acute reversibility to suggest ischemic heart disease. The test suggests old [place], preserved ejection fraction of left ventricle (3) Cystitis, unspecified without hematuria Is this a current diagnosis for this admission?: Yes (4) Acute respiratory failure with hypoxia Is this a current diagnosis for this admission?: Yes (5) Atelectasis, bilateral Is this a current diagnosis for this admission?: Yes Plan: She has basilar atelectasis of the lung, encourage incentive spirometry, discontinue DEBURR TECHNICIAN altering drugs including haldol, Phenergan, Benadryl - Time Time Spent with patient: 35 or more minutes Level of Care: IMCU Medications reviewed and adjusted accordingly: Yes Anticipated discharge: Home Anticipated DC Timeframe: within 24 hours - Inpatient Certification Based on my medical assessment, after consideration of the patient's comorbidities, presenting symptoms, or acuity I expect that the services needed warrant INPATIENT care.: Yes I certify that my determination is in accordance with my understanding of Medicare's requirements for reasonable and necessary INPATIENT services [42 CFR 412.3e].: Yes
[2020-03-11] MEDS: OXYCODONE-ACETAMINOPHEN 5-325 MG TABLET PO PRN (18:20)
--- NOTE | 2020-03-11 19:58 | Progress Note ---
Provider Note Provider Note: CARDIOLOGY PROGRESS NOTE by Dr. Leslie Laird on 03/11/2020. SUBJECTIVE: The patient denies any chest pain or discomfort. She is up in the chair requiring less amount of nasal cannula oxygen. There is no shortness of breath. There is no PND orthopnea. There is no arrhythmias seen on the monito r. The patient underwent uneventful IV Lexiscan guided Cardiolite stress test today. PHYSICAL EXAMINATION: The patient is moderately obese in no acute distress. Selected Entries 03/11/20 12:16 Temperature 97.5 F Temperature Oral Source Pulse Rate 63 Respiratory 18 Rate Blood Pressure 117/85 Blood Pressure 95 Mean BP Location Left Arm BP Position Supine O2 Sat by Pulse 100 Oximetry Oxygen Flow 3.00 Rate Oxygen Delivery Nasal Cannula Method HEAD: Is atraumatic normocephalic. EYES: Pupils equal round regular reactive light accommodation. Extraocular movements are normal. There is no conjunctival pallor. There is no scleral icterus. EARS: Tympanic membranes are intact. External auditory canals are clear. NOSE: There is no deviated nasal septum. There is no inflammation nasal mucous membrane. MOUTH: Mucous membranes of mouth are moist. There is no ulcers or bleeding from the gums. THROAT: There is no redness of the oropharynx. There is no exudates. SKIN: There is no skin rashes. There is no skin lesions. There is no petechia or ecchymosis. NECK: Is supple there is no JVD carotids are equal there is no bruit there is no lymphadenopathy the. There is no goiter. Trachea central. There is no accessory muscles of respiration use. LUNGS: Is clear to auscultation percussion without any rhonchi or wheezing. On palpation there is no chest wall tenderness there is dry crackles in the left base.. HEART: S1-S2 is heard. There is no S3 gallop. There is no S4 gallop. There is systolic murmur left sternal border and apex. There is no rub. ABDOMEN: Soft. Nontender there is no paraspinal megaly. Bowel sounds are well heard. EXTREMITIES: Femorals are slightly diminished. Leg pulses are well felt. There is no pedal edema. There is no DVT or cellulitis. There is no cyanosis or clubbing. DIESEL INSTRUCTOR: The patient is a slow mentation but without any focal deficits. Psychiatric: The patient's affect is withdrawn. She does not appear to be agitated or anxious. INTRAVENOUS Lexiscan Cardiolite Stress TEST RESULTS: There is no evidence of reversible ischemia. There is a small area of myocardial infarction/scar involving the apical inferolateral wall. Labs- All tests 24 hr 03/11/20 21:21 Sodium 144.1 Potassium 3.4 L Chloride 113 H Carbon Dioxide 22 Anion Gap 9 BUN 29 H Creatinine 1.48 H Est GFR ( Amer) 44 L Est GFR (MDRD) Non-Af 36 L Glucose 173 H Calcium 8.2 L Total Bilirubin 3.5 H Direct Bilirubin 2.4 H Neonat Total Bilirubin Not Reportable Neonat Direct Bilirubin Not Reportable Neonat Indirect Bili Not Reportable AST 57 H ALT 67 H Alkaline Phosphatase 125 Total Protein 5.5 L Albumin 2.7 L Chest X-Ray 02/29/20 15:58 IMPRESSION: Stable appearance of the chest. No acute radiographic abnormality or significant interval change. Chest X-Ray 03/03/20 00:00 IMPRESSION: CENTRAL LINE DESCRIBED. NO PNEUMOTHORAX. NO ACUTE FINDINGS. Chest/Abdomen CTA 03/03/20 00:00 IMPRESSION: There is no pulmonary embolus. There is no aortic aneurysm or dissection. Mild atelectatic changes bilaterally, left more than right. Chest X-Ray 03/06/20 00:00 IMPRESSION: Increasing consolidation/ atelectasis at the left lung base with small left effusion. Chest X-Ray 03/11/20 15:15 IMPRESSION: Persistent basilar infiltrates left greater than right. No significant change from prior study. Central line remains in place overlying the innominate vein. IMPRESSION/RECOMMENDATION.: 1.. CHEST pain: Reproducible chest wall pain. But patient is a poor historian. There is no major EKG changes although there are some nonspecific changes in the inferior leads. Will get serial troponins and serial EKGs. Will continue Nitr opaste. This has been discussed with Dr. Gerber covering for Dr. Hanson.. 2. Anemia: Secondary to sickle cell disease. Hemoglobin stable after transfusion. Await stool occult blood reports. Hemoglobin stable. 3. Non-ST elevation [place]. Her troponin came back at less than the range for a non-ST elevation [place]. The patient's stress testing showed no reversible ischemia. There is a small area of infarction involving the apical inferolateral wall. This has been discussed with the patient. We will continue medical treatment of CAD. 4. PNEUMONIA: Chest x-ray today shows left lower lobe pneumonia. THe patient's CTA of the chest being negative for pulmonary emboli. 5.. Acute renal failure: Would avoid nephrotoxic medication. No seems to be stage III chronic kidney disease. GFR is improved to 41. 6. Elevated troponin levels. The patient's troponin trended down. 7. Klebsiella cystitis. The patient is on antibiotics for this and also possible aspiration. Though at present no evidence of pneumonia. 8.S/p brief cardiac arrest. Patient noted to be in pulseless electrical activity. Spontaneous return of circulation with brief CPR and epinephrine. 9.. Thrombocytopenia: We will see the platelets after stopping Lovenox. No definite evidence of HIT. This is resolved. 10. Sickle cell crisis: Seems to have resolved. Continue hydration. Hematology on the case. Medications reviewed. Medications added. Medical regimen management plan, and results of stress test where discussed with Dr. Gerber covering Dr. Hanson. Medical decision making is of high complexity. 40 minutes spent on this patient with more than 50% time spent in direct patient care. Discussed with the patient . We will sign off and follow the patient in the office.
[2020-03-11 22:06] LABS: ALBUMIN 2.7 g/dL (3.5-5.0); ALKALINE PHOSPHATASE 125 U/L (38-126); ANION GAP 9 (5-19); ASPARTATE AMINO TRANSFERASE 57 U/L (14-36); BILIRUBIN,DIRECT 2.4 mg/dL (0.0-0.4); BILIRUBIN,TOTAL 3.5 mg/dL (0.2-1.3); BLOOD UREA NITROGEN 29 mg/dL (7-20); CALCIUM 8.2 mg/dL (8.4-10.2); CARBON DIOXIDE 22 mmol/L (22-30); CHLORIDE 113 mmol/L (98-107); GLUCOSE 173 mg/dL (75-110); POTASSIUM 3.4 mmol/L (3.6-5.0); TOTAL PROTEIN 5.5 g/dL (6.3-8.2)
[2020-03-11 23:43] LABS: HEMATOCRIT 30.9 % (36.0-47.0); HEMOGLOBIN 10.6 g/dL (12.0-15.5); MEAN CORPUSCULAR HEMOGLOBIN 29.1 pg (27.0-33.4); MEAN CORPUSCULAR HGB CONC 34.3 g/dL (32.0-36.0); MEAN CORPUSCULAR VOLUME 85 fl (80-97); PLATELET COUNT 371 10^3/uL (150-450); RED BLOOD COUNT 3.63 10^6/uL (3.72-5.28); RED CELL DISTRIBUTION WIDTH 18.4 % (11.5-14.0); WHITE BLOOD COUNT 22.8 10^3/uL (4.0-10.5)
[2020-03-12 00:32] LABS: ABSOLUTE LYMPHOCYTES# (MANUAL) 0.9 10^3/uL (0.5-4.7); ABSOLUTE MONOCYTES # (MANUAL) 1.6 10^3/uL (0.1-1.4); BASOPHILS % (MANUAL) 0 % (0-2); EOSINOPHILS % (MANUAL) 1 % (0-6); LYMPHOCYTES % (MANUAL) 4 % (13-45); MONOCYTES % (MANUAL) 7 % (3-13); SEGMENTED NEUTROPHILS % (MAN) 88 % (42-78); TOTAL CELLS COUNTED 100
[2020-03-12 00:33] LABS: POLYCHROMASIA SLIGHT; TOXIC GRANULATION SLIGHT
[2020-03-12 00:34] LABS: ANISOCYTOSIS 2+; BURR CELLS SLIGHT; OVALOCYTES SLIGHT; PLATELET COMMENT ADEQUATE; POIKILOCYTOSIS SLIGHT; SCHISTOCYTES SLIGHT; SICKLE RED CELLS SLIGHT; TARGET CELLS SLIGHT; TEAR DROP CELLS SLIGHT
--- NOTE | 2020-03-12 00:47 | DRAGON STRESS TEST REPORT ---
Intravenous Lexiscan Cardiolite stress test using single photon emmision computerized tomography. Date of procedure: 03/11/2020 Ordering Provider: Dr. Hanson. PATIENT STATUS: In Patient. Indication: Chest pain and non-ST elevation IA.. Coronary risk factors: Age, hypertension,. Resting EKG: Sinus Rhythm. T inversion in anterior leads consistent with ischemia. Stress EKG: No changes of ischemia. The patient had no chest pain discomfort and there was no arrhythmias seen. Reason for termination: Protocol. Conclusions: Normal EKG and hemodynamic response to IV Lexiscan. Nuclear data: At rest the patient was given 12.77 millicuries of technetium 99m sestamibi injected intravenously. As per protocol rest non gated SPECT images were obtained. Subsequently the patient was given intravenous Lexiscan at a dose of 0.4 mg in 5 mL intravenously, followed by flush with normal saline. Subsequently the stress dose of 39.3 millicuries of technetium 99m sestamibi was injected intravenously. As per protocol stress gated images were obtained. Nuclear interpretation: Review of images showed that there is a small perfusion defect involving the small area of the apical inferolateral wall in both the rest and stress images. This small area has decreased motion contraction and thickening by gated study. This is consistent with a myocardial infarction/scar. The rest of the segments of the myocardium had normal perfusion at rest, and normal perfusion post stress with IV Lexiscan. The rest of the segments of the myocardium had normal motion, contraction, and thickening by gated study. T. I D. ratio was normal at 0.89. There is no transient ischemic dilatation of the left ventricle. Computer read rest, and stress left ventricular ejection fraction were 60%, and 64%, respectively. . Conclusion: 1. There is no scintigraphic evidence of Lexiscan induced myocardial ischemia. 2. There is scintigraphic evidence of myocardial infarction/scar involving a small area in the apical inferolateral wall. Recommendations: Aggressive treatment of coronary artery disease, and aggressive risk factor modification, and treating the underlying co- morbidities. MTDD
[2020-03-12] MEDS: PANTOPRAZOLE SODIUM 40 MG TABLET.DR PO SCH (05:48)
[2020-03-12 07:31] LABS: HEMATOCRIT 32.7 % (36.0-47.0); HEMOGLOBIN 11.1 g/dL (12.0-15.5); MEAN CORPUSCULAR HEMOGLOBIN 28.8 pg (27.0-33.4); MEAN CORPUSCULAR HGB CONC 34.1 g/dL (32.0-36.0); MEAN CORPUSCULAR VOLUME 85 fl (80-97); PLATELET COUNT 381 10^3/uL (150-450); RED BLOOD COUNT 3.86 10^6/uL (3.72-5.28); RED CELL DISTRIBUTION WIDTH 17.7 % (11.5-14.0); WHITE BLOOD COUNT 21.9 10^3/uL (4.0-10.5)
[2020-03-12 07:56] LABS: ALBUMIN 2.6 g/dL (3.5-5.0); ALKALINE PHOSPHATASE 103 U/L (38-126); ANION GAP 8 (5-19); ASPARTATE AMINO TRANSFERASE 45 U/L (14-36); BILIRUBIN,TOTAL 3.2 mg/dL (0.2-1.3); BLOOD UREA NITROGEN 29 mg/dL (7-20); CARBON DIOXIDE 24 mmol/L (22-30); CHLORIDE 111 mmol/L (98-107); GLUCOSE 114 mg/dL (75-110); POTASSIUM 3.3 mmol/L (3.6-5.0); TOTAL PROTEIN 5.3 g/dL (6.3-8.2)
[2020-03-12 09:03] LABS: ABSOLUTE MONOCYTES # (MANUAL) 1.8 10^3/uL (0.1-1.4); BASOPHILS % (MANUAL) 0 % (0-2); EOSINOPHILS % (MANUAL) 0 % (0-6); LYMPHOCYTES % (MANUAL) 9 % (13-45); MONOCYTES % (MANUAL) 8 % (3-13); SEGMENTED NEUTROPHILS % (MAN) 83 % (42-78); TOTAL CELLS COUNTED 100
[2020-03-12 09:18] LABS: ANISOCYTOSIS 1+; TOXIC GRANULATION SLIGHT
[2020-03-12 09:19] LABS: POIKILOCYTOSIS 1+; TARGET CELLS 1+
[2020-03-12 09:20] LABS: HYPOCHROMASIA SLIGHT; PLATELET COMMENT ADEQUATE
[2020-03-12] MEDS: ISOSORBIDE MONONITRATE 60 MG TAB.ER.24H PO SCH (09:46)
[2020-03-12] MEDS: ASPIRIN 81 MG TABLET, CHEWABLE PO SCH (09:46)
[2020-03-12] MEDS: ENOXAPARIN SODIUM INJ 40 MG/0.4 ML DISP.SYRIN SUBCUT SCH (09:46)
[2020-03-12] MEDS: ZINC SULFATE 220 MG CAPSULE PO SCH (09:46)
[2020-03-12] MEDS: METOPROLOL TARTRATE 25 MG TABLET PO SCH ×2 (09:49→21:30)
[2020-03-12] MEDS: ONDANSETRON HCL INJ/PF 4 MG/2 ML SDV IV PRN ×2 (10:01→21:29)
--- NOTE | 2020-03-12 13:06 | RADIOLOGY REPORT (SQ) ---
EXAM DESCRIPTION: CT CHEST WITHOUT IMAGES COMPLETED DATE/TIME: 03/12/2020 9:50 am REASON FOR STUDY: ? pneumonia COMPARISON: 03/03/2020 TECHNIQUE: CT scan performed of the chest without intravenous contrast. Images reviewed with lung, soft tissue and bone windows. Reconstructed coronal and sagittal MPR images reviewed. All images st ored on PACS. All CT scanners at this facility use dose modulation, iterative reconstruction, and/or weight based d osing when appropriate to reduce radiation dose to as low as reasonably achievable (ALARA). [facility]: Dose Right [facility]: CareDose [facility]: Dose Right [facility]: Teradose 4D [facility]: [employer] RADIATION DOSE: CT Rad equipment meets quality standard of care and radiation dose reduction techniq ues were employed. CTDIvol: 12.2 mGy. DLP: 493 mGy-cm. mGy. LIMITATIONS: Mild motion artifact. FINDINGS: LUNGS AND PLEURA: Progression in left lower lobe consolidation and opacities in the left u pper lobe. Findings may be due to combination of infection and atelectasis. Mild consolidation post erior right lower lobe is also increased from prior. Hyperdense reticulonodular opacities in the leroy g bases again demonstrated. Small bilateral pleural effusions, left larger than right. No pneumotho rax. HILAR AND MEDIASTINAL STRUCTURES: No identified masses or abnormal nodes. No obvious aneurysm. HEART AND VASCULAR STRUCTURES: Trace pericardial effusion. UPPER ABDOMEN: No acute abnormality. Stable chronic findings. THYROID AND OTHER SOFT TISSUES: Visualized thyroid gland is unremarkable. There is mild diffuse subc utaneous edema. BONES: Some mild heterogeneous changes in the humeral heads could be in part due to degenerative marin ge or avascular necrosis. Preserved contour. HARDWARE: None in the chest. OTHER: No other significant findings. IMPRESSION: 1. Progression in bilateral opacities/consolidation which may be due to combination of infection and atelectasis. Small bilateral pleural effusions, left larger than right. TECHNICAL DOCUMENTATION: JOB ID: [id number] Quality ID # [id number]: Final reports with documentation of one or more dose reduction techniques (e.g., Au tomated exposure control, adjustment of the mA and/or kV according to patient size, use of iterative reconstruction technique) 2010 [employer]- All Rights Reserved Reading location - IP/workstation name: [email or web address]
[2020-03-12] MEDS ORDERED: VANCOMYCIN HCL 0 MG in DEXTROSE 5%-WATER 250 ML IV NR (14:00)
--- NOTE | 2020-03-12 15:11 | PDOC PROGRESS REPORT ---
Subjective Date:: 03/12/20 Subjective:: Patient seen by the bedside, she has persistent leukocytosis, the plan was for p atient to be discharged home today but she looks clinically worse than yesterday she was persistently coughing, with nausea, asking for a bag to vomit into. CT chest without contrast was obtained demonstrated progression in the left lower lobe consolidation, opacities in the left upper lobe. Findings said to be due to combination of infection or atelectasis. Mild consolidation in the posterior right lower lobe also increased from prior. Hyperdense liquid nodule opacities in the lung bases demonstrated. Chest x-ray from yesterday suggest that patient may have atelectasis, incentive spirometry was encouraged, but today's CT scan is demonstrating progression of infiltrate most likely this is hospital-acquired pneumonia or aspiration pneumonia. Patient has been very drowsy in the last few days, yesterday I DC all BILINGUAL LEGAL ASSISTANT acting medication including Phenergan, haloperidol, Benadryl.Patient insist on going home today, I explained to her that I do not feel that she is safe to be discharged home today because of worsening pneumonia on CT scan and also persistent leukocytosis and the patient has sickle cell disease, she is at high risk of complication. Reason For Visit: SICKLE CELL PAIN CRISIS Physical Exam Vital Signs: Temp Pulse Resp BP Pulse Ox 97.5 F 59 L 16 175/74 H 94 03/12/20 07:52 03/12/20 13:22 03/12/20 13:22 03/12/20 07:52 03/12/20 13:22 Intake & Output 03/11/20 03/12/20 03/13/20 06:59 06:59 06:59 Intake Total 1700 1338 240 Balance 1700 1338 240 Weight 91.7 kg 91.7 kg 91.7 kg General appearance: PRESENT: mild distress Eye exam: PRESENT: PERRLA Respiratory exam: PRESENT: rales Cardiovascular exam: PRESENT: +S1, +S2 Murmur grade: 3 Neurological exam: PRESENT: alert Results Laboratory Results: 03/12/20 06:23 03/12/20 06:23 03/11/20 03/11/20 03/12/20 21:21 22:47 06:23 WBC 22.8 H 21.9 H RBC 3.63 L 3.86 Hgb 10.6 L 11.1 L Hct 30.9 L 32.7 L MCV 85 85 MCH 29.1 28.8 MCHC 34.3 34.1 RDW 18.4 H 17.7 H Plt Count 371 381 Seg Neutrophils % Not Reportable Not Reportable Sodium 144.1 Potassium 3.4 L Chloride 113 H Carbon Dioxide 22 Anion Gap 9 BUN 29 H Creatinine 1.48 H Est GFR ( Amer) 44 L Glucose 173 H Calcium 8.2 L Total Bilirubin 3.5 H AST 57 H Alkaline Phosphatase 125 Total Protein 5.5 L Albumin 2.7 L 03/12/20 06:23 WBC RBC Hgb Hct MCV MCH MCHC RDW Plt Count Seg Neutrophils % Sodium 143.4 Potassium 3.3 L Chloride 111 H Carbon Dioxide 24 Anion Gap 8 BUN 29 H Creatinine 1.45 H Est GFR ( Amer) 45 L Glucose 114 H Calcium 8.0 L Total Bilirubin 3.2 H AST 45 H Alkaline Phosphatase 103 Total Protein 5.3 L Albumin 2.6 L 02/29/20 02/29/20 03/01/20 16:40 16:40 15:42 Creatine Kinase 51 136 H CK-MB (CK-2) Troponin I 0.034 NT-Pro-B Natriuret Pep 03/01/20 03/02/20 03/02/20 15:42 18:31 18:31 Creatine Kinase 730 H CK-MB (CK-2) 5.24 H Troponin I 0.617 0.670 NT-Pro-B Natriuret Pep 03/03/20 03/03/20 03/03/20 00:27 00:27 05:49 Creatine Kinase 662 H 840 H CK-MB (CK-2) 4.23 Troponin I 0.600 NT-Pro-B Natriuret Pep 03/03/20 03/07/20 03/07/20 05:49 10:05 13:35 Creatine Kinase 94 CK-MB (CK-2) 4.22 Troponin I 0.638 0.049 NT-Pro-B Natriuret Pep 03/07/20 03/07/20 03/07/20 13:35 21:55 21:55 Creatine Kinase 71 CK-MB (CK-2) 0.27 0.27 Troponin I 0.050 0.046 NT-Pro-B Natriuret Pep 03/08/20 03/08/20 03/08/20 04:12 04:12 14:25 Creatine Kinase 64 CK-MB (CK-2) 0.41 Troponin I 0.082 NT-Pro-B Natriuret Pep 4970 H Impressions: Chest/Abdomen CTA 03/03/20 00:00 IMPRESSION: There is no pulmonary embolus. There is no aortic aneurysm or dissection. Mild atelectatic changes bilaterally, left more than right. Chest X-Ray 03/11/20 15:15 IMPRESSION: Persistent basilar infiltrates left greater than right. No significant change from prior study. Central line remains in place overlying the innominate vein. Chest CT 03/12/20 00:00 IMPRESSION: 1. Progression in bilateral opacities/consolidation which may be due to combination of infection and atelectasis. Small bilateral pleural effusions, left larger than right. Assessment & Plan - Diagnosis (1) Vaso-occlusive pain due to sickle cell disease Is this a current diagnosis for this admission?: Yes Plan: Continue present treatment (2) Elevated troponin Is this a current diagnosis for this admission?: Yes Plan: The Lexiscan Cardiolite stress test negative for acute reversibility to suggest ischemic heart disease. The test suggests old [place], preserved ejection fraction of left ventricle (3) Cystitis, unspecified without hematuria Is this a current diagnosis for this admission?: Yes (4) Acute respiratory failure with hypoxia Is this a current diagnosis for this admission?: Yes (5) Atelectasis, bilateral Is this a current diagnosis for this admission?: Yes (6) Nosocomial pneumonia Is this a current diagnosis for this admission?: Yes Plan: She has nosocomial pneumonia start IV antibiotic to cover MRSA, gram-negative organisms, anaerobes, she will be started on IV Zosyn, vancomycin, - Time Time Spent with patient: 35 or more minutes Level of Care: IMCU Medications reviewed and adjusted accordingly: Yes Anticipated discharge: Home Anticipated DC Timeframe: Other
[2020-03-12] MEDS: PIPERACILLIN SODIUM/TAZOBACTAM 3.375 GM in NORMAL SALINE 100 ML IV SCH ×2 (15:43→21:29)
[2020-03-12] MEDS ORDERED: VANCOMYCIN HCL 1,500 MG in DEXTROSE 5%-WATER 250 ML IV ONE (18:00)
[2020-03-13] MEDS: OXYCODONE-ACETAMINOPHEN 5-325 MG TABLET PO PRN (02:19)
[2020-03-13] MEDS: PIPERACILLIN SODIUM/TAZOBACTAM 3.375 GM in NORMAL SALINE 100 ML IV SCH ×4 (02:20→22:48)
[2020-03-13] MEDS: PANTOPRAZOLE SODIUM 40 MG TABLET.DR PO SCH (05:20)
[2020-03-13] MEDS: ISOSORBIDE MONONITRATE 60 MG TAB.ER.24H PO SCH (09:14)
[2020-03-13] MEDS: ASPIRIN 81 MG TABLET, CHEWABLE PO SCH (09:14)
[2020-03-13] MEDS: ZINC SULFATE 220 MG CAPSULE PO SCH (09:14)
[2020-03-13] MEDS: METOPROLOL TARTRATE 25 MG TABLET PO SCH ×2 (09:15→22:49)
[2020-03-13] MEDS: ENOXAPARIN SODIUM INJ 40 MG/0.4 ML DISP.SYRIN SUBCUT SCH (09:17)
[2020-03-13] MEDS: ONDANSETRON HCL INJ/PF 4 MG/2 ML SDV IV PRN (13:19)
[2020-03-13 15:41] LABS: HEMOGLOBIN 11.5 g/dL (12.0-15.5); MEAN CORPUSCULAR HEMOGLOBIN 28.3 pg (27.0-33.4); MEAN CORPUSCULAR HGB CONC 33.7 g/dL (32.0-36.0); MEAN CORPUSCULAR VOLUME 84 fl (80-97); PLATELET COUNT 352 10^3/uL (150-450); RED BLOOD COUNT 4.05 10^6/uL (3.72-5.28); RED CELL DISTRIBUTION WIDTH 17.2 % (11.5-14.0)
[2020-03-13 15:54] LABS: ALBUMIN 2.6 g/dL (3.5-5.0); ALKALINE PHOSPHATASE 93 U/L (38-126); ANION GAP 6 (5-19); ASPARTATE AMINO TRANSFERASE 42 U/L (14-36); BILIRUBIN,DIRECT 1.5 mg/dL (0.0-0.4); BILIRUBIN,TOTAL 2.5 mg/dL (0.2-1.3); BLOOD UREA NITROGEN 24 mg/dL (7-20); CALCIUM 7.8 mg/dL (8.4-10.2); CARBON DIOXIDE 28 mmol/L (22-30); CHLORIDE 106 mmol/L (98-107); GLUCOSE 163 mg/dL (75-110); POTASSIUM 3.3 mmol/L (3.6-5.0); TOTAL PROTEIN 5.6 g/dL (6.3-8.2)
[2020-03-13 16:24] LABS: ABSOLUTE LYMPHOCYTES# (MANUAL) 2.6 10^3/uL (0.5-4.7); ABSOLUTE MONOCYTES # (MANUAL) 1.8 10^3/uL (0.1-1.4); BASOPHILS % (MANUAL) 1 % (0-2); EOSINOPHILS % (MANUAL) 3 % (0-6); LYMPHOCYTES % (MANUAL) 12 % (13-45); MONOCYTES % (MANUAL) 8 % (3-13); NUCLEATED RED BLOOD CELLS 6 /100 WBC (0); SEGMENTED NEUTROPHILS % (MAN) 76 % (42-78); TOTAL CELLS COUNTED 100
[2020-03-13 16:25] LABS: ANISOCYTOSIS 1+; PLATELET CLUMPS PRESENT; PLATELET COMMENT ADEQUATE
[2020-03-13 16:33] LABS: POLYCHROMASIA SLIGHT; TARGET CELLS 2+
[2020-03-13 16:36] LABS: POIKILOCYTOSIS 2+
[2020-03-13] MEDS: POTASSI CL 20 MEQ/50 ML RIDER 20 MEQ/50 ML RTUPB IV SCH ×2 (18:53→22:48)
[2020-03-13] MEDS: VANCOMYCIN HCL 1,250 MG in DEXTROSE 5%-WATER 250 ML IV SCH (18:54)
--- NOTE | 2020-03-13 20:34 | RADIOLOGY REPORT (SQ) ---
EXAM DESCRIPTION: X-RAY CHEST- One View CLINICAL HISTORY: History of pneumonia. COMPARISON: March 11, 2020 TECHNIQUE: Single view of the chest. FINDINGS: There are overlying EKG leads. Tip of left central line appears in stable positioning. There are persistent left greater than right bibasilar opacities with blunting of the bilateral costophrenic angles. Prominence of the bilateral hilar regions is again noted. The cardiomediastinal silhouette is stable in size. Osseous structures are unchanged. IMPRESSION: 1. Persistent and stable appearance of bibasilar disease with evidence of small bilateral pleural effusions. 2. Stable positioning of left-sided central line.
--- NOTE | 2020-03-13 21:30 | PDOC PROGRESS REPORT ---
Subjective Date:: 03/13/20 Subjective:: Patient seen by the bedside, she still wants to go home despite severe leukocyto sis, Pneumonia, sickle cell disease, I am not convinced it is safe to discharge her home yet Reason For Visit: SICKLE CELL PAIN CRISIS Physical Exam Vital Signs: Temp Pulse Resp BP Pulse Ox 98.1 F 76 18 160/69 H 95 03/13/20 20:57 03/13/20 20:57 03/13/20 20:57 03/13/20 20:57 03/13/20 20:57 Intake & Output 03/12/20 03/13/20 03/14/20 06:59 06:59 06:59 Intake Total 1338 1190 354 Balance 1338 1190 354 Weight 91.7 kg 90 kg General appearance: PRESENT: no acute distress Eye exam: PRESENT: PERRLA Respiratory exam: PRESENT: stridor Cardiovascular exam: PRESENT: +S1, +S2 Murmur grade: 3 GI/Abdominal exam: PRESENT: soft Neurological exam: PRESENT: alert Results Laboratory Results: 03/13/20 14:55 03/13/20 14:55 03/13/20 03/13/20 14:55 14:55 WBC 22.0 H RBC 4.05 Hgb 11.5 L Hct 34.0 L MCV 84 MCH 28.3 MCHC 33.7 RDW 17.2 H Plt Count 352 Seg Neutrophils % Not Reportable Sodium 139.8 Potassium 3.3 L Chloride 106 Carbon Dioxide 28 Anion Gap 6 BUN 24 H Creatinine 1.49 H Est GFR ( Amer) 43 L Glucose 163 H Calcium 7.8 L Total Bilirubin 2.5 H AST 42 H Alkaline Phosphatase 93 Total Protein 5.6 L Albumin 2.6 L 02/29/20 02/29/20 03/01/20 16:40 16:40 15:42 Creatine Kinase 51 136 H CK-MB (CK-2) Troponin I 0.034 NT-Pro-B Natriuret Pep 03/01/20 03/02/20 03/02/20 15:42 18:31 18:31 Creatine Kinase 730 H CK-MB (CK-2) 5.24 H Troponin I 0.617 0.670 NT-Pro-B Natriuret Pep 03/03/20 03/03/20 03/03/20 00:27 00:27 05:49 Creatine Kinase 662 H 840 H CK-MB (CK-2) 4.23 Troponin I 0.600 NT-Pro-B Natriuret Pep 03/03/20 03/07/20 03/07/20 05:49 10:05 13:35 Creatine Kinase 94 CK-MB (CK-2) 4.22 Troponin I 0.638 0.049 NT-Pro-B Natriuret Pep 03/07/20 03/07/20 03/07/20 13:35 21:55 21:55 Creatine Kinase 71 CK-MB (CK-2) 0.27 0.27 Troponin I 0.050 0.046 NT-Pro-B Natriuret Pep 03/08/20 03/08/20 03/08/20 04:12 04:12 14:25 Creatine Kinase 64 CK-MB (CK-2) 0.41 Troponin I 0.082 NT-Pro-B Natriuret Pep 4970 H Impressions: Chest/Abdomen CTA 03/03/20 00:00 IMPRESSION: There is no pulmonary embolus. There is no aortic aneurysm or diss ection. Mild atelectatic changes bilaterally, left more than right. Chest CT 03/12/20 00:00 IMPRESSION: 1. Progression in bilateral opacities/consolidation which may be due to combination of infection and atelectasis. Small bilateral pleural effusions, left larger than right. Chest X-Ray 03/13/20 00:00 IMPRESSION: 1. Persistent and stable appearance of bibasilar disease with evidence of small bilateral pleural effusions. 2. Stable positioning of left-sided central line. Assessment & Plan - Diagnosis (1) Vaso-occlusive pain due to sickle cell disease Is this a current diagnosis for this admission?: Yes Plan: Continue present treatment (2) Elevated troponin Is this a current diagnosis for this admission?: Yes Plan: The Lexiscan Cardiolite stress test negative for acute reversibility to suggest ischemic heart disease. The test suggests old [place], preserved ejection fraction of left ventricle (3) Cystitis, unspecified without hematuria Is this a current diagnosis for this admission?: Yes (4) Acute respiratory failure with hypoxia Is this a current diagnosis for this admission?: Yes (5) Atelectasis, bilateral Is this a current diagnosis for this admission?: Yes (6) Nosocomial pneumonia Is this a current diagnosis for this admission?: Yes Plan: She has nosocomial pneumonia start IV antibiotic to cover MRSA, gram-negative organisms, anaerobes, she will continue IV Zosyn, vancomycin, - Time Time Spent with patient: 35 or more minutes Level of Care: IMCU Medications reviewed and adjusted accordingly: Yes Anticipated discharge: Home Anticipated DC Timeframe: within 72 hours
[2020-03-13] MEDS: POTASSIUM CHLORIDE 10 MEQ TABLET.ER PO SCH (22:49)
[2020-03-14] MEDS: PIPERACILLIN SODIUM/TAZOBACTAM 3.375 GM in NORMAL SALINE 100 ML IV SCH ×4 (03:07→22:22)
[2020-03-14] MEDS: ONDANSETRON HCL INJ/PF 4 MG/2 ML SDV IV PRN (04:22)
[2020-03-14 04:48] LABS: HEMATOCRIT 31.1 % (36.0-47.0); HEMOGLOBIN 10.5 g/dL (12.0-15.5); MEAN CORPUSCULAR HEMOGLOBIN 28.5 pg (27.0-33.4); MEAN CORPUSCULAR HGB CONC 33.7 g/dL (32.0-36.0); MEAN CORPUSCULAR VOLUME 84 fl (80-97); PLATELET COUNT 467 10^3/uL (150-450); RED BLOOD COUNT 3.69 10^6/uL (3.72-5.28); RED CELL DISTRIBUTION WIDTH 17.6 % (11.5-14.0)
[2020-03-14 05:27] LABS: ABSOLUTE MONOCYTES # (MANUAL) 0.9 10^3/uL (0.1-1.4); ANISOCYTOSIS 1+; BASOPHILS % (MANUAL) 0 % (0-2); EOSINOPHILS % (MANUAL) 3 % (0-6); LYMPHOCYTES % (MANUAL) 9 % (13-45); MONOCYTES % (MANUAL) 4 % (3-13); NUCLEATED RED BLOOD CELLS 1 /100 WBC (0); PLATELET COMMENT INCREASED; POIKILOCYTOSIS 1+; SEGMENTED NEUTROPHILS % (MAN) 84 % (42-78); TARGET CELLS 1+; TOTAL CELLS COUNTED 100
[2020-03-14] MEDS: PANTOPRAZOLE SODIUM 40 MG TABLET.DR PO SCH ×2 (06:23→06:35)
[2020-03-14] MEDS: ISOSORBIDE MONONITRATE 60 MG TAB.ER.24H PO SCH (09:09)
[2020-03-14] MEDS: ZINC SULFATE 220 MG CAPSULE PO SCH (09:09)
[2020-03-14] MEDS: ASPIRIN 81 MG TABLET, CHEWABLE PO SCH (09:10)
[2020-03-14] MEDS: POTASSIUM CHLORIDE 10 MEQ TABLET.ER PO SCH ×2 (09:10→22:22)
[2020-03-14] MEDS: ENOXAPARIN SODIUM INJ 40 MG/0.4 ML DISP.SYRIN SUBCUT SCH (09:11)
[2020-03-14] MEDS: METOPROLOL TARTRATE 25 MG TABLET PO SCH ×2 (09:11→22:38)
--- NOTE | 2020-03-14 18:22 | PDOC PROGRESS REPORT ---
Subjective Date:: 03/14/20 Subjective:: Patient clinically is looking better, she wants to go home so bad but she is not stable enough yet for discharge, the white blood cell count still elevated at 22,000, consistently since the last 3 days, she is empirically on IV antibiotic that will cover potential pathogens including IV vancomycin, Zosyn. I explained to her that she needed to stay in the hospital Reason For Visit: SICKLE CELL PAIN CRISIS Physical Exam Vital Signs: Temp Pulse Resp BP Pulse Ox 98.4 F 70 17 150/68 H 92 03/14/20 16:15 03/14/20 16:15 03/14/20 16:15 03/14/20 16:15 03/14/20 16:15 Intake & Output 03/13/20 03/14/20 03/15/20 06:59 06:59 06:59 Intake Total 1190 1164 356 Balance 1190 1164 356 Weight 90 kg 88.5 kg 88.5 kg General appearance: PRESENT: no acute distress Eye exam: PRESENT: PERRLA Respiratory exam: PRESENT: clear to auscultation cesilia Cardiovascular exam: PRESENT: +S1, +S2 Murmur grade: 3 GI/Abdominal exam: PRESENT: soft Neurological exam: PRESENT: alert Results Laboratory Results: 03/14/20 04:00 03/13/20 14:55 03/14/20 04:00 WBC 22.0 H RBC 3.69 L Hgb 10.5 L Hct 31.1 L MCV 84 MCH 28.5 MCHC 33.7 RDW 17.6 H Plt Count 467 H Seg Neutrophils % Not Reportable 02/29/20 02/29/20 03/01/20 16:40 16:40 15:42 Creatine Kinase 51 136 H CK-MB (CK-2) Troponin I 0.034 NT-Pro-B Natriuret Pep 03/01/20 03/02/20 03/02/20 15:42 18:31 18:31 Creatine Kinase 730 H CK-MB (CK-2) 5.24 H Troponin I 0.617 0.670 NT-Pro-B Natriuret Pep 03/03/20 03/03/20 03/03/20 00:27 00:27 05:49 Creatine Kinase 662 H 840 H CK-MB (CK-2) 4.23 Troponin I 0.600 NT-Pro-B Natriuret Pep 03/03/20 03/07/20 03/07/20 05:49 10:05 13:35 Creatine Kinase 94 CK-MB (CK-2) 4.22 Troponin I 0.638 0.049 NT-Pro-B Natriuret Pep 03/07/20 03/07/20 03/07/20 13:35 21:55 21:55 Creatine Kinase 71 CK-MB (CK-2) 0.27 0.27 Troponin I 0.050 0.046 NT-Pro-B Natriuret Pep 03/08/20 03/08/20 03/08/20 04:12 04:12 14:25 Creatine Kinase 64 CK-MB (CK-2) 0.41 Troponin I 0.082 NT-Pro-B Natriuret Pep 4970 H Impressions: Chest/Abdomen CTA 03/03/20 00:00 IMPRESSION: There is no pulmonary embolus. There is no aortic aneurysm or dissection. Mild atelectatic changes bilaterally, left more than right. Chest CT 03/12/20 00:00 IMPRESSION: 1. Progression in bilateral opacities/consolidation which may be due to combination of infection and atelectasis. Small bilateral pleural effusions, left larger than right. Chest X-Ray 03/13/20 00:00 IMPRESSION: 1. Persistent and stable appearance of bibasilar disease with evidence of small bilateral pleural effusions. 2. Stable positioning of left-sided central line. Assessment & Plan - Diagnosis (1) Vaso-occlusive pain due to sickle cell disease Is this a current diagnosis for this admission?: Yes Plan: Continue present treatment (2) Elevated troponin Is this a current diagnosis for this admission?: Yes Plan: The Lexiscan Cardiolite stress test negative for acute reversibility to suggest ischemic heart disease. The test suggests old PA, preserved ejection fraction of left ventricle (3) Cystitis, unspecified without hematuria Is this a current diagnosis for this admission?: Yes (4) Acute respiratory failure with hypoxia Is this a current diagnosis for this admission?: Yes Plan: Patient requires supplemental oxygen (5) Atelectasis, bilateral Is this a current diagnosis for this admission?: Yes (6) Nosocomial pneumonia Is this a current diagnosis for this admission?: Yes Plan: She has nosocomial pneumonia start IV antibiotic to cover MRSA, gram-negative organisms, anaerobes, she will continue IV Zosyn, vancomycin, - Time Time Spent with patient: 35 or more minutes Level of Care: IMCU Medications reviewed and adjusted accordingly: Yes Anticipated discharge: Home Anticipated DC Timeframe: within 48 hours
[2020-03-14] MEDS: VANCOMYCIN HCL 1,250 MG in DEXTROSE 5%-WATER 250 ML IV SCH (18:49)
[2020-03-14] MEDS: TEMAZEPAM 15 MG CAPSULE PO SCH (22:22)
[2020-03-15] MEDS: PIPERACILLIN SODIUM/TAZOBACTAM 3.375 GM in NORMAL SALINE 100 ML IV SCH ×4 (04:00→22:04)
[2020-03-15] MEDS: PANTOPRAZOLE SODIUM 40 MG TABLET.DR PO SCH (05:17)
[2020-03-15] MEDS: ACETAMINOPHEN 325 MG TABLET PO PRN (06:18)
[2020-03-15] MEDS: IPRATROPIUM/ALBUTEROL 0.5-2.5 MG/3 ML AMPUL NEB PRN ×3 (06:34→11:34)
[2020-03-15] MEDS: POTASSIUM CHLORIDE 10 MEQ TABLET.ER PO SCH ×2 (09:21→22:01)
[2020-03-15] MEDS: GUAIFENESIN 600 MG TABLET.SA PO SCH ×3 (09:21→18:04)
[2020-03-15] MEDS: METOPROLOL TARTRATE 25 MG TABLET PO SCH ×2 (09:21→22:04)
[2020-03-15] MEDS: ZINC SULFATE 220 MG CAPSULE PO SCH (09:21)
[2020-03-15] MEDS: ASPIRIN 81 MG TABLET, CHEWABLE PO SCH (09:21)
[2020-03-15] MEDS: ENOXAPARIN SODIUM INJ 40 MG/0.4 ML DISP.SYRIN SUBCUT SCH (09:22)
[2020-03-15] MEDS: ISOSORBIDE MONONITRATE 60 MG TAB.ER.24H PO SCH (09:23)
[2020-03-15 12:35] LABS: ABSOLUTE BASOPHILS # (AUTO) 0.3 10^3/uL (0.0-0.2); ABSOLUTE EOSINOPHILS # (AUTO) 0.5 10^3/uL (0.0-0.6); ABSOLUTE LYMPHOCYTES (AUTO) 1.7 10^3/uL (0.5-4.7); ABSOLUTE MONOCYTES (AUTO) 1.6 10^3/uL (0.1-1.4); ABSOLUTE NEUT (AUTO) 14.9 10^3/uL (1.7-8.2); BASOPHILS % (AUTO) 1.8 % (0-2); EOSINOPHILS % (AUTO) 2.4 % (0-6); HEMATOCRIT 27.9 % (36.0-47.0); HEMOGLOBIN 9.4 g/dL (12.0-15.5); MEAN CORPUSCULAR HEMOGLOBIN 28.3 pg (27.0-33.4); MEAN CORPUSCULAR HGB CONC 33.6 g/dL (32.0-36.0); MEAN CORPUSCULAR VOLUME 84 fl (80-97); MONOCYTES % (AUTO) 8.2 % (3-13); PLATELET COUNT 476 10^3/uL (150-450); RED BLOOD COUNT 3.31 10^6/uL (3.72-5.28); RED CELL DISTRIBUTION WIDTH 17.4 % (11.5-14.0); SEGMENTED NEUTROPHILS % (AUTO) 78.6 % (42-78); TOTAL CELLS COUNTED % (AUTO) 100 %
[2020-03-15 12:53] LABS: ALBUMIN 2.5 g/dL (3.5-5.0); ALKALINE PHOSPHATASE 75 U/L (38-126); ANION GAP 6 (5-19); ASPARTATE AMINO TRANSFERASE 36 U/L (14-36); BILIRUBIN,DIRECT 1.1 mg/dL (0.0-0.4); BLOOD UREA NITROGEN 17 mg/dL (7-20); CALCIUM 7.5 mg/dL (8.4-10.2); CARBON DIOXIDE 24 mmol/L (22-30); CHLORIDE 109 mmol/L (98-107); GLUCOSE 105 mg/dL (75-110); TOTAL PROTEIN 5.4 g/dL (6.3-8.2)
--- NOTE | 2020-03-15 17:59 | PDOC PROGRESS REPORT ---
Subjective Date:: 03/15/20 Subjective:: Patient is seen by the bedside, she continues to improve clinically, the white b lood cell count today is 19,000, is on the downtrend, hopefully patient can be discharged home tomorrow if she remains stable Reason For Visit: SICKLE CELL PAIN CRISIS Physical Exam Vital Signs: Temp Pulse Resp BP Pulse Ox 98.3 F 65 16 121/63 87 L 03/15/20 11:26 03/15/20 14:00 03/15/20 11:34 03/15/20 11:26 03/15/20 11:34 Intake & Output 03/14/20 03/15/20 03/16/20 06:59 06:59 06:59 Intake Total 1164 606 Balance 1164 606 Weight 88.5 kg 88.5 kg General appearance: PRESENT: no acute distress Respiratory exam: PRESENT: clear to auscultation cesilia Cardiovascular exam: PRESENT: +S1, +S2 Murmur grade: 3 GI/Abdominal exam: PRESENT: soft Neurological exam: PRESENT: alert, CN II-XII grossly intact Results Laboratory Results: 03/15/20 12:20 03/15/20 12:20 03/15/20 03/15/20 12:20 12:20 WBC 19.0 H RBC 3.31 L Hgb 9.4 L Hct 27.9 L MCV 84 MCH 28.3 MCHC 33.6 RDW 17.4 H Plt Count 476 H Seg Neutrophils % 78.6 H Sodium 138.9 Potassium 4.0 Chloride 109 H Carbon Dioxide 24 Anion Gap 6 BUN 17 Creatinine 1.52 H Est GFR ( Amer) 42 L Glucose 105 Calcium 7.5 L Total Bilirubin 2.0 H AST 36 Alkaline Phosphatase 75 Total Protein 5.4 L Albumin 2.5 L 02/29/20 02/29/20 03/01/20 16:40 16:40 15:42 Creatine Kinase 51 136 H CK-MB (CK-2) Troponin I 0.034 NT-Pro-B Natriuret Pep 03/01/20 03/02/20 03/02/20 15:42 18:31 18:31 Creatine Kinase 730 H CK-MB (CK-2) 5.24 H Troponin I 0.617 0.670 NT-Pro-B Natriuret Pep 03/03/20 03/03/20 03/03/20 00:27 00:27 05:49 Creatine Kinase 662 H 840 H CK-MB (CK-2) 4.23 Troponin I 0.600 NT-Pro-B Natriuret Pep 03/03/20 03/07/20 03/07/20 05:49 10:05 13:35 Creatine Kinase 94 CK-MB (CK-2) 4.22 Troponin I 0.638 0.049 NT-Pro-B Natriuret Pep 03/07/20 03/07/20 03/07/20 13:35 21:55 21:55 Creatine Kinase 71 CK-MB (CK-2) 0.27 0.27 Troponin I 0.050 0.046 NT-Pro-B Natriuret Pep 03/08/20 03/08/20 03/08/20 04:12 04:12 14:25 Creatine Kinase 64 CK-MB (CK-2) 0.41 Troponin I 0.082 NT-Pro-B Natriuret Pep 4970 H Impressions: Chest/Abdomen CTA 03/03/20 00:00 IMPRESSION: There is no pulmonary embolus. There is no aortic aneurysm or dissection. Mild atelectatic changes bilaterally, left more than right. Chest CT 03/12/20 00:00 IMPRESSION: 1. Progression in bilateral opacities/consolidation which may be due to combination of infection and atelectasis. Small bilateral pleural effusions, left larger than right. Chest X-Ray 03/13/20 00:00 IMPRESSION: 1. Persistent and stable appearance of bibasilar disease with evidence of small bilateral pleural effusions. 2. Stable positioning of left-sided central line. Assessment & Plan - Diagnosis (1) Vaso-occlusive pain due to sickle cell disease Is this a current diagnosis for this admission?: Yes Plan: Continue present treatment (2) Elevated troponin Is this a current diagnosis for this admission?: Yes Plan: The Lexiscan Cardiolite stress test negative for acute reversibility to suggest ischemic heart disease. The test suggests old MD, preserved ejection fraction of left ventricle (3) Cystitis, unspecified without hematuria Is this a current diagnosis for this admission?: Yes (4) Acute respiratory failure with hypoxia Is this a current diagnosis for this admission?: Yes Plan: Patient requires supplemental oxygen (5) Atelectasis, bilateral Is this a current diagnosis for this admission?: Yes (6) Nosocomial pneumonia Is this a current diagnosis for this admission?: Yes Plan: She has nosocomial pneumonia start IV antibiotic to cover MRSA, gram-negative organisms, anaerobes, she will continue IV Zosyn, vancomycin, - Time Time Spent with patient: 35 or more minutes Level of Care: IMCU Medications reviewed and adjusted accordingly: Yes Anticipated discharge: Home Anticipated DC Timeframe: within 24 hours
[2020-03-15] MEDS: VANCOMYCIN HCL 1,250 MG in DEXTROSE 5%-WATER 250 ML IV SCH (18:03)
[2020-03-15] MEDS: TEMAZEPAM 15 MG CAPSULE PO SCH (22:01)
[2020-03-16] MEDS: ONDANSETRON HCL INJ/PF 4 MG/2 ML SDV IV PRN ×2 (01:36→12:59)
[2020-03-16] MEDS: PIPERACILLIN SODIUM/TAZOBACTAM 3.375 GM in NORMAL SALINE 100 ML IV SCH ×4 (02:31→21:11)
[2020-03-16] MEDS: PANTOPRAZOLE SODIUM 40 MG TABLET.DR PO SCH (05:43)
[2020-03-16] MEDS: ENOXAPARIN SODIUM INJ 40 MG/0.4 ML DISP.SYRIN SUBCUT SCH (09:14)
[2020-03-16] MEDS: ZINC SULFATE 220 MG CAPSULE PO SCH (09:15)
[2020-03-16] MEDS: ISOSORBIDE MONONITRATE 30 MG TAB.ER.24H PO SCH (09:17)
[2020-03-16] MEDS: POTASSIUM CHLORIDE 10 MEQ TABLET.ER PO SCH ×2 (09:17→21:11)
[2020-03-16] MEDS: ASPIRIN 81 MG TABLET, CHEWABLE PO SCH (09:17)
[2020-03-16] MEDS: METOPROLOL TARTRATE 25 MG TABLET PO SCH ×2 (09:18→21:12)
[2020-03-16] MEDS: GUAIFENESIN 600 MG TABLET.SA PO SCH ×2 (13:00→21:12)
[2020-03-16] MEDS: VANCOMYCIN HCL 1,250 MG in DEXTROSE 5%-WATER 250 ML IV SCH (17:24)
--- NOTE | 2020-03-16 21:06 | PDOC PROGRESS REPORT ---
Subjective Date:: 03/16/20 Subjective:: Patient maintain low grade fever. She is currently on IV Vancomycin and Zosyn th erapy. Breathing is okay off supplemental oxygen but reported intermittent coughing. No chills. No abdominal pain, nausea, or vomiting. Reason For Visit: SICKLE CELL PAIN CRISIS Physical Exam Vital Signs: Temp Pulse Resp BP Pulse Ox 99.3 F 68 14 134/75 H 90 L 03/16/20 11:24 03/16/20 11:53 03/16/20 11:53 03/16/20 11:24 03/16/20 11:53 Intake & Output 03/15/20 03/16/20 03/17/20 06:59 06:59 06:59 Intake Total 606 Output Total 525 Balance 606 -525 Weight 88.5 kg 88.9 kg Physical Exam: General appearance: PRESENT: no acute distress. Head exam: PRESENT: atraumatic, normocephalic Eye exam: PRESENT: Conjunctiva pink. ABSENT: pallor, sclera icterus Mouth exam: PRESENT: moist, tongue midline Respiratory exam: PRESENT: clear to auscultation cesilia, decrease breath sound at lung bases Cardiovascular exam: PRESENT: RRR, +S1, +S2, systolic murmur. ABSENT: diastolic murmur, rubs Murmur grade: 3 GI/Abdominal exam: PRESENT: normal bowel sounds, soft. ABSENT: tenderness Extremities/MSK exam: PRESENT: still expressed chest wall tenderness to palpation over sternal region. ABSENT: pedal edema Neurological exam: PRESENT: alert, awake, oriented to person, oriented to place, oriented to time, and oriented to situation. Psychiatric exam: ABSENT: agitated Skin exam: PRESENT: dry, intact, warm. ABSENT: cyanosis, rash Murmur grade: 3 Results Laboratory Results: 03/15/20 12:20 03/15/20 18:03 03/15/20 03/16/20 18:03 02:36 Creatinine 1.55 H Est GFR ( Amer) 41 L Stool Occult Blood POSITIVE 02/29/20 02/29/20 03/01/20 16:40 16:40 15:42 Creatine Kinase 51 136 H CK-MB (CK-2) Troponin I 0.034 NT-Pro-B Natriuret Pep 03/01/20 03/02/20 03/02/20 15:42 18:31 18:31 Creatine Kinase 730 H CK-MB (CK-2) 5.24 H Troponin I 0.617 0.670 NT-Pro-B Natriuret Pep 03/03/20 03/03/20 03/03/20 00:27 00:27 05:49 Creatine Kinase 662 H 840 H CK-MB (CK-2) 4.23 Troponin I 0.600 NT-Pro-B Natriuret Pep 03/03/20 03/07/20 03/07/20 05:49 10:05 13:35 Creatine Kinase 94 CK-MB (CK-2) 4.22 Troponin I 0.638 0.049 NT-Pro-B Natriuret Pep 03/07/20 03/07/20 03/07/20 13:35 21:55 21:55 Creatine Kinase 71 CK-MB (CK-2) 0.27 0.27 Troponin I 0.050 0.046 NT-Pro-B Natriuret Pep 03/08/20 03/08/20 03/08/20 04:12 04:12 14:25 Creatine Kinase 64 CK-MB (CK-2) 0.41 Troponin I 0.082 NT-Pro-B Natriuret Pep 4970 H Impressions: Chest/Abdomen CTA 03/03/20 00:00 IMPRESSION: There is no pulmonary embolus. There is no aortic aneurysm or dissection. Mild atelectatic changes bilaterally, left more than right. Chest CT 03/12/20 00:00 IMPRESSION: 1. Progression in bilateral opacities/consolidation which may be due to combination of infection and atelectasis. Small bilateral pleural effusions, left larger than right. Chest X-Ray 03/13/20 00:00 IMPRESSION: 1. Persistent and stable appearance of bibasilar disease with evidence of small bilateral pleural effusions. 2. Stable positioning of left-sided central line. Assessment & Plan - Diagnosis (1) Acute respiratory failure with hypoxemia Is this a current diagnosis for this admission?: Yes (2) Nosocomial pneumonia Is this a current diagnosis for this admission?: Yes Plan: Continue current antibiotic coverage. Obtain CBC with diff in am. 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 Qualified Code(s): D57.09 - Hb-SS disease with crisis with other specified complication Is this a current diagnosis for this admission?: Yes - Time Time Spent with patient: 15-24 minutes Level of Care: IMCU Medications reviewed and adjusted accordingly: Yes Anticipated discharge: Home with Homehealth Anticipated DC Timeframe: within 72 hours - Inpatient Certification Based on my medical assessment, after consideration of the patient's comorbidities, presenting symptoms, or acuity I expect that the services needed warrant INPATIENT care.: Yes I certify that my determination is in accordance with my understanding of Medicare's requirements for reasonable and necessary INPATIENT services [42 CFR 412.3e].: Yes Medical Necessity: Significant Comorbidiites Make Outpatient Treatment Too [place]is [place], Need Close Monitoring Due to Risk of Patient Decompensation, Need For IV Fluids, Need For Continuous Telemetry Monitoring, Need for IV Antibiotics, Risk of Complication if Not Cared For in Hospital, Risk of Diagnosis Which Will Require Inpatient Eval/Care/Monitoring Post Hospital Care: D/C Recycling Specialist Documentation - Plan Summary Plan Summary: Continue current medication management. Obtain CBC with diff and CMP in AM. Obtain respiratory therapist for chest physiotherapy, Incentive spirometer and flutter devices to aid expectoration
[2020-03-16] MEDS: TEMAZEPAM 15 MG CAPSULE PO SCH (21:11)
[2020-03-17] MEDS: PIPERACILLIN SODIUM/TAZOBACTAM 3.375 GM in NORMAL SALINE 100 ML IV SCH ×4 (02:26→21:51)
[2020-03-17] MEDS: ONDANSETRON HCL INJ/PF 4 MG/2 ML SDV IV PRN ×2 (02:55→12:47)
[2020-03-17] MEDS: PANTOPRAZOLE SODIUM 40 MG TABLET.DR PO SCH (05:27)
[2020-03-17] MEDS: GUAIFENESIN 600 MG TABLET.SA PO SCH ×3 (05:27→21:51)
[2020-03-17 07:10] LABS: ABSOLUTE BASOPHILS # (AUTO) 0.2 10^3/uL (0.0-0.2); ABSOLUTE EOSINOPHILS # (AUTO) 0.4 10^3/uL (0.0-0.6); ABSOLUTE LYMPHOCYTES (AUTO) 1.9 10^3/uL (0.5-4.7); ABSOLUTE MONOCYTES (AUTO) 1.3 10^3/uL (0.1-1.4); ABSOLUTE NEUT (AUTO) 13.1 10^3/uL (1.7-8.2); BASOPHILS % (AUTO) 1.3 % (0-2); EOSINOPHILS % (AUTO) 2.4 % (0-6); HEMATOCRIT 27.1 % (36.0-47.0); HEMOGLOBIN 9.3 g/dL (12.0-15.5); LYMPHOCYTES % (AUTO) 11.1 % (13-45); MEAN CORPUSCULAR HEMOGLOBIN 28.9 pg (27.0-33.4); MEAN CORPUSCULAR HGB CONC 34.3 g/dL (32.0-36.0); MEAN CORPUSCULAR VOLUME 84 fl (80-97); MONOCYTES % (AUTO) 7.8 % (3-13); PLATELET COUNT 418 10^3/uL (150-450); RED BLOOD COUNT 3.22 10^6/uL (3.72-5.28); RED CELL DISTRIBUTION WIDTH 17.5 % (11.5-14.0); SEGMENTED NEUTROPHILS % (AUTO) 77.4 % (42-78); TOTAL CELLS COUNTED % (AUTO) 100 %; WHITE BLOOD COUNT 16.9 10^3/uL (4.0-10.5)
[2020-03-17 07:30] LABS: ALBUMIN 2.5 g/dL (3.5-5.0); ALKALINE PHOSPHATASE 67 U/L (38-126); ANION GAP 7 (5-19); ASPARTATE AMINO TRANSFERASE 39 U/L (14-36); BILIRUBIN,DIRECT 1.1 mg/dL (0.0-0.4); BILIRUBIN,TOTAL 1.8 mg/dL (0.2-1.3); BLOOD UREA NITROGEN 18 mg/dL (7-20); CALCIUM 7.5 mg/dL (8.4-10.2); CARBON DIOXIDE 24 mmol/L (22-30); CHLORIDE 106 mmol/L (98-107); GLUCOSE 99 mg/dL (75-110); POTASSIUM 4.5 mmol/L (3.6-5.0); TOTAL PROTEIN 5.4 g/dL (6.3-8.2)
[2020-03-17] MEDS: POTASSIUM CHLORIDE 10 MEQ TABLET.ER PO SCH ×2 (11:19→21:51)
[2020-03-17] MEDS: ASPIRIN 81 MG TABLET, CHEWABLE PO SCH (11:20)
[2020-03-17] MEDS: ISOSORBIDE MONONITRATE 30 MG TAB.ER.24H PO SCH (11:21)
[2020-03-17] MEDS: ENOXAPARIN SODIUM INJ 40 MG/0.4 ML DISP.SYRIN SUBCUT SCH (11:22)
[2020-03-17] MEDS: METOPROLOL TARTRATE 25 MG TABLET PO SCH ×2 (11:22→21:51)
[2020-03-17] MEDS: ZINC SULFATE 220 MG CAPSULE PO SCH (11:51)
[2020-03-17] MEDS: VANCOMYCIN HCL 1,250 MG in DEXTROSE 5%-WATER 250 ML IV SCH (17:48)
--- NOTE | 2020-03-17 18:11 | PDOC PROGRESS REPORT ---
Subjective Date:: 03/17/20 Subjective:: No reported significant elevated temperature so far today. No chills. No chest p ain r difficulty with breathing. No abdominal pain, nausea, or vomiting. Reason For Visit: SICKLE CELL PAIN CRISIS Physical Exam Vital Signs: Temp Pulse Resp BP Pulse Ox 97.8 F 72 16 142/78 H 100 03/17/20 15:49 03/17/20 15:49 03/17/20 15:49 03/17/20 15:49 03/17/20 15:49 Intake & Output 03/16/20 03/17/20 03/18/20 06:59 06:59 06:59 Intake Total 250 250 540 Output Total 525 Balance -275 250 540 Weight 88.9 kg 85.9 kg 85.9 kg Physical Exam: General appearance: PRESENT: no acute distress. Head exam: PRESENT: atraumatic, normocephalic Eye exam: PRESENT: Conjunctiva pink. ABSENT: pallor, sclera icterus Mouth exam: PRESENT: moist, tongue midline Respiratory exam: PRESENT: clear to auscultation cesilia, decrease breath sound at lung bases Cardiovascular exam: PRESENT: RRR, +S1, +S2, systolic murmur. ABSENT: diastolic murmur, rubs Murmur grade: 3 GI/Abdominal exam: PRESENT: normal bowel sounds, soft. ABSENT: tenderness Extremities/MSK exam: PRESENT: still expressed chest wall tenderness to palpation over sternal region. ABSENT: pedal edema Neurological exam: PRESENT: alert, awake, oriented to person, oriented to place, oriented to time, and oriented to situation. Psychiatric exam: ABSENT: agitated Skin exam: PRESENT: dry, intact, warm. ABSENT: cyanosis, rash Murmur grade: 3 Results Laboratory Results: 03/17/20 05:49 03/17/20 05:49 03/17/20 03/17/20 05:49 05:49 WBC 16.9 H RBC 3.22 L Hgb 9.3 L Hct 27.1 L MCV 84 MCH 28.9 MCHC 34.3 RDW 17.5 H Plt Count 418 Seg Neutrophils % 77.4 Sodium 136.7 L Potassium 4.5 Chloride 106 Carbon Dioxide 24 Anion Gap 7 BUN 18 Creatinine 1.59 H Est GFR ( Amer) 40 L Glucose 99 Calcium 7.5 L Total Bilirubin 1.8 H AST 39 H Alkaline Phosphatase 67 Total Protein 5.4 L Albumin 2.5 L 02/29/20 02/29/20 03/01/20 16:40 16:40 15:42 Creatine Kinase 51 136 H CK-MB (CK-2) Troponin I 0.034 NT-Pro-B Natriuret Pep 03/01/20 03/02/20 03/02/20 15:42 18:31 18:31 Creatine Kinase 730 H CK-MB (CK-2) 5.24 H Troponin I 0.617 0.670 NT-Pro-B Natriuret Pep 03/03/20 03/03/20 03/03/20 00:27 00:27 05:49 Creatine Kinase 662 H 840 H CK-MB (CK-2) 4.23 Troponin I 0.600 NT-Pro-B Natriuret Pep 03/03/20 03/07/20 03/07/20 05:49 10:05 13:35 Creatine Kinase 94 CK-MB (CK-2) 4.22 Troponin I 0.638 0.049 NT-Pro-B Natriuret Pep 03/07/20 03/07/20 03/07/20 13:35 21:55 21:55 Creatine Kinase 71 CK-MB (CK-2) 0.27 0.27 Troponin I 0.050 0.046 NT-Pro-B Natriuret Pep 03/08/20 03/08/20 03/08/20 04:12 04:12 14:25 Creatine Kinase 64 CK-MB (CK-2) 0.41 Troponin I 0.082 NT-Pro-B Natriuret Pep 4970 H Impressions: Chest/Abdomen CTA 03/03/20 00:00 IMPRESSION: There is no pulmonary embolus. There is no aortic aneurysm or dissection. Mild atelectatic changes bilaterally, left more than right. Chest CT 03/12/20 00:00 IMPRESSION: 1. Progression in bilateral opacities/consolidation which may be due to combination of infection and atelectasis. Small bilateral pleural effusions, left larger than right. Chest X-Ray 03/13/20 00:00 IMPRESSION: 1. Persistent and stable appearance of bibasilar disease with evidence of small bilateral pleural effusions. 2. Stable positioning of left-sided central line. 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 Qualified Code(s): D57.09 - Hb-SS disease with crisis with other specified complication Is this a current diagnosis for this admission?: Yes - Time Time Spent with patient: 25-34 minutes Level of Care: IMCU Medications reviewed and adjusted accordingly: Yes Anticipated discharge: Home with Homehealth Anticipated DC Timeframe: within 72 hours - Inpatient Certification Based on my medical assessment, after consideration of the patient's comorbidities, presenting symptoms, or acuity I expect that the services needed warrant INPATIENT care.: Yes I certify that my determination is in accordance with my understanding of Medicare's requirements for reasonable and necessary INPATIENT services [42 CFR 412.3e].: Yes Medical Necessity: Significant Comorbidiites Make Outpatient Treatment Too Risky, Need Close Monitoring Due to Risk of Patient Decompensation, Need For Co ntinuous Telemetry Monitoring, Need for IV Antibiotics, Risk of Complication if Not Cared For in Hospital, Risk of Diagnosis Which Will Require Inpatient Eval/Care/Monitoring Post Hospital Care: D/C Gi Technician Documentation - Plan Summary Plan Summary: Continue current medication management. Encouraged ambulation on medical floor.
[2020-03-17] MEDS: TEMAZEPAM 15 MG CAPSULE PO SCH (21:51)
[2020-03-18] MEDS: PIPERACILLIN SODIUM/TAZOBACTAM 3.375 GM in NORMAL SALINE 100 ML IV SCH ×4 (02:24→21:05)
[2020-03-18] MEDS: PANTOPRAZOLE SODIUM 40 MG TABLET.DR PO SCH (05:36)
[2020-03-18] MEDS: GUAIFENESIN 600 MG TABLET.SA PO SCH ×3 (05:36→22:52)
[2020-03-18] MEDS: METOPROLOL TARTRATE 25 MG TABLET PO SCH ×2 (09:11→22:52)
[2020-03-18] MEDS: ISOSORBIDE MONONITRATE 30 MG TAB.ER.24H PO SCH (09:11)
[2020-03-18] MEDS: POTASSIUM CHLORIDE 10 MEQ TABLET.ER PO SCH ×2 (09:11→22:52)
[2020-03-18] MEDS: ENOXAPARIN SODIUM INJ 40 MG/0.4 ML DISP.SYRIN SUBCUT SCH (09:11)
[2020-03-18] MEDS: ASPIRIN 81 MG TABLET, CHEWABLE PO SCH (09:11)
[2020-03-18] MEDS: ZINC SULFATE 220 MG CAPSULE PO SCH (09:12)
[2020-03-18] MEDS: LOPERAMIDE HCL 2 MG CAPSULE PO PRN ×2 (14:46→22:52)
[2020-03-18] MEDS: VANCOMYCIN HCL 1,250 MG in DEXTROSE 5%-WATER 250 ML IV SCH (17:38)
[2020-03-18] MEDS: ACETAMINOPHEN 325 MG TABLET PO PRN (21:04)
--- NOTE | 2020-03-18 21:56 | PDOC PROGRESS REPORT ---
Subjective Date:: 03/18/20 Subjective:: patient had episodes of diarrhea earlier today. Her C.difficile titer was report ed negative. No abdominal pain, nausea, or vomiting. Appetite and PO intake improving. No fever or chills. No chest pain or difficulty with breathing. Reason For Visit: SICKLE CELL PAIN CRISIS Physical Exam Vital Signs: Temp Pulse Resp BP Pulse Ox 100.4 F 72 18 151/83 H 92 03/18/20 10:00 03/18/20 07:50 03/18/20 07:50 03/18/20 07:50 03/18/20 07:50 Intake & Output 03/17/20 03/18/20 03/19/20 06:59 06:59 06:59 Intake Total 250 1610 Balance 250 1610 Weight 85.9 kg 86 kg Physical Exam: General appearance: PRESENT: no acute distress. Head exam: PRESENT: atraumatic, normocephalic Eye exam: PRESENT: Conjunctiva pink. ABSENT: pallor, sclera icterus Mouth exam: PRESENT: moist Respiratory exam: PRESENT: clear to auscultation cesilia, decrease breath sound at lung bases Cardiovascular exam: PRESENT: RRR, +S1, +S2, systolic murmur. ABSENT: diastolic murmur, rubs Murmur grade: 3 GI/Abdominal exam: PRESENT: normal bowel sounds, soft. ABSENT: tenderness Extremities/MSK exam: ABSENT: pedal edema Neurological exam: PRESENT: alert, awake, oriented to person, oriented to place, oriented to time, and oriented to situation. Psychiatric exam: ABSENT: agitated Skin exam: PRESENT: dry, intact, warm. ABSENT: cyanosis, rash Murmur grade: 3 Results Laboratory Results: 03/17/20 05:49 03/17/20 05:49 02/29/20 02/29/20 03/01/20 16:40 16:40 15:42 Creatine Kinase 51 136 H CK-MB (CK-2) Troponin I 0.034 NT-Pro-B Natriuret Pep 03/01/20 03/02/20 03/02/20 15:42 18:31 18:31 Creatine Kinase 730 H CK-MB (CK-2) 5.24 H Troponin I 0.617 0.670 NT-Pro-B Natriuret Pep 03/03/20 03/03/20 03/03/20 00:27 00:27 05:49 Creatine Kinase 662 H 840 H CK-MB (CK-2) 4.23 Troponin I 0.600 NT-Pro-B Natriuret Pep 03/03/20 03/07/20 03/07/20 05:49 10:05 13:35 Creatine Kinase 94 CK-MB (CK-2) 4.22 Troponin I 0.638 0.049 NT-Pro-B Natriuret Pep 03/07/20 03/07/20 03/07/20 13:35 21:55 21:55 Creatine Kinase 71 CK-MB (CK-2) 0.27 0.27 Troponin I 0.050 0.046 NT-Pro-B Natriuret Pep 03/08/20 03/08/20 03/08/20 04:12 04:12 14:25 Creatine Kinase 64 CK-MB (CK-2) 0.41 Troponin I 0.082 NT-Pro-B Natriuret Pep 4970 H Impressions: Chest/Abdomen CTA 03/03/20 00:00 IMPRESSION: There is no pulmonary embolus. There is no aortic aneurysm or dissection. Mild atelectatic changes bilaterally, left more than right. Chest CT 03/12/20 00:00 IMPRESSION: 1. Progression in bilateral opacities/consolidation which may be due to combination of infection and atelectasis. Small bilateral pleural ef fusions, left larger than right. Chest X-Ray 03/13/20 00:00 IMPRESSION: 1. Persistent and stable appearance of bibasilar disease with evidence of small bilateral pleural effusions. 2. Stable positioning of left-sided central line. 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 Monitor response to treatment and repeat dose as needed. - Time Time Spent with patient: 25-34 minutes Level of Care: IMCU Medications reviewed and adjusted accordingly: Yes Anticipated discharge: Home with Homehealth Anticipated DC Timeframe: within 72 hours - Inpatient Certification Based on my medical assessment, after consideration of the patient's comorbidities, presenting symptoms, or acuity I expect that the services needed warrant INPATIENT care.: Yes I certify that my determination is in accordance with my understanding of [employer] 's requirements for reasonable and necessary INPATIENT services [42 CFR 412.3e].: Yes Medical Necessity: Significant Comorbidiites Make Outpatient Treatment Too Risky, Need Close Monitoring Due to Risk of Patient Decompensation, Need For IV Fluids, Need For Continuous Telemetry Monitoring, Need for IV Antibiotics, Risk of Complication if Not Cared For in Hospital, Risk of Diagnosis Which Will Require Inpatient Eval/Care/Monitoring Post Hospital Care: D/C Comp[employer] Plant Worker Documentation - Plan Summary Plan Summary: See attending physician orders for details about care plan.
[2020-03-18] MEDS: TEMAZEPAM 15 MG CAPSULE PO SCH (22:52)
[2020-03-18] MEDS: ONDANSETRON HCL INJ/PF 4 MG/2 ML SDV IV PRN (23:45)
[2020-03-19] MEDS: PIPERACILLIN SODIUM/TAZOBACTAM 3.375 GM in NORMAL SALINE 100 ML IV SCH ×2 (02:58→09:26)
[2020-03-19 05:11] LABS: ABSOLUTE BASOPHILS # (AUTO) 0.2 10^3/uL (0.0-0.2); ABSOLUTE EOSINOPHILS # (AUTO) 0.3 10^3/uL (0.0-0.6); ABSOLUTE LYMPHOCYTES (AUTO) 2.8 10^3/uL (0.5-4.7); ABSOLUTE MONOCYTES (AUTO) 1.1 10^3/uL (0.1-1.4); ABSOLUTE NEUT (AUTO) 10.4 10^3/uL (1.7-8.2); BASOPHILS % (AUTO) 1.4 % (0-2); EOSINOPHILS % (AUTO) 2.2 % (0-6); HEMATOCRIT 31.3 % (36.0-47.0); HEMOGLOBIN 10.3 g/dL (12.0-15.5); LYMPHOCYTES % (AUTO) 19.1 % (13-45); MEAN CORPUSCULAR HEMOGLOBIN 27.7 pg (27.0-33.4); MEAN CORPUSCULAR HGB CONC 32.9 g/dL (32.0-36.0); MEAN CORPUSCULAR VOLUME 84 fl (80-97); MONOCYTES % (AUTO) 7.5 % (3-13); PLATELET COUNT 439 10^3/uL (150-450); RED BLOOD COUNT 3.71 10^6/uL (3.72-5.28); RED CELL DISTRIBUTION WIDTH 17.7 % (11.5-14.0); SEGMENTED NEUTROPHILS % (AUTO) 69.8 % (42-78); TOTAL CELLS COUNTED % (AUTO) 100 %; WHITE BLOOD COUNT 14.8 10^3/uL (4.0-10.5)
[2020-03-19 05:40] LABS: ALBUMIN 2.8 g/dL (3.5-5.0); ALKALINE PHOSPHATASE 82 U/L (38-126); ANION GAP 5 (5-19); ASPARTATE AMINO TRANSFERASE 47 U/L (14-36); BILIRUBIN,DIRECT 1.1 mg/dL (0.0-0.4); BILIRUBIN,TOTAL 1.8 mg/dL (0.2-1.3); BLOOD UREA NITROGEN 14 mg/dL (7-20); CALCIUM 7.9 mg/dL (8.4-10.2); CARBON DIOXIDE 26 mmol/L (22-30); CHLORIDE 107 mmol/L (98-107); GLUCOSE 77 mg/dL (75-110); POTASSIUM 5.2 mmol/L (3.6-5.0); TOTAL PROTEIN 5.9 g/dL (6.3-8.2)
[2020-03-19] MEDS: GUAIFENESIN 600 MG TABLET.SA PO SCH ×3 (06:10→21:38)
[2020-03-19] MEDS: PANTOPRAZOLE SODIUM 40 MG TABLET.DR PO SCH (06:10)
[2020-03-19] MEDS: ENOXAPARIN SODIUM INJ 40 MG/0.4 ML DISP.SYRIN SUBCUT SCH (09:26)
[2020-03-19] MEDS: ONDANSETRON HCL INJ/PF 4 MG/2 ML SDV IV PRN (09:26)
[2020-03-19] MEDS: LOPERAMIDE HCL 2 MG CAPSULE PO PRN ×2 (09:27→21:38)
[2020-03-19] MEDS: ISOSORBIDE MONONITRATE 30 MG TAB.ER.24H PO SCH (09:27)
[2020-03-19] MEDS: ASPIRIN 81 MG TABLET, CHEWABLE PO SCH (09:27)
[2020-03-19] MEDS: METOPROLOL TARTRATE 25 MG TABLET PO SCH ×2 (09:27→21:40)
[2020-03-19] MEDS: ACETAMINOPHEN 325 MG TABLET PO PRN (09:27)
[2020-03-19] MEDS: POTASSIUM CHLORIDE 10 MEQ TABLET.ER PO SCH ×2 (09:28→21:37)
[2020-03-19] MEDS: ZINC SULFATE 220 MG CAPSULE PO SCH (09:28)
[2020-03-19] MEDS: VANCOMYCIN HCL 1,250 MG in DEXTROSE 5%-WATER 250 ML IV SCH (18:03)
[2020-03-19] MEDS: TEMAZEPAM 15 MG CAPSULE PO SCH (21:40)
[2020-03-19] MEDS: OXYCODONE-ACETAMINOPHEN 5-325 MG TABLET PO PRN (21:44)
[2020-03-20] MEDS: PANTOPRAZOLE SODIUM 40 MG TABLET.DR PO SCH (05:44)
[2020-03-20] MEDS: GUAIFENESIN 600 MG TABLET.SA PO SCH ×3 (05:44→21:39)
[2020-03-20] MEDS: ASPIRIN 81 MG TABLET, CHEWABLE PO SCH (09:28)
[2020-03-20] MEDS: METOPROLOL TARTRATE 25 MG TABLET PO SCH ×2 (09:28→21:39)
[2020-03-20] MEDS: ENOXAPARIN SODIUM INJ 40 MG/0.4 ML DISP.SYRIN SUBCUT SCH (09:28)
[2020-03-20] MEDS: POTASSIUM CHLORIDE 10 MEQ TABLET.ER PO SCH ×3 (09:28→21:40)
[2020-03-20] MEDS: ISOSORBIDE MONONITRATE 30 MG TAB.ER.24H PO SCH (09:29)
[2020-03-20] MEDS: ZINC SULFATE 220 MG CAPSULE PO SCH (09:29)
[2020-03-20] MEDS: LOPERAMIDE HCL 2 MG CAPSULE PO PRN ×2 (11:31→11:32)
[2020-03-20 12:07] LABS: HEMATOCRIT 29.7 % (36.0-47.0); HEMOGLOBIN 9.9 g/dL (12.0-15.5); MEAN CORPUSCULAR HEMOGLOBIN 27.7 pg (27.0-33.4); MEAN CORPUSCULAR HGB CONC 33.2 g/dL (32.0-36.0); MEAN CORPUSCULAR VOLUME 84 fl (80-97); PLATELET COUNT 434 10^3/uL (150-450); RED BLOOD COUNT 3.56 10^6/uL (3.72-5.28); WHITE BLOOD COUNT 13.9 10^3/uL (4.0-10.5)
[2020-03-20 12:31] LABS: ANION GAP 6 (5-19); BLOOD UREA NITROGEN 14 mg/dL (7-20); CALCIUM 8.1 mg/dL (8.4-10.2); CARBON DIOXIDE 26 mmol/L (22-30); CHLORIDE 104 mmol/L (98-107); GLUCOSE 93 mg/dL (75-110); POTASSIUM 4.2 mmol/L (3.6-5.0)
[2020-03-20 12:40] LABS: ABSOLUTE LYMPHOCYTES# (MANUAL) 2.1 10^3/uL (0.5-4.7); ABSOLUTE MONOCYTES # (MANUAL) 0.6 10^3/uL (0.1-1.4); ANISOCYTOSIS 1+; BASOPHILS % (MANUAL) 2 % (0-2); EOSINOPHILS % (MANUAL) 4 % (0-6); LYMPHOCYTES % (MANUAL) 15 % (13-45); MONOCYTES % (MANUAL) 4 % (3-13); NUCLEATED RED BLOOD CELLS 2 /100 WBC (0); PLATELET COMMENT ADEQUATE; PLATELET LARGE PRESENT; SEGMENTED NEUTROPHILS % (MAN) 75 % (42-78); TOTAL CELLS COUNTED 100
[2020-03-20 12:41] LABS: OVALOCYTES 1+; POIKILOCYTOSIS 2+; TARGET CELLS 2+; TEAR DROP CELLS 1+
--- NOTE | 2020-03-20 14:25 | PDOC PROGRESS REPORT ---
Subjective Date:: 03/19/20 Subjective:: No chest pain or difficulty with breathing. No diarrhea, abdominal pain, nausea, or vomiting. No fever or chills. Reason For Visit: SICKLE CELL PAIN CRISIS Physical Exam Vital Signs: Temp Pulse Resp BP Pulse Ox 98.2 F 73 18 121/64 88 L 03/19/20 15:56 03/19/20 15:56 03/19/20 15:56 03/19/20 15:56 03/19/20 15:56 Intake & Output 03/18/20 03/19/20 03/20/20 06:59 06:59 06:59 Intake Total 1610 1180 900 Output Total 2100 200 Balance 1610 -920 700 Weight 86 kg 82.8 kg Physical Exam: General appearance: PRESENT: no acute distress. Head exam: PRESENT: atraumatic, normocephalic Eye exam: PRESENT: Conjunctiva pink. ABSENT: pallor, sclera icterus Mouth exam: PRESENT: moist Respiratory exam: PRESENT: clear to auscultation cesilia Cardiovascular exam: PRESENT: RRR, +S1, +S2, systolic murmur. ABSENT: diastolic murmur, rubs Murmur grade: 3 GI/Abdominal exam: PRESENT: normal bowel sounds, soft. ABSENT: tenderness Extremities/MSK exam: ABSENT: pedal edema Neurological exam: PRESENT: alert, awake, oriented to person, oriented to place, oriented to time, and oriented to situation. Psychiatric exam: ABSENT: agitated Skin exam: PRESENT: dry, intact, warm. ABSENT: cyanosis, rash Murmur grade: 3 Results Laboratory Results: 03/19/20 04:44 03/19/20 04:44 03/19/20 03/19/20 04:44 04:44 WBC 14.8 H RBC 3.71 L Hgb 10.3 L Hct 31.3 L MCV 84 MCH 27.7 MCHC 32.9 RDW 17.7 H Plt Count 439 Seg Neutrophils % 69.8 Sodium 138.3 Potassium 5.2 H Chloride 107 Carbon Dioxide 26 Anion Gap 5 BUN 14 Creatinine 1.72 H Est GFR ( Amer) 37 L Glucose 77 Calcium 7.9 L Total Bilirubin 1.8 H AST 47 H Alkaline Phosphatase 82 Total Protein 5.9 L Albumin 2.8 L 02/29/20 02/29/20 03/01/20 16:40 16:40 15:42 Creatine Kinase 51 136 H CK-MB (CK-2) Troponin I 0.034 NT-Pro-B Natriuret Pep 03/01/20 03/02/20 03/02/20 15:42 18:31 18:31 Creatine Kinase 730 H CK-MB (CK-2) 5.24 H Troponin I 0.617 0.670 NT-Pro-B Natriuret Pep 03/03/20 03/03/20 03/03/20 00:27 00:27 05:49 Creatine Kinase 662 H 840 H CK-MB (CK-2) 4.23 Troponin I 0.600 NT-Pro-B Natriuret Pep 03/03/20 03/07/20 03/07/20 05:49 10:05 13:35 Creatine Kinase 94 CK-MB (CK-2) 4.22 Troponin I 0.638 0.049 NT-Pro-B Natriuret Pep 03/07/20 03/07/20 03/07/20 13:35 21:55 21:55 Creatine Kinase 71 CK-MB (CK-2) 0.27 0.27 Troponin I 0.050 0.046 NT-Pro-B Natriuret Pep 03/08/20 03/08/20 03/08/20 04:12 04:12 14:25 Creatine Kinase 64 CK-MB (CK-2) 0.41 Troponin I 0.082 NT-Pro-B Natriuret Pep 4970 H Impressions: Chest/Abdomen CTA 03/03/20 00:00 IMPRESSION: There is no pulmonary embolus. There is no aortic aneurysm or dissection. Mild atelectatic changes bilaterally, left more than right. Chest CT 03/12/20 00:00 IMPRESSION: 1. Progression in bilateral opacities/consolidation which may be due to combination of infection and atelectasis. Small bilateral pleural e ffusions, left larger than right. Chest X-Ray 03/13/20 00:00 IMPRESSION: 1. Persistent and stable appearance of bibasilar disease with evidence of small bilateral pleural effusions. 2. Stable positioning of left-sided central line. 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 Qualified Code(s): D57.09 - Hb-SS disease with crisis with other specified complication Is this a current diagnosis for this admission?: Yes (7) Diarrhea due to drug Is this a current diagnosis for this admission?: Yes - Time Time Spent with patient: 25-34 minutes Level of Care: IMCU Medications reviewed and adjusted accordingly: Yes Anticipated discharge: Home with Homehealth Anticipated DC Timeframe: within 72 hours - Inpatient Certification Based on my medical assessment, after consideration of the patient's comorbidities, presenting symptoms, or acuity I expect that the services needed warrant INPATIENT care.: Yes I certify that my determination is in accordance with my understanding of Medicare's requirements for reasonable and necessary INPATIENT services [42 CFR 412.3e].: Yes Medical Necessity: Significant Comorbidiites Make Outpatient Treatment Too Risky, Need Close Monitoring Due to Risk of Patient Decompensation, Need For IV Fluids, Need For Continuous Telemetry Monitoring, Need for IV Antibiotics, Risk of Complication if Not Cared For in Hospital, Risk of Diagnosis Which Will Require Inpatient Eval/Care/Monitoring Post Hospital Care: D/C Plate Developer Documentation - Plan Summary Plan Summary: Continue current medication management.
--- NOTE | 2020-03-20 14:48 | PDOC PROGRESS REPORT ---
Subjective Date:: 03/20/20 Subjective:: No chest pain or difficulty with breathing. No diarrhea, abdominal pain, nausea, or vomiting. No fever or chills. Patient ambulated on the floor with fairly stable oxygen saturation level. Reason For Visit: SICKLE CELL PAIN CRISIS Physical Exam Vital Signs: Temp Pulse Resp BP Pulse Ox 98.3 F 75 18 135/67 H 95 03/20/20 10:00 03/20/20 08:28 03/20/20 08:28 03/20/20 08:28 03/20/20 08:28 Intake & Output 03/19/20 03/20/20 03/21/20 06:59 06:59 06:59 Intake Total 1180 1150 Output Total 2100 1800 Balance -920 -650 Weight 82.8 kg 82.5 kg 82.5 kg Physical Exam: General appearance: PRESENT: no acute distress. Head exam: PRESENT: atraumatic, normocephalic Eye exam: PRESENT: Conjunctiva pink. ABSENT: pallor, sclera icterus Mouth exam: PRESENT: moist Respiratory exam: PRESENT: clear to auscultation cesilia Cardiovascular exam: PRESENT: RRR, +S1, +S2, systolic murmur. Murmur grade: 3 GI/Abdominal exam: PRESENT: normal bowel sounds, soft. ABSENT: tenderness Extremities/MSK exam: ABSENT: pedal edema Neurological exam: PRESENT: alert, awake, oriented to person, oriented to place, oriented to time, and oriented to situation. Psychiatric exam: ABSENT: agitated Skin exam: PRESENT: dry, intact, warm. ABSENT: cyanosis, rash Murmur grade: 3 Results Laboratory Results: 03/20/20 11:57 03/20/20 11:57 03/20/20 03/20/20 11:57 11:57 WBC 13.9 H RBC 3.56 L Hgb 9.9 L Hct 29.7 L MCV 84 MCH 27.7 MCHC 33.2 RDW 17.0 H Plt Count 434 Seg Neutrophils % Not Reportable Sodium 135.7 L Potassium 4.2 Chloride 104 Carbon Dioxide 26 Anion Gap 6 BUN 14 Creatinine 1.77 H Est GFR ( Amer) 36 L Glucose 93 Calcium 8.1 L 02/29/20 02/29/20 03/01/20 16:40 16:40 15:42 Creatine Kinase 51 136 H CK-MB (CK-2) Troponin I 0.034 NT-Pro-B Natriuret Pep 03/01/20 03/02/20 03/02/20 15:42 18:31 18:31 Creatine Kinase 730 H CK-MB (CK-2) 5.24 H Troponin I 0.617 0.670 NT-Pro-B Natriuret Pep 03/03/20 03/03/20 03/03/20 00:27 00:27 05:49 Creatine Kinase 662 H 840 H CK-MB (CK-2) 4.23 Troponin I 0.600 NT-Pro-B Natriuret Pep 03/03/20 03/07/20 03/07/20 05:49 10:05 13:35 Creatine Kinase 94 CK-MB (CK-2) 4.22 Troponin I 0.638 0.049 NT-Pro-B Natriuret Pep 03/07/20 03/07/20 03/07/20 13:35 21:55 21:55 Creatine Kinase 71 CK-MB (CK-2) 0.27 0.27 Troponin I 0.050 0.046 NT-Pro-B Natriuret Pep 03/08/20 03/08/20 03/08/20 04:12 04:12 14:25 Creatine Kinase 64 CK-MB (CK-2) 0.41 Troponin I 0.082 NT-Pro-B Natriuret Pep 4970 H Impressions: Chest/Abdomen CTA 03/03/20 00:00 IMPRESSION: There is no pulmonary embolus. There is no aortic aneurysm or dissection. Mild atelectatic changes bilaterally, left more than right. Chest CT 03/12/20 00:00 IMPRESSION: 1. Progression in bilateral opacities/consolidation which may be due to combination of infection and atelectasis. Small bilateral pleural effusions, left larger than right. Chest X-Ray 03/13/20 00:00 IMPRESSION: 1. Persistent and stable appearance of bibasilar disease with evidence of small bilateral pleural effusions. 2. Stable positioning of left-sided central line. 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 Qualified Code(s): D57.09 - Hb-SS disease with crisis with other specified complication Is this a current diagnosis for this admission?: Yes (7) Diarrhea due to drug Is this a current diagnosis for this admission?: Yes - Time Time Spent with patient: 25-34 minutes Level of Care: IMCU Medications reviewed and adjusted accordingly: Yes Anticipated discharge: Home with Homehealth Anticipated DC Timeframe: within 72 hours - Inpatient Certification Based on my medical assessment, after consideration of the patient's co morbidities, presenting symptoms, or acuity I expect that the services needed warrant INPATIENT care.: Yes I certify that my determination is in accordance with my understanding of Medicare's requirements for reasonable and necessary INPATIENT services [42 CFR 412.3e].: Yes Medical Necessity: Significant Comorbidiites Make Outpatient Treatment Too Risky, Need Close Monitoring Due to Risk of Patient Decompensation, Need For Continuous Telemetry Monitoring, Need for IV Antibiotics, Risk of Complication if Not Cared For in Hospital, Risk of Diagnosis Which Will Require Inpatient Eval/Care/Monitoring Post Hospital Care: D/C Office Services Clerk Documentation - Plan Summary Plan Summary: Continue current medication management. Last day of IV Vancomycin therapy. Possible discharge home with [facility]NAGEMENT SPECIALIST services if she remain afebrile 24 hours after completion of her antibiotic therapy.
[2020-03-20] MEDS: ONDANSETRON HCL INJ/PF 4 MG/2 ML SDV IV PRN (16:48)
[2020-03-20] MEDS: OXYCODONE-ACETAMINOPHEN 5-325 MG TABLET PO PRN (18:33)
[2020-03-20 19:16] LABS: VANCOMYCIN,TROUGH 15.4 ug/mL (5.0-20.0)
[2020-03-20] MEDS: TEMAZEPAM 15 MG CAPSULE PO SCH (21:39)
[2020-03-20] MEDS ORDERED: VANCOMYCIN HCL 1,250 MG in DEXTROSE 5%-WATER 250 ML IV ONE (22:00)
[2020-03-20] MEDS: ACETAMINOPHEN 325 MG TABLET PO PRN (22:36)
[2020-03-21] MEDS: GUAIFENESIN 600 MG TABLET.SA PO SCH ×3 (05:38→21:46)
[2020-03-21] MEDS: PANTOPRAZOLE SODIUM 40 MG TABLET.DR PO SCH (05:38)
[2020-03-21 05:56] LABS: HEMATOCRIT 28.9 % (36.0-47.0); HEMOGLOBIN 9.8 g/dL (12.0-15.5); MEAN CORPUSCULAR HEMOGLOBIN 28.5 pg (27.0-33.4); MEAN CORPUSCULAR HGB CONC 33.9 g/dL (32.0-36.0); MEAN CORPUSCULAR VOLUME 84 fl (80-97); PLATELET COUNT 369 10^3/uL (150-450); RED BLOOD COUNT 3.44 10^6/uL (3.72-5.28); RED CELL DISTRIBUTION WIDTH 17.5 % (11.5-14.0); WHITE BLOOD COUNT 13.8 10^3/uL (4.0-10.5)
[2020-03-21 06:19] LABS: ANION GAP 6 (5-19); BLOOD UREA NITROGEN 15 mg/dL (7-20); CALCIUM 8.2 mg/dL (8.4-10.2); CARBON DIOXIDE 25 mmol/L (22-30); CHLORIDE 105 mmol/L (98-107); GLUCOSE 79 mg/dL (75-110); POTASSIUM 4.5 mmol/L (3.6-5.0)
[2020-03-21] MEDS: ONDANSETRON HCL INJ/PF 4 MG/2 ML SDV IV PRN (06:54)
[2020-03-21] MEDS: ACETAMINOPHEN 325 MG TABLET PO PRN ×3 (08:03→21:46)
[2020-03-21] MEDS: ASPIRIN 81 MG TABLET, CHEWABLE PO SCH (09:54)
[2020-03-21] MEDS: ISOSORBIDE MONONITRATE 30 MG TAB.ER.24H PO SCH (09:54)
[2020-03-21] MEDS: METOPROLOL TARTRATE 25 MG TABLET PO SCH ×2 (09:54→21:45)
[2020-03-21] MEDS: ENOXAPARIN SODIUM INJ 40 MG/0.4 ML DISP.SYRIN SUBCUT SCH (09:55)
[2020-03-21] MEDS: POTASSIUM CHLORIDE 10 MEQ TABLET.ER PO SCH ×2 (09:55→21:43)
[2020-03-21] MEDS: ZINC SULFATE 220 MG CAPSULE PO SCH (09:56)
--- NOTE | 2020-03-21 11:30 | PDOC PROGRESS REPORT ---
Subjective Date:: 03/21/20 Subjective:: Patient still have a still fever last night and this morning was 99 Patient otherwise doing well no chest pain no shortness of breath Patient wants to go home Patient will aspirin vancomycin yesterday Reason For Visit: SICKLE CELL PAIN CRISIS Physical Exam Vital Signs: Temp Pulse Resp BP Pulse Ox 99 F 67 18 127/69 H 91 L 03/21/20 10:00 03/21/20 07:43 03/21/20 07:43 03/21/20 07:43 03/21/20 07:43 Intake & Output 03/20/20 03/21/20 03/22/20 06:59 06:59 06:59 Intake Total 1150 1345 Output Total 1800 1800 Balance -650 -455 Weight 82.5 kg 80 kg General appearance: PRESENT: no acute distress, well-developed, well-nourished Head exam: PRESENT: atraumatic, normocephalic Eye exam: PRESENT: conjunctiva pink, EOMI, PERRLA. ABSENT: scleral icterus Ear exam: PRESENT: normal external ear exam Mouth exam: PRESENT: moist, tongue midline Neck exam: PRESENT: full ROM. ABSENT: carotid bruit, JVD, lymphadenopathy, thyromegaly Respiratory exam: PRESENT: clear to auscultation cesilia Cardiovascular exam: PRESENT: RRR. ABSENT: diastolic murmur, rubs, systolic murmur Murmur grade: 3 Pulses: PRESENT: normal dorsalis pedis pul, +2 pedal pulses bilateral Vascular exam: PRESENT: normal capillary refill GI/Abdominal exam: PRESENT: normal bowel sounds, soft. ABSENT: distended, guarding, mass, organolmegaly, rebound, tenderness Rectal exam: PRESENT: deferred Neurological exam: PRESENT: alert, awake, oriented to person, oriented to place, oriented to time, oriented to situation, CN II-XII grossly intact. ABSENT: motor sensory deficit Psychiatric exam: PRESENT: appropriate affect, normal mood. ABSENT: homicidal ideation, suicidal ideation Skin exam: PRESENT: dry, intact, warm. ABSENT: cyanosis, rash Results Laboratory Results: 03/21/20 05:11 03/21/20 05:11 03/20/20 03/20/20 03/21/20 11:57 11:57 05:11 WBC 13.9 H 13.8 H RBC 3.56 L 3.44 L Hgb 9.9 L 9.8 L Hct 29.7 L 28.9 L MCV 84 84 MCH 27.7 28.5 MCHC 33.2 33.9 RDW 17.0 H 17.5 H Plt Count 434 369 Seg Neutrophils % Not Reportable Sodium 135.7 L Potassium 4.2 Chloride 104 Carbon Dioxide 26 Anion Gap 6 BUN 14 Creatinine 1.77 H Est GFR ( Amer) 36 L Glucose 93 Calcium 8.1 L 03/21/20 05:11 WBC RBC Hgb Hct MCV MCH MCHC RDW Plt Count Seg Neutrophils % Sodium 136.4 L Potassium 4.5 Chloride 105 Carbon Dioxide 25 Anion Gap 6 BUN 15 Creatinine 1.81 H Est GFR ( Amer) 35 L Glucose 79 Calcium 8.2 L 02/29/20 02/29/20 03/01/20 16:40 16:40 15:42 Creatine Kinase 51 136 H CK-MB (CK-2) Troponin I 0.034 NT-Pro-B Natriuret Pep 03/01/20 03/02/20 03/02/20 15:42 18:31 18:31 Creatine Kinase 730 H CK-MB (CK-2) 5.24 H Troponin I 0.617 0.670 NT-Pro-B Natriuret Pep 03/03/20 03/03/20 03/03/20 00:27 00:27 05:49 Creatine Kinase 662 H 840 H CK-MB (CK-2) 4.23 Troponin I 0.600 NT-Pro-B Natriuret Pep 03/03/20 03/07/20 03/07/20 05:49 10:05 13:35 Creatine Kinase 94 CK-MB (CK-2) 4.22 Troponin I 0.638 0.049 NT-Pro-B Natriuret Pep 03/07/20 03/07/20 03/07/20 13:35 21:55 21:55 Creatine Kinase 71 CK-MB (CK-2) 0.27 0.27 Troponin I 0.050 0.046 NT-Pro-B Natriuret Pep 03/08/20 03/08/20 03/08/20 04:12 04:12 14:25 Creatine Kinase 64 CK-MB (CK-2) 0.41 Troponin I 0.082 NT-Pro-B Natriuret Pep 4970 H Impressions: Chest/Abdomen CTA 03/03/20 00:00 IMPRESSION: There is no pulmonary embolus. There is no aortic aneurysm or dissection. Mild atelectatic changes bilaterally, left more than right. Chest CT 03/12/20 00:00 IMPRESSION: 1. Progression in bilateral opacities/consolidation which may be due to combination of infection and atelectasis. Small bilateral pleural effusions, left larger than right. Chest X-Ray 03/13/20 00:00 IMPRESSION: 1. Persistent and stable appearance of bibasilar disease with evidence of small bilateral pleural effusions. 2. Stable positioning of left-sided central line. Assessment & Plan - Diagnosis (1) Acute respiratory failure with hypoxemia Is this a current diagnosis for this admission?: Yes (2) Anemia Qualifiers: Anemia type: acquired or hereditary hemolytic anemia Hemolytic anemia type: other hemoglobinopathy Qualified Code(s): D58.2 - Other hemoglobinopathies Is this a current diagnosis for this admission?: Yes (3) Probable sepsis Is this a current diagnosis for this admission?: Yes (4) Sickle cell anemia Is this a current diagnosis for this admission?: Yes - Time Time Spent with patient: 15-24 minutes Level of Care: IMCU Medications reviewed and adjusted accordingly: Yes Anticipated discharge: Home with Homehealth Anticipated DC Timeframe: within 24 hours - Plan Summary Plan Summary: Repeat the blood work repeat the blood culture urine culture chest x-ray discussed with the patient is to stay another day in the hospital with patient is remained afebrile next 24 hours will probably discharge at
--- NOTE | 2020-03-21 16:35 | RADIOLOGY REPORT (SQ) ---
EXAM DESCRIPTION: CHEST 2 VIEWS IMAGES COMPLETED DATE/TIME: 03/21/2020 12:41 pm REASON FOR STUDY: pnemonia COMPARISON: 03/13/2020 EXAM PARAMETERS: NUMBER OF VIEWS: two views TECHNIQUE: Digital Frontal and Lateral radiographic views of the chest acquired. RADIATION DOSE: NA LIMITATIONS: none FINDINGS: LUNGS AND PLEURA: Increasing parenchymal opacities in the right lung. Persistent left bas ilar opacity and left pleural effusion. MEDIASTINUM AND HILAR STRUCTURES: No masses or contour abnormalities. HEART AND VASCULAR STRUCTURES: Heart normal size. No evidence for failure. 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 HARDWARE: Venous access catheter at the junction of the left subclavian vein and superior vena cava h our. OTHER: No other significant finding. IMPRESSION: In decreasing parenchymal opacities particularly on the right. Persistent left effusion . Venous access catheter unchanged in position. TECHNICAL DOCUMENTATION: JOB ID: [id number] 2010 [employer]- All Rights Reserved Reading location - IP/workstation name: [email or web address]
[2020-03-22 05:37] LABS: ABSOLUTE BASOPHILS # (AUTO) 0.2 10^3/uL (0.0-0.2); ABSOLUTE EOSINOPHILS # (AUTO) 0.6 10^3/uL (0.0-0.6); ABSOLUTE LYMPHOCYTES (AUTO) 2.3 10^3/uL (0.5-4.7); ABSOLUTE MONOCYTES (AUTO) 1.3 10^3/uL (0.1-1.4); ABSOLUTE NEUT (AUTO) 11.2 10^3/uL (1.7-8.2); BASOPHILS % (AUTO) 1.1 % (0-2); HEMATOCRIT 30.9 % (36.0-47.0); HEMOGLOBIN 10.3 g/dL (12.0-15.5); LYMPHOCYTES % (AUTO) 14.6 % (13-45); MEAN CORPUSCULAR HEMOGLOBIN 27.8 pg (27.0-33.4); MEAN CORPUSCULAR HGB CONC 33.3 g/dL (32.0-36.0); MEAN CORPUSCULAR VOLUME 84 fl (80-97); MONOCYTES % (AUTO) 8.6 % (3-13); PLATELET COUNT 369 10^3/uL (150-450); RED BLOOD COUNT 3.69 10^6/uL (3.72-5.28); RED CELL DISTRIBUTION WIDTH 17.3 % (11.5-14.0); SEGMENTED NEUTROPHILS % (AUTO) 71.7 % (42-78); TOTAL CELLS COUNTED % (AUTO) 100 %; WHITE BLOOD COUNT 15.6 10^3/uL (4.0-10.5)
[2020-03-22 06:07] LABS: ANION GAP 8 (5-19); BLOOD UREA NITROGEN 17 mg/dL (7-20); CALCIUM 8.3 mg/dL (8.4-10.2); CARBON DIOXIDE 26 mmol/L (22-30); CHLORIDE 104 mmol/L (98-107); GLUCOSE 83 mg/dL (75-110); POTASSIUM 4.3 mmol/L (3.6-5.0)
[2020-03-22] MEDS: PANTOPRAZOLE SODIUM 40 MG TABLET.DR PO SCH (06:16)
[2020-03-22] MEDS: GUAIFENESIN 600 MG TABLET.SA PO SCH ×3 (06:16→21:53)
[2020-03-22] MEDS: METOPROLOL TARTRATE 25 MG TABLET PO SCH ×2 (09:25→21:53)
[2020-03-22] MEDS: ASPIRIN 81 MG TABLET, CHEWABLE PO SCH (09:25)
[2020-03-22] MEDS: ENOXAPARIN SODIUM INJ 40 MG/0.4 ML DISP.SYRIN SUBCUT SCH (09:26)
[2020-03-22] MEDS: ZINC SULFATE 220 MG CAPSULE PO SCH (09:26)
[2020-03-22] MEDS: POTASSIUM CHLORIDE 10 MEQ TABLET.ER PO SCH ×2 (09:26→21:55)
[2020-03-22] MEDS: ISOSORBIDE MONONITRATE 30 MG TAB.ER.24H PO SCH (09:26)
--- NOTE | 2020-03-22 11:03 | PDOC PROGRESS REPORT ---
Subjective Date:: 03/22/20 Subjective:: Patient currently doing well Patient wants to go home Patient still have a low-grade fever with white count is elevated Discussed with the patient and the family I think patient should wait for the Dr. Hanson with the elevated white count low-grade fever (the patient's able to discharge today Reason For Visit: SICKLE CELL PAIN CRISIS Physical Exam Vital Signs: Temp Pulse Resp BP Pulse Ox 98.5 F 69 18 143/81 H 95 03/22/20 08:00 03/22/20 08:00 03/22/20 08:00 03/22/20 08:00 03/22/20 08:00 Intake & Output 03/21/20 03/22/20 03/23/20 06:59 06:59 06:59 Intake Total 1345 1220 Output Total 1800 1650 Balance -455 -430 Weight 80 kg 80.2 kg General appearance: PRESENT: no acute distress, well-developed, well-nourished Head exam: PRESENT: atraumatic, normocephalic Eye exam: PRESENT: conjunctiva pink, EOMI, PERRLA. ABSENT: scleral icterus Ear exam: PRESENT: normal external ear exam Mouth exam: PRESENT: moist, tongue midline Neck exam: PRESENT: full ROM. ABSENT: carotid bruit, JVD, lymphadenopathy, thyromegaly Respiratory exam: PRESENT: clear to auscultation cesilia Cardiovascular exam: PRESENT: RRR. ABSENT: diastolic murmur, rubs, systolic murmur Murmur grade: 3 Pulses: PRESENT: normal dorsalis pedis pul, +2 pedal pulses bilateral Vascular exam: PRESENT: normal capillary refill GI/Abdominal exam: PRESENT: normal bowel sounds, soft. ABSENT: distended, guarding, mass, organolmegaly, rebound, tenderness Rectal exam: PRESENT: deferred Neurological exam: PRESENT: alert, awake, oriented to person, oriented to place, oriented to time, oriented to situation, CN II-XII grossly intact. ABSENT: motor sensory deficit Psychiatric exam: PRESENT: appropriate affect, normal mood. ABSENT: homicidal ideation, suicidal ideation Skin exam: PRESENT: dry, intact, warm. ABSENT: cyanosis, rash Results Laboratory Results: 03/22/20 04:42 03/22/20 04:42 03/22/20 03/22/20 04:42 04:42 WBC 15.6 H RBC 3.69 L Hgb 10.3 L Hct 30.9 L MCV 84 MCH 27.8 MCHC 33.3 RDW 17.3 H Plt Count 369 Seg Neutrophils % 71.7 Sodium 138.2 Potassium 4.3 Chloride 104 Carbon Dioxide 26 Anion Gap 8 BUN 17 Creatinine 1.81 H Est GFR ( Amer) 35 L Glucose 83 Calcium 8.3 L 02/29/20 02/29/20 03/01/20 16:40 16:40 15:42 Creatine Kinase 51 136 H CK-MB (CK-2) Troponin I 0.034 NT-Pro-B Natriuret Pep 03/01/20 03/02/20 03/02/20 15:42 18:31 18:31 Creatine Kinase 730 H CK-MB (CK-2) 5.24 H Troponin I 0.617 0.670 NT-Pro-B Natriuret Pep 03/03/20 03/03/20 03/03/20 00:27 00:27 05:49 Creatine Kinase 662 H 840 H CK-MB (CK-2) 4.23 Troponin I 0.600 NT-Pro-B Natriuret Pep 03/03/20 03/07/20 03/07/20 05:49 10:05 13:35 Creatine Kinase 94 CK-MB (CK-2) 4.22 Troponin I 0.638 0.049 NT-Pro-B Natriuret Pep 03/07/20 03/07/20 03/07/20 13:35 21:55 21:55 Creatine Kinase 71 CK-MB (CK-2) 0.27 0.27 Troponin I 0.050 0.046 NT-Pro-B Natriuret Pep 03/08/20 03/08/20 03/08/20 04:12 04:12 14:25 Creatine Kinase 64 CK-MB (CK-2) 0.41 Troponin I 0.082 NT-Pro-B Natriuret Pep 4970 H Impressions: Chest/Abdomen CTA 03/03/20 00:00 IMPRESSION: There is no pulmonary embolus. There is no aortic aneurysm or dissection. Mild atelectatic changes bilaterally, left more than right. Chest CT 03/12/20 00:00 IMPRESSION: 1. Progression in bilateral opacities/consolidation which may be due to combination of infection and atelectasis. Small bilateral pleural effusions, left larger than right. Chest X-Ray 03/21/20 00:00 IMPRESSION: In decreasing parenchymal opacities particularly on the right. Persistent left effusion. Venous access catheter unchanged in position. Assessment & Plan - Diagnosis (1) Acute respiratory failure with hypoxemia Is this a current diagnosis for this admission?: Yes (2) Anemia Qualifiers: Anemia type: acquired or hereditary hemolytic anemia Hemolytic anemia type: other hemoglobinopathy Qualified Code(s): D58.2 - Other hemoglobinopathies Is this a current diagnosis for this admission?: Yes (3) Probable sepsis Is this a current diagnosis for this admission?: Yes (4) Sickle cell anemia Is this a current diagnosis for this admission?: Yes - Time Time Spent with patient: 15-24 minutes Level of Care: IMCU Medications reviewed and adjusted accordingly: Yes Anticipated discharge: Home with Homehealth Anticipated DC Timeframe: within 24 hours - Plan Summary Plan Summary: Start the patient on the doxycycline Check stool for C. difficile Patient's chest x-ray questionable some pneumonia
[2020-03-22] MEDS: ONDANSETRON HCL INJ/PF 4 MG/2 ML SDV IV PRN (14:37)
[2020-03-22] MEDS: DOXYCYCLINE HYCLATE 100 MG TABLET PO SCH (14:56)
[2020-03-22] MEDS: LOPERAMIDE HCL 2 MG CAPSULE PO PRN (17:30)
[2020-03-22] MEDS: OXYCODONE-ACETAMINOPHEN 5-325 MG TABLET PO PRN (17:30)
[2020-03-22] MEDS ORDERED: DOXYCYCLINE HYCLATE 100 MG TABLET PO SCH ×2 (18:00→22:00)
[2020-03-22] MEDS: TEMAZEPAM 15 MG CAPSULE PO PRN (21:54)
[2020-03-23] MEDS ORDERED: DOXYCYCLINE HYCLATE 100 MG TABLET PO SCH (06:00)
[2020-03-23] MEDS: OXYCODONE-ACETAMINOPHEN 5-325 MG TABLET PO PRN ×2 (06:09→21:30)
[2020-03-23] MEDS: DOXYCYCLINE HYCLATE 100 MG TABLET PO SCH ×2 (06:09→17:24)
[2020-03-23] MEDS: GUAIFENESIN 600 MG TABLET.SA PO SCH ×3 (06:09→21:21)
[2020-03-23] MEDS: PANTOPRAZOLE SODIUM 40 MG TABLET.DR PO SCH (06:09)
[2020-03-23 06:16] LABS: INTERNATIONAL RATION (INR) 1.09; PROTHROMBIN TIME 14.3 SEC (11.4-15.4)
[2020-03-23 06:17] LABS: PARTIAL THROMBOPLASTIN TIME 38.6 SEC (23.5-35.8)
[2020-03-23 06:27] LABS: ALBUMIN 3.2 g/dL (3.5-5.0); ALKALINE PHOSPHATASE 67 U/L (38-126); ASPARTATE AMINO TRANSFERASE 46 U/L (14-36); BILIRUBIN,DIRECT 0.8 mg/dL (0.0-0.4); BILIRUBIN,TOTAL 1.1 mg/dL (0.2-1.3); BLOOD UREA NITROGEN 19 mg/dL (7-20); CALCIUM 8.3 mg/dL (8.4-10.2); CARBON DIOXIDE 30 mmol/L (22-30); CHLORIDE 104 mmol/L (98-107); GLUCOSE 108 mg/dL (75-110); TOTAL PROTEIN 6.4 g/dL (6.3-8.2)
[2020-03-23 06:32] LABS: ANION GAP 4 (5-19)
[2020-03-23 07:16] LABS: ABSOLUTE BASOPHILS # (AUTO) 0.2 10^3/uL (0.0-0.2); ABSOLUTE EOSINOPHILS # (AUTO) 0.9 10^3/uL (0.0-0.6); ABSOLUTE LYMPHOCYTES (AUTO) 2.6 10^3/uL (0.5-4.7); ABSOLUTE MONOCYTES (AUTO) 1.5 10^3/uL (0.1-1.4); ABSOLUTE NEUT (AUTO) 10.9 10^3/uL (1.7-8.2); BASOPHILS % (AUTO) 1.2 % (0-2); EOSINOPHILS % (AUTO) 5.8 % (0-6); HEMATOCRIT 28.3 % (36.0-47.0); HEMOGLOBIN 9.6 g/dL (12.0-15.5); MEAN CORPUSCULAR HEMOGLOBIN 28.1 pg (27.0-33.4); MEAN CORPUSCULAR VOLUME 83 fl (80-97); MONOCYTES % (AUTO) 9.4 % (3-13); RED BLOOD COUNT 3.42 10^6/uL (3.72-5.28); RED CELL DISTRIBUTION WIDTH 17.2 % (11.5-14.0); SEGMENTED NEUTROPHILS % (AUTO) 67.6 % (42-78); TOTAL CELLS COUNTED % (AUTO) 100 %; WHITE BLOOD COUNT 16.2 10^3/uL (4.0-10.5)
[2020-03-23 07:44] LABS: PLATELET COUNT 335 10^3/uL (150-450)
[2020-03-23] MEDS: ONDANSETRON HCL INJ/PF 4 MG/2 ML SDV IV PRN ×2 (08:23→20:42)
[2020-03-23] MEDS: POTASSIUM CHLORIDE 10 MEQ TABLET.ER PO SCH ×2 (10:07→21:21)
[2020-03-23] MEDS: ASPIRIN 81 MG TABLET, CHEWABLE PO SCH (10:07)
[2020-03-23] MEDS: METOPROLOL TARTRATE 25 MG TABLET PO SCH ×2 (10:08→21:22)
[2020-03-23] MEDS: ISOSORBIDE MONONITRATE 30 MG TAB.ER.24H PO SCH (10:08)
[2020-03-23] MEDS: ZINC SULFATE 220 MG CAPSULE PO SCH (10:09)
[2020-03-23] MEDS: ENOXAPARIN SODIUM INJ 40 MG/0.4 ML DISP.SYRIN SUBCUT SCH (10:09)
--- NOTE | 2020-03-23 16:37 | RADIOLOGY REPORT (SQ) ---
EXAM DESCRIPTION: U/S CHEST IMAGES COMPLETED DATE/TIME: 03/23/2020 2:10 pm REASON FOR STUDY: Persistent left pleural effusion and leukocytosis COMPARISON: PA and lateral views of the chest from 03/21/2020. TECHNIQUE: Grayscale images of the chest were obtained in anticipation of an ultrasound-guided thora centesis. LIMITATIONS: None. FINDINGS: There is a trace amount of fluid in the left pleural space. There is no fluid in the righ t pleural space. The amount of fluid in the left pleural space is insufficient for thoracentesis. IMPRESSION: There is a trace amount of fluid in the left pleural space. There is no fluid in the ri ght pleural space. The amount of fluid in the left pleural space is insufficient for thoracentesis. TECHNICAL DOCUMENTATION: JOB ID: [id number] 2010 [employer]- All Rights Reserved Reading location - IP/workstation name: [email or web address]
[2020-03-23] MEDS: FLUCONAZOLE 100 MG TABLET PO SCH (18:21)
--- NOTE | 2020-03-23 20:52 | PDOC PROGRESS REPORT ---
Subjective Date:: 03/23/20 Subjective:: Patient denied any fever or chills. No chest pain or difficulty with breathing. No diarrhea, abdominal pain, nausea, or vomiting. No fever or chills. Interval notes appreciated. Her further evaluation of chest X rya findings with concern for pleural effusion was resolved with her chest US that revealed no significant fluid collection to warrant thoracentesis. Her urine culture is suggestive of possible bacteria and fungal infection. Reason For Visit: SICKLE CELL PAIN CRISIS Physical Exam Vital Signs: Temp Pulse Resp BP Pulse Ox 98.1 F 65 19 116/51 L 90 L 03/23/20 15:53 03/23/20 15:53 03/23/20 15:53 03/23/20 15:53 03/23/20 15:53 Intake & Output 03/22/20 03/23/20 03/24/20 06:59 06:59 06:59 Intake Total 1220 1370 Output Total 1650 Balance -430 1370 Weight 80.2 kg 78.8 kg Physical Exam: General appearance: PRESENT: no acute distress. Head exam: PRESENT: atraumatic, normocephalic Eye exam: PRESENT: Conjunctiva pink. ABSENT: pallor, sclera icterus Mouth exam: PRESENT: moist Respiratory exam: PRESENT: clear to auscultation cesilia Cardiovascular exam: PRESENT: RRR, +S1, +S2, systolic murmur. Murmur grade: 3 GI/Abdominal exam: PRESENT: normal bowel sounds, soft. ABSENT: tenderness Extremities/MSK exam: ABSENT: pedal edema Neurological exam: PRESENT: alert, awake, oriented to person, oriented to place, oriented to time, and oriented to situation. Psychiatric exam: ABSENT: agitated Skin exam: PRESENT: dry, intact, warm. ABSENT: cyanosis, rash Murmur grade: 3 Results Laboratory Results: 03/23/20 06:48 03/23/20 05:10 03/23/20 03/23/20 03/23/20 05:10 05:10 06:48 WBC Cancelled 16.2 H RBC Cancelled 3.42 L Hgb Cancelled 9.6 L Hct Cancelled 28.3 L MCV Cancelled 83 MCH Cancelled 28.1 MCHC Cancelled 34.0 RDW Cancelled 17.2 H Plt Count Cancelled 335 Seg Neutrophils % Cancelled 67.6 Sodium 138.0 Potassium 4.0 Chloride 104 Carbon Dioxide 30 Anion Gap 4 L BUN 19 Creatinine 1.79 H Est GFR ( Amer) 35 L Glucose 108 Calcium 8.3 L Total Bilirubin 1.1 AST 46 H Alkaline Phosphatase 67 Total Protein 6.4 Albumin 3.2 L 02/29/20 02/29/20 03/01/20 16:40 16:40 15:42 Creatine Kinase 51 136 H CK-MB (CK-2) Troponin I 0.034 NT-Pro-B Natriuret Pep 03/01/20 03/02/20 03/02/20 15:42 18:31 18:31 Creatine Kinase 730 H CK-MB (CK-2) 5.24 H Troponin I 0.617 0.670 NT-Pro-B Natriuret Pep 03/03/20 03/03/20 03/03/20 00:27 00:27 05:49 Creatine Kinase 662 H 840 H CK-MB (CK-2) 4.23 Troponin I 0.600 NT-Pro-B Natriuret Pep 03/03/20 03/07/20 03/07/20 05:49 10:05 13:35 Creatine Kinase 94 CK-MB (CK-2) 4.22 Troponin I 0.638 0.049 NT-Pro-B Natriuret Pep 03/07/20 03/07/20 03/07/20 13:35 21:55 21:55 Creatine Kinase 71 CK-MB (CK-2) 0.27 0.27 Troponin I 0.050 0.046 NT-Pro-B Natriuret Pep 03/08/20 03/08/20 03/08/20 04:12 04:12 14:25 Creatine Kinase 64 CK-MB (CK-2) 0.41 Troponin I 0.082 NT-Pro-B Natriuret Pep 4970 H 03/23/20 05:10 Creatine Kinase CK-MB (CK-2) Troponin I NT-Pro-B Natriuret Pep 978 H Impressions: Chest/Abdomen CTA 03/03/20 00:00 IMPRESSION: There is no pulmonary embolus. There is no aortic aneurysm or dissection. Mild atelectatic changes bilaterally, left more than right. Chest CT 03/12/20 00:00 IMPRESSION: 1. Progression in bilateral opacities/consolidation which may be due to combination of infection and atelectasis. Small bilateral pleural effusions, left larger than right. Chest X-Ray 03/21/20 00:00 IMPRESSION: In decreasing parenchymal opacities particularly on the right. Persistent left effusion. Venous access catheter unchanged in position. Chest Ultrasound 03/23/20 00:00 IMPRESSION: There is a trace amount of fluid in the left pleural space. There is no fluid in the right pleural space. The amount of fluid in the left pleural space is insufficient for thoracentesis. 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 - Time Time Spent with patient: 25-34 minutes Level of Care: IMCU Medications reviewed and adjusted accordingly: Yes Anticipated discharge: Home with Homehealth Anticipated DC Timeframe: within 72 hours - Inpatient Certification Based on my medical assessment, after consideration of the patient's comorb idities, presenting symptoms, or acuity I expect that the services needed warrant INPATIENT care.: Yes I certify that my determination is in accordance with my understanding of Medicare's requirements for reasonable and necessary INPATIENT services [42 CFR 412.3e].: Yes Medical Necessity: Significant Comorbidiites Make Outpatient Treatment Too Risky, Need Close Monitoring Due to Risk of Patient Decompensation, Need For Continuous Telemetry Monitoring, Risk of Complication if Not Cared For in Hospital, Risk of Diagnosis Which Will Require Inpatient Eval/Care/Monitoring Post Hospital Care: D/C Margarine Maker Documentation - Plan Summary Plan Summary: start on Diflucan 100 mg p.o daily. Continue oral Doxycycline therapy pending urine culture final results. Maintain on all other current medication management.
[2020-03-23] MEDS: TEMAZEPAM 15 MG CAPSULE PO PRN (21:24)
[2020-03-24] MEDS: GUAIFENESIN 600 MG TABLET.SA PO SCH ×2 (05:04→13:09)
[2020-03-24] MEDS: DOXYCYCLINE HYCLATE 100 MG TABLET PO SCH ×2 (05:04→18:07)
[2020-03-24] MEDS: PANTOPRAZOLE SODIUM 40 MG TABLET.DR PO SCH (05:04)
[2020-03-24] MEDS: ONDANSETRON HCL INJ/PF 4 MG/2 ML SDV IV PRN ×2 (05:46→13:46)
[2020-03-24 06:43] LABS: ABSOLUTE BASOPHILS # (AUTO) 0.1 10^3/uL (0.0-0.2); ABSOLUTE LYMPHOCYTES (AUTO) 2.7 10^3/uL (0.5-4.7); ABSOLUTE MONOCYTES (AUTO) 1.5 10^3/uL (0.1-1.4); ABSOLUTE NEUT (AUTO) 11.9 10^3/uL (1.7-8.2); BASOPHILS % (AUTO) 0.8 % (0-2); EOSINOPHILS % (AUTO) 5.9 % (0-6); HEMATOCRIT 30.6 % (36.0-47.0); HEMOGLOBIN 10.4 g/dL (12.0-15.5); LYMPHOCYTES % (AUTO) 15.4 % (13-45); MEAN CORPUSCULAR HEMOGLOBIN 27.8 pg (27.0-33.4); MEAN CORPUSCULAR HGB CONC 33.9 g/dL (32.0-36.0); MEAN CORPUSCULAR VOLUME 82 fl (80-97); PLATELET COUNT 339 10^3/uL (150-450); RED BLOOD COUNT 3.72 10^6/uL (3.72-5.28); RED CELL DISTRIBUTION WIDTH 17.4 % (11.5-14.0); SEGMENTED NEUTROPHILS % (AUTO) 68.9 % (42-78); TOTAL CELLS COUNTED % (AUTO) 100 %; WHITE BLOOD COUNT 17.3 10^3/uL (4.0-10.5)
[2020-03-24 07:18] LABS: ANION GAP 7 (5-19); BLOOD UREA NITROGEN 18 mg/dL (7-20); CALCIUM 8.7 mg/dL (8.4-10.2); CARBON DIOXIDE 27 mmol/L (22-30); CHLORIDE 105 mmol/L (98-107); GLUCOSE 118 mg/dL (75-110); POTASSIUM 4.4 mmol/L (3.6-5.0)
[2020-03-24] MEDS: POTASSIUM CHLORIDE 10 MEQ TABLET.ER PO SCH (09:19)
[2020-03-24] MEDS: ISOSORBIDE MONONITRATE 30 MG TAB.ER.24H PO SCH (09:20)
[2020-03-24] MEDS: METOPROLOL TARTRATE 25 MG TABLET PO SCH (09:20)
[2020-03-24] MEDS: ENOXAPARIN SODIUM INJ 40 MG/0.4 ML DISP.SYRIN SUBCUT SCH (09:20)
[2020-03-24] MEDS: FLUCONAZOLE 100 MG TABLET PO SCH (09:20)
[2020-03-24] MEDS: ZINC SULFATE 220 MG CAPSULE PO SCH (09:20)
[2020-03-24] MEDS: ASPIRIN 81 MG TABLET, CHEWABLE PO SCH (09:20)
[2020-03-24 17:33] VITALS: BP 143/81
--- NOTE | 2020-03-26 00:02 | PDOC DISCHARGE SUMMARY ---
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 There was concern about possible cardiac event due to her persistent sternal pain and a brief episode of unresponsiveness that necessitate rapid response team and administration of single dose epinephrine to regain her consciousness. She fully recover from the event without need for transfer to the ICU as per my discussion with the conference specialist, Dr. Pacheco. Her hospital stay was further complicated with development of multilobar pneumonia and hypoxemia. Her throat and blood culture were no growth. Her urine culture initially revealed K. pneumoniae. Her leukocytosis did declined but prior to her planned discharge started upward trend upon discontinuation of her antibiotic coverage. Her evaluation with chest X ray did suggest pleural effusion but further evaluation with chest ultrasound did not reveal any significant effusion to warrant thoracentesis. Her repeat urine culture revealed E. Faecium VRE and C. albicans / dubliniensis. She will be discharged home on Linezolid and Diflucan oral therapy in view of her worsening leukocytosis. She insisted on discharge home today with home health agency services including visiting nurse, physical therapy, and personal banking advisor. She will follow up in the office as instructed upon discharge. - Additional Information Resuscitation Status: Full Code Discharge Diet: As Tolerated Discharge Activity: Activity As Tolerated, Slowly Increase Activity Referrals: AUSTIN HYDE MD [Primary Care Provider] - 04/02/20 10:00 am Prescriptions: Aspirin [Aspirin 81 mg Chewable Tablet] 162 mg PO DAILY #30 tab.chew Fluconazole [Diflucan 100 mg Tablet] 100 mg PO DAILY #7 tablet Linezolid 600 mg PO BID #7 tablet Metoprolol Tartrate [Lopressor 25 mg Tablet] 25 mg PO Q12 #60 tablet Sennosides/Docusate 8.6-50 mg [Senna Plus Tablet] 1 each PO BIDP PRN #60 tablet PRN Reason: Home Medications: Oxycodone HCl/Acetaminophen [Oxycodone-Acetaminophen 10-325] 1 each PO Q4HP PRN 03/01/20 Aspirin [Aspirin 81 mg Chewable Tablet] 162 mg PO DAILY #30 tab.chew 03/24/20 Fluconazole [Diflucan 100 mg Tablet] 100 mg PO DAILY #7 tablet 03/24/20 Linezolid 600 mg PO BID #7 tablet 03/24/20 Metoprolol Tartrate [Lopressor 25 mg Tablet] 25 mg PO Q12 #60 tablet 03/24/20 Sennosides/Docusate 8.6-50 mg [Senna Plus Tablet] 1 each PO BIDP PRN #60 tablet 03/24/20 History of Present Illiness History of Present Illness: EMILI PEREIRA is a 59 year old female, She has sickle cell disease, she came to the emergency room for the evaluation of chest pains.The emergency room physician felt the chest pain was due to musculoskeletal etiology, the chest pain was reproducible on palpation he said the sternum was very tender, he wanted admitted to the hospital for evaluation. The twelve-lead EKG that was done demonstrated Q wave in inferior leads, it was sinus rhythm there is no definite ST-T wave deviation, There was evidence of hemolysis elevated LDH, elevated bilirubin level increased rate reticulocyte count suggesting increased bone marrow Hospital Course Hospital Course: Patient was admitted for concern about acute sickle cell disease pain crisis. There was concern about possible cardiac event due to her persistent sternal pain and a brief episode of unresponsiveness that necessitate rapid response team and administration of single dose epinephrine to regain her consciousness. She fully recover from the event without need for transfer to the ICU as per my discussion with the conference specialist, Dr. Pacheco. Her hospital stay was further com plicated with development of multilobar pneumonia and hypoxemia. Her throat and blood culture were no growth. Her urine culture initially revealed K. pneumoniae. Her leukocytosis did declined but prior to her planned discharge started upward trend upon discontinuation of her antibiotic coverage. Her evaluation with chest X ray did suggest pleural effusion but further evaluation with chest ultrasound did not reveal any significant effusion to warrant thoracentesis. Her repeat urine culture revealed E. Faecium VRE and C. albicans / dubliniensis. She will be discharged home on Linezolid and Diflucan oral therapy in view of her worsening leukocytosis. She insisted on discharge home today with home health agency services including visiting nurse, physical therapy, and personal banking advisor. She will follow up in the office as instructed upon discharge. Physical Exam Vital Signs: Temp Pulse Resp BP Pulse Ox 98.0 F 70 20 141/63 H 83 L 03/24/20 16:32 03/24/20 16:32 03/24/20 16:32 03/24/20 16:32 03/24/20 16:32 Intake & Output 03/23/20 03/24/20 03/25/20 06:59 06:59 06:59 Intake Total 1370 Balance 1370 Weight 78.8 kg 76.8 kg General appearance: PRESENT: no acute distress. Head exam: PRESENT: atraumatic, normocephalic Eye exam: PRESENT: Conjunctiva pink. ABSENT: pallor, sclera icterus Mouth exam: PRESENT: moist Respiratory exam: PRESENT: clear to auscultation cesilia Cardiovascular exam: PRESENT: RRR, +S1, +S2, systolic murmur. Murmur grade: 3 GI/Abdominal exam: PRESENT: normal bowel sounds, soft. ABSENT: tenderness Extremities/MSK exam: ABSENT: pedal edema Neurological exam: PRESENT: alert, awake, oriented to person, oriented to place, oriented to time, and oriented to situation. Psychiatric exam: ABSENT: agitated Skin exam: PRESENT: dry, intact, warm. ABSENT: cyanosis, rash Results Laboratory Results: WBC 17.3 10^3/uL (4.0-10.5) H 03/24/20 06:00 RBC 3.72 10^6/uL (3.72-5.28) 03/24/20 06:00 Hgb 10.4 g/dL (12.0-15.5) L 03/24/20 06:00 Hct 30.6 % (36.0-47.0) L 03/24/20 06:00 MCV 82 fl (80-97) 03/24/20 06:00 MCH 27.8 pg (27.0-33.4) 03/24/20 06:00 MCHC 33.9 g/dL (32.0-36.0) 03/24/20 06:00 RDW 17.4 % (11.5-14.0) H 03/24/20 06:00 Plt Count 339 10^3/uL (150-450) 03/24/20 06:00 Lymph % (Auto) 15.4 % (13-45) 03/24/20 06:00 [place] % (Auto) 9.0 % (3-13) 03/24/20 06:00 Eos % (Auto) 5.9 % (0-6) 03/24/20 06:00 Baso % (Auto) 0.8 % (0-2) 03/24/20 06:00 Reticulocyte # 0.179 10^6/uL (0.028-0.122) H 02/29/20 16:40 Absolute Neuts (auto) 11.9 10^3/uL (1.7-8.2) H 03/24/20 06:00 Absolute Lymphs (auto) 2.7 10^3/uL (0.5-4.7) 03/24/20 06:00 Absolute Monos (auto) 1.5 10^3/uL (0.1-1.4) H 03/24/20 06:00 Absolute Eos (auto) 1.0 10^3/uL (0.0-0.6) H 03/24/20 06:00 Absolute Basos (auto) 0.1 10^3/uL (0.0-0.2) 03/24/20 06:00 Total Counted 100 03/20/20 11:57 Seg Neutrophils % 68.9 % (42-78) 03/24/20 06:00 Seg Neuts % (Manual) 75 % (42-78) 03/20/20 11:57 Band Neutrophils % 9 % (3-5) H 03/05/20 05:45 Lymphocytes % (Manual) 15 % (13-45) 03/20/20 11:57 Atypical Lymphs % 1 % (0) 03/03/20 05:49 Monocytes % (Manual) 4 % (3-13) 03/20/20 11:57 Eosinophils % (Manual) 4 % (0-6) 03/20/20 11:57 Basophils % (Manual) 2 % (0-2) 03/20/20 11:57 Metamyelocytes % 1 % (0-1) 03/05/20 05:45 Abs Neuts (Manual) 10.4 10^3/uL (1.7-8.2) H 03/20/20 11:57 Abs Lymphs (Manual) 2.1 10^3/uL (0.5-4.7) 03/20/20 11:57 Abs Monocytes (Manual) 0.6 10^3/uL (0.1-1.4) 03/20/20 11:57 Absolute Eos (Manual) 0.6 10^3/uL (0.0-0.6) 03/20/20 11:57 Abs Basophils (Manual) 0.3 10^3/uL (0.0-0.2) H 03/20/20 11:57 Nucleated RBCs 2 /100 WBC (0) 03/20/20 11:57 Toxic Granulation SLIGHT 03/12/20 06:23 Toxic Vacuolation PRESENT 03/09/20 22:48 Platelet Estimate Cancelled 03/23/20 05:10 Clumped Platelets PRESENT 03/13/20 14:55 Large Platelets PRESENT 03/20/20 11:57 Giant Platelets PRESENT 03/05/20 05:45 Platelet Comment ADEQUATE 03/20/20 11:57 Polychromasia SLIGHT 03/13/20 14:55 Hypochromasia SLIGHT 03/12/20 06:23 Poikilocytosis 2+ 03/20/20 11:57 Anisocytosis 1+ 03/20/20 11:57 Microcytosis SLIGHT 03/03/20 05:49 Macrocytosis SLIGHT 03/05/20 05:45 Sickle Cells SLIGHT 03/11/20 22:47 Target Cells 2+ 03/20/20 11:57 Tear Drop Cells 1+ 03/20/20 11:57 Ovalocytes 1+ 03/20/20 11:57 Stomatocytes 1+ 03/01/20 05:02 [place] Cells SLIGHT 03/11/20 22:47 Schistocytes SLIGHT 03/11/20 22:47 ESR 3 mm/hr (0-30) 02/29/20 16:40 Retic Count (auto) 4.08 % (0.66-2.85) H 02/29/20 16:40 PT 14.3 SEC (11.4-15.4) 03/23/20 05:10 INR 1.09 03/23/20 05:10 APTT 38.6 SEC (23.5-35.8) H 03/23/20 05:10 Fibrinogen 323 mg/dL (209-497) 03/01/20 15:42 D-Dimer 3.80 ug/mL (0.00-0.50) H 03/01/20 15:42 Carbonic Acid 1.03 mmol/L (1.05-1.35) L 03/03/20 13:35 HCO3/H2CO3 Ratio 10:1 03/03/20 13:35 ABG pH 7.11 (7.35-7.45) L* 03/03/20 13:35 ABG pCO2 34.2 mmHg (35-45) L 03/03/20 13:35 ABG pO2 48.3 mmHg (80-100) L 03/03/20 13:35 ABG HCO3 10.5 mmol/L (20-24) L 03/03/20 13:35 ABG Total CO2 11.5 mmol/L (21-25) L 03/03/20 13:35 ABG O2 Saturation 70.2 % (94-98) L 03/03/20 13:35 ABG Base Excess -17.6 mmol/L 03/03/20 13:35 FiO2 100% 03/03/20 13:35 Sodium 139.3 mmol/L (137-145) 03/24/20 06:00 Potassium 4.4 mmol/L (3.6-5.0) 03/24/20 06:00 Chloride 105 mmol/L (98-107) 03/24/20 06:00 Carbon Dioxide 27 mmol/L (22-30) 03/24/20 06:00 Anion Gap 7 (5-19) 03/24/20 06:00 BUN 18 mg/dL (7-20) 03/24/20 06:00 Creatinine 1.65 mg/dL (0.52-1.25) H 03/24/20 06:00 Est GFR ( Amer) 39 (>60) L 03/24/20 06:00 Est GFR (MDRD) Non-Af 32 (>60) L 03/24/20 06:00 Glucose 118 mg/dL (75-110) H 03/24/20 06:00 POC Glucose 144 mg/dL (70-110) H 03/07/20 13:00 Hemoglobin A1c % < 4.0 % (4.7-6.0) L 03/01/20 05:02 Calcium 8.7 mg/dL (8.4-10.2) 03/24/20 06:00 Phosphorus 3.9 mg/dL (2.5-4.5) 02/29/20 16:40 Magnesium 2.3 mg/dL (1.6-2.3) 03/05/20 05:45 Ferritin 1030.00 ng/mL (11.1-264.0) H 03/01/20 15:42 Total Bilirubin 1.1 mg/dL (0.2-1.3) 03/23/20 05:10 Direct Bilirubin 0.8 mg/dL (0.0-0.4) H 03/23/20 05:10 Neonat Total Bilirubin Not Reportable 03/23/20 05:10 Neonat Direct Bilirubin Not Reportable 03/23/20 05:10 Neonat Indirect Bili Not Reportable 03/23/20 05:10 AST 46 U/L (14-36) H 03/23/20 05:10 ALT 23 U/L (<35) 03/23/20 05:10 Alkaline Phosphatase 67 U/L (38-126) 03/23/20 05:10 Ammonia 9.7 umol/L (9-33) 03/09/20 22:48 Lactate Dehydrogenase 759 U/L (120-246) H 03/23/20 05:10 Creatine Kinase 64 U/L (30-135) 03/08/20 04:12 CK-MB (CK-2) 0.41 ng/mL (<4.55) 03/08/20 04:12 Troponin I 0.082 ng/mL 03/08/20 04:12 C-Reactive Protein 72.2 mg/L (<10.0) H 03/01/20 15:42 NT-Pro-B Natriuret Pep 978 pg/mL (<125) H 03/23/20 05:10 Total Protein 6.4 g/dL (6.3-8.2) 03/23/20 05:10 Albumin 3.2 g/dL (3.5-5.0) L 03/23/20 05:10 Triglycerides 135 mg/dL (<150) 03/03/20 05:49 Cholesterol 107.01 mg/dL (0-200) 03/03/20 05:49 LDL Cholesterol Direct < 30 mg/dL (<100) 03/03/20 05:49 VLDL Cholesterol 27.0 mg/dL (10-31) 03/03/20 05:49 HDL Cholesterol 40 mg/dL (>40) 03/03/20 05:49 Amylase 53 U/L (30-110) 02/29/20 16:40 Lipase 34.9 U/L (23-300) 02/29/20 16:40 TSH 1.87 uIU/mL (0.47-4.68) 02/29/20 16:40 Free T4 1.42 ng/dL (0.78-2.19) 02/29/20 16:40 Urine Color YELLOW 03/02/20 04:40 Urine Appearance SLIGHTLY-CLOUDY 03/02/20 04:40 Urine pH 5.0 (5.0-9.0) 03/02/20 04:40 Ur Specific [place] 1.014 03/02/20 04:40 Urine Protein 100 mg/dL (NEGATIVE) H 03/02/20 04:40 Urine Glucose (UA) NEGATIVE mg/dL (NEGATIVE) 03/02/20 04:40 Urine Ketones NEGATIVE mg/dL (NEGATIVE) 03/02/20 04:40 Urine Blood MODERATE (NEGATIVE) H 03/02/20 04:40 Urine Nitrite NEGATIVE (NEGATIVE) 03/02/20 04:40 Urine Bilirubin NEGATIVE (NEGATIVE) 03/02/20 04:40 Urine Urobilinogen 2.0 mg/dL (<2.0) H 03/02/20 04:40 Ur Leukocyte Esterase NEGATIVE (NEGATIVE) 03/02/20 04:40 Urine WBC (Auto) 3 /HPF 03/02/20 04:40 Urine RBC (Auto) 0 /HPF 03/02/20 04:40 U Hyaline Cast (Auto) 6 /LPF 03/02/20 04:40 Urine Bacteria (Auto) TRACE /HPF 03/02/20 04:40 Squamous Epi Cells Auto 7 /HPF 03/02/20 04:40 Urine Mucus (Auto) OCC /LPF 03/02/20 04:40 Urine Ascorbic Acid NEGATIVE (NEGATIVE) 03/02/20 04:40 Stool Occult Blood POSITIVE (NEGATIVE) 03/16/20 02:36 Stl C. Difficile GDH Ag NEGATIVE (NEGATIVE) 03/08/20 02:00 Stl C.difficile Tox A&B NEGATIVE (NEGATIVE) 03/08/20 02:00 Time Trough Drawn 1803 03/20/20 18:03 Vancomycin Trough 15.4 ug/mL (5.0-20.0) 03/20/20 18:03 Urine Opiates Screen NEGATIVE 02/29/20 16:40 Urine Methadone Screen NEGATIVE 02/29/20 16:40 Ur Barbiturates Screen NEGATIVE 02/29/20 16:40 Ur Phencyclidine Scrn NEGATIVE 02/29/20 16:40 Ur Amphetamines Screen NEGATIVE 02/29/20 16:40 U Benzodiazepines Scrn NEGATIVE 02/29/20 16:40 Urine Cocaine Screen NEGATIVE 02/29/20 16:40 U Marijuana (THC) Screen NEGATIVE 02/29/20 16:40 Influenza A (RT-PCR) NEGATIVE (NEGATIVE) 03/01/20 14:20 Influenza B (RT-PCR) NEGATIVE (NEGATIVE) 03/01/20 14:20 RSV (RT-PCR) NEGATIVE (NEGATIVE) 03/01/20 14:20 SARS-CoV-2 Rap RNA(RT-PCR) NEGATIVE (NEGATIVE) 03/01/20 14:20 Group A Strep Rapid NEGATIVE (NEGATIVE) 03/01/20 16:45 Slides for Path Review Cancelled 03/23/20 05:10 Blood Type A POSITIVE 03/04/20 11:40 Blood Type Confirm A POSITIVE 03/04/20 11:40 Antibody Screen NEGATIVE 03/04/20 11:40 Antigen Identification C Antigen - NEGATIVE E Antigen - NEGATIVE K Antigen - NEGATIVE 03/04/20 11:40 Antigen Identification C Antigen - NEGATIVE E Antigen - NEGATIVE K Antigen - NEGATIVE 03/04/20 11:40 Antigen Identification C Antigen - NEGATIVE E Antigen - NEGATIVE K Antigen - NEGATIVE 03/04/20 11:40 Crossmatch See Detail 03/04/20 11:40 02/29/20 03/01/20 03/02/20 16:40 15:42 18:31 CK-MB (CK-2) 5.24 H Troponin I 0.034 0.617 0.670 NT-Pro-B Natriuret Pep 03/03/20 03/03/20 03/07/20 00:27 05:49 10:05 CK-MB (CK-2) 4.23 4.22 Troponin I 0.600 0.638 0.049 NT-Pro-B Natriuret Pep 03/07/20 03/07/20 03/08/20 13:35 21:55 04:12 CK-MB (CK-2) 0.27 0.27 0.41 Troponin I 0.050 0.046 0.082 NT-Pro-B Natriuret Pep 03/08/20 03/23/20 14:25 05:10 CK-MB (CK-2) Troponin I NT-Pro-B Natriuret Pep 4970 H 978 H Impressions: Chest X-Ray 02/29/20 15:58 IMPRESSION: Stable appearance of the chest. No acute radiographic abnormality or significant interval change. Chest X-Ray 03/03/20 00:00 IMPRESSION: CENTRAL LINE DESCRIBED. NO PNEUMOTHORAX. NO ACUTE FINDINGS. Chest/Abdomen CTA 03/03/20 00:00 IMPRESSION: There is no pulmonary embolus. There is no aortic aneurysm or dissection. Mild atelectatic changes bilaterally, left more than right. Chest X-Ray 03/06/20 00:00 IMPRESSION: Increasing consolidation/ atelectasis at the left lung base with small left effusion. Chest X-Ray 03/11/20 15:15 IMPRESSION: Persistent basilar infiltrates left greater than right. No significant change from prior study. Central line remains in place overlying the innominate vein. Chest CT 03/12/20 00:00 IMPRESSION: 1. Progression in bilateral opacities/consolidation which may be due to combination of infection and atelectasis. Small bilateral pleural effusions, left larger than right. Chest X-Ray 03/13/20 00:00 IMPRESSION: 1. Persistent and stable appearance of bibasilar disease with evidence of small bilateral pleural effusions. 2. Stable positioning of left-sided central line. Chest X-Ray 03/21/20 00:00 IMPRESSION: In decreasing parenchymal opacities particularly on the right. Persistent left effusion. Venous access catheter unchanged in position. Chest Ultrasound 03/23/20 00:00 IMPRESSION: There is a trace amount of fluid in the left pleural space. There is no fluid in the right pleural space. The amount of fluid in the left pleural space is insufficient for thoracentesis. Plan Health Concerns: High risk for readmission with concern for deterioration in health condition due to her clinical status at the time of discharge with worsening leukocytosis. Plan of Treatment: Continue oral antibiotic and anti fungal for several more days. Close community follow up and post acute care office follow up visit. Goals: Reduce readmission risk. Time Spent: Greater than 30 Minutes Stroke Is this a Stroke Patient?: No Acute Heart Failure Is this a Heart Failure Patient?: No
== END 2020-03-24 18:15 | disposition home or self-care (01) | DRG 811 ==
LOC: ER 15:29 → EH 19:44 → 4W 03-01 00:08 → 3S 03-03 01:40 → 5 03-12 03:15
PROVIDERS: ADMIT Internal Medicine Geriatric Medicine; ATTEND Internal Medicine Geriatric Medicine
PROC: B24BZZ4 Ultrasonography of Heart with Aorta, Transesophageal (ICD-10-PCS; 2020-03-02)
PROC: 02HV33Z Insertion of Infusion Device into Superior Vena Cava, Percutaneous Approach (ICD-10-PCS; 2020-03-03)
PROC: 30233N1 Transfusion of Nonautologous Red Blood Cells into Peripheral Vein, Percutaneous Approach (ICD-10-PCS; principal; 2020-03-04)
DX: D57.00 Hb-SS disease with crisis, unspecified (principal); J96.01 Acute respiratory failure with hypoxia; J18.9 Pneumonia, unspecified organism; I21.4 Non-ST elevation (NSTEMI) myocardial infarction; K52.1 Toxic gastroenteritis and colitis; B37.41 Candidal cystitis and urethritis; Z16.21 Resistance to vancomycin; N17.9 Acute kidney failure, unspecified; J98.11 Atelectasis; Z20.822 Contact with and (suspected) exposure to COVID-19; Y95 Nosocomial condition; B96.1 Klebsiella pneumoniae [K. pneumoniae] as the cause of diseases classified elsewhere; B37.9 Candidiasis, unspecified; B95.2 Enterococcus as the cause of diseases classified elsewhere; K02.9 Dental caries, unspecified; D69.6 Thrombocytopenia, unspecified; E87.6 Hypokalemia; R79.1 Abnormal coagulation profile; N18.30 Chronic kidney disease, stage 3 unspecified; T50.905A Adverse effect of unspecified drugs, medicaments and biological substances, initial encounter; Z79.82 Long term (current) use of aspirin; Z79.899 Other long term (current) drug therapy; Z79.891 Long term (current) use of opiate analgesic
CPT/HCPCS: 36415; 36430; 36600; 71045; 71046; 71250; 71275; 76604; 78452; 80048; 80053; 80061; 80202; 80307; 81001; 82140; 82150; 82272; 82550; 82553; 82565; 82728; 82803; 82962; 83036; 83615; 83690; 83735; 83880; 84100; 84439; 84443; 84484; 85025; 85027; 85045; 85379; 85384; 85610; 85652; 85730; 86140; 86850; 86900; 86901; 86902; 86920; 87040; 87070; 87086; 87088; 87186; 87324; 87449; 87880; 93005; 93010; 93017; 93306; 94640; 94660; 94667; 94668; 94799; 96361; 96374; 96375; 96376; 99285; 0241U; A9500; C9803; J0171; J1170; J1630; J1642; J1650; J1885; J1940; J2270; J2310; J2405; J2543; J2550; J2785; J3370; J3480; J3490; J7030; J7050; J7060; J7120; P9016; Q9969